=== PATIENT | male | born 1935 | race Caucasian/White ===

== ENCOUNTER → 2016-08-23 | Outpatient (CLI) | payer OTHER, MEDICARE ==
[~2016-08-23] MED LIST: ADVIN25/60 INH; ASPEC81 PO; CLC100 PO; CMD3 PO; CRD4 PO; DILT120T3 PO; ESCI10TA17 PO; FLV1 PO; FURO40TA3 PO; LVQ750 PO; METH2.5T PO; METO25TA56 PO; OMEP40CA41 PO; POTA20TA13 PO; PRED-301 PO; SIMV20TA2 PO
[2016-08-23 13:20] LABS: ALT/SGPT 17 U/L (12-78); AST/SGOT 9 U/L (15-37); BLOOD UREA NITROGEN 17 mg/dl (7-18); BUN/CREATININE RATIO 14.4 (10-20); CALCIUM 8.3 mg/dl (8.5-10.1); CARBON DIOXIDE 24 mmol/L (21-32); CHLORIDE 106 mmol/L (98-107); CHOLESTEROL 150 mg/dl (0-200); GLUCOSE 101 mg/dl (70-99); POTASSIUM 3.9 mmol/L (3.5-5.1); SODIUM 141 mmol/L (136-145)
[2016-08-23 13:31] LABS: ALB/GLOB RATIO 1.3 (0.9-2); ALKALINE PHOSPHATASE 83 U/L (45-117); HDL CHOLESTEROL 74 mg/dl; LDL CHOLESTEROL CALCULATED 63 mg/dl; TRIGLYCERIDES 64 mg/dl (0-150); VERY LOW DENSITY LIPOPROT CALC 13 mg/dl
== END | disposition home or self-care (01) ==
LOC: C.LABPVFM 07:30
PROVIDERS: ATTEND Family Medicine
DX: I10 Essential (primary) hypertension (principal); F32.9 Major depressive disorder, single episode, unspecified; E78.5 Hyperlipidemia, unspecified; J45.909 Unspecified asthma, uncomplicated

== ENCOUNTER → 2017-01-28 | Outpatient (CLI) | payer OTHER, MEDICARE ==
[2017-01-28 12:57] LABS: ALT/SGPT 16 U/L (12-78); AST/SGOT 11 U/L (15-37); BLOOD UREA NITROGEN 14 mg/dl (7-18); BUN/CREATININE RATIO 14.7 (10-20); CALCIUM 8.3 mg/dl (8.5-10.1); CARBON DIOXIDE 28 mmol/L (21-32); CHLORIDE 109 mmol/L (98-107); CREATININE 0.93 mg/dl (0.60-1.40); GLUCOSE 96 mg/dl (70-99); POTASSIUM 4.5 mmol/L (3.5-5.1); SODIUM 141 mmol/L (136-145)
[2017-01-28 12:59] LABS: ALB/GLOB RATIO 1.4 (0.9-2); ALKALINE PHOSPHATASE 82 U/L (45-117); CHOLESTEROL 138 mg/dl (0-200); CHOLESTEROL/HDL RATIO 1.9; HDL CHOLESTEROL 71 mg/dl; LDL CHOLESTEROL CALCULATED 51 mg/dl; TRIGLYCERIDES 79 mg/dl (0-150); VERY LOW DENSITY LIPOPROT CALC 16 mg/dl
[2017-01-28 13:19] LABS: ESTIMATED AVERAGE GLUCOSE 117 mg/dl; HA1C FLAG Normal (Normal)
== END | disposition home or self-care (01) ==
LOC: C.LABPVFM 09:37
PROVIDERS: ATTEND Family Medicine
DX: I10 Essential (primary) hypertension (principal); E78.5 Hyperlipidemia, unspecified; R73.9 Hyperglycemia, unspecified; E55.9 Vitamin D deficiency, unspecified

== ENCOUNTER → 2017-05-06 | Outpatient (CLI) | payer OTHER, MEDICARE ==
[2017-05-06 13:23] LABS: ALT/SGPT 16 U/L (12-78); AST/SGOT 11 U/L (15-37); BLOOD UREA NITROGEN 19 mg/dl (7-18); BUN/CREATININE RATIO 20.1 (10-20); CALCIUM 8.2 mg/dl (8.5-10.1); CARBON DIOXIDE 24 mmol/L (21-32); CHLORIDE 105 mmol/L (98-107); CREATININE 0.97 mg/dl (0.60-1.40); GLUCOSE 95 mg/dl (70-99); POTASSIUM 4.1 mmol/L (3.5-5.1); SODIUM 136 mmol/L (136-145)
[2017-05-06 13:31] LABS: ALB/GLOB RATIO 1.3 (0.9-2); ALKALINE PHOSPHATASE 83 U/L (45-117)
--- NOTE | 2017-05-13 12:08 | CODING QUERY MEDICAL NECESSITY ---
SUPPORTING DIAGNOSIS NEEDED Dr. Leo, A supporting diagnosis is required for the test/procedure performed on this patient in order for us to be reimbursed by the patient's insurance. Please provide a supporting diagnosis for the following test/procedure listed below next to the test name along with your signature. *If there is no additional diagnosis for this patient that would support the following test/procedure please document that below next to the test/procedure. Test(s)/Procedure(s) that require a supporting diagnosis: * ([id number]) VITAMIN D ASSAY DIAGNOSIS: DATE OF SERVICE: 05/06/17 Provider Signature: Date: Thank you Brock Corbett [facility] Information Management Once completed, please kindly fax back to [phone] For questions please call [phone]
== END | disposition home or self-care (01) ==
LOC: C.LABPVFM 09:05
PROVIDERS: ATTEND Family Medicine
DX: R94.6 Abnormal results of thyroid function studies (principal); R73.9 Hyperglycemia, unspecified; E55.9 Vitamin D deficiency, unspecified

== ENCOUNTER 2018-07-17 21:45 | Inpatient (IN) ==
--- NOTE | 2018-07-17 22:02 | Emergency Department Note ---
Entered by Devora Jones acting as a scribe for Chip Carreon DO History of Present Illness General Chief complaint: Weakness Stated complaint: STROKE SX Source: patient and family Mode of arrival: EMS Limitations: no limitations History of Present Illness Provider complaint: weakness Onset (ago): hour(s) 1 Location: head Severity: moderate Pain Consistency: + constant Associated symptoms: + denies other symptoms Treatments prior to arrival: none Patient is an 82 year old male presenting to the ED with weakness beginning about x1 hour ago. Family member shares that patient was sitting in his chair w hen he started screaming for help and complaining of headache. They note patient is complaining of sore throat, but did not notice any slurred speech. Per EMS, patient began to have nausea and dizziness associated with headache. Sx are moderate in severity and constant since onset. EMS reports patient is unsure how he obtained his black eye. Patient has hx of afib and stroke. 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 Daughter shares that patient was recently had medication changes x4 days ago. He is taking Coumadin every other day. HPI limited due to patient's weakness and possible stroke. Home Medications Home Medications Medication Instructions Recorded Confirmed Type triamterene-hydrochlorothiazid 25 mg PO DAILY 06/16/18 07/18/18 History [Maxzide-25mg] albuterol sulfate [ProAir HFA] 1 - 2 puff INHALATION Q4 PRN 07/17/18 07/17/18 History aspirin [Aspir-81] 81 mg PO DAILY 07/17/18 07/17/18 History cyanocobalamin (vitamin B-12) 1,000 mcg PO DAILY 07/17/18 07/17/18 History [Vitamin B-12] docusate sodium [Colace] 100 mg PO BID 07/17/18 07/17/18 History doxazosin 4 mg PO BID 07/17/18 07/17/18 History ergocalciferol (vitamin D2) 50,000 unit PO WK 07/17/18 07/17/18 History [Vitamin D2] escitalopram oxalate 10 mg PO DAILY 07/17/18 07/17/18 History fluticasone-salmeterol [Advair 1 inh INHALATION BID 07/17/18 07/17/18 History Diskus] folic acid 1 mg PO DAILY 07/17/18 07/17/18 History furosemide [Lasix] 40 mg PO DAILY PRN 07/17/18 07/17/18 History methotrexate sodium 10 mg PO WK 07/17/18 07/17/18 History mupirocin 1 applic TOPICAL BID 07/17/18 07/17/18 History omeprazole 40 mg PO DAILY 07/17/18 07/17/18 History potassium chloride 20 meq PO DAILY PRN 07/17/18 07/17/18 History prednisone 5 mg PO DAILY 07/17/18 07/17/18 History simvastatin 20 mg PO PM 07/17/18 07/17/18 History tramadol 50 mg PO HS PRN 07/17/18 07/17/18 History triamcinolone acetonide 1 applic TOPICAL BID PRN 07/17/18 07/17/18 History warfarin 3 mg PO DAILY 07/17/18 07/17/18 History Allergies Allergy/AdvReac Type Severity Reaction Status Date / Time hydrocodone AdvReac Severe EXCESSIVE Verified 07/17/18 22:32 DRY MOUTH AND SHAKING Past Med/Surg History Medical History Family history non-contributory CVA (cerebral vascular accident) (Resolved) Family History Other Family history non-contributory Social History Preferred Language: Monegasque Communication Ability: Effective Flamer Sealer Required: No Beliefs That Will Affect Care: None Current Living Situation: Spouse and Family Feels Safe at Home: Yes Safety Concerns: Feels Safe At This Time Smoking Status: Never smoker Hx Alcohol Use: No Hx Substance Use: No Review of Systems See HPI for pertinent positives & negatives. and A total of 10 systems reviewed and were otherwise negative Physical Exam Vital Signs Vital Signs - 24 hr 07/17/18 22:00 07/17/18 22:50 07/17/18 23:05 Temperature 36.5 C Temperature Source Oral Sepsis Recent Fever Within 48 Hours No Sepsis New/Unexplained Change in Mental Status No Sepsis Action Taken by Nursing No Action Required Pulse Rate 109 H 59 L 62 Pulse Rate [Apical] 58 L Pulse Rhythm [Apical] Pulse Strength [Apical] Respiratory Rate 20 19 29 H Respiratory Effort / Characteristics Non-Labored Spontaneous Respiratory Depth Normal Respiratory Pattern Blood Pressure 197/91 H 152/65 H 141/58 H Blood Pressure [Right Arm] 152/65 H Blood Pressure Mean 126 94 85 Blood Pressure Mean [Right Arm] 94 Blood Pressure Position [Right Arm] Pulse Oximetry 94 92 90 Oxygen Delivery Method Room Air Room Air Room Air Oxygen Flow Rate 07/17/18 23:30 07/18/18 00:24 07/18/18 00:27 Temperature Temperature Source Sepsis Recent Fever Within 48 Hours Sepsis New/Unexplained Change in Mental Status Sepsis Action Taken by Nursing Pulse Rate 58 L Pulse Rate [Apical] 73 Pulse Rhythm [Apical] Pulse Strength [Apical] Respiratory Rate 22 20 Respiratory Effort / Characteristics Respiratory Depth Respiratory Pattern Blood Pressure 158/65 H Blood Pressure [Right Arm] 160/74 H Blood Pressure Mean 96 Blood Pressure Mean [Right Arm] 102 Blood Pressure Position [Right Arm] Pulse Oximetry 89 L 90 Oxygen Delivery Method Nasal Cannula Room Air Nasal Cannula Oxygen Flow Rate 07/18/18 00:30 07/18/18 01:01 07/18/18 01:31 Temperature Temperature Source Sepsis Recent Fever Within 48 Hours Sepsis New/Unexplained Change in Mental Status Sepsis Action Taken by Nursing Pulse Rate 62 70 69 Pulse Rate [Apical] Pulse Rhythm [Apical] Pulse Strength [Apical] Respiratory Rate 20 22 18 Respiratory Effort / Characteristics Respiratory Depth Respiratory Pattern Blood Pressure 180/67 H 163/80 H 152/60 H Blood Pressure [Right Arm] Blood Pressure Mean 104 107 90 Blood Pressure Mean [Right Arm] Blood Pressure Position [Right Arm] Pulse Oximetry 98 97 98 Oxygen Delivery Method Nasal Cannula Nasal Cannula Nasal Cannula Oxygen Flow Rate 3 3 3 07/18/18 01:32 07/18/18 02:26 07/18/18 03:00 Temperature 36.9 C Temperature Source Oral Sepsis Recent Fever Within 48 Hours Sepsis New/Unexplained Change in Mental Status Sepsis Action Taken by Nursing Pulse Rate 69 Pulse Rate [Apical] 81 Pulse Rhythm [Apical] Regular Pulse Strength [Apical] Normal Respiratory Rate 16 Respiratory Effort / Characteristics Non-Labored Spontaneous Non-Labored Spontaneous Respiratory Depth Normal Normal Respiratory Pattern Regular Regular Blood Pressure Blood Pressure [Right Arm] 166/69 H Blood Pressure Mean Blood Pressure Mean [Right Arm] 101 Blood Pressure Position [Right Arm] Lying Pulse Oximetry 96 Oxygen Delivery Method Nasal Cannula Nasal Cannula Oxygen Flow Rate 2 2 07/18/18 07:09 07/18/18 08:00 07/18/18 12:58 Temperature 36.7 C 37.0 C Temperature Source Oral Oral Sepsis Recent Fever Within 48 Hours Sepsis New/Unexplained Change in Mental Status Sepsis Action Taken by Nursing Pulse Rate 62 Pulse Rate [Apical] 753 H 56 L Pulse Rhythm [Apical] Pulse Strength [Apical] Respiratory Rate 18 14 Respiratory Effort / Characteristics Non-Labored Spontaneous SOB on Exertion Respiratory Depth Normal Respiratory Pattern Regular Blood Pressure Blood Pressure [Right Arm] 151/77 H 116/56 L Blood Pressure Mean Blood Pressure Mean [Right Arm] 101 76 Blood Pressure Position [Right Arm] Lying Lying Pulse Oximetry 98 98 Oxygen Delivery Method Nasal Cannula Nasal Cannula Nasal Cannula Oxygen Flow Rate 2.0 2 2.0 07/18/18 15:33 07/18/18 17:42 Temperature 36.9 C Temperature Source Oral Sepsis Recent Fever Within 48 Hours Sepsis New/Unexplained Change in Mental Status Sepsis Action Taken by Nursing Pulse Rate 63 Pulse Rate [Apical] 60 Pulse Rhythm [Apical] Pulse Strength [Apical] Respiratory Rate 16 Respiratory Effort / Characteristics Respiratory Depth Respiratory Pattern Blood Pressure Blood Pressure [Right Arm] 119/67 Blood Pressure Mean Blood Pressure Mean [Right Arm] 84 Blood Pressure Position [Right Arm] Sitting Pulse Oximetry 92 Oxygen Delivery Method Room Air Oxygen Flow Rate GENERAL: Patient is awake and alert. He appears very anxious. EYES: The conjunctivae are clear. The pupils are round and reactive. There is significant periorbital ecchymosis on the left eye. There is also subconjunctival hemorrhage in the left eye. EARS, NOSE, MOUTH AND THROAT: The nose is without any evidence of any deformity. Mucous membranes are moist tongue is midline NECK: The neck is nontender and supple. RESPIRATORY: Shallow respirations were noted. There is diffuse rales noted. CARDIOVASCULAR: Irregular rhythm was noted to auscultation. No definite murmur was appreciated. GASTROINTESTINAL: The abdomen was mildly distended and diffusely tender. No guarding or rigidity was noted. MUSCULOSKELETAL/EXTREMITIES: There is no evidence of gross deformity full range of motion is noted in the hips and shoulders SKIN: There is no obvious evidence of any rash. Pedal edema was noted bilaterally. NEUROLOGIC: Patient is oriented x3. Strength was symmetric but diminished bilaterally. Course 2150: Past medical records reviewed. The patient was evaluated in room C04, and a complete history and physical examination were performed. 2334: Discussed patient case with Dr. Huitron, who accepts patient for admission. Administered Medications Aspirin (Ecotrin Ectab) 81 mg PO QAM [facility] Stop: 08/17/18 11:59 Last Admin: 07/18/18 12:30 Dose: 81 mg Documented by: [id number] Escitalopram Oxalate (Lexapro) 10 mg PO DAILY [facility] Stop: 08/17/18 14:29 Last Admin: 07/18/18 17:10 Dose: 10 mg Documented by: [id number] Promethazine HCl 12.5 mg/ (Sodium Chloride) 50.5 mls @ 202 mls/hr IV Q6H PRN PRN Reason: Nausea And Vomiting Stop: 08/17/18 07:45 Last Infusion: 07/18/18 09:04 Dose: 0 mls/hr Documented by: [id number] Admin: 07/18/18 08:49 Dose: 202 mls/hr Documented by: [id number] Ceftriaxone Sodium 1,000 mg/ (Dextrose) 50 mls @ 100 mls/hr IV Q24H [facility]; Protocol Stop: 07/28/18 08:59 Last Infusion: 07/18/18 11:32 Dose: 0 mls/hr Documented by: [id number] Admin: 07/18/18 11:02 Dose: 100 mls/hr Documented by: [id number] Hydrocortisone Sodium (Succinate 25 mg/ Syringe) 0.5 mls @ 4 mls/min IV Q8H [facility] Stop: 08/17/18 08:59 Last Admin: 07/18/18 17:12 Dose: 4 mls/min Documented by: [id number] Admin: 07/18/18 12:14 Dose: 4 mls/min Documented by: [id number] Heparin Sodium/Dextrose (Heparin Sodium/Dextrose) 25,000 units in 500 mls @ 26 mls/hr IV .[id number] [facility]; Protocol Stop: 08/17/18 08:44 Last Admin: 07/18/18 09:00 Dose: 26 mls/hr Documented by: [id number] Cosigned by: [id number] Sodium Chloride (Nss 1000ml) 1,000 mls @ 125 mls/hr IV .Q8H [facility] Stop: 08/17/18 14:29 Last Admin: 07/18/18 14:57 Dose: 125 mls/hr Documented by: [id number] Prednisone (Prednisone) 5 mg PO DAILY [facility] Stop: 08/17/18 14:29 Last Admin: 07/18/18 17:32 Dose: 5 mg Documented by: [id number] Fluticasone/Salmeterol (Advair Diskus 250/50) 1 puffs INH BID [facility] Stop: 08/17/18 08:59 Last Admin: 07/18/18 12:14 Dose: 1 puffs Documented by: [id number] Warfarin Sodium (Coumadin) 3 mg PO DAILY@1600 [facility] Stop: 08/17/18 15:59 Last Admin: 07/18/18 17:11 Dose: 3 mg Documented by: [id number] Discontinued Medications Aspirin (Aspirin) 324 mg PO NOW STA Stop: 07/17/18 23:35 Last Admin: 07/18/18 01:42 Dose: 324 mg Documented by: [id number] Aspirin (Aspirin) 300 mg [place] DAILY [facility] Stop: 08/17/18 08:59 Last Admin: 07/18/18 12:13 Dose: Not Given Documented by: [id number] Heparin Sodium/Dextrose () 1 ea IV ONE ONE; Protocol Stop: 07/18/18 08:31 Last Admin: 07/18/18 09:43 Dose: Not Given Documented by: [id number] Promethazine HCl 6.25 mg/ (Sodium Chloride) 50.25 mls @ 201 mls/hr IV NOW STA Stop: 07/17/18 23:33 Last Infusion: 07/18/18 00:38 Dose: 0 mls/hr Documented by: [id number] Admin: 07/18/18 00:18 Dose: 201 mls/hr Documented by: [id number] Pantoprazole Sodium 40 mg/ (Dextrose) 100 mls @ 20 mls/hr IV Q5H [facility] Stop: 08/17/18 01:13 Last Infusion: 07/18/18 03:12 Dose: 0 mls/hr Documented by: [id number] Admin: 07/18/18 02:19 Dose: 20 mls/hr Documented by: [id number] Pantoprazole Sodium 80 mg/ (Dextrose) 120 mls @ 400 mls/hr IV NOW ONE Stop: 07/18/18 01:31 Last Infusion: 07/18/18 02:34 Dose: 0 mls/hr Documented by: [id number] Admin: 07/18/18 01:42 Dose: 400 mls/hr Documented by: [id number] Pantoprazole Sodium 40 mg/ (Syringe) 10 mls @ 5 mls/min IV DAILY@1100 [facility] Stop: 08/17/18 10:59 Last Admin: 07/18/18 12:15 Dose: 5 mls/min Documented by: [id number] Acetaminophen (Ofirmev) 1,000 mg in 100 mls @ 400 mls/hr IV Q8H PRN PRN Reason: Pain Stop: 08/17/18 07:47 Last Infusion: 07/18/18 09:04 Dose: 0 mls/hr Documented by: [id number] Admin: 07/18/18 08:49 Dose: 400 mls/hr Documented by: [id number] Ioversol (Optiray 320 125ml) 125 ml IV ONCE PRN PRN Reason: Interaction Checking Stop: 07/22/18 00:19 Last Admin: 07/18/18 00:21 Dose: 119 ml Documented by: [id number] Ondansetron HCl (Zofran) 4 mg IV NOW STA Stop: 07/17/18 21:56 Last Admin: 07/17/18 22:02 Dose: 4 mg Documented by: [id number] Medical Decision Making Differential Diagnosis Differential diagnosis: Etiologies such as metabolic, infection, hypo/hyperglycemia, electrolyte abnormalities, cardiac sources, intracerebral event, toxicologic, neurologic, as well as others were entertained. Medical Records Attestation: I reviewed the patient's medical records. Home Medications Current Medication List: was personally reviewed by me Laboratory Data Attestation: I reviewed the patient's lab results. Result diagrams: 07/18/18 05:25 07/18/18 05:25 Lab Results 07/17/18 07/17/18 07/17/18 Range/Units 21:32 21:32 21:32 WBC 6.93 (4.8-10.8) K/uL RBC 4.13 L (4.7-6.1) M/uL Hgb 12.8 L (14.0-18.0) g/dL Hct 40.3 L (42-52) % MCV 97.6 (80-100) fL MCH 31.0 (25-34) pg MCHC 31.8 L (32-36) g/dL RDW Std Deviation 59.6 H (36.4-46.3) fL RDW Coeff of Magali 16.8 H (11.5-14.5) % Plt Count 122 L (130-400) K/uL MPV 10.7 H (7.4-10.4) fL Immature Gran % (Auto) 2.2 % Neut % (Auto) 79.0 % Lymph % (Auto) 11.7 % [place] % (Auto) 5.1 % Eos % (Auto) 1.7 % Baso % (Auto) 0.3 % Immature Gran # (Auto) 0.15 H (0.00-0.02) K/uL Neut # (Auto) 5.48 (1.4-6.5) K/uL Lymph # (Auto) 0.81 L (1.2-3.4) K/uL [place] # (Auto) 0.35 (0.11-0.59) K/uL Eos # (Auto) 0.12 (0-0.5) K/uL Baso # (Auto) 0.02 (0-0.2) K/uL PT 13.7 H (9.0-12.0) Seconds INR 1.4 H (0.9-1.1) APTT (21.0-31.0) Seconds PTT Ratio Sodium 137 (136-145) mmol/L Potassium 3.8 (3.5-5.1) mmol/L Chloride 101 (98-107) mmol/L Carbon Dioxide 26 (21-32) mmol/L Anion Gap 10.0 (3-11) BUN 18 (7-18) mg/dl Creatinine 1.01 (0.6-1.4) mg/dl Est Cr Clr Drug Dosing 58.4 ml/min Est GFR ( Amer) 80.5 Est GFR (Non-Af Amer) 69.4 BUN/Creatinine Ratio 17.4 (10-20) Glucose 107 H (70-99) mg/dl Estimat Average Glucose mg/dl Hemoglobin A1c (4.5-5.6) % Calcium 8.9 (8.5-10.1) mg/dl Magnesium 2.1 (1.8-2.4) mg/dl Total Bilirubin 1.0 (0.2-1) mg/dl AST 20 (15-37) U/L ALT 19 (12-78) U/L Alkaline Phosphatase 82 (45-117) U/L Troponin I < 0.015 (0-0.045) ng/ml Total Protein 6.7 (6.4-8.2) gm/dl Albumin 4.1 (3.4-5.0) gm/dl Globulin 2.6 (2.5-4.0) gm/dl Albumin/Globulin Ratio 1.6 (0.9-2) Triglycerides (0-150) mg/dl Cholesterol (0-200) mg/dl LDL Cholesterol, Calc mg/dl VLDL Cholesterol, Calc mg/dl HDL Cholesterol mg/dl Cholesterol/HDL Ratio TSH 6.220 H (0.300-4.500) uIu/ml Free T4 0.98 (0.8-1.6) ng/dl Urine Color Urine Appearance (Clear) Urine pH (4.5-7.5) Ur Specific [place] (1.000-1.030) Urine Protein (Negative) Urine Glucose (UA) (Negative) Urine Ketones (Negative) Urine Blood (Negative) Urine Nitrite (Negative) Urine Bilirubin (Negative) Urine Urobilinogen (Negative) Ur Leukocyte Esterase (Negative) Urine WBC (Auto) (0-5) /hpf Urine RBC (Auto) (0-4) /hpf U Hyaline Cast (Auto) (0-5) /lpf U Epithel Cells (Auto) (0-5) /lpf Urine Bacteria (Auto) (Negative) Urine Yeast 07/18/18 07/18/18 07/18/18 Range/Units 03:00 05:25 05:25 WBC 9.49 (4.8-10.8) K/uL RBC 3.68 L (4.7-6.1) M/uL Hgb 11.2 L (14.0-18.0) g/dL Hct 36.0 L (42-52) % MCV 97.8 (80-100) fL MCH 30.4 (25-34) pg MCHC 31.1 L (32-36) g/dL RDW Std Deviation 60.6 H (36.4-46.3) fL RDW Coeff of Magali 17.1 H (11.5-14.5) % Plt Count 114 L (130-400) K/uL MPV 10.5 H (7.4-10.4) fL Immature Gran % (Auto) 0.9 % Neut % (Auto) 87.9 % Lymph % (Auto) 7.4 % Carson % (Auto) 3.2 % Eos % (Auto) 0.5 % Baso % (Auto) 0.1 % Immature Gran # (Auto) 0.09 H (0.00-0.02) K/uL Neut # (Auto) 8.34 H (1.4-6.5) K/uL Lymph # (Auto) 0.70 L (1.2-3.4) K/uL [place] # (Auto) 0.30 (0.11-0.59) K/uL Eos # (Auto) 0.05 (0-0.5) K/uL Baso # (Auto) 0.01 (0-0.2) K/uL PT (9.0-12.0) Seconds INR (0.9-1.1) APTT (21.0-31.0) Seconds PTT Ratio Sodium (136-145) mmol/L Potassium (3.5-5.1) mmol/L Chloride (98-107) mmol/L Carbon Dioxide (21-32) mmol/L Anion Gap (3-11) BUN (7-18) mg/dl Creatinine (0.6-1.4) mg/dl Est Cr Clr Drug Dosing ml/min Est GFR ( Amer) Est GFR (Non-Af Amer) BUN/Creatinine Ratio (10-20) Glucose (70-99) mg/dl Estimat Average Glucose 105 mg/dl Hemoglobin A1c 5.3 (4.5-5.6) % Calcium (8.5-10.1) mg/dl Magnesium (1.8-2.4) mg/dl Total Bilirubin (0.2-1) mg/dl AST (15-37) U/L ALT (12-78) U/L Alkaline Phosphatase (45-117) U/L Troponin I (0-0.045) ng/ml Total Protein (6.4-8.2) gm/dl Albumin (3.4-5.0) gm/dl Globulin (2.5-4.0) gm/dl Albumin/Globulin Ratio (0.9-2) Triglycerides (0-150) mg/dl Cholesterol (0-200) mg/dl LDL Cholesterol, Calc mg/dl VLDL Cholesterol, Calc mg/dl HDL Cholesterol mg/dl Cholesterol/HDL Ratio TSH (0.300-4.500) uIu/ml Free T4 (0.8-1.6) ng/dl Urine Color Yellow Urine Appearance Clear (Clear) Urine pH 5.0 (4.5-7.5) Ur Specific [place] > 1.045 H (1.000-1.030) Urine Protein Negative (Negative) Urine Glucose (UA) Negative (Negative) Urine Ketones Negative (Negative) Urine Blood Trace H (Negative) Urine Nitrite Negative (Negative) Urine Bilirubin Negative (Negative) Urine Urobilinogen Negative (Negative) Ur Leukocyte Esterase Negative (Negative) Urine WBC (Auto) 1-5 (0-5) /hpf Urine RBC (Auto) 0-4 (0-4) /hpf U Hyaline Cast (Auto) 1-5 (0-5) /lpf U Epithel Cells (Auto) 0-5 (0-5) /lpf Urine Bacteria (Auto) Negative (Negative) Urine Yeast Not Reportable 07/18/18 07/18/18 07/18/18 Range/Units 05:25 05:25 14:58 WBC (4.8-10.8) K/uL RBC (4.7-6.1) M/uL Hgb (14.0-18.0) g/dL Hct (42-52) % MCV (80-100) fL MCH (25-34) pg MCHC (32-36) g/dL RDW Std Deviation (36.4-46.3) fL RDW Coeff of Magali (11.5-14.5) % Plt Count (130-400) K/uL MPV (7.4-10.4) fL Immature Gran % (Auto) % Neut % (Auto) % Lymph % (Auto) % [place] % (Auto) % Eos % (Auto) % Baso % (Auto) % Immature Gran # (Auto) (0.00-0.02) K/uL Neut # (Auto) (1.4-6.5) K/uL Lymph # (Auto) (1.2-3.4) K/uL [place] # (Auto) (0.11-0.59) K/uL Eos # (Auto) (0-0.5) K/uL Baso # (Auto) (0-0.2) K/uL PT 14.0 H (9.0-12.0) Seconds INR 1.4 H (0.9-1.1) APTT 27.3 60.4 H* (21.0-31.0) Seconds PTT Ratio 1.0 2.2 Sodium 137 (136-145) mmol/L Potassium 4.0 (3.5-5.1) mmol/L Chloride 102 (98-107) mmol/L Carbon Dioxide 29 (21-32) mmol/L Anion Gap 7.0 (3-11) BUN 19 H (7-18) mg/dl Creatinine 0.98 (0.6-1.4) mg/dl Est Cr Clr Drug Dosing 59.3 ml/min Est GFR ( Amer) 83.5 Est GFR (Non-Af Amer) 72.0 BUN/Creatinine Ratio 18.9 (10-20) Glucose 107 H (70-99) mg/dl Estimat Average Glucose mg/dl Hemoglobin A1c (4.5-5.6) % Calcium 8.0 L (8.5-10.1) mg/dl Magnesium (1.8-2.4) mg/dl Total Bilirubin 1.1 H (0.2-1) mg/dl AST 20 (15-37) U/L ALT 18 (12-78) U/L Alkaline Phosphatase 70 (45-117) U/L Troponin I (0-0.045) ng/ml Total Protein 5.8 L (6.4-8.2) gm/dl Albumin 3.4 (3.4-5.0) gm/dl Globulin 2.4 L (2.5-4.0) gm/dl Albumin/Globulin Ratio 1.4 (0.9-2) Triglycerides 46 (0-150) mg/dl Cholesterol 115 (0-200) mg/dl LDL Cholesterol, Calc 43 mg/dl VLDL Cholesterol, Calc 9 mg/dl HDL Cholesterol 63 mg/dl Cholesterol/HDL Ratio 2 TSH (0.300-4.500) uIu/ml Free T4 (0.8-1.6) ng/dl Urine Color Urine Appearance (Clear) Urine pH (4.5-7.5) Ur Specific [place] (1.000-1.030) Urine Protein (Negative) Urine Glucose (UA) (Negative) Urine Ketones (Negative) Urine Blood (Negative) Urine Nitrite (Negative) Urine Bilirubin (Negative) Urine Urobilinogen (Negative) Ur Leukocyte Esterase (Negative) Urine WBC (Auto) (0-5) /hpf Urine RBC (Auto) (0-4) /hpf U Hyaline Cast (Auto) (0-5) /lpf U Epithel Cells (Auto) (0-5) /lpf Urine Bacteria (Auto) (Negative) Urine Yeast Imaging Data Radiologist's Impression: CT head/brain wo con CLINICAL HISTORY: 82 years-old Male presenting with weakness. TECHNIQUE: Multidetector CT imaging of the head was performed without the use of intravenous contrast. IV contrast: None. One or more dose lowering techniques were used consistent with the principles of ALARA (as low as reasonably achievable), including automatic exposure control, mA or kV adjustment to individual patient size, and/or use of iterative reconstruction. COMPARISON: 08/29/2015. CT DOSE (mGy.cm): The estimated cumulative dose is 1083.19. FINDINGS: Clinical Informatics Educator topogram: Median sternotomy wires and cardiomegaly. Proportional ventricular and sulcal prominence, likely age-related parenchymal volume loss. No hemorrhage. Suggestion of a limited old right cerebellar hemispheric infarct. Old left basal ganglia infarcts as on prior exam. Old lacunar infarct in the right imelda, unchanged. No acute territorial infarct. No mass effect or midline shift. No extra-axial fluid collection. Chronic changes of the opacified right maxillary sinus. Calvarium intact. IMPRESSION: 1. 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 2. Limited old infarct in the right cerebellar hemisphere. 3. No acute intracranial pathology. Electronically signed by: Norman Clayton M.D. 07/17/2018 10:34 PM XR chest 1V portable CLINICAL HISTORY: 82 years-old Male presenting with weakness. TECHNIQUE: Portable upright AP view of the chest was obtained. COMPARISON: 06/16/2018. FINDINGS: Median sternotomy wires and prosthetic aortic valve noted. Atherosclerosis of the aortic arch. Cardiac silhouette moderately enlarged. Pulmonary vascular p rominence and bronchial wall cuffing. Heterogeneity of lung parenchyma with coarsened lung markings. Perihilar and bibasilar added density. No large effusion or pneumothorax. Degenerative changes of the glenohumeral joints with right chronic rotator cuff tear. Osteopenia suspected. IMPRESSION: 1. Cardiomegaly with volume overload/congestive change. Developing pulmonary edema not excluded. 2. Post surgical changes of aortic valve replacement. Electronically signed by: Norman Clayton M.D. 07/17/2018 10:[address] cervical spine wo con CLINICAL HISTORY: 82 years-old Male presenting with ? fall. TECHNIQUE: Multidetector CT of the cervical spine was performed cervical spine IV contrast: None. One or more dose lowering techniques were used consistent with the principles of ALARA (as low as reasonably achievable), including automatic exposure control, mA or kV adjustment to individual patient size, and/or use of iterative reconstruction. COMPARISON: CT neck from 05/28/2011. CT DOSE (mGy.cm): The estimated cumulative dose is 1083.19 mGy.cm. FINDINGS: Clinical Informatics Educator topogram: Median sternotomy wires and cardiomegaly. Exaggerated cervical lordosis likely positional. Vertebral bodies maintain normal height. Slight anterolisthesis of C3 on C4 and C4 on C5. Vertebral body alignment otherwise maintained. Multilevel intervertebral disc height loss most severe at C5-6 and C6-7 there are disc osteophyte complexes noted to varying degrees at every level. Resulting posterior bony spurring greatest at C5-6 and C6-7. Uncovertebral hypertrophy and combination with facet arthropathy results in osseous neural foraminal narrowing most severe in the upper to mid cervical spine. No acute fracture or subluxation. Visualized portion of the skull base intact. Paraspinal musculature normal. Atherosclerosis noted. Lung apices clear. IMPRESSION: 1. No acute osseous injury of the cervical spine. 2. Multilevel degenerative changes. Electronically signed by: Norman Clayton M.D. 07/17/2018 10:[address] abd pelvis wo con CLINICAL HISTORY: 82 years-old Male presenting with distended, possible fall, back pain. TECHNIQUE: Multidetector CT of the abdomen and pelvis was performed without the use of intravenous contrast. IV contrast: None. One or more dose lowering techniques were used consistent with the principles of ALARA (as low as reaso nably achievable), including automatic exposure control, mA or kV adjustment to individual patient size, and/or use of iterative reconstruction. COMPARISON: 06/16/2018. CT DOSE (mGy.cm): The estimated cumulative dose is 895.11 mGy.cm. FINDINGS: Clinical Informatics Educator topogram: Median sternotomy wires. Motion artifact grades evaluation of the abdomen mildly limiting diagnostic sensitivity the exam. Lung bases: Multichamber enlargement of the heart. Coronary artery, aortic valve, and mitral annular calcification. No pericardial or pleural effusion. Bronchovascular bundle thickening with patchy dependent nodular opacities in the left lower lobe as on prior exam. Liver: Normal morphology. Normal density. Biliary: No gross biliary ductal dilatation allowing for noncontrast technique. Normal gallbladder. Pancreas: Moderate parenchymal atrophy. Spleen: Punctate calcifications within the parenchyma suggest a history of granulomatous disease. Adrenal glands: Normal noncontrast appearance. Kidneys and ureters: Normal noncontrast appearance. No nephrolithiasis. No hydronephrosis. Normal ureters. Bladder: Normal noncontrast appearance. Pelvic organs: Normal noncontrast appearance. Bowel: Diverticulosis of the proximal sigmoid and descending colon without wall thickening or pericolonic inflammatory change. No pathologic distention of the large bowel. The appendix is normal. No bowel obstruction. Small to moderate hiatal hernia. Peritoneal cavity: No free fluid or intraperitoneal gas. Lymph nodes: No gross lymphadenopathy allowing for noncontrast technique. Vasculature: Extensive calcified atherosclerotic plaque of the normal caliber abdominal aorta. Tortuosity of the iliac vessels. Abdominal wall: Fat and small bowel containing right inguinal hernia. No bowel obstruction. No fluid in the hernia sac. No infiltration of the small bowel mesentery or omentum. Nonspecific body wall edema. Musculoskeletal: Osteopenia. Degenerative changes of the lumbar spine. Old left rib fractures. No acute osseous injury. IMPRESSION: 1. Allowing for noncontrast technique, no convincing evidence of acute intra- abdominal injury. No acute osseous injury allowing for osteopenia and degenerative change. 2. Chronic findings as above. Electronically signed by: Norman Clayton M.D. 07/17/2018 10:30 PM CTA HEAD: No stenosis/occlusion or aeurysm of the intracranial vessels. Chronic right maxillary sinusitis. Radiologist: Miguelina Reed MD. Study ready at 00:20 and initial results transmitted at 00:52. CTA NECK: Prominent wall thickening is noted at the right carotid bifurication extending into the proximal ICA. There is approximately 25% luminal narrowing and mucosal irregularity involving the proximal right ICA without a dissection flap. Findings could be related to the previous surgery or vasculitis. Mild atherosclerotic plaque at the proximal left ICA. No stenosis/occlusion or dissection. No stenosis/occlusion or dissection of the bilateral vertebral arteries. Radiologist: Miguelina Reed MD Study ready at 00:21 and initial results transmitted at 00:58 ECG Data Attestation: I personally reviewed and interpreted this ECG as follows: Indication: weakness Rate (beats per minute): 83 Rhythm: atrial fibrillation Findings: + PVC and + RBBB Comparison ECG Date: from (06/16/18) Change: no significant change Blood Pressure Blood Pressure Findings: Elevated blood pressure Blood Pressure Disposition: further management by hospitalist MDM Narrative The patient is an 82-year-old male who presented to the emergency department with nausea and vomiting. The patient had the appearance of vertigo with a headache that was diffuse over the top of his head. The patient does take Coumadin but recently his medications have been changed because of an abnormal INR. The patient was treated with medications for vertigo in the emergency department. He had very little improvement in his symptoms. I discussed patient's laboratory and radiographic studies with him and his family members. Because of the degree of symptoms as well as the possibility of cerebellar infarct I discussed his case with the on-call [facility] hospitalist. They have recommended a CT angiography of the head neck. They have agreed to evaluate the patient in the emergency department for further management and disposition. Impression & Plan Vertigo, Cerebellar stroke Discharge Plan Visit Data *Final* Discharge Date/Time: 07/18/18 01:39 Chief Complaint: Weakness Stated Complaint: STROKE SX ED Provider: Chip Carreon Discharge Problem: Vertigo, Cerebellar stroke Patient Disposition: Admitted As Inpatient Discharge Instructions Interventions: ED Discharge Assessment Last Done: 07/18/18 01:39 The scribe's documentation has been prepared under my direction and personally reviewed by me in its entirety. I confirm that the note above accurately reflects all work, treatment, procedures, and medical decision making performed by me.
--- NOTE | 2018-07-17 22:15 | XRay Report ---
XR chest 1V portable CLINICAL HISTORY: 82 years-old Male presenting with weakness. TECHNIQUE: Portable upright AP view of the chest was obtained. COMPARISON: 06/16/2018. FINDINGS: Median sternotomy wires and prosthetic aortic valve noted. Atherosclerosis of the aortic arch. Cardia c silhouette moderately enlarged. Pulmonary vascular prominence and bronchial wall cuffing. Heterogen eity of lung parenchyma with coarsened lung markings. Perihilar and bibasilar added density. No large effusion or pneumothorax. Degenerative changes of the glenohumeral joints with right chronic rotator cuff tear. Osteopenia suspected. IMPRESSION: 1. Cardiomegaly with volume overload/congestive change. Developing pulmonary edema not excluded. 2. Post surgical changes of aortic valve replacement. Electronically signed by: Norman Clayton M.D. 07/17/2018 10:12 PM
--- NOTE | 2018-07-17 22:32 | CT Scan Report ---
CT abd pelvis wo con CLINICAL HISTORY: 82 years-old Male presenting with distended, possible fall, back pain. TECHNIQUE: Multidetector CT of the abdomen and pelvis was performed without the use of intravenous co ntrast. IV contrast: None. One or more dose lowering techniques were used consistent with the princip les of ALA (as low as reasonably achievable), including automatic exposure control, mA or kV adjust ment to individual patient size, and/or use of iterative reconstruction. COMPARISON: 06/16/2018. CT DOSE (mGy.cm): The estimated cumulative dose is 895.11 mGy.cm. FINDINGS: Cad Specialist topogram: Median sternotomy wires. Motion artifact grades evaluation of the abdomen mildly limiting diagnostic sensitivity the exam. Lung bases: Multichamber enlargement of the heart. Coronary artery, aortic valve, and mitral annular calcification. No pericardial or pleural effusion. Bronchovascular bundle thickening with patchy depe ndent nodular opacities in the left lower lobe as on prior exam. Liver: Normal morphology. Normal density. Biliary: No gross biliary ductal dilatation allowing for noncontrast technique. Normal gallbladder. Pancreas: Moderate parenchymal atrophy. Spleen: Punctate calcifications within the parenchyma suggest a history of granulomatous disease. Adrenal glands: Normal noncontrast appearance. Kidneys and ureters: Normal noncontrast appearance. No nephrolithiasis. No hydronephrosis. Normal ure ters. Bladder: Normal noncontrast appearance. Pelvic organs: Normal noncontrast appearance. Bowel: Diverticulosis of the proximal sigmoid and descending colon without wall thickening or pericol onic inflammatory change. No pathologic distention of the large bowel. The appendix is normal. No bow el obstruction. Small to moderate hiatal hernia. Peritoneal cavity: No free fluid or intraperitoneal gas. Lymph nodes: No gross lymphadenopathy allowing for noncontrast technique. Vasculature: Extensive calcified atherosclerotic plaque of the normal caliber abdominal aorta. Tortuo sity of the iliac vessels. Abdominal wall: Fat and small bowel containing right inguinal hernia. No bowel obstruction. No fluid in the hernia sac. No infiltration of the small bowel mesentery or omentum. Nonspecific body wall juan ramon ma. Musculoskeletal: Osteopenia. Degenerative changes of the lumbar spine. Old left rib fractures. No acu te osseous injury. IMPRESSION: 1. Allowing for noncontrast technique, no convincing evidence of acute intra-abdominal injury. No ac kenan osseous injury allowing for osteopenia and degenerative change. 2. Chronic findings as above. Electronically signed by: Norman Clayton M.D. 07/17/2018 10:30 PM
--- NOTE | 2018-07-17 22:36 | CT Scan Report ---
CT head/brain wo con CLINICAL HISTORY: 82 years-old Male presenting with weakness. TECHNIQUE: Multidetector CT imaging of the head was performed without the use of intravenous contrast . IV contrast: None. One or more dose lowering techniques were used consistent with the principles of ALARA (as low as reasonably achievable), including automatic exposure control, mA or kV adjustment t o individual patient size, and/or use of iterative reconstruction. COMPARISON: 08/29/2015. CT DOSE (mGy.cm): The estimated cumulative dose is 1083.19. FINDINGS: Web Editor topogram: Median sternotomy wires and cardiomegaly. Proportional ventricular and sulcal prominence, likely age-related parenchymal volume loss. No hemorr tom. Suggestion of a limited old right cerebellar hemispheric infarct. Old left basal ganglia infarc ts as on prior exam. Old lacunar infarct in the right imelda, unchanged. No acute territorial infarct. No mass effect or midline shift. No extra-axial fluid collection. Chronic changes of the opacified ri ght maxillary sinus. Calvarium intact. IMPRESSION: 1. 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 2. Limited old infarct in the right cerebellar hemisphere. 3. No acute intracranial pathology. Electronically signed by: Norman Clayton M.D. 07/17/2018 10:34 PM
--- NOTE | 2018-07-17 22:41 | CT Scan Report ---
CT cervical spine wo con CLINICAL HISTORY: 82 years-old Male presenting with ? fall. TECHNIQUE: Multidetector CT of the cervical spine was performed cervical spine IV contrast: None. One or more dose lowering techniques were used consistent with the principles of ALARA (as low as reason ably achievable), including automatic exposure control, mA or kV adjustment to individual patient siz e, and/or use of iterative reconstruction. COMPARISON: CT neck from 05/28/2011. CT DOSE (mGy.cm): The estimated cumulative dose is 1083.19 mGy.cm. FINDINGS: Mine Wedge Sawyer topogram: Median sternotomy wires and cardiomegaly. Exaggerated cervical lordosis likely positional. Vertebral bodies maintain normal height. Slight ante rolisthesis of C3 on C4 and C4 on C5. Vertebral body alignment otherwise maintained. Multilevel inter vertebral disc height loss most severe at C5-6 and C6-7 there are disc osteophyte complexes noted to varying degrees at every level. Resulting posterior bony spurring greatest at C5-6 and C6-7. Uncovert ebral hypertrophy and combination with facet arthropathy results in osseous neural foraminal narrowin g most severe in the upper to mid cervical spine. No acute fracture or subluxation. Visualized portio n of the skull base intact. Paraspinal musculature normal. Atherosclerosis noted. Lung apices clear. IMPRESSION: 1. No acute osseous injury of the cervical spine. 2. Multilevel degenerative changes. Electronically signed by: Norman Clayton M.D. 07/17/2018 10:40 PM
--- NOTE | 2018-07-18 01:17 | History & Physical Report ---
Date of Service July 18, 2018 Assessment & Plan (1) Vertigo: Intractable vertigo/ambulatory dysfunction/confusion/CT imaging revealing multiple old infarctions involving left basal ganglia and right imelda/limited old infarct in right cerebellar hemisphere-- Admit to monitored bed. NPO. Order CTA of head and neck for tonight. When patient's symptoms of vertigo, nausea and vomiting are controlled, will attempt MRI of the brain without contrast at that time. Failed dysphagia screen in the ED. Aspiration precautions. Ischemic stroke protocol order set begun. Consult neurology. Present on Admission?: Yes (2) Basal ganglia infarction: As above. Present on Admission?: Yes (3) Cerebrovascular accident of right pontine structure: As above. Present on Admission?: Yes (4) Cerebral infarction involving right cerebellar artery: As above. Present on Admission?: Yes (5) Atrial fibrillation: History of atrial fibrillation, on chronic anticoagulation with warfarin. Warfarin has been held recently due to INR of 4.1, and left eye subconjunctival hemorrhage and periorbital ecchymosis of unknown cause. INR today 1.4. We will hold anticoagulation until MRI performed. Consult cardiology. Patient will likely need a bridge with either IV heparin or Lovenox until warfarin is therapeutic again. 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 Present on Admission?: Yes (6) Chronic anticoagulation: As noted above. Present on Admission?: Yes (7) Hyperlipidemia LDL goal <70: Patient has been on simvastatin 20 mg daily. Check a fasting lipid panel. Should be on high-dose statin. Present on Admission?: Yes (8) Vitamin B12 deficiency: Hold vitamin B12 supplement until taking p.o. Present on Admission?: Yes (9) Asthma: Order duo nebs to have available to use 4 times daily and every 2 hours as needed Present on Admission?: Yes (10) Depression: Resume Lexapro when taking p.o. Present on Admission?: Yes (11) Arthritis: On methotrexate, and folic acid in the outpatient setting. Resume folic acid when taking p.o. If a prolonged interval, can be given IV, as with vitamin B12 above. Present on Admission?: Yes (12) GERD (gastroesophageal reflux disease): Placed on pantoprazole 40 mg IV daily. Present on Admission?: Yes (13) Subconjunctival hemorrhage of left eye: Warfarin has been held due to subconjunctival hemorrhage and periorbital ecchymosis. Will need close monitoring when the anticoagulation resumed. Present on Admission?: Yes History of Present Illness Chief Complaint: The patient developed acute onset of a right frontal headache, sore throat and generalized weakness and confusion about 1 hour prior to arrival. His family member report that patient was sitting in a chair, and then began screaming for help and reported that he had a severe headache, after which he developed severe nausea and dizziness. Primary Care Provider: Angelica Leo MD The patient is an 82-year-old male with a past medical history including previous strokes, who presents to the emergency department with frequent nausea and vomiting, along with right frontal headache and vertigo. He has had vertiginous symptoms in the past related to GI issues, per family, however they feel that these symptoms are different and more concerned regarding the possibility of a stroke. He takes warfarin due to atrial fibrillation. His family reports that his INR was recently 4.1, and he had developed left eye conjunctival hemorrhages and external periorbital ecchymoses, and his warfarin had been held for 3 days. His INR today was found to be 1.4. From history relayed from family, the patient reportedly has had a stroke in the past, with resultant left-sided weakness. The patient himself has confusion, and is not able to contribute significantly to his HPI or review of systems. Allergies Allergy/AdvReac Type Severity Reaction Status Date / Time hydrocodone AdvReac Severe EXCESSIVE Verified 07/17/18 22:32 DRY MOUTH AND SHAKING Home Medications Home Medications Medication Instructions Recorded Confirmed Type triamterene-hydrochlorothiazid 0 mg PO DAILY 06/16/18 07/17/18 History [Maxzide-25mg] albuterol sulfate [ProAir HFA] 1 - 2 puff INHALATION Q4 PRN 07/17/18 07/17/18 History aspirin [Aspir-81] 81 mg PO DAILY 07/17/18 07/17/18 History cyanocobalamin (vitamin B-12) 1,000 mcg PO DAILY 07/17/18 07/17/18 History [Vitamin B-12] docusate sodium [Colace] 100 mg PO BID 07/17/18 07/17/18 History doxazosin 4 mg PO BID 07/17/18 07/17/18 History ergocalciferol (vitamin D2) 50,000 unit PO WK 07/17/18 07/17/18 History [Vitamin D2] escitalopram oxalate 10 mg PO DAILY 07/17/18 07/17/18 History fluticasone-salmeterol [Advair 1 inh INHALATION BID 07/17/18 07/17/18 History Diskus] folic acid 1 mg PO DAILY 07/17/18 07/17/18 History furosemide [Lasix] 40 mg PO DAILY PRN 07/17/18 07/17/18 History methotrexate sodium 10 mg PO WK 07/17/18 07/17/18 History mupirocin 1 applic TOPICAL BID 07/17/18 07/17/18 History omeprazole 40 mg PO DAILY 07/17/18 07/17/18 History potassium chloride 20 meq PO DAILY PRN 07/17/18 07/17/18 History prednisone 5 mg PO DAILY 07/17/18 07/17/18 History simvastatin 20 mg PO PM 07/17/18 07/17/18 History tramadol 50 mg PO HS PRN 07/17/18 07/17/18 History triamcinolone acetonide 1 applic TOPICAL BID PRN 07/17/18 07/17/18 History warfarin 3 mg PO DAILY 07/17/18 07/17/18 History Past Med/Surg History Medical History Family history non-contributory CVA (cerebral vascular accident) (Resolved) Family History Other Family history non-contributory Social History Preferred Language: Citizen Of [place] Communication Ability: Effective Material Expeditor Required: No Beliefs That Will Affect Care: None Current Living Situation: Spouse and Family Feels Safe at Home: Yes Safety Concerns: Feels Safe At This Time Smoking Status: Never smoker Hx Alcohol Use: No Hx Substance Use: No Review of Systems Review of systems is limited as noted above. Physical Exam Vital Signs (Past 24 Hours): Last Vital Signs Temp 36.5 C 07/17/18 22:00 Pulse 73 07/18/18 00:24 Resp 20 07/18/18 00:24 BP 160/74 H 07/18/18 00:24 Pulse Ox 90 07/18/18 00:24 Physical Exam: The patient is awake, somewhat lethargic, ecchymoses around left eye, lying in bed and in no acute distress. HEENT--difficult exam due to swelling and ecchymoses periorbitally left eye. Mucous membranes and oropharynx dry. Neck--supple. No JVD. No bruits. Thyroid normal, trachea midline, no adenopathy. Heart--irregularly irregular. No murmurs, rubs or gallops. Lungs--clear bilaterally, no respiratory distress, no accessory muscle use. Abdomen--normal bowel sounds and soft. Nontender. Nondistended, no hernias or masses, no organomegaly. Extremities--no cyanosis or clubbing. No edema. There are good distal pulses b/l. Dermatologic--as noted above. Neurologic--limited exam Rheumatologic--limited exam Psychiatric--limited exam. Results & Data Laboratory Results Laboratory Results WBC 6.93 K/uL (4.8-10.8) 07/17/18 21: RBC 4.13 M/uL (4.7-6.1) L 07/17/18 21:32 Hgb 12.8 g/dL (14.0-18.0) L 07/17/18 21:32 Hct 40.3 % (42-52) L 07/17/18 21: MCV 97.6 fL (80-100) 07/17/18 21: MCH 31.0 pg (25-34) 07/17/18 21: MCHC 31.8 g/dL (32-36) L 07/17/18 21:32 RDW Std Deviation 59.6 fL (36.4-46.3) H 07/17/18 21:32 RDW Coeff of Magali 16.8 % (11.5-14.5) H 07/17/18:32 Plt Count 122 K/uL (130-400) L 07/17/18: MPV 10.7 fL (7.4-10.4) H 07/17/18 21:32 Immature Gran % (Auto) 2.2 % 07/17/18: Neut % (Auto) 79.0 % 07/17/18: Lymph % (Auto) 11.7 % 03/04/19 21:32 Evans % (Auto) 5.1 % 07/17/18 21:32 Eos % (Auto) 1.7 % 07/17/18 21:32 Baso % (Auto) 0.3 % 07/17/18 21:32 Immature Gran # (Auto) 0.15 K/uL (0.00-0.02) H 07/17/18 21:32 Neut # (Auto) 5.48 K/uL (1.4-6.5) 07/17/18 21:32 Lymph # (Auto) 0.81 K/uL (1.2-3.4) L 07/17/18 21:32 Evans # (Auto) 0.35 K/uL (0.11-0.59) 07/17/18 21:32 Eos # (Auto) 0.12 K/uL (0-0.5) 07/17/18 21:32 Baso # (Auto) 0.02 K/uL (0-0.2) 07/17/18 21:32 PT 13.7 Seconds (9.0-12.0) H 07/17/18 21:32 INR 1.4 (0.9-1.1) H 07/17/18 21:32 Sodium 137 mmol/L (136-145) 07/17/18 21:32 Potassium 3.8 mmol/L (3.5-5.1) 07/17/18 21:32 Chloride 101 mmol/L (98-107) 07/17/18 21:32 Carbon Dioxide 26 mmol/L (21-32) 07/17/18 21:32 Anion Gap 10.0 (3-11) 07/17/18 21:32 BUN 18 mg/dl (7-18) 07/17/18 21:32 Creatinine 1.01 mg/dl (0.6-1.4) 07/17/18 21:32 Est Cr Clr Drug Dosing 58.4 ml/min 07/17/18 21:32 Est GFR ( Amer) 80.5 07/17/18 21:32 Est GFR (Non-Af Amer) 69.4 07/17/18 21:32 BUN/Creatinine Ratio 17.4 (10-20) 07/17/18 21:32 Glucose 107 mg/dl (70-99) H 07/17/18 21:32 Calcium 8.9 mg/dl (8.5-10.1) 07/17/18 21:32 Magnesium 2.1 mg/dl (1.8-2.4) 07/17/18 21:32 Total Bilirubin 1.0 mg/dl (0.2-1) 07/17/18 21:32 AST 20 U/L (15-37) 07/17/18 21:32 ALT 19 U/L (12-78) 07/17/18 21:32 Alkaline Phosphatase 82 U/L (45-117) 07/17/18 21:32 Troponin I < 0.015 ng/ml (0-0.045) 07/17/18 21:32 Total Protein 6.7 gm/dl (6.4-8.2) 07/17/18 21:32 Albumin 4.1 gm/dl (3.4-5.0) 07/17/18 21:32 Globulin 2.6 gm/dl (2.5-4.0) 07/17/18 21:32 Albumin/Globulin Ratio 1.6 (0.9-2) 07/17/18 21:32 TSH 6.220 uIu/ml (0.300-4.500) H 07/17/18 21:32 Free T4 0.98 ng/dl (0.8-1.6) 07/17/18 21:32 Urine Color Yellow 07/18/18 03:00 Urine Appearance Clear (Clear) 07/18/18 03:00 Urine pH 5.0 (4.5-7.5) 07/18/18 03:00 Ur Specific [place] > 1.045 (1.000-1.030) H 07/18/18 03:00 Urine Protein Negative (Negative) 07/18/18 03:00 Urine Glucose (UA) Negative (Negative) 07/18/18 03:00 Urine Ketones Negative (Negative) 07/18/18 03:00 Urine Blood Trace (Negative) H 07/18/18 03:00 Urine Nitrite Negative (Negative) 07/18/18 03:00 Urine Bilirubin Negative (Negative) 07/18/18 03:00 Urine Urobilinogen Negative (Negative) 07/18/18 03:00 Ur Leukocyte Esterase Negative (Negative) 07/18/18 03:00 Urine WBC (Auto) 1-5 /hpf (0-5) 07/18/18 03:00 U Hyaline Cast (Auto) 1-5 /lpf (0-5) 07/18/18 03:00 U Epithel Cells (Auto) 0-5 /lpf (0-5) 07/18/18 03:00 Urine Bacteria (Auto) Negative (Negative) 07/18/18 03:00 Diagnostic Findings [place], [place] [phone] CT Scan Report Patient: REENA BECKFORD EAdmit Date: 07/17/18 MR#: [id number]: [address] [facility] Acct ID:[id number]: Date: 1935[facility] Zip: [place] [address] Age: 82Location: ED Sex: M Room/Bed: Att Phy: Diagnosis: STROKE SX Yanely Phy: Angelica Leo MDService Date: 07/17/18 Fam Phy: Interpreting Phy: Norman Clayton MD Admit Phy: Ordering Phy: Chip Carreon DO cc: ~ CT abd pelvis wo con CLINICAL HISTORY: 82 years-old Male presenting with distended, possible fall, back pain. TECHNIQUE: Multidetector CT of the abdomen and pelvis was performed without the use of intravenous contrast. IV contrast: None. One or more dose lowering techniques were used consistent with the principles of ALARA (as low as reasonably achievable), including automatic exposure control, mA or kV adjustment to individual patient size, and/or use of iterative reconstruction. COMPARISON: 06/16/2018. CT DOSE (mGy.cm): The estimated cumulative dose is 895.11 mGy.cm. FINDINGS: Sweetbread Trimmer topogram: Median sternotomy wires. Motion artifact grades evaluation of the abdomen mildly limiting diagnostic sensitivity the exam. Lung bases: Multichamber enlargement of the heart. Coronary artery, aortic valve, and mitral annular calcification. No pericardial or pleural effusion. Bronchovascular bundle thickening with patchy dependent nodular opacities in the left lower lobe as on prior exam. Liver: Normal morphology. Normal density. Biliary: No gross biliary ductal dilatation allowing for noncontrast technique. Normal gallbladder. Pancreas: Moderate parenchymal atrophy. Spleen: Punctate calcifications within the parenchyma suggest a history of granulomatous disease. Adrenal glands: Normal noncontrast appearance. Kidneys and ureters: Normal noncontrast appearance. No nephrolithiasis. No hydronephrosis. Normal ureters. Bladder: Normal noncontrast appearance. Pelvic organs: Normal noncontrast appearance. Bowel: Diverticulosis of the proximal sigmoid and descending colon without wall thickening or pericolonic inflammatory change. No pathologic distention of the large bowel. The appendix is normal. No bowel obstruction. Small to moderate hiatal hernia. Peritoneal cavity: No free fluid or intraperitoneal gas. Lymph nodes: No gross lymphadenopathy allowing for noncontrast technique. Vasculature: Extensive calcified atherosclerotic plaque of the normal caliber abdominal aorta. Tortuosity of the iliac vessels. Abdominal wall: Fat and small bowel containing right inguinal hernia. No bowel obstruction. No fluid in the hernia sac. No infiltration of the small bowel mesentery or omentum. Nonspecific body wall edema. Musculoskeletal: Osteopenia. Degenerative changes of the lumbar spine. Old left rib fractures. No acute osseous injury. IMPRESSION: 1. Allowing for noncontrast technique, no convincing evidence of acute intra- abdominal injury. No acute osseous injury allowing for osteopenia and degenerative change. 2. Chronic findings as above. Electronically signed by: Norman Clayton M.D. 07/17/2018 10:30 PM Dictated: 07/17/182224 Transcribed: 07/17/182224 [place], [place] [phone] CT Scan Report Patient: REENA BECKFORD EAdmit Date: 07/17/18 MR#: [id number]: [address] [facility] Acct ID:[id number]: Date: 1935[facility] Zip: [place] [address] Age: 82Location: ED Sex: M Room/Bed: Att Phy: Diagnosis: STROKE SX Yanely Phy: Angelica Leo MDService Date: 07/17/18 Fam Phy: Angelica Leo MDInterpreting Phy: Norman Clayton MD Admit Phy: Ordering Phy: Chip Carreon DO cc: ~ CT head/brain wo con CLINICAL HISTORY: 82 years-old Male presenting with weakness. TECHNIQUE: Multidetector CT imaging of the head was performed without the use of intravenous contrast. IV contrast: None. One or more dose lowering techniques were used consistent with the principles of ALARA (as low as reasonably achievable), including automatic exposure control, mA or kV adjustment to individual patient size, and/or use of iterative reconstruction. COMPARISON: 08/29/2015. CT DOSE (mGy.cm): The estimated cumulative dose is 1083.19. FINDINGS: Sweetbread Trimmer topogram: Median sternotomy wires and cardiomegaly. Proportional ventricular and sulcal prominence, likely age-related parenchymal volume loss. No hemorrhage. Suggestion of a limited old right cerebellar hemispheric infarct. Old left basal ganglia infarcts as on prior exam. Old lacunar infarct in the right imelda, unchanged. No acute territorial infarct. No mass effect or midline shift. No extra-axial fluid collection. Chronic changes of the opacified right maxillary sinus. Calvarium intact. IMPRESSION: 1. 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 2. Limited old infarct in the right cerebellar hemisphere. 3. No acute intracranial pathology. Electronically signed by: Norman Clayton M.D. 07/17/2018 10:34 PM [place], [place] [phone] XRay Report Patient: REENA BECKFORD EAdmit Date: 07/17/18 MR#: [id number]: [address] [facility] Acct ID:[id number]: Date: 1935[facility] Zip: [place] [address] Age: 82Location: ED Sex: M Room/Bed: Att Phy: Diagnosis: STROKE SX Yanely Phy: Angelica Leo MDService Date: 07/17/18 Fam Phy: Interpreting Phy: Norman Clayton MD Admit Phy: Ordering Phy: Chip Carreon DO cc: ~ XR chest 1V portable CLINICAL HISTORY: 82 years-old Male presenting with weakness. TECHNIQUE: Portable upright AP view of the chest was obtained. COMPARISON: 06/16/2018. FINDINGS: Median sternotomy wires and prosthetic aortic valve noted. Atherosclerosis of the aortic arch. Cardiac silhouette moderately enlarged. Pulmonary vascular prominence and bronchial wall cuffing. Heterogeneity of lung parenchyma with coarsened lung markings. Perihilar and bibasilar added density. No large effusion or pneumothorax. Degenerative changes of the glenohumeral joints with right chronic rotator cuff tear. Osteopenia suspected. IMPRESSION: 1. Cardiomegaly with volume overload/congestive change. Developing pulmonary edema not excluded. 2. Post surgical changes of aortic valve replacement. Electronically signed by: Norman Clayton M.D. 07/17/2018 10:12 PM Dictated: 07/17/182210 Transcribed: 07/17/182210 [place], [place] [phone] CT Scan Report Patient: REENA BECKFORD EAdmit Date: 07/17/18 MR#: [id number]: [address] [facility] Acct ID:[id number]: Date: 1935[facility] Zip: [place] [address] Age: 82Location: ED Sex: M Room/Bed: Att Phy: Diagnosis: STROKE SX Yanely Phy: Angelica Leo MDService Date: 07/17/18 Fam Phy: Angelica Leo MDInterpreting Phy: Norman Clayton MD Admit Phy: Ordering Phy: Chip Carreon DO cc: ~ CT cervical spine wo con CLINICAL HISTORY: 82 years-old Male presenting with ? fall. TECHNIQUE: Multidetector CT of the cervical spine was performed cervical spine IV contrast: None. One or more dose lowering techniques were used consistent with the principles of ALARA (as low as reasonably achievable), including automatic exposure control, mA or kV adjustment to individual patient size, and/or use of iterative reconstruction. COMPARISON: CT neck from 05/28/2011. CT DOSE (mGy.cm): The estimated cumulative dose is 1083.19 mGy.cm. FINDINGS: Sweetbread Trimmer topogram: Median sternotomy wires and cardiomegaly. Exaggerated cervical lordosis likely positional. Vertebral bodies maintain normal height. Slight anterolisthesis of C3 on C4 and C4 on C5. Vertebral body alignment otherwise maintained. Multilevel intervertebral disc height loss most severe at C5-6 and C6-7 there are disc osteophyte complexes noted to varying degrees at every level. Resulting posterior bony spurring greatest at C5-6 and C6-7. Uncovertebral hypertrophy and combination with facet arthropathy results in osseous neural foraminal narrowing most severe in the upper to mid cervical spine. No acute fracture or subluxation. Visualized portion of the skull base intact. Paraspinal musculature normal. Atherosclerosis noted. Lung apices clear. IMPRESSION: 1. No acute osseous injury of the cervical spine. 2. Multilevel degenerative changes. Electronically signed by: Norman Clayton M.D. 07/17/2018 10:40 PM Dictated: 07/17/182233 Transcribed: 07/17/182233 Medications Administered Home Medications Medication Instructions Recorded Confirmed triamterene-hydrochlorothiazid 0 mg PO DAILY 06/16/18 07/17/18 [Maxzide-25mg] albuterol sulfate [ProAir HFA] 1 - 2 puff INHALATION Q4 PRN 07/17/18 07/17/18 aspirin [Aspir-81] 81 mg PO DAILY 07/17/18 07/17/18 cyanocobalamin (vitamin B-12) 1,000 mcg PO DAILY 07/17/18 07/17/18 [Vitamin B-12] docusate sodium [Colace] 100 mg PO BID 07/17/18 07/17/18 doxazosin 4 mg PO BID 07/17/18 07/17/18 ergocalciferol (vitamin D2) 50,000 unit PO WK 07/17/18 07/17/18 [Vitamin D2] escitalopram oxalate 10 mg PO DAILY 07/17/18 07/17/18 fluticasone-salmeterol [Advair 1 inh INHALATION BID 07/17/18 07/17/18 Diskus] folic acid 1 mg PO DAILY 07/17/18 07/17/18 furosemide [Lasix] 40 mg PO DAILY PRN 07/17/18 07/17/18 methotrexate sodium 10 mg PO WK 07/17/18 07/17/18 mupirocin 1 applic TOPICAL BID 07/17/18 07/17/18 omeprazole 40 mg PO DAILY 07/17/18 07/17/18 potassium chloride 20 meq PO DAILY PRN 07/17/18 07/17/18 prednisone 5 mg PO DAILY 07/17/18 07/17/18 simvastatin 20 mg PO PM 07/17/18 07/17/18 tramadol 50 mg PO HS PRN 07/17/18 07/17/18 triamcinolone acetonide 1 applic TOPICAL BID PRN 07/17/18 07/17/18 warfarin 3 mg PO DAILY 07/17/18 07/17/18 Code Status & VTE Plan Code Status Full code VTE Prophylaxis Plan VTE Prophylaxis will be ordered: Yes
--- NOTE | 2018-07-18 07:10 | CT Scan Report ---
HEAD CTA HISTORY: vertigo TECHNIQUE: Multiaxial CT images of the head were performed both following the intravenous administrat ion of contrast to evaluate the major cerebral vessels. Maximum intensity projection images were also obtained. A dose lowering technique was utilized adhering to the principles of ALARA. COMPARISON: Head CT 07/17/2018. FINDINGS: There is no mass, hematoma, midline shift, or acute infarct. Visualized intracranial recruiting intern al carotid arteries, distal vertebral arteries, and basilar artery are widely patent. There is no sig nificant stenosis, occlusion, or aneurysm seen within the bilateral ACAs, MCAs, or wire loop machine operator. Opacified ri ght maxillary sinus is again noted. Small focus of active sclerotic plaque within the distal right ce rvical internal carotid artery. This does not result significant stenosis. The major dural venous sin uses appear patent. IMPRESSION: No significant stenosis, occlusion, or aneurysm within the [place] of [place]. Electronically signed by: Adrian Espinal M.D. 07/18/2018 7:09 AM
--- NOTE | 2018-07-18 07:17 | CT Scan Report ---
CT angio neck with con CLINICAL HISTORY: 82 years-old Male with vertigo. Acute vertigo COMPARISON STUDY: CTA of the head of same day TECHNIQUE: Following the IV administration of 119 mL of Optiray 320, CT angiogram of the neck was per formed from the aortic arch to the skull base. Images are reviewed in the axial, sagittal, and duvall l planes. 3-D MIPS images are created and assessed. IV contrast was administered without complication . All measurements were calculated based on NASCET criteria. A dose lowering technique was utilized adhering to the principles of ALARA. FINDINGS: The opacified pulmonary arterial tree appears unremarkable. Moderate to severe mixed plaque formation about the thoracic aortic arch. There is patency about the imaged bilateral subclavian arteries. Tor tuosity about the common carotid arteries which are widely patent. Moderate mixed plaque formation ab out the bilateral common carotid arteries with moderate mostly atheromatous plaque about the right ca rotid bulb. This results in less than 50% luminal narrowing. Multifocal luminal irregularity about th e proximal cervical segment right ICA is likely secondary to underlying atheromatous plaque. Addition al atheromatous plaque involves the petrous segment right ICA on image 148 series 5. Moderate calcifi ed plaque about the cavernous, clinoid and supraclinoid right ICA without high-grade stenosis. Severe mixed plaque formation of the left carotid bulb causes less than 50% luminal narrowing. Tortuosity a bout the proximal and mid cervical segment left ICA. Moderate calcified plaque about the cavernous, c linoid and supraclinoid left ICA without high-grade stenosis. Calcified plaque at the origin of the left vertebral artery causes approximately 50% luminal narrowin g. Calcified plaque at the origin of the right vertebral artery is also noted, degree of stenosis dif ficult to quantify secondary to associated motion. Approximately 50% luminal narrowing is suspected. Vertebral arteries are codominant. Calcified plaque about the V4 segment right vertebral artery witho ut high-grade stenosis. Imaged basilar artery is patent. Lung apices appear generally clear. Soft tissues of the neck and upper chest are unremarkable. Prior median sternotomy. There is no adenopathy. Multilevel advanced degenerative changes of the cervical s pine. Periventricular calcifications are seen about the right shoulder. Completely opacified right ma xillary sinus with volume loss. Mild mucosal thickening of the left maxillary sinus. IMPRESSION: 1. No aneurysm, dissection, high-grade stenosis or proximal branch occlusion. 2. Extensive atherosclerotic vascular disease as above resulting in approximately 50% luminal narrowi ng about the origin of the bilateral vertebral arteries. 3. Mixed plaque formation about the bilateral carotid bulbs, left greater than right causes less than 50% luminal narrowing bilaterally. 4. Additional findings as above. The above report was generated using voice recognition software. It may contain grammatical, syntax o r spelling errors. Electronically signed by: Jeronimo Armendariz M.D. 07/18/2018 7:16 AM
--- NOTE | 2018-07-18 09:09 | Neurology Consultation ---
Date of Consultation July 18, 2018 Assessment & Plan (1) Stroke: Suspected acute stroke presenting with signs and symptoms localizing to the posterior circulation. Right cerebellar stroke clinically suspected. 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 Stroke etiology probably cardioembolic in light of patient's history of atrial fibrillation and subtherapeutic pro time upon presentation. Atherosclerotic disease of the carotid and vertebral arteries also noted. Patient will need a brain MRI to confirm the suspected acute stroke. Transthoracic echocardiogram with bubble study. Continue with warfarin, optimize INR. Agree with heparin drip. May continue with aspirin per rectum but would change to 81 mg daily p.o. when patient able to swallow. Should restart simvastatin when patient able to swallow. Continue to monitor blood pressure. Systolic blood pressure goal while in hospital 140-160 mmHg. Consultations with PT/OT/speech therapy. History of Present Illness Reason for Consultation: TIA versus stroke Requesting Physician: Dr. Huitron Attending Physician: Asia Kemp MD History of Present Illness The patient is an 82-year-old male who presents with acute onset slurred speech, nausea, dizziness, and headache that began about 1 hour prior to arrival last night. His symptoms have been persistent. He continues to complain of severe nausea. His daughter is present at bedside reports that he seems to have more difficulty controlling his right arm than usual. 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 Past medical history notable for atrial fibrillation with some recent difficulty keeping his pro time within the therapeutic range. His INR was 1.4 at the time of presentation. A CT of the head revealed several chronic appearing lacunar infarcts, one within the right anterior imelda, another within the left basal ganglia, and a potentially subacute appearing infarct within the inferior right cerebellar hemisphere per my assessment of the images. No evidence of hemorrhage. CT angiography of the neck revealed diffuse atherosclerotic plaque within the anterior and posterior circulation. No hemodynamically significant stenosis appreciated. The basilar artery is patent. CTA of the head unremarkable. Allergies Allergy/AdvReac Type Severity Reaction Status Date / Time hydrocodone AdvReac Severe EXCESSIVE Verified 07/17/18 22:32 DRY MOUTH AND SHAKING Home Medications Home Medications Medication Instructions Recorded Confirmed Type triamterene-hydrochlorothiazid 0 mg PO DAILY 06/16/18 07/17/18 History [Maxzide-25mg] albuterol sulfate [ProAir HFA] 1 - 2 puff INHALATION Q4 PRN 07/17/18 07/17/18 History aspirin [Aspir-81] 81 mg PO DAILY 07/17/18 07/17/18 History cyanocobalamin (vitamin B-12) 1,000 mcg PO DAILY 07/17/18 07/17/18 History [Vitamin B-12] docusate sodium [Colace] 100 mg PO BID 07/17/18 07/17/18 History doxazosin 4 mg PO BID 07/17/18 07/17/18 History ergocalciferol (vitamin D2) 50,000 unit PO WK 07/17/18 07/17/18 History [Vitamin D2] escitalopram oxalate 10 mg PO DAILY 07/17/18 07/17/18 History fluticasone-salmeterol [Advair 1 inh INHALATION BID 07/17/18 07/17/18 History Diskus] folic acid 1 mg PO DAILY 07/17/18 07/17/18 History furosemide [Lasix] 40 mg PO DAILY PRN 07/17/18 07/17/18 History methotrexate sodium 10 mg PO WK 07/17/18 07/17/18 History mupirocin 1 applic TOPICAL BID 07/17/18 07/17/18 History omeprazole 40 mg PO DAILY 07/17/18 07/17/18 History potassium chloride 20 meq PO DAILY PRN 07/17/18 07/17/18 History prednisone 5 mg PO DAILY 07/17/18 07/17/18 History simvastatin 20 mg PO PM 07/17/18 07/17/18 History tramadol 50 mg PO HS PRN 07/17/18 07/17/18 History triamcinolone acetonide 1 applic TOPICAL BID PRN 07/17/18 07/17/18 History warfarin 3 mg PO DAILY 07/17/18 07/17/18 History Patient History Medical History Family history non-contributory CVA (cerebral vascular accident) (Resolved) Family History Other Family history non-contributory Social History Preferred Language: Wallisian Communication Ability: Effective Direct Service Worker Required: No Beliefs That Will Affect Care: None Current Living Situation: Spouse and Family Feels Safe at Home: Yes Safety Concerns: Feels Safe At This Time Smoking Status: Never smoker Hx Alcohol Use: No Hx Substance Use: No Review of Systems Constitutional: + weakness; no fever Eyes: no blind spots and no diplopia Ear, Nose, Mouth, Throat: + dizziness; no ear pain Respiratory: no cough and no dyspnea Cardiovascular: no chest pain Gastrointestinal: + nausea and + vomiting Genitourinary (Male): no dysuria Musculoskeletal: no neck pain and no myalgia Integumentary: no rash and no lesions Neurologic: as per Subjective / HPI Psychiatric: no depression and no anxiety Hematologic / Lymphatic: no easy bleeding Physical Exam Vital Signs (Past 24 Hours): Last Vital Signs Temp 36.7 C 07/18/18 07:09 Pulse 753 H 07/18/18 07:09 Resp 18 07/18/18 07:09 BP 151/77 H 07/18/18 07:09 Pulse Ox 98 07/18/18 07:09 Physical Exam: The patient is a well-developed, well-nourished elderly male. He is alert and oriented to person and place only. Recent and remote memory intact. He is mildly inattentive. Concentration intact. Patient is able to name objects and repeat phrases. Speech is moderately dysarthric. Patient exhibits an age-appropriate fund of knowledge and normal vocabulary. Visual gruber full to confrontation. Visual acuity normal. Pupils equal round react to light and accommodation. Eye movements intact. There is no nystagmus. Facial sensation intact bilaterally. There is weakness of both upper and lower aspects of the left facial musculature. Patient is able to close the left eye. Hearing intact bilaterally. Palate elevates to midline. Shoulder shrug st rength intact. Tongue protrudes to midline. Sensation intact to all modalities in all 4 limbs. There is no crossed hemisensory deficit. Deep tendon reflexes are increased for the left arm and leg normoactive for the right. The left plantar response is upgoing. Right plantar response equivocal. There is dysdiadochokinesia for the right upper limb with notable intention tremor/past- pointing for the right hand with finger to nose. There is dysmetria with heel to smith on the right. Patient is unable to perform these maneuvers with the left arm and leg due to a significant hemiplegia (chronic). Ophthalmoscopic examination reveals normal-appearing optic disks and posterior segments. No papilledema or hemorrhages. Carotid pulses normal bilaterally, no bruits to auscultation. Gait and station cannot be tested. Patient has a significant left hemiplegia affecting the arm and leg, strength 1-2 out of 5 (chronic). Strength for the right arm and leg is normal although movements are dysmetric and ataxic appearing. Muscle tone normal throughout. No atrophy. There is a Charcot deformity of the left foot. There is intention tremor and past pointing with the right upper limb as noted above. No resting tremors or myoclonic jerking or other abnormal movements appreciated.
--- NOTE | 2018-07-18 09:40 | Cardiology Consultation ---
Date of Consultation July 18, 2018 Assessment & Plan (1) Atrial fibrillation: He has permanent atrial fibrillation, often times with bradycardia. He has been followed by Dr. Feng and has been asymptomatic in this regard. Would avoid rate-controlling medications. In regards to anticoagulation for stroke risk reduction, he has elevated chads Vasc score with prior strokes. If safe, without contraindication, would recommend continuation of heparin drip and can initiate Coumadin for goal INR 2.5-3.5. His most recent dosing of Coumadin was 1.5 mg every Tuesday, Tuesday, Tuesday, and Tuesday with 3 mg all other days however he has been only taking this schedule since 07/14/2018 as he had been supratherapeutic since 06/13/2018 on prior schedule. (2) Chronic anticoagulation: Plan as above. Will defer to hospitalist service in regards to timing of Coumadin initiation. (3) History of aortic valve replacement: He has what appears to be mild aortic regurgitation versus perivalvular leak. Otherwise, no significant stenosis of aortic valve replacement. Continue aspirin 81 mg daily. (4) Aortic regurgitation: Non severe. This can be followed as an outpatient over time with Dr. Feng. (5) PFO (patent foramen ovale): Likely PFO with right to left inter atrial shunt. The inter atrial septum was not well visualized and therefore cannot rule out ASD but he has likely had prior transesophageal echoes intraoperatively while undergoing aortic valve replacement. Would recommend continuation of anticoagulation for his other comorbidities as listed above. (6) Hypertension: Blood pressure elevated. Will defer treatment to primary service as there is concern for neurologic event. Avoid rate controlling medications. 7. Headache and nausea: As per primary service. Brain MRI is pending. 8. Disposition: Patient care discussed with Dr. Kemp of the primary hospitalist service. Please call with any other questions or concerns. Cardiology will sign off at this time. Thank you for allowing me to participate in the care of your patient. Please call for any other questions or concerns. Sincerely, José Miguel Zazueta M.D. History of Present Illness Reason for Consultation: Atrial fibrillation with chronic anticoagulation Requesting Physician: Dr. Huitron Attending Physician: Asia Kemp MD History of Present Illness Mr. Weaver is a pleasant 82 year old gentleman with a history significant for bioprosthetic aortic valve replacement, permanent atrial fibrillation on chronic anticoagulation therapy, prior stroke with left hemiparesis, hypertension, and dyslipidemia. His primary underground supervisor is Dr. Feng. On 07/11/2018 he presented to have his INR checked as an outpatient and his INR was 3.8. He was found to have a left eye subconjunctival hemorrhage and therefore warfarin was asked to be held for several days. He was instructed to eat foods high in vitamin K and to monitor his bleeding. On 07/14/2018 his INR was 1.5 and his Coumadin dose was adjusted to 1.5 mg every Tuesday, Tuesday, Tuesday, Tuesday and then 3 mg all other days. He presented acutely to [facility] yesterday. He was shaving and yelled for his son. His son found him slumped in a wheelchair. His speech had worsened. They call 911. He then became more dizzy, nauseated, and complained of a severe right-sided headache. Now he looks to the right, he has worsening dizziness and nausea. It felt as though he was following. His speech has worsened according to his daughter, Jaylyn, was present at the bedside. He has left-sided weakness from his prior stroke and now his daughter believes that his right extremities are weaker than baseline. Majority of the history was obtained by his daughter who was present at the bedside. He himself denies chest pain. He has occasional shortness of breath. He denies syncope, palpitations. He has chronic lower extremity edema, worse in his left leg. There is no reported fever. He continues to have headache on the right side as well as nausea. These are his 2 complaints during our discussion. For his left periorbital ecchymosis and subconjunctival hemorrhage, there was no obvious etiology. He apparently woke 1 morning with these findings when he had supratherapeutic INR. He underwent imagingof his brain and was found to have old infarct. MRI of the brain is pending. Review of systems: As above. Review of systems otherwise negative/unremarkable. Social history: Denies tobacco, alcohol abuse. He lives at home with his and son. He also has a daughter, Jaylyn, who is present at the bedside. Family history: No known premature CAD. Past medical history: 1. Accidental fall (W19.XXXA) 2. Aortic Valve Replacement 3. Arthritis (M19.90) 4. Asthma (J45.909) 5. Cerebral vascular accident (I63.9) 6. Choking episode (R09.89) 7. Chronic constipation (K59.09) 8. Chronic obstructive pulmonary disease (J44.9) 9. Chronic steroid use 10. Cough (R05) 11. Depression (F32.9) 12. Dysphagia (R13.10) 13. Edema (R60.9) 14. Elevated blood sugar level (R73.9) 15. Elevated TSH (R94.6) 16. Headache (R51) 17. Hemiplegia of nondominant side as late effect of cerebrovascular disease (I69.959) 18. Hemiplegia, post-stroke (I69.359) 19. High risk medication use (Z79.899) 20. Hyperlipidemia (E78.5) 21. Hypertension (I10) 22. Influenza vaccine needed (Z23) 23. Insomnia (G47.00) 24. Internal carotid artery stenosis (I65.29) 25. Laryngospasm (J38.5) 26. Left ventricular hypertrophy (I51.7) 27. Need for pneumococcal vaccination (Z23) 28. Neoplasm of skin of forearm (D49.2) 29. Neoplasm of uncertain behavior of skin (D48.5) 30. Non-healing skin lesion (L98.9) 31. 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 Permanent atrial fibrillation (I48.2) 33. Personal history of heart valve replacement (Z95.2) 34. 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 Physical deconditioning (R53.81) 36. Pneumonia (J18.9) 37. Rheumatoid arthritis (M06.9) 38. Rib contusion (S20.219A) 39. 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 Urinary frequency (R35.0) 41. Vitamin D deficiency (E55.9) 42. Vocal cord paralysis (J38.00) 43. Vocal cord weakness (J38.00) Allergies Allergy/AdvReac Type Severity Reaction Status Date / Time hydrocodone AdvReac Severe EXCESSIVE Verified 07/17/18 22:32 DRY MOUTH AND SHAKING Home Medications Home Medications Medication Instructions Recorded Confirmed Type triamterene-hydrochlorothiazid 0 mg PO DAILY 06/16/18 07/17/18 History [Maxzide-25mg] albuterol sulfate [ProAir HFA] 1 - 2 puff INHALATION Q4 PRN 07/17/18 07/17/18 History aspirin [Aspir-81] 81 mg PO DAILY 07/17/18 07/17/18 History cyanocobalamin (vitamin B-12) 1,000 mcg PO DAILY 07/17/18 07/17/18 History [Vitamin B-12] docusate sodium [Colace] 100 mg PO BID 07/17/18 07/17/18 History doxazosin 4 mg PO BID 07/17/18 07/17/18 History ergocalciferol (vitamin D2) 50,000 unit PO WK 07/17/18 07/17/18 History [Vitamin D2] escitalopram oxalate 10 mg PO DAILY 07/17/18 07/17/18 History fluticasone-salmeterol [Advair 1 inh INHALATION BID 07/17/18 07/17/18 History Diskus] folic acid 1 mg PO DAILY 07/17/18 07/17/18 History furosemide [Lasix] 40 mg PO DAILY PRN 07/17/18 07/17/18 History methotrexate sodium 10 mg PO WK 07/17/18 07/17/18 History mupirocin 1 applic TOPICAL BID 07/17/18 07/17/18 History omeprazole 40 mg PO DAILY 07/17/18 07/17/18 History potassium chloride 20 meq PO DAILY PRN 07/17/18 07/17/18 History prednisone 5 mg PO DAILY 07/17/18 07/17/18 History simvastatin 20 mg PO PM 07/17/18 07/17/18 History tramadol 50 mg PO HS PRN 07/17/18 07/17/18 History triamcinolone acetonide 1 applic TOPICAL BID PRN 07/17/18 07/17/18 History warfarin 3 mg PO DAILY 07/17/18 07/17/18 History Patient History Medical History Family history non-contributory CVA (cerebral vascular accident) (Resolved) Family History Other Family history non-contributory Social History Preferred Language: Tanzanian Communication Ability: Effective Keno Writer / Runner Required: No Beliefs That Will Affect Care: None Current Living Situation: Spouse and Family Feels Safe at Home: Yes Safety Concerns: Feels Safe At This Time Smoking Status: Never smoker Hx Alcohol Use: No Hx Substance Use: No Physical Exam Vital Signs (Past 24 Hours): Last Vital Signs Temp 36.7 C 07/18/18 07:09 Pulse 753 H 07/18/18 07:09 Resp 18 07/18/18 07:09 BP 151/77 H 07/18/18 07:09 Pulse Ox 98 07/18/18 07:09 Physical Exam: Gen.: No acute distress. Alert and oriented. HEENT: Anicteric sclera. Right periorbital ecchymosis. Pupils equal and round. Neck: No JVD. No bruits. Normal carotid upstrokes bilaterally. Cardiac: PMI was nondisplaced. No ventricular heave. Irregularly irregular. Normal S1-S2. 1/6 early peaking systolic ejection murmur. 2/6 diastolic murmur. No rubs or gallops. Pulmonary: Clear to auscultation bilaterally without wheezes, rales, or rhonchi. Abdomen: Soft, nontender, nondistended, with normoactive bowel sounds. No bruits noted. Extremities: 2+ radial pulses bilaterally. 2+ posterior tibialis pulses bilaterally. Trace to 1+ right pedal edema. Trace to 1+ left lower extremity edema with erythema. Distal left lower extremity is larger in circumference compared to the right (chronic per daughter). No cyanosis. No splinter hemorrhages, Janeway lesions, or Osler's nodes. Psychiatric: Affect appears appropriate. Results & Data Laboratory Results Laboratory Results - last 24 hr 07/17/18 07/17/18 07/17/18 21:32 21:32 21:32 WBC 6.93 RBC 4.13 L Hgb 12.8 L Hct 40.3 L MCV 97.6 MCH 31.0 MCHC 31.8 L RDW Std Deviation 59.6 H RDW Coeff of Magali 16.8 H Plt Count 122 L MPV 10.7 H Immature Gran % (Auto) 2.2 Neut % (Auto) 79.0 Lymph % (Auto) 11.7 Ellis % (Auto) 5.1 Eos % (Auto) 1.7 Baso % (Auto) 0.3 Immature Gran # (Auto) 0.15 H Neut # (Auto) 5.48 Lymph # (Auto) 0.81 L Ellis # (Auto) 0.35 Eos # (Auto) 0.12 Baso # (Auto) 0.02 PT 13.7 H INR 1.4 H APTT PTT Ratio Sodium 137 Potassium 3.8 Chloride 101 Carbon Dioxide 26 Anion Gap 10.0 BUN 18 Creatinine 1.01 Est Cr Clr Drug Dosing 58.4 Est GFR ( Amer) 80.5 Est GFR (Non-Af Amer) 69.4 BUN/Creatinine Ratio 17.4 Glucose 107 H Estimat Average Glucose Hemoglobin A1c Calcium 8.9 Magnesium 2.1 Total Bilirubin 1.0 AST 20 ALT 19 Alkaline Phosphatase 82 Troponin I < 0.015 Total Protein 6.7 Albumin 4.1 Globulin 2.6 Albumin/Globulin Ratio 1.6 Triglycerides Cholesterol LDL Cholesterol, Calc VLDL Cholesterol, Calc HDL Cholesterol Cholesterol/HDL Ratio TSH 6.220 H Free T4 0.98 Urine Color Urine Appearance Urine pH Ur Specific [place] Urine Protein Urine Glucose (UA) Urine Ketones Urine Blood Urine Nitrite Urine Bilirubin Urine Urobilinogen Ur Leukocyte Esterase Urine WBC (Auto) Urine RBC (Auto) U Hyaline Cast (Auto) U Epithel Cells (Auto) Urine Bacteria (Auto) Urine Yeast 07/18/18 07/18/18 07/18/18 03:00 05:25 05:25 WBC 9.49 RBC 3.68 L Hgb 11.2 L Hct 36.0 L MCV 97.8 MCH 30.4 MCHC 31.1 L RDW Std Deviation 60.6 H RDW Coeff of Magali 17.1 H Plt Count 114 L MPV 10.5 H Immature Gran % (Auto) 0.9 Neut % (Auto) 87.9 Lymph % (Auto) 7.4 Ellis % (Auto) 3.2 Eos % (Auto) 0.5 Baso % (Auto) 0.1 Immature Gran # (Auto) 0.09 H Neut # (Auto) 8.34 H Lymph # (Auto) 0.70 L Ellis # (Auto) 0.30 Eos # (Auto) 0.05 Baso # (Auto) 0.01 PT INR APTT PTT Ratio Sodium Potassium Chloride Carbon Dioxide Anion Gap BUN Creatinine Est Cr Clr Drug Dosing Est GFR ( Amer) Est GFR (Non-Af Amer) BUN/Creatinine Ratio Glucose Estimat Average Glucose 105 Hemoglobin A1c 5.3 Calcium Magnesium Total Bilirubin AST ALT Alkaline Phosphatase Troponin I Total Protein Albumin Globulin Albumin/Globulin Ratio Triglycerides Cholesterol LDL Cholesterol, Calc VLDL Cholesterol, Calc HDL Cholesterol Cholesterol/HDL Ratio TSH Free T4 Urine Color Yellow Urine Appearance Clear Urine pH 5.0 Ur Specific [place] > 1.045 H Urine Protein Negative Urine Glucose (UA) Negative Urine Ketones Negative Urine Blood Trace H Urine Nitrite Negative Urine Bilirubin Negative Urine Urobilinogen Negative Ur Leukocyte Esterase Negative Urine WBC (Auto) 1-5 Urine RBC (Auto) 0-4 U Hyaline Cast (Auto) 1-5 U Epithel Cells (Auto) 0-5 Urine Bacteria (Auto) Negative Urine Yeast Not Reportable 07/18/18 07/18/18 05:25 05:25 WBC RBC Hgb Hct MCV MCH MCHC RDW Std Deviation RDW Coeff of Magali Plt Count MPV Immature Gran % (Auto) Neut % (Auto) Lymph % (Auto) Ellis % (Auto) Eos % (Auto) Baso % (Auto) Immature Gran # (Auto) Neut # (Auto) Lymph # (Auto) Ellis # (Auto) Eos # (Auto) Baso # (Auto) PT 14.0 H INR 1.4 H APTT 27.3 PTT Ratio 1.0 Sodium 137 Potassium 4.0 Chloride 102 Carbon Dioxide 29 Anion Gap 7.0 BUN 19 H Creatinine 0.98 Est Cr Clr Drug Dosing 59.3 Est GFR ( Amer) 83.5 Est GFR (Non-Af Amer) 72.0 BUN/Creatinine Ratio 18.9 Glucose 107 H Estimat Average Glucose Hemoglobin A1c Calcium 8.0 L Magnesium Total Bilirubin 1.1 H AST 20 ALT 18 Alkaline Phosphatase 70 Troponin I Total Protein 5.8 L Albumin 3.4 Globulin 2.4 L Albumin/Globulin Ratio 1.4 Triglycerides 46 Cholesterol 115 LDL Cholesterol, Calc 43 VLDL Cholesterol, Calc 9 HDL Cholesterol 63 Cholesterol/HDL Ratio 2 TSH Free T4 Urine Color Urine Appearance Urine pH Ur Specific [place] Urine Protein Urine Glucose (UA) Urine Ketones Urine Blood Urine Nitrite Urine Bilirubin Urine Urobilinogen Ur Leukocyte Esterase Urine WBC (Auto) Urine RBC (Auto) U Hyaline Cast (Auto) U Epithel Cells (Auto) Urine Bacteria (Auto) Urine Yeast Diagnostic Findings Telemetry personally reviewed: Atrial fibrillation. ECG personally reviewed: ECG 06/16/2018: AFib 83 bpm. PVCs versus aberrant conduction. RBBB. Echo 07/18/2018 personally reviewed: Normal LV size, wall motion, systolic function. EF 65-70%. Moderate LVH. Asymmetric hypertrophy involving the ante roseptal base. Mild RV dilation with mildly reduced RV systolic function. Severe left atrial dilation. Mild right atrial dilation. Right to left inter atrial shunt. Bioprosthetic aortic valve. Mild AI versus transvalvular leak. Mild to moderate MR. Mildly dilated ascending aorta. RVSP 46. Head CT 07/17/2018: Multiple old lacunar infarcts involving left basal ganglia and right imelda, unchanged per Radiology. Limited old infarct in the right cerebellar hemisphere. No acute intracranial pathology. Medications Administered Current Inpatient Medications Albuterol (Ventolin Hfa) 2 puffs INH Q4H PRN PRN Reason: Shortness Of Breath Or Wheezing Stop: 08/17/18 08:12 Aspirin (Aspirin) 300 mg CO DAILY [facility] Stop: 08/17/18 08:59 Pantoprazole Sodium 40 mg/ (Syringe) 10 mls @ 5 mls/min IV DAILY@1100 [facility] Stop: 08/17/18 10:59 Acetaminophen (Ofirmev) 1,000 mg in 100 mls @ 400 mls/hr IV Q8H PRN PRN Reason: Pain Stop: 08/17/18 07:47 Last Admin: 07/18/18 08:49 Dose: 400 mls/hr Documented by: Promethazine HCl 12.5 mg/ (Sodium Chloride) 50.5 mls @ 202 mls/hr IV Q6H PRN PRN Reason: Nausea And Vomiting Stop: 08/17/18 07:45 Last Admin: 07/18/18 08:49 Dose: 202 mls/hr Documented by: Ceftriaxone Sodium 1,000 mg/ (Dextrose) 50 mls @ 100 mls/hr IV Q24H [facility]; Protocol Stop: 07/28/18 08:59 Hydrocortisone Sodium (Succinate 25 mg/ Syringe) 0.5 mls @ 4 mls/min IV Q8H [facility] Stop: 08/17/18 08:59 Heparin Sodium/Dextrose (Heparin Sodium/Dextrose) 25,000 units in 500 mls @ 26 mls/hr IV .[id number] [facility]; Protocol Stop: 08/17/18 08:44 Last Admin: 07/18/18 09:00 Dose: 26 mls/hr Documented by: Miscellaneous Information (Pharmacist Discharge Med Rec Consult) 1 ea N/A UD PRN PRN Reason: Consult Stop: 08/17/18 02:25 Fluticasone/Salmeterol (Advair Diskus 250/50) 1 puffs INH BID [facility] Stop: 08/17/18 08:59
--- NOTE | 2018-07-18 11:05 | Magnetic Resonance Report ---
MR brain wo con HISTORY: Mental status change intractable vertigo, TIA vs. CVA TECHNIQUE: Multiplanar multisequence MRI of the brain was performed without the use of contrast. COMPARISON STUDY: CT 07/17/2018 FINDINGS: Diffusion images demonstrate an infarct of the right central cerebellum. This extends in andino perior fashion to a right subtentorial region. There Is partial extension to the lateral right cerebe llar vermis. Study otherwise indicates moderate chronic small vessel change of periventricular and deep white rachael er regions. Components of age-related atrophy throughout the study are present. Several old periventricular infarct are noted. Pre-existing infarcts of the right imelda are again note d. IMPRESSION: 1. Acute/subacute infarct of the superior aspect of the right central cerebellum. 2. No evidence for mass effect or midline shift. 3. Pre-existing chronic small vessel change, atrophy, as well as small multifocal old infarcts. The above report was generated using voice recognition software. It may contain grammatical, syntax or spelling errors. Electronically signed by: Richard Kunz M.D. 07/18/2018 11:04 AM
--- NOTE | 2018-07-18 18:14 | Hospitalist Progress Note ---
Date of Service July 18, 2018 Assessment & Plan (1) Acute CVA (cerebrovascular accident): Presented with dizziness, nausea/vomiting, headache MRI of the brain with new right cerebellar stroke with extension into the right subtentorial and lateral right cerebellar vermis CTA head neck without significant abnormality Stroke likely secondary to subtherapeutic INR in the setting of persistent atrial fibrillation Dizziness and nausea and headache are all improving this afternoon -Continue telemetry monitoring but has known A. fib -Started heparin drip and will restart Coumadin now that taking p.o. and has passed swallow study, follow INR and PTT -PT/OT/speech therapy is necessary -Continue aspirin 81 mg daily-switch from [place] to p.o. 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 (6) Atrial fibrillation: Persistent atrial fibrillation, on chronic anticoagulation with warfarin. Warfarin has been held recently due to INR of 4.1, and left eye subconjunctival hemorrhage and periorbital ecchymosis of unknown cause. INR on admission and persist today at 1.4. -Heparin drip for bridging and restart Coumadin as above Patient does have a prosthetic valve, and therefore is not a candidate for Xarelto, Eliquis or Pradaxa. (7) Chronic anticoagulation: As noted above. (8) Hyperlipidemia LDL goal <70: Patient has been on simvastatin 20 mg daily. Can increase to 40 mg as above For high intensity (9) Vitamin B12 deficiency: Restart vitamin B12 p.o. (10) Asthma: Order duo nebs to have available to use 4 times daily and every 2 hours as needed (11) Depression: Resume Lexapro now that he is taking p.o. (12) Arthritis: Rheumatoid arthritis On methotrexate, and folic acid in the outpatient setting. Also on prednisone daily Resume folic acid -Resume methotrexate on Wednesdays -Continue stress dose steroids with IV hydrocortisone and wean down but carefully watch blood pressure as has been low, restart home prednisone p.o. (13) GERD (gastroesophageal reflux disease): Convert IV PPI to p.o. (14) Subconjunctival hemorrhage of left eye: Secondary to unknown trauma while sleeping when INR is elevated Supportive care (15) DVT prophylaxis: Heparin drip and Coumadin Disposition-remain on telemetry, will need rehab placement Subjective Feeling better, less dizzy and less nauseated. Denies chest pain or shortness of breath Telemetry with atrial fibrillation with rates in the 50s-60s with a brief dip to the 40s, PVCs He had a bad headache this morning but is now improved to 6 out of 10 on the right side. He reports hearing his heart Rushing/beating in his right ear for the last few weeks but no facial pressure associated with his sinusitis seen on CT scan Review of Systems All systems reviewed & are unremarkable except as noted in HPI & below Physical Exam Vital Signs (Past 24 Hours): Last Vital Signs Temp 36.9 C 07/18/18 15:33 Pulse 63 07/18/18 17:42 Resp 16 07/18/18 15:33 BP 119/67 07/18/18 15:33 Pulse Ox 92 07/18/18 15:33 Constitutional: well developed; no acute distress Eyes: + eyelid abnormality (Left periorbital ecchymosis and edema) and + scleral abnormality (Left subconjunctival hemorrhage) ENMT: external ear and nose normal, oropharynx normal Neck: trachea midline, no thyromegaly Respiratory: normal respiratory effort, lungs clear to auscultation Cardiovascular: Rate/Rhythm: regular rate; + abnormal rhythm (irreg irreg) Heart Sounds: no murmur Extremities: + edema (2+ edema lower extremities with chronic venous stasis changes) Gastrointestinal (Abdomen): normal bowel sounds, soft, nontender, no hepatosplenomegaly Musculoskeletal: Extremities: no cyanosis and no clubbing Skin: + ecchymosis (Legs and left periorbital region); no rashes Neurologic: + focal motor deficit (Left upper extremity and lower extremity with 3 out of 5 strength throughout, contracture of the hand) and awake Psychiatric: A+Ox3, euthymic affect Results & Data Laboratory Results 07/19/18 07/19/18 07/19/18 Range/Units 06:16 06:16 06:16 WBC 7.42 (4.8-10.8) K/uL RBC 3.52 L (4.7-6.1) M/uL Hgb 11.2 L (14.0-18.0) g/dL Hct 34.4 L (42-52) % MCV 97.7 (80-100) fL MCH 31.8 (25-34) pg MCHC 32.6 (32-36) g/dL RDW Std Deviation 60.7 H (36.4-46.3) fL RDW Coeff of Magali 17.0 H (11.5-14.5) % Plt Count 112 L (130-400) K/uL MPV 10.7 H (7.4-10.4) fL Immature Gran % (Auto) 0.7 % Neut % (Auto) 88.9 % Lymph % (Auto) 5.5 % [place] % (Auto) 4.7 % Eos % (Auto) 0.1 % Baso % (Auto) 0.1 % Immature Gran # (Auto) 0.05 H (0.00-0.02) K/uL Neut # (Auto) 6.59 H (1.4-6.5) K/uL Lymph # (Auto) 0.41 L (1.2-3.4) K/uL [place] # (Auto) 0.35 (0.11-0.59) K/uL Eos # (Auto) 0.01 (0-0.5) K/uL Baso # (Auto) 0.01 (0-0.2) K/uL PT Pending INR Pending APTT Pending (21.0-31.0) Seconds PTT Ratio Pending Sodium Pending Potassium Pending Chloride Pending Carbon Dioxide Pending Anion Gap Pending BUN Pending Creatinine Pending Est Cr Clr Drug Dosing Pending Est GFR ( Amer) Pending Est GFR (Non-Af Amer) Pending BUN/Creatinine Ratio Pending Glucose Pending Calcium Pending 07/18/18 Range/Units 14:58 WBC (4.8-10.8) K/uL RBC (4.7-6.1) M/uL Hgb (14.0-18.0) g/dL Hct (42-52) % MCV (80-100) fL MCH (25-34) pg MCHC (32-36) g/dL RDW Std Deviation (36.4-46.3) fL RDW Coeff of Magali (11.5-14.5) % Plt Count (130-400) K/uL MPV (7.4-10.4) fL Immature Gran % (Auto) % Neut % (Auto) % Lymph % (Auto) % [place] % (Auto) % Eos % (Auto) % Baso % (Auto) % Immature Gran # (Auto) (0.00-0.02) K/uL Neut # (Auto) (1.4-6.5) K/uL Lymph # (Auto) (1.2-3.4) K/uL [place] # (Auto) (0.11-0.59) K/uL Eos # (Auto) (0-0.5) K/uL Baso # (Auto) (0-0.2) K/uL PT INR APTT 60.4 H* (21.0-31.0) Seconds PTT Ratio 2.2 Sodium Potassium Chloride Carbon Dioxide Anion Gap BUN Creatinine Est Cr Clr Drug Dosing Est GFR ( Amer) Est GFR (Non-Af Amer) BUN/Creatinine Ratio Glucose Calcium Diagnostic Findings MRI brain: MR brain wo con HISTORY: Mental status change intractable vertigo, TIA vs. CVA TECHNIQUE: Multiplanar multisequence MRI of the brain was performed without the use of contrast. COMPARISON STUDY: CT 07/17/2018 FINDINGS: Diffusion images demonstrate an infarct of the right central cerebellum. This extends in superior fashion to a right subtentorial region. There Is partial extension to the lateral right cerebellar vermis. Study otherwise indicates moderate chronic small vessel change of periventricular and deep white matter regions. Components of age-related atrophy throughout the study are present. Several old periventricular infarct are noted. Pre-existing infarcts of the right imelda are again noted. IMPRESSION: 1. Acute/subacute infarct of the superior aspect of the right central cerebellum. 2. No evidence for mass effect or midline shift. 3. Pre-existing chronic small vessel change, atrophy, as well as small multifocal old infarcts.
--- NOTE | 2018-07-19 09:15 | Neurology Progress Note ---
Date of Service July 19, 2018 Assessment & Plan (1) Cerebellar stroke: Acute right cerebellar hemispheric stroke resulting in a persistent but mildly improved right hemiataxia. Patient speech is also mildly dysarthric. 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 Although he does have a small right to left shunt on transthoracic echocardiogram the significance of this finding in the context of his recent stroke is probably unlikely in light of his history of atrial fibrillation and subtherapeutic pro time at the time of admission. This patient also has diffuse carotid and vertebral atherosclerotic disease which would also be a stroke risk factor. He is clinically stable to improved compared with yesterday. Continue with heparin and warfarin. Optimize pro time. Continue with daily low-dose aspirin. Continue simvastatin. PT/OT/speech therapy. No further immediate recommendations. However, would have a low threshold to repeat a CT of the head of patient complains of recurrence of headache, vertigo, or other worsening neurologic symptoms. Please contact me if I may be of further assistance. Subjective Follow-up for stroke Patient is an 82-year-old male who was admitted to the hospital yesterday with acute nausea, headache, vertigo, dysarthria, and right hemiataxia. He was found to have an acute right cerebellar infarct on MRI. I reviewed the images as well as the radiologist interpretation of this test. He has a chronic left hemiparesis related to an old right pontine infarct as well. Past medical history notable for atrial fibrillation although his pro time was subtherapeutic at the time of admission. CT angiography of the head and neck have revealed diffuse atherosclerotic disease but no hemodynamically significant stenosis. A transthoracic echocardiogram completed yesterday revealed a small right to left shunt. He has a bioprosthetic aortic valve as well. He has been seen by cardiology. This morning, the patient indicates that his headache and vertigo have resolved. He continues to have some difficulty with dysarthria but has been swallowing applesauce and his pills reasonably well. He continues to have some difficulty with right hemiataxia but believes he is mildly improved compared with yesterday. His son was present at bedside at the time of my assessment. Constitutional: no fever Eyes: no blind spots and no diplopia Neurologic: as per Subjective / HPI Physical Exam Vital Signs (Past 24 Hours): Last Vital Signs Temp 36.8 C 07/19/18 04:48 Pulse 62 07/19/18 07:07 Resp 18 07/19/18 07:07 BP 150/64 H 07/19/18 07:07 Pulse Ox 99 07/19/18 07:07 Physical Exam: The patient is alert and fully oriented. Attention and concentration normal. Patient is able to name objects and repeat phrases although he continues to exhibit a moderately dysarthric speech pattern. Age- appropriate fund of knowledge in terms of vocabulary. Visual gruber full to confrontation. Pupils equal round react to light and accommodation. Eye movements intact. No nystagmus. There is a left facial droop. Palate elevates to midline. Tongue protrudes to midline. Patient continues to exhibit ataxia with finger to nose and heel to smith on the right. He has a chronic hemiplegia on the left which is unchanged. Strength for the right arm and leg intact. No tremors or other abnormal movements observed.
--- NOTE | 2018-07-19 18:21 | Hospitalist Progress Note ---
Date of Service July 19, 2018 Assessment & Plan (1) Acute CVA (cerebrovascular accident): Presented with dizziness, nausea/vomiting, headache MRI of the brain with new right cerebellar stroke with extension into the right subtentorial and lateral right cerebellar vermis CTA head neck without significant abnormality/stenosis Stroke likely secondary to subtherapeutic INR in the setting of persistent atrial fibrillation, but could be small vessel disease Dizziness, nausea and headache are all now completely resolved -Continue telemetry monitoring but has known A. 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 (6) Atrial fibrillation: Persistent atrial fibrillation, prior to admission due to INR of 4.1, and left eye subconjunctival hemorrhage and periorbital ecchymosis of unknown cause. INR on admission low at 1.4. INR today at 1.5 after restarting coumadin -continue Heparin drip for bridging -continue coumadin 3mg (most recent home dose was reduced at 3mg 3x/week and 1.5mg other days) Patient does have a prosthetic valve, and therefore is not a candidate for Xarelto, Eliquis or Pradaxa. (7) Chronic anticoagulation: As noted above. (8) Hyperlipidemia LDL goal <70: Patient has been on simvastatin 20 mg daily. increased to 40 mg as above for recurrent CVA (9) Vitamin B12 deficiency: continue vitamin B12 p.o. (10) Asthma: Order duo nebs to have available to use 4 times daily and every 2 hours as needed (11) Depression: continue Lexapro (12) Arthritis: Rheumatoid arthritis On methotrexate, and folic acid in the outpatient setting. Also on prednisone daily -continue folic acid -Resume methotrexate after discharge -wean down stress dose steroids with IV hydrocortisone to 12.5mg IV q8 -continue home prednisone p.o. -continue tramadol prn (13) GERD (gastroesophageal reflux disease): continue PPI (14) Subconjunctival hemorrhage of left eye: Secondary to unknown trauma while sleeping when INR is elevated Supportive care (15) Acute sinusitis: With completely opacified Right maxillary sinus on CT head and with c/o right ear fullness x 3 weeks--> started Rocephin 1 gram daily -day #2 today Symptoms now improving (16) Chronic right-sided congestive heart failure: ECHO here with mild RV dysfunction and normal LV function No volume overload (17) Abnormal TSH: TSH 6 on admission with normal FT4 -follow TFTs in 4 weeks -no treatment needed (18) Constipation: added senna/docusate (19) Thrombocytopenia: plts with slight decrease since admission, down to 112k today No evidence of bleeding, could be from acute illness -follow CBC -ok to continue anticoagulation (20) DVT prophylaxis: Heparin drip and Coumadin Disposition-remain on telemetry, will need rehab placement-referral made to [facility] Subjective Much improved today. No further headache, no dizziness, no nausea or vomiting. Still with some speech issues and difficulty with swallowing which is slightly worse than baseline. Denies chest pain or SOB, no abd pain, no new neuro symptoms. Reports that the sound of his heartbeat "rushing" through his right ear is now completely resolved for the first time in weeks. Discussed case with Neurology Tele with A-fib in the 60s-80s with some PVCs Review of Systems All systems reviewed & are unremarkable except as noted in HPI & below Physical Exam Vital Signs (Past 24 Hours): Last Vital Signs Temp 37.3 C 07/19/18 16:05 Pulse 60 07/19/18 16:05 Resp 20 07/19/18 16:05 BP 126/57 L 07/19/18 16:05 Pulse Ox 96 07/19/18 16:05 Constitutional: well developed; no acute distress Eyes: + eyelid abnormality (Left periorbital ecchymosis and edema) and + scleral abnormality (Left subconjunctival hemorrhage) ENMT: external ear and nose normal, oropharynx normal Neck: trachea midline, no thyromegaly Respiratory: normal respiratory effort, lungs clear to auscultation Cardiovascular: Rate/Rhythm: regular rate; + abnormal rhythm (irreg irreg) Heart Sounds: no murmur Extremities: + edema (2+ edema lower extremities with chronic venous stasis changes) Gastrointestinal (Abdomen): normal bowel sounds, soft, nontender, no hepatosplenomegaly Musculoskeletal: Extremities: no cyanosis and no clubbing Skin: no rashes, warm and dry + ecchymosis (Legs and left periorbital region); no rashes Neurologic: + focal motor deficit (Left upper extremity and lower extremity with 3 out of 5 strength throughout, contracture of the hand) and awake Coordination: + abnormal [id number] test (on the right with ataxia, not performed on left due to baseline weakness) Psychiatric: A+Ox3, euthymic affect Results & Data Laboratory Results 07/19/18 07/19/18 07/19/18 Range/Units 21:33 15:07 06:16 WBC (4.8-10.8) K/uL RBC (4.7-6.1) M/uL Hgb (14.0-18.0) g/dL Hct (42-52) % MCV (80-100) fL MCH (25-34) pg MCHC (32-36) g/dL RDW Std Deviation (36.4-46.3) fL RDW Coeff of Magali (11.5-14.5) % Plt Count (130-400) K/uL MPV (7.4-10.4) fL Immature Gran % (Auto) % Neut % (Auto) % Lymph % (Auto) % [place] % (Auto) % Eos % (Auto) % Baso % (Auto) % Immature Gran # (Auto) (0.00-0.02) K/uL Neut # (Auto) (1.4-6.5) K/uL Lymph # (Auto) (1.2-3.4) K/uL [place] # (Auto) (0.11-0.59) K/uL Eos # (Auto) (0-0.5) K/uL Baso # (Auto) (0-0.2) K/uL PT (9.0-12.0) Seconds INR (0.9-1.1) APTT > 139.0 H* 30.1 (21.0-31.0) Seconds PTT Ratio > 5.1 1.1 Sodium 139 (136-145) mmol/L Potassium 3.9 (3.5-5.1) mmol/L Chloride 107 (98-107) mmol/L Carbon Dioxide 23 (21-32) mmol/L Anion Gap 9.0 (3-11) BUN 16 (7-18) mg/dl Creatinine 0.83 (0.6-1.4) mg/dl Est Cr Clr Drug Dosing 70.1 ml/min Est GFR ( Amer) 95.6 Est GFR (Non-Af Amer) 82.5 BUN/Creatinine Ratio 18.6 (10-20) Glucose 112 H (70-99) mg/dl Calcium 7.6 L (8.5-10.1) mg/dl 07/19/18 07/19/18 Range/Units 06:16 06:16 WBC 7.42 (4.8-10.8) K/uL RBC 3.52 L (4.7-6.1) M/uL Hgb 11.2 L (14.0-18.0) g/dL Hct 34.4 L (42-52) % MCV 97.7 (80-100) fL MCH 31.8 (25-34) pg MCHC 32.6 (32-36) g/dL RDW Std Deviation 60.7 H (36.4-46.3) fL RDW Coeff of Magali 17.0 H (11.5-14.5) % Plt Count 112 L (130-400) K/uL MPV 10.7 H (7.4-10.4) fL Immature Gran % (Auto) 0.7 % Neut % (Auto) 88.9 % Lymph % (Auto) 5.5 % [place] % (Auto) 4.7 % Eos % (Auto) 0.1 % Baso % (Auto) 0.1 % Immature Gran # (Auto) 0.05 H (0.00-0.02) K/uL Neut # (Auto) 6.59 H (1.4-6.5) K/uL Lymph # (Auto) 0.41 L (1.2-3.4) K/uL [place] # (Auto) 0.35 (0.11-0.59) K/uL Eos # (Auto) 0.01 (0-0.5) K/uL Baso # (Auto) 0.01 (0-0.2) K/uL PT 15.2 H (9.0-12.0) Seconds INR 1.5 H (0.9-1.1) APTT 93.1 H* (21.0-31.0) Seconds PTT Ratio 3.4 Sodium (136-145) mmol/L Potassium (3.5-5.1) mmol/L Chloride (98-107) mmol/L Carbon Dioxide (21-32) mmol/L Anion Gap (3-11) BUN (7-18) mg/dl Creatinine (0.6-1.4) mg/dl Est Cr Clr Drug Dosing ml/min Est GFR ( Amer) Est GFR (Non-Af Amer) BUN/Creatinine Ratio (10-20) Glucose (70-99) mg/dl Calcium (8.5-10.1) mg/dl
--- NOTE | 2018-07-20 13:58 | Discharge Summary ---
Date of Service July 20, 2018 Admission HPI Per Admitting Provider The patient is an 82-year-old male with a past medical history including previous strokes, who presents to the emergency department with frequent nausea and vomiting, along with right frontal headache and vertigo. He has had vertiginous symptoms in the past related to GI issues, per family, however they feel that these symptoms are different and more concerned regarding the possibility of a stroke. He takes warfarin due to atrial fibrillation. His family reports that his INR was recently 4.1, and he had developed left eye conjunctival hemorrhages and external periorbital ecchymoses, and his warfarin had been held for 3 days. His INR today was found to be 1.4. From history relayed from family, the patient reportedly has had a stroke in the past, with resultant left-sided weakness. The patient himself has confusion, and is not able to contribute significantly to his HPI or review of systems. Principal Diagnosis Acute ischemic right cerebellar CVA Discharge Exam Constitutional well developed; no acute distress Eyes + eyelid abnormality (Left periorbital ecchymosis and edema) and + scleral abnormality (Left subconjunctival hemorrhage) ENMT external ear and nose normal, oropharynx normal Neck trachea midline, no thyromegaly Respiratory normal respiratory effort, lungs clear to auscultation Cardiovascular Rate/Rhythm: regular rate; + abnormal rhythm (irreg irreg) Heart Sounds: no murmur Extremities: + edema (2+ edema lower extremities with chronic venous stasis changes) Gastrointestinal (Abdomen) normal bowel sounds, soft, nontender, no hepatosplenomegaly Musculoskeletal Extremities: no cyanosis and no clubbing Skin no rashes, warm and dry + ecchymosis (Legs and left periorbital region); no rashes Neurologic + focal motor deficit (Left upper extremity and lower extremity with 3 out of 5 strength throughout, contracture of the hand) and awake Coordination: + abnormal [id number] test (on the right with ataxia, not performed on left due to baseline weakness) Psychiatric A+Ox3, euthymic affect Discharge Data Allergies Allergy/AdvReac Type Severity Reaction Status Date / Time hydrocodone AdvReac Severe EXCESSIVE Verified 07/17/18 22:32 DRY MOUTH AND SHAKING Consultations Cardiology Neurology Procedures Performed ECHO Ordered Studies 07/17/18 21:55 CT abd pelvis wo con Stat CT cervical spine wo con Stat CT head/brain wo con Stat 07/17/18 23:32 CT angio head w con Stat CT angio neck with con Stat 07/18/18 02:26 MR brain wo con Routine CXR Hospital Course (1) Acute CVA (cerebrovascular accident): Presented with dizziness, nausea/vomiting, headache MRI of the brain with new right cerebellar stroke with extension into the right subtentorial and lateral right cerebellar vermis CTA head neck without significant abnormality/stenosis Stroke likely secondary to subtherapeutic INR in the setting of persistent atrial fibrillation, but could be small vessel disease Dizziness, nausea and headache are all now completely resolved, but has persistent right hemiataxia and dysarthria - telemetry monitoring with rate controlled A. fib -received heparin drip bridge and continued Coumadin. Converted to Lovenox 1mg/kg q12h on day of discharge - follow INR in AM of 07/21/18 and dc LOVENOX when INR > 2.0 -PT/OT/speech therapy evaluations completed--> recommending acute rehab -Continue aspirin 81 mg daily -Continue simvastatin and increased to 40 mg for high intensity therapy -Permissive hypertension-his blood pressure was on the lower side initially and now improved into the 140s-150s systolic with IVFs and IV hydrocortisone for stress dosed steroids (which were then weaned off)-continue to hold home Dyazide on discharge -Appreciate neurology consultation-should f/u with Neuro in 1 month -Watch for hemorrhagic conversion-check CT head if has acute changes (2) Vertigo: Secondary to cerebellar stroke as above resolved Needs continued PT/OT (3) 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 (6) Atrial fibrillation: Persistent atrial fibrillation, prior to admission due to INR of 4.1, and left eye subconjunctival hemorrhage and periorbital ecchymosis of unknown cause. INR on admission low at 1.4. 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 -he does not require any AV emma blocking agents for rate control as he is bradycardic at times in the 50s (7) Chronic anticoagulation: As noted above. (8) Hyperlipidemia LDL goal <70: Patient has been on simvastatin 20 mg daily. increased to 40 mg as above for recurrent CVA (9) Vitamin B12 deficiency: continue vitamin B12 p.o. (10) Asthma: Order duo nebs to have available to use 4 times daily and every 2 hours as needed (11) Depression: continue Lexapro (12) Arthritis: Rheumatoid arthritis On methotrexate, and folic acid in the outpatient setting. Also on prednisone daily -continue folic acid -Resume methotrexate after discharge -was given IV hydrocortisone for stress dosed steroids given low BPs on admission -continue home prednisone p.o. -continue tramadol prn (13) GERD (gastroesophageal reflux disease): continue PPI (14) Subconjunctival hemorrhage of left eye: Secondary to unknown trauma while sleeping when INR is elevated Supportive care (15) Acute sinusitis: With completely opacified Right maxillary sinus on CT head and with c/o right ear fullness x 3 weeks--> treated with Rocephin 1 gram daily x 3 days Symptoms now improving -convert to Augmentin 875mg po bid x 5 more days after discharge (16) Chronic right-sided congestive heart failure: ECHO here with mild RV dysfunction and normal LV function No volume overload -hold Dyazide for permissive HTN over the next 1-2 weeks -takes lasix prn (17) Abnormal TSH: TSH 6 on admission with normal FT4 -follow TFTs in 4 weeks -no treatment needed (18) Constipation: added senna/docusate -add Miralax or other bowl regimen as needed (19) Thrombocytopenia: plts with slight decrease since admission,stable to improved on day of discharge at 114 No evidence of bleeding, could be from acute illness -follow CBC -ok to continue anticoagulation (20) Anemia: Hgb with slight drop throughout stay, could be hemodilutional. No evidence of GI bleeding. he has had some minor bleeding from skin tears Hgb 10.7 on day of discharge -recommend following CBC in 1-2 days -Hemoccult stool at rehab (21) DVT prophylaxis: Heparin drip and Coumadin Disposition-stable for dc to [facility] for aggressive rehab today Total Time Total Time Spent Total Time Spent (In Minutes): >30 min Total Time Includes: Examination of the Patient, Discharge Planning and Medication Reconciliation Discharge Plan Discharge Items Patient Disposition: Transfer Inpatient Rehab Fac Reason For Visit: TIA vs. CVA Discharge Diagnosis: Acute CVA Condition: Fair Discharge Goals: Diagnostic testing, Improve disease control and Learn about illness Activity: As commented below Lifting: Gradually increase as tolerated Bathing: No limitations Exercise/Sports: Gradually increase as tolerated Exercise Comment: with PT/OT Non-emergency contact: Primary Care Provider and Neurologist Call non-emergency contact if: you have any medication questions and your symptoms worsen Follow-up/Referrals: Chidi Girard MD [Physician] - (Please follow up with Dr. Girard within 1 month ) Angelica Leo MD [Primary Care Provider] - Diet: Heart Healthy Addtl Provider Instructions: Mr. Weaver was admitted with a headache and dizziness with nausea and vomiting. He was found to have a new right cerebellar stroke. His INR was subtherapeutic on admission and he has persistent atrial fibrillation. He was bridged with a heparin drip which was converted to Lovenox on day of discharge for INR 1.9. He needs to have his INR checked on 07/21 and can discontinue Lovenox once INR is >2.0. He should be watched closely for hemorrhagic conversion of his CVA. He is having persistent dysarthria and ataxia of the right upper extremity. He needs Speech therapy in addition to his PT and OT.He also has a h/o left sided hemiparesis from a previous stroke. He is also being treated for a right maxillary sinusitis with antibiotics. Risk Factors for Stroke: You can reduce your chances of stroke by working with your medical provider to adopt a healthy lifestyle. Some specific ways to lower your chance of stroke are: * If you are a smoker, now is the time to stop smoking cigarettes * If you are diabetic, improve the control of your blood sugars * Avoid excessive amounts of alcohol * Control high blood pressure * Lose weight if you are overweight * Be sure to lead an active lifestyle * Eat a healthy diet low in salt, cholesterol and fat You should know about other risk factors for stroke that you are unable to control. These include: * Age 55 years or older * Male gender * Certain racial groups: , or / * Family History of Stroke, Mini stroke or Heart Attack * Sickle Cell Disease Follow Up: It is important for you to keep your follow up appointments with your medical provider. Who to Call and When: Medical Emergencies: Call 911 immediately if you experience any of the following warning signs and symptoms of Stroke: * Sudden numbness or weakness of the face, arm or leg, especially on one side of the body * Sudden confusion, trouble speaking or understanding * Sudden trouble seeing in one or both eyes * Sudden trouble walking, dizziness, loss of balance or coordination * Sudden severe headache with no cause Do not delay calling 911 if you experience any warning signs or symptoms of a stroke. Delay in seeking medical attention may affect what treatments can be given to you. . Prescriptions: New sennosides-docusate sodium [Senna with Docusate Sodium] 8.6-50 mg Tablet 2 tab PO QAM Qty: 60 RF: 0 simvastatin 40 mg Tablet 40 mg PO PM Qty: 30 RF: 0 warfarin [Coumadin] 2 mg Tablet 2 mg PO DAILY@1600 Qty: 30 RF: 0 Enoxaparin 1 Mg/Kg [Lovenox 1 Mg/Kg Providers Use Dosing Set] 1 mg SQ Q12H Qty: 3 RF: 0 amoxicillin-pot clavulanate [Augmentin] 875-125 mg tablet 1 tab PO BID Qty: 10 RF: 0 Continued furosemide [Lasix] 40 mg Tablet 40 mg PO DAILY PRN (Reason: WT GAIN OR EDEMA) RF: 0 fluticasone-salmeterol [Advair Diskus] 250-50 mcg/dose Blister With Device 1 inh INHALATION BID RF: 0 prednisone 5 mg Tablet 5 mg PO DAILY RF: 0 cyanocobalamin (vitamin B-12) [Vitamin B-12] 1,000 mcg Tablet 1,000 mcg PO DAILY RF: 0 omeprazole 40 mg Capsule,Delayed Release(Dr/Ec) 40 mg PO DAILY RF: 0 aspirin [Aspir-81] 81 mg Tablet,Delayed Release (Dr/Ec) 81 mg PO DAILY RF: 0 tramadol 50 mg Tablet 50 mg PO HS PRN (Reason: Pain) RF: 0 docusate sodium [Colace] 100 mg Capsule 100 mg PO BID RF: 0 doxazosin 4 mg Tablet 4 mg PO BID RF: 0 folic acid 1 mg Tablet 1 mg PO DAILY RF: 0 mupirocin 2 % Ointment 1 applic TOPICAL BID RF: 0 ergocalciferol (vitamin D2) [Vitamin D2] 50,000 unit Capsule 50,000 unit PO WK RF: 0 albuterol sulfate [ProAir HFA] 90 mcg/actuation Hfa Aerosol Inhaler 1 - 2 puff INHALATION Q4 PRN (Reason: Shortness Of Breath Or Wheezing) RF: 0 escitalopram oxalate 10 mg Tablet 10 mg PO DAILY RF: 0 triamcinolone acetonide 0.05 % Ointment 1 applic TOPICAL BID PRN (Reason: Skin Irritation) RF: 0 potassium chloride 20 mEq Tablet Extended Release 20 meq PO DAILY PRN (Reason: WHEN TAKES LASIX) RF: 0 methotrexate sodium 2.5 mg Tablet 10 mg PO WK Qty: 0 RF: 0 Discontinued warfarin 3 mg Tablet 3 mg PO DAILY RF: 0 simvastatin 20 mg Tablet 20 mg PO PM RF: 0 triamterene-hydrochlorothiazid [Maxzide-25mg] 37.5-25 mg Tablet 25 mg PO DAILY RF: 0 Stand-Alone Forms: [facility] Discharge Orders: Discharge Order (Routine); Ordered 07/20/18 Ordered By: Asia Kemp Skilled Items Patient informed of condition?: Yes DNR: No Discharge Level of Care: Acute rehab Communicable Disease: No Discharge Prognosis: Improving Admission Data Admit Date/Time: 07/18/18 01:14 Attending Provider: Asia Kemp Admit Provider: Humberto Huitron Primary Care Provider: Angelica Leo Other Providers: Humberto Huitron ; Delvin Feng ; Chidi Girard Service: Telemetry Other Pending Studies at Discharge: No
== END 2018-07-20 17:18 | DRG 65 ==
LOC: ED 21:45 → 2S 07-18 01:14 → SUATTDRO 07-18 01:14 → 2E 07-18 01:39
DX: R40.2413 Glasgow coma scale score 13-15, at hospital admission; H11.32 Conjunctival hemorrhage, left eye; I50.812 Chronic right heart failure; R27.0 Ataxia, unspecified; D64.9 Anemia, unspecified; Z79.82 Long term (current) use of aspirin; Z79.01 Long term (current) use of anticoagulants; Z95.2 Presence of prosthetic heart valve; R29.707 NIHSS score 7; Z88.5 Allergy status to narcotic agent; Q21.1 Atrial septal defect; D69.6 Thrombocytopenia, unspecified; R13.10 Dysphagia, unspecified; E53.8 Deficiency of other specified B group vitamins; Z79.899 Other long term (current) drug therapy; F32.9 Major depressive disorder, single episode, unspecified; I63.449 Cerebral infarction due to embolism of unspecified cerebellar artery; I69.354 Hemiplegia and hemiparesis following cerebral infarction affecting left non-dominant side; Z79.51 Long term (current) use of inhaled steroids; K21.9 Gastro-esophageal reflux disease without esophagitis; I67.2 Cerebral atherosclerosis; E78.5 Hyperlipidemia, unspecified; I65.29 Occlusion and stenosis of unspecified carotid artery; R79.1 Abnormal coagulation profile; J45.909 Unspecified asthma, uncomplicated; M06.9 Rheumatoid arthritis, unspecified; Z79.52 Long term (current) use of systemic steroids; K59.00 Constipation, unspecified; I48.1 Persistent atrial fibrillation; R94.6 Abnormal results of thyroid function studies; R47.1 Dysarthria and anarthria; J01.00 Acute maxillary sinusitis, unspecified

== ENCOUNTER 2018-10-01 17:40 | Inpatient (IN) ==
[2018-10-01] MEDS ORDERED: ALBUT/IPRATROP 3MG/0.5MG NEB 3 ML VIAL INH STA (18:11)
[2018-10-01 18:59] LABS: Basophils # (auto) 0.02 K/uL (0-0.2); Basophils % (auto) 0.3 %; Eosinophils # (auto) 0.12 K/uL (0-0.5); Eosinophils % (auto) 1.6 %; Hematocrit (blood only) 37.4 % (42-52); Hemoglobin 11.9 g/dL (14.0-18.0); Immature Granulocytes # (auto) 0.06 K/uL (0.00-0.02); Immature Granulocytes % (auto) 0.8 %; Lymphocytes # (auto) 0.67 K/uL (1.2-3.4); Mean Corpuscular Hgb Conc 31.8 g/dL (32-36); Mean Corpuscular Volume 95.7 fL (80-100); Mean Platelet Volume 10.5 fL (7.4-10.4); Monocytes # (auto) 0.47 K/uL (0.11-0.59); Monocytes % (auto) 6.3 %; Neutrophils # (auto) 6.09 K/uL (1.4-6.5); Platelet Count 153 K/uL (130-400); RDW Coefficient of Variation 17.1 % (11.5-14.5); RDW Standard Deviation 59.2 fL (36.4-46.3); Red Blood Count 3.91 M/uL (4.7-6.1); White Blood Count 7.43 K/uL (4.8-10.8)
[2018-10-01 19:15] LABS: Alanine Aminotransferase 17 U/L (12-78); Albumin Level 3.9 gm/dl (3.4-5.0); Aspartate Aminotransferase 23 U/L (15-37); BUN Creatinine Ratio 17.9 (10-20); Blood Urea Nitrogen 19 mg/dl (7-18); Calcium 8.3 mg/dl (8.5-10.1); Carbon Dioxide 27 mmol/L (21-32); Chloride 104 mmol/L (98-107); Creatinine Clr Calc Pharmacy 52.9 ml/min; Est GFR (African American) 74.5; Est GFR (Non-African American) 64.3; Glucose 99 mg/dl (70-99); Magnesium 2.1 mg/dl (1.8-2.4); Sodium 138 mmol/L (136-145)
[2018-10-01 19:19] LABS: Partial Thromboplastin Ratio 1.7; Prothrombin Time 34.1 Seconds (9.0-12.0)
[2018-10-01 19:20] LABS: Albumin Globulin Ratio 1.4 (0.9-2); Alkaline Phosphatase 84 U/L (45-117); Globulin 2.7 gm/dl (2.5-4.0); Total Protein 6.6 gm/dl (6.4-8.2); Troponin I < 0.015 ng/ml (0-0.045)
[2018-10-01 19:31] LABS: INR 3.6 (0.9-1.1)
[2018-10-01 19:32] LABS: Partial Thromboplastin Time 45.2 Seconds (21.0-31.0)
--- NOTE | 2018-10-01 19:36 | XRay Report ---
XR chest 1V portable HISTORY: Dyspnea COMPARISON: Chest 07/17/2018. FINDINGS: The heart remains mildly enlarged. There are poststernotomy changes and a cardiac valve pro sthesis. No pneumothorax. Mild interstitial pulmonary edema and trace bilateral pleural effusions hav e slightly improved. IMPRESSION: Cardiomegaly with slight improvement in the mild pulmonary edema and trace bilateral pleural effusion s. Electronically signed by: Adrian Espinal M.D. 10/01/2018 7:35 PM
[2018-10-01 19:42] LABS: Appearance Urine Clear (Clear); Bacteria Urine Automated Negative (Negative); Bilirubin Urine Negative (Negative); Cast Urine Automated 0 /lpf (0-5); Color Urine Yellow; Epithelial Cell Urine Auto 0-5 /lpf (0-5); Glucose Urine UA Negative (Negative); Ketones Urine Negative (Negative); Leukocyte Esterase Urine Negative (Negative); Nitrite Urine Negative (Negative); Protein Urine Negative (Negative); Specific Gravity Urine 1.015 (1.000-1.030); Urobilinogen Urine Negative (Negative); WBC Urine Automated 0 /hpf (0-5)
[2018-10-01] MEDS ORDERED: ACETAMINOPHEN 1,000 MG/100 ML VIAL IV STA (20:24)
--- NOTE | 2018-10-01 21:30 | CT Scan Report ---
HEAD CT NONCONTRAST CT DOSE: 614.27 mGy.cm HISTORY: headache, elevated INR TECHNIQUE: Multiaxial CT images of the head were performed without the use of intravenous contrast. A utomated exposure control was utilized for this study. A dose lowering technique was utilized adheri ng to the principles of ALARA. Comparison: Brain MRI 07/18/2018. Findings: Opacified right maxillary sinus, unchanged. Mild mucosal thickening within the ethmoid air cells. The mastoid air cells are clear. Old small infarct within the right cerebellar hemisphere. Mil d atrophy and mild microvascular ischemic changes are noted. There is no mass, hematoma, midline shif t, or acute infarct. The calvarium and skull base are intact. The ventricles and sulci are within nor mal limits. There is no mass, hematoma, midline shift, or acute infarct. Impression: No acute intracranial abnormality. Electronically signed by: Adrian Espinal M.D. 10/01/2018 9:29 PM
[2018-10-01] MEDS ORDERED: DOXYCYCLINE HYCLATE 100 MG in DEXTROSE 5% 100 ML IV STA (22:08)
--- NOTE | 2018-10-01 23:34 | History & Physical Report ---
Date of Service October 01, 2018 Assessment & Plan (1) Asthmatic bronchitis with acute exacerbation: Asthmatic bronchitis with acute exacerbation, with hypoxia- Given a DuoNeb and doxycycline IV in the ED. Placed on Pulmicort 0.5 mg inhaled twice daily. Duonebs every 4 hours while awake and every 2 hours when necessary. Ceftriaxone 1 g IV daily. Azithromycin 500 mg IV daily Guaifenesin extended release 600 mg p.o. twice daily. Sputum Gram stain and culture. When patient is discharged to home, he should have a prescription for a home nebulizer unit with duo nebs and Pulmicort Respules. He should also be taking something with guaifenesin and it on a regular basis. Present on Admission?: Yes (2) Hypoxia: See above Present on Admission?: Yes (3) Arthritis: On methotrexate as outpatient. Present on Admission?: Yes (4) Depression: Continue escitalopram 10 mg daily. Present on Admission?: Yes (5) Atrial fibrillation: Atrial fibrillation/status post AVR- Target INR 2.5-3.5, with present INR 3.6. Continue daily warfarin and INR checks. Present on Admission?: Yes (6) History of aortic valve replacement: See above Present on Admission?: Yes (7) Hyperlipidemia LDL goal <70: Continue simvastatin 40 mg every evening Present on Admission?: Yes (8) Vitamin B12 deficiency: Continue supplement 1000 mcg p.o. daily. Present on Admission?: Yes (9) Weakness of muscle of left side of face due to and not concurrent with cerebrovascular accident (CVA): Receiving PT and OT at home. We will consult to continue in hospital Present on Admission?: Yes (10) GERD (gastroesophageal reflux disease): Continue omeprazole or Flonase pantoprazole daily. Present on Admission?: Yes History of Present Illness Chief Complaint: The patient presents to the emergency department with a cough that began 4 days ago, and has worsened over the past 24 hours. He has also had progressively worsening headache, generalized weakness, chest congestion and choking on his saliva. Primary Care Provider: Angelica Leo MD The patient is an 83-year-old male most recently admitted to [facility] from 07/18-07/20/2018, with a past medical history of CVAs, and was found to have a new CVA at that visit, and has had persistent left-sided weakness since that time. 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 He does not have nebulizers or inhalers at home. He had a persistent productive sounding cough is unable to clear secretions. Allergies Allergy/AdvReac Type Severity Reaction Status Date / Time hydrocodone AdvReac Severe EXCESSIVE Verified 10/01/18 18:11 DRY MOUTH AND SHAKING Home Medications Home Medications Medication Instructions Recorded Confirmed Type albuterol sulfate [ProAir HFA] 1 - 2 puff INHALATION Q4 PRN 07/17/18 10/01/18 History aspirin [Aspir-81] 81 mg PO DAILY 07/17/18 10/01/18 History cyanocobalamin (vitamin B-12) 1,000 mcg PO DAILY 07/17/18 10/01/18 History [Vitamin B-12] docusate sodium [Colace] 100 mg PO BID 07/17/18 10/01/18 History doxazosin 4 mg PO BID 07/17/18 10/01/18 History ergocalciferol (vitamin D2) 50,000 unit PO WK 07/17/18 10/01/18 History [Vitamin D2] escitalopram oxalate 10 mg PO DAILY 07/17/18 10/01/18 History fluticasone propion-salmeterol 1 inh INHALATION BID 07/17/18 10/01/18 History [Advair Diskus] folic acid 1 mg PO DAILY 07/17/18 10/01/18 History furosemide [Lasix] 40 mg PO DAILY PRN 07/17/18 10/01/18 History mupirocin 1 applic TOPICAL BID 07/17/18 10/01/18 History omeprazole 40 mg PO DAILY 07/17/18 10/01/18 History potassium chloride 20 meq PO DAILY PRN 07/17/18 10/01/18 History prednisone 5 mg PO DAILY 07/17/18 10/01/18 History tramadol 50 mg PO HS PRN 07/17/18 10/01/18 History triamcinolone acetonide 1 applic TOPICAL BID PRN 07/17/18 10/01/18 History methotrexate sodium 10 mg PO WK #0 tab 07/20/18 10/01/18 Rx sennosides-docusate sodium [Senna 2 tab PO QAM #60 tab 07/20/18 10/01/18 Rx with Docusate Sodium] simvastatin 40 mg PO PM #30 tab 07/20/18 10/01/18 Rx warfarin 1.5 mg PO 2XWK 10/01/18 10/01/18 History warfarin 3 mg PO 5XWK 10/01/18 10/01/18 History Past Med/Surg History Medical History Atrial fibrillation Cerebellar stroke Chronic anticoagulation Chronic right-sided congestive heart failure GERD (gastroesophageal reflux disease) Hypertension PFO (patent foramen ovale) CVA (cerebral vascular accident) (Resolved) Family history non-contributory Surgical History S/P aortic valve replacement Social History Preferred Language: Tamazight Communication Ability: Effective 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 Beliefs That Will Affect Care: None Current Living Situation: Spouse and Family Feels Safe at Home: Yes Safety Concerns: Feels Safe At This Time Smoking Status: Never smoker Hx Alcohol Use: No Hx Substance Use: No Review of Systems Review of Systems: The patient denies chest pain, palpitations, lower extremity swelling, sore throat, fevers, chills, sweats, weight change, nausea, vomiting, diarrhea , constipation, abdominal pain, pelvic pain, blood in urine or stool, dysuria, urinary frequency or urgency, lightheadedness, dizziness, headache, loss of consciousness, rash, abnormal bruising or bleeding, imbalance, generalized arthralgias or myalgias, back or neck pain, or night sweats. The review of systems is otherwise negative other than for that already noted above, and at least 10 systems have been reviewed. Physical Exam Physical Exam: The patient is awake, alert and oriented 3, normocephalic and atraumatic, sitting upright in wheelchair, and in no acute distress. HEENT--PERRL, EOMI, mucous membranes and oropharynx dry. Neck--supple. No JVD. No bruits. Thyroid normal, trachea midline, no adenopathy. Heart--normal S1 and S2. No murmurs, rubs or gallops. Lungs--coarse breath sounds bilaterally, no respiratory distress, no accessory muscle use. Abdomen--normal bowel sounds and soft. Nontender. Nondistended, no hernias or masses, no organomegaly. Extremities--no cyanosis or clubbing. Trace bilateral pretibial pitting edema. Dermatologic--normal skin turgor, normal color, no abnormal lymph nodes, no rash. Neurologic--cranial nerves II through XII grossly intact. Rheumatologic--normal range of motion. Psychiatric--normal affect. Results & Data Vital Signs (Past 12 Hours) Vital Signs Temp Pulse Pulse Resp BP BP Pulse Ox 10/01/18 22:14 89 L 10/01/18 22:01 76 26 H 139/62 90 10/01/18 22:00 78 25 H 90 10/01/18 21:30 87 17 90 10/01/18 21:11 77 28 H 149/56 H 94 10/01/18 21:10 78 29 H 91 10/01/18 20:30 75 31 H 95 10/01/18 20:01 80 26 H 164/71 H 95 10/01/18 20:00 81 24 93 10/01/18 19:37 82 21 175/71 H 96 10/01/18 19:36 95 10/01/18 19:34 92 10/01/18 19:33 91 H 27 H 96 10/01/18 19:27 92 H 25 H 175/71 H 95 10/01/18 18:19 79 24 96 10/01/18 17:49 98.4 F 75 20 165/68 H 96 Laboratory Results Laboratory Results WBC 7.43 K/uL (4.8-10.8) 10/01/18 18:45 RBC 3.91 M/uL (4.7-6.1) L 10/01/18 18:45 Hgb 11.9 g/dL (14.0-18.0) L 10/01/18 18:45 Hct 37.4 % (42-52) L 10/01/18 18:45 MCV 95.7 fL (80-100) 10/01/18 18:45 MCH 30.4 pg (25-34) 10/01/18 18:45 MCHC 31.8 g/dL (32-36) L 10/01/18 18:45 RDW Std Deviation 59.2 fL (36.4-46.3) H 10/01/18 18:45 RDW Coeff of Magali 17.1 % (11.5-14.5) H 10/01/18 18:45 Plt Count 153 K/uL (130-400) 10/01/18 18:45 MPV 10.5 fL (7.4-10.4) H 10/01/18 18:45 Immature Gran % (Auto) 0.8 % 10/01/18 18:45 Neut % (Auto) 82.0 % 10/01/18 18:45 Lymph % (Auto) 9.0 % 10/01/18 18:45 [place] % (Auto) 6.3 % 10/01/18 18:45 Eos % (Auto) 1.6 % 10/01/18 18:45 Baso % (Auto) 0.3 % 10/01/18 18:45 Immature Gran # (Auto) 0.06 K/uL (0.00-0.02) H 10/01/18 18:45 Neut # (Auto) 6.09 K/uL (1.4-6.5) 10/01/18 18:45 Lymph # (Auto) 0.67 K/uL (1.2-3.4) L 10/01/18 18:45 [place] # (Auto) 0.47 K/uL (0.11-0.59) 10/01/18 18:45 Eos # (Auto) 0.12 K/uL (0-0.5) 10/01/18 18:45 Baso # (Auto) 0.02 K/uL (0-0.2) 10/01/18 18:45 PT 34.1 Seconds (9.0-12.0) H 10/01/18 18:45 INR 3.6 (0.9-1.1) H 10/01/18 18:45 APTT 45.2 Seconds (21.0-31.0) H* 10/01/18 18:45 PTT Ratio 1.7 10/01/18 18:45 Sodium 138 mmol/L (136-145) 10/01/18 18:45 Potassium 4.0 mmol/L (3.5-5.1) 10/01/18 18:45 Chloride 104 mmol/L (98-107) 10/01/18 18:45 Carbon Dioxide 27 mmol/L (21-32) 10/01/18 18:45 7.0 (3-11) 10/01/18 18:45 BUN 19 mg/dl (7-18) H 10/01/18 18:45 1.07 mg/dl (0.6-1.4) 10/01/18 18:45 Est Cr Clr Drug Dosing 52.9 ml/min 10/01/18 18:45 Est GFR ( Amer) 74.5 10/01/18 18:45 Est GFR (Non-Af Amer) 64.3 10/01/18 18:45 17.9 (10-20) 10/01/18 18:45 Glucose 99 mg/dl (70-99) 10/01/18 18:45 Calcium 8.3 mg/dl (8.5-10.1) L 10/01/18 18:45 Magnesium 2.1 mg/dl (1.8-2.4) 10/01/18 18:45 1.0 mg/dl (0.2-1) 10/01/18 18:45 AST 23 U/L (15-37) 10/01/18 18:45 ALT 17 U/L (12-78) 10/01/18 18:45 84 U/L (45-117) 10/01/18 18:45 0.020 ng/ml (0-0.045) 10/02/18 00:50 6.6 gm/dl (6.4-8.2) 10/01/18 18:45 3.9 gm/dl (3.4-5.0) 10/01/18 18:45 2.7 gm/dl (2.5-4.0) 10/01/18 18:45 1.4 (0.9-2) 10/01/18 18:45 Yellow 10/01/18 Unknown Clear (Clear) 10/01/18 Unknown 5.0 (4.5-7.5) 10/01/18 Unknown Ur Specific Velma 1.015 (1.000-1.030) 10/01/18 Unknown Negative (Negative) 10/01/18 Unknown Negative (Negative) 10/01/18 Unknown Negative (Negative) 10/01/18 Unknown Trace (Negative) H 10/01/18 Unknown Negative (Negative) 10/01/18 Unknown Negative (Negative) 10/01/18 Unknown Negative (Negative) 10/01/18 Unknown Ur Leukocyte Esterase Negative (Negative) 10/01/18 Unknown 0 /hpf (0-5) 10/01/18 Unknown 0-4 /hpf (0-4) 10/01/18 Unknown U Hyaline Cast (Auto) 0 /lpf (0-5) 10/01/18 Unknown U Epithel Cells (Auto) 0-5 /lpf (0-5) 10/01/18 Unknown Negative (Negative) 10/01/18 Unknown Diagnostic Findings [facility], [place] [phone] XRay Report Patient: REENA BECKFORD EAdmit Date: 10/01/18 MR#: [id number]: [address] [facility] Acct ID:[id number]: Date: 1935[facility] Zip: [place] [address] Age: 83Location: ED Sex: M Room/Bed: Att Phy: Diagnosis: BAD COUGH Yanely Phy: Bondalapati, Navatha MDService Date: 10/01/18 Fam Phy: Interpreting Phy: Adrian Espinal MD Admit Phy: Ordering Phy: Sonido Durant MD cc: ~ XR chest 1V portable HISTORY: Dyspnea COMPARISON: Chest 07/17/2018. FINDINGS: The heart remains mildly enlarged. There are poststernotomy changes and a cardiac valve prosthesis. No pneumothorax. Mild interstitial pulmonary edema and trace bilateral pleural effusions have slightly improved. IMPRESSION: Cardiomegaly with slight improvement in the mild pulmonary edema and trace bilateral pleural effusions. Electronically signed by: Adrian Espinal M.D. 10/01/2018 7:35 PM Dictated: 10/01/181933 Transcribed: 10/01/181933 [facility], [place] [phone] CT Scan Report Patient: REENA BECKFORD EAdmit Date: 10/01/18 MR#: [id number]: [address] [facility] Acct ID:[id number]: Date: 1935[facility] Zip: [place] [address] Age: 83Location: ED Sex: M Room/Bed: Att Phy: Diagnosis: BAD COUGH Yanely Phy: Bondalapati, Navatha MDService Date: 10/01/18 Fam Phy: Interpreting Phy: Adrian Espinal MD Admit Phy: Ordering Phy: Sonido Durant MD cc: ~ HEAD CT NONCONTRAST CT DOSE: 614.27 mGy.cm HISTORY: headache, elevated INR TECHNIQUE: Multiaxial CT images of the head were performed without the use of intravenous contrast. Automated exposure control was utilized for this study. A dose lowering technique was utilized adhering to the principles of ALARA. Comparison: Brain MRI 07/18/2018. Findings: Opacified right maxillary sinus, unchanged. Mild mucosal thickening within the ethmoid air cells. The mastoid air cells are clear. Old small infarct within the right cerebellar hemisphere. Mild atrophy and mild microvascular isch emic changes are noted. There is no mass, hematoma, midline shift, or acute infarct. The calvarium and skull base are intact. The ventricles and sulci are within normal limits. There is no mass, hematoma, midline shift, or acute infarct. Impression: No acute intracranial abnormality. Electronically signed by: Adrian Espinal M.D. 10/01/2018 9:29 PM Dictated: 10/01/182125 Transcribed: 10/01/182125 Code Status & VTE Plan Code Status Full code VTE Prophylaxis Plan VTE Prophylaxis will be ordered: Yes
--- NOTE | 2018-10-02 00:06 | Emergency Department Note ---
Entered by Xiomara Hammonds acting as a scribe for Sonido Durant MD ED Provider Note CHIEF COMPLAINT: Cough HISTORY OF PRESENT ILLNESS: The patient is a 83 year old male who presents to the Emergency Room with complaints of a cough that began 4 days prior to arrival. The patient states that he has a headache, weakness, congestion, and choking on his saliva. The patient denies any nausea, vomiting, diarrhea, bloody stools, or problems with urination. The patient states that his symptoms started out as cold symptoms but states that his cough has gotten progressively worse. The patient denies wearing oxygen at home. The patient denies a history of smoking. The patient states that he goes to outpatient rehab 3x a week. The patient states that he takes Coumadin. The patient states that he has a history of strokes and pneumonia. Pt denies LOC, fevers, chills, diaphoresis, visual changes, neck pain, chest pain, breathing difficulties, nausea, vomiting, abdominal pain, back pain, melena, hematochezia, urinary symptoms, numbness, lymphadenopathy, rash, or other complaints. REVIEW OF SYSTEMS: See HPI for pertinent positives and negatives. A total of ten systems were reviewed and were otherwise negative. PMHx/PSHx: Acute CVA PFO Chronic right-sided congestive heart failure Hypertension GERD Asthma Atrial fibrillation Chronic anticoagulation Cerebellar stroke S/P Aortic valve replacement SOCIAL HISTORY: Patient lives at home. Patient never a smoker. PHYSICAL EXAM: GENERAL: Awake, alert, well-appearing, in no distress HENT: Normocephalic, atraumatic. Oropharynx unremarkable. EYES: PERRL. Normal conjunctiva. Sclera non-icteric. NECK: Inspection normal. Non-tender. Supple. No nuchal rigidity. FROM. No masses. RESPIRATORY: Clear to auscultation. Bilateral wheezes. No rales. Increased respiratory effort. CARDIAC: Normal rate. Normal rhythm. No murmurs. No rubs. Extremities warm and well perfused. Pulses equal. No JVD. GI: Soft, non-distended. No tenderness to palpation. No rebound or guarding. No masses. RECTAL: Deferred. MUSCULOSKELETAL: Atraumatic. Chest examination reveals no tenderness. The back is symmetrical on inspection without obvious abnormality. There is no CVA tenderness to palpation. No joint edema. LOWER EXTREMITIES: Calves are equal size bilaterally and non-tender. No edema. No discoloration. NEURO: Normal sensorium. No sensory or motor deficits noted. SKIN: No rash or jaundice noted. EMERGENCY DEPARTMENT COURSE: 1808: Past medical records reviewed. The patient was evaluated in room C4, and a complete history and physical examination were performed. 1949: I checked on the patient and updated him on his results. 2114: I discussed the patient's case with Dr. Estrella- [facility] Hospitalist who will evaluate the patient for further hospitalization. MEDICAL DECISION MAKING: Prior records/ancillary studies reviewed. Triage Nursing notes reviewed and agree them. Additional history obtained from the family. The patient's history was concerning for shortness of breath. Differential diagnosis: Etiologies such as pneumonia, COPD, reactive airway disease, CHF, cardiac ischemia, pulmonary embolism, pneumothorax, musculoskeletal, infections, gastrointestinal, as well as others were entertained. Physical examination: As above. The patient had significant increased work of breathing. Wheezing. ER treatment provided: DuoNeb x2 Tylenol IV IV doxycycline Monitoring Supplemental oxygen On reassessment the patient felt better. Diagnostic interpretation by me: The electrocardiogram was negative for pathologic change. The labs revealed mild anemia on CBC. No leukocytosis. Chemistry panel unr emarkable. Troponin negative. Imaging studies: Chest x-ray chronic changes noted but no obvious infiltrates. Patient has increased work of breathing. He has a productive cough. He is wheezing. He is requiring supplemental oxygen. Consultation: A consultation was placed with the hospitalist. The case was discussed and diagnostics were reviewed. The patient was evaluated in the ER for further treatment. IMPRESSION: Hypoxia Cough Wheezing PLAN: Admit The scribe's documentation has been prepared under my direction and personally reviewed by me in its entirety. I confirm that the note above accurately reflects all work, treatment, procedures, and medical decision making performed by me. Impression & Plan Hypoxia, Cough, Wheezing Past Med/Surg History Medical History Atrial fibrillation Cerebellar stroke Chronic anticoagulation Chronic right-sided congestive heart failure GERD (gastroesophageal reflux disease) Hypertension PFO (patent foramen ovale) CVA (cerebral vascular accident) (Resolved) Family history non-contributory Surgical History S/P aortic valve replacement Social History Preferred Language: [place] Communication Ability: Effective Beliefs That Will Affect Care: None Current Living Situation: Spouse and Family Feels Safe at Home: Yes Smoking Status: Never smoker Hx Alcohol Use: No Hx Substance Use: No Results & Data Vital Signs Vital Signs - 24 hr 10/01/18 17:49 10/01/18 18:19 10/01/18 19:27 Temperature 36.9 C Temperature Source Oral Sepsis Recent Fever Within 48 Hours No Sepsis Action Taken by Nursing No Action Required Pulse Rate 75 92 H Pulse Rate [Right Finger] 79 Pulse Rate from SpO2 Sensor 94 H Respiratory Rate 20 24 25 H Respiratory Effort / Characteristics Spontaneous Short of Breath Blood Pressure 165/68 H 175/71 H Blood Pressure [Right Arm] Blood Pressure Mean 100 105 Blood Pressure Mean [Right Arm] Blood Pressure Position Sitting Blood Pressure Position [Right Arm] Pulse Oximetry 96 96 95 Oxygen Delivery Method Room Air Room Air Oxygen Flow Rate 10/01/18 19:33 10/01/18 19:34 10/01/18 19:36 Temperature Temperature Source Sepsis Recent Fever Within 48 Hours Sepsis Action Taken by Nursing Pulse Rate 91 H Pulse Rate [Right Finger] Pulse Rate from SpO2 Sensor 92 H Respiratory Rate 27 H Respiratory Effort / Characteristics Blood Pressure Blood Pressure [Right Arm] Blood Pressure Mean Blood Pressure Mean [Right Arm] Blood Pressure Position Blood Pressure Position [Right Arm] Pulse Oximetry 96 92 95 Oxygen Delivery Method Room Air Nasal Cannula Oxygen Flow Rate 2 10/01/18 19:37 10/01/18 20:00 10/01/18 20:01 Temperature Temperature Source Sepsis Recent Fever Within 48 Hours Sepsis Action Taken by Nursing Pulse Rate 81 80 Pulse Rate [Right Finger] 82 Pulse Rate from SpO2 Sensor 79 85 Respiratory Rate 21 24 26 H Respiratory Effort / Characteristics Labored Blood Pressure 164/71 H Blood Pressure [Right Arm] 175/71 H Blood Pressure Mean 102 Blood Pressure Mean [Right Arm] 105 Blood Pressure Position Blood Pressure Position [Right Arm] Sitting Pulse Oximetry 96 93 95 Oxygen Delivery Method Nasal Cannula Oxygen Flow Rate 1 10/01/18 20:30 10/01/18 21:10 10/01/18 21:11 Temperature Temperature Source Sepsis Recent Fever Within 48 Hours Sepsis Action Taken by Nursing Pulse Rate 75 78 77 Pulse Rate [Right Finger] Pulse Rate from SpO2 Sensor 77 82 75 Respiratory Rate 31 H 29 H 28 H Respiratory Effort / Characteristics Blood Pressure 149/56 H Blood Pressure [Right Arm] Blood Pressure Mean 87 Blood Pressure Mean [Right Arm] Blood Pressure Position Blood Pressure Position [Right Arm] Pulse Oximetry 95 91 94 Oxygen Delivery Method Oxygen Flow Rate 10/01/18 21:30 10/01/18 22:00 10/01/18 22:01 Temperature Temperature Source Sepsis Recent Fever Within 48 Hours Sepsis Action Taken by Nursing Pulse Rate 87 78 76 Pulse Rate [Right Finger] Pulse Rate from SpO2 Sensor 81 72 74 Respiratory Rate 17 25 H 26 H Respiratory Effort / Characteristics Blood Pressure 139/62 Blood Pressure [Right Arm] Blood Pressure Mean 87 Blood Pressure Mean [Right Arm] Blood Pressure Position Blood Pressure Position [Right Arm] Pulse Oximetry 90 90 90 Oxygen Delivery Method Oxygen Flow Rate 10/01/18 22:14 Temperature Temperature Source Sepsis Recent Fever Within 48 Hours Sepsis Action Taken by Nursing Pulse Rate Pulse Rate [Right Finger] Pulse Rate from SpO2 Sensor Respiratory Rate Respiratory Effort / Characteristics Blood Pressure Blood Pressure [Right Arm] Blood Pressure Mean Blood Pressure Mean [Right Arm] Blood Pressure Position Blood Pressure Position [Right Arm] Pulse Oximetry 89 L Oxygen Delivery Method Room Air Oxygen Flow Rate 2 Home Medications Current Medication List: was personally reviewed by me Laboratory Data Attestation: I reviewed the patient's lab results. Result diagrams: 10/01/18 18:45 10/01/18 18:45 Lab Results 10/01/18 10/01/18 10/01/18 Range/Units 18:45 18:45 18:45 WBC 7.43 (4.8-10.8) K/uL RBC 3.91 L (4.7-6.1) M/uL Hgb 11.9 L (14.0-18.0) g/dL Hct 37.4 L (42-52) % MCV 95.7 (80-100) fL MCH 30.4 (25-34) pg MCHC 31.8 L (32-36) g/dL RDW Std Deviation 59.2 H (36.4-46.3) fL RDW Coeff of Magali 17.1 H (11.5-14.5) % Plt Count 153 (130-400) K/uL MPV 10.5 H (7.4-10.4) fL Immature Gran % (Auto) 0.8 % Neut % (Auto) 82.0 % Lymph % (Auto) 9.0 % [facility] % (Auto) 6.3 % Eos % (Auto) 1.6 % Baso % (Auto) 0.3 % Immature Gran # (Auto) 0.06 H (0.00-0.02) K/uL Neut # (Auto) 6.09 (1.4-6.5) K/uL Lymph # (Auto) 0.67 L (1.2-3.4) K/uL [facility] # (Auto) 0.47 (0.11-0.59) K/uL Eos # (Auto) 0.12 (0-0.5) K/uL Baso # (Auto) 0.02 (0-0.2) K/uL PT 34.1 H (9.0-12.0) Seconds INR 3.6 H (0.9-1.1) APTT 45.2 H* (21.0-31.0) Seconds PTT Ratio 1.7 Sodium 138 (136-145) mmol/L Potassium 4.0 (3.5-5.1) mmol/L Chloride 104 (98-107) mmol/L Carbon Dioxide 27 (21-32) mmol/L Anion Gap 7.0 (3-11) BUN 19 H (7-18) mg/dl Creatinine 1.07 (0.6-1.4) mg/dl Est Cr Clr Drug Dosing 52.9 ml/min Est GFR ( Amer) 74.5 Est GFR (Non-Af Amer) 64.3 BUN/Creatinine Ratio 17.9 (10-20) Glucose 99 (70-99) mg/dl Calcium 8.3 L (8.5-10.1) mg/dl Magnesium 2.1 (1.8-2.4) mg/dl Total Bilirubin 1.0 (0.2-1) mg/dl AST 23 (15-37) U/L ALT 17 (12-78) U/L Alkaline Phosphatase 84 (45-117) U/L Troponin I < 0.015 (0-0.045) ng/ml Total Protein 6.6 (6.4-8.2) gm/dl Albumin 3.9 (3.4-5.0) gm/dl Globulin 2.7 (2.5-4.0) gm/dl Albumin/Globulin Ratio 1.4 (0.9-2) Urine Color Urine Appearance (Clear) Urine pH (4.5-7.5) Ur Specific [place] (1.000-1.030) Urine Protein (Negative) Urine Glucose (UA) (Negative) Urine Ketones (Negative) Urine Blood (Negative) Urine Nitrite (Negative) Urine Bilirubin (Negative) Urine Urobilinogen (Negative) Ur Leukocyte Esterase (Negative) Urine WBC (Auto) (0-5) /hpf Urine RBC (Auto) (0-4) /hpf U Hyaline Cast (Auto) (0-5) /lpf U Epithel Cells (Auto) (0-5) /lpf Urine Bacteria (Auto) (Negative) 10/01/18 Range/Units Unknown WBC (4.8-10.8) K/uL RBC (4.7-6.1) M/uL Hgb (14.0-18.0) g/dL Hct (42-52) % MCV (80-100) fL MCH (25-34) pg MCHC (32-36) g/dL RDW Std Deviation (36.4-46.3) fL RDW Coeff of Magali (11.5-14.5) % Plt Count (130-400) K/uL MPV (7.4-10.4) fL Immature Gran % (Auto) % Neut % (Auto) % Lymph % (Auto) % [facility] % (Auto) % Eos % (Auto) % Baso % (Auto) % Immature Gran # (Auto) (0.00-0.02) K/uL Neut # (Auto) (1.4-6.5) K/uL Lymph # (Auto) (1.2-3.4) K/uL [facility] # (Auto) (0.11-0.59) K/uL Eos # (Auto) (0-0.5) K/uL Baso # (Auto) (0-0.2) K/uL PT (9.0-12.0) Seconds INR (0.9-1.1) APTT (21.0-31.0) Seconds PTT Ratio Sodium (136-145) mmol/L Potassium (3.5-5.1) mmol/L Chloride (98-107) mmol/L Carbon Dioxide (21-32) mmol/L Anion Gap (3-11) BUN (7-18) mg/dl Creatinine (0.6-1.4) mg/dl Est Cr Clr Drug Dosing ml/min Est GFR ( Amer) Est GFR (Non-Af Amer) BUN/Creatinine Ratio (10-20) Glucose (70-99) mg/dl Calcium (8.5-10.1) mg/dl Magnesium (1.8-2.4) mg/dl Total Bilirubin (0.2-1) mg/dl AST (15-37) U/L ALT (12-78) U/L Alkaline Phosphatase (45-117) U/L Troponin I (0-0.045) ng/ml Total Protein (6.4-8.2) gm/dl Albumin (3.4-5.0) gm/dl Globulin (2.5-4.0) gm/dl Albumin/Globulin Ratio (0.9-2) Urine Color Yellow Urine Appearance Clear (Clear) Urine pH 5.0 (4.5-7.5) Ur Specific [place] 1.015 (1.000-1.030) Urine Protein Negative (Negative) Urine Glucose (UA) Negative (Negative) Urine Ketones Negative (Negative) Urine Blood Trace H (Negative) Urine Nitrite Negative (Negative) Urine Bilirubin Negative (Negative) Urine Urobilinogen Negative (Negative) Ur Leukocyte Esterase Negative (Negative) Urine WBC (Auto) 0 (0-5) /hpf Urine RBC (Auto) 0-4 (0-4) /hpf U Hyaline Cast (Auto) 0 (0-5) /lpf U Epithel Cells (Auto) 0-5 (0-5) /lpf Urine Bacteria (Auto) Negative (Negative) Administered Medications Doxycycline Hyclate 100 mg/ (Dextrose) 110 mls @ 50 mls/hr IV NOW STA Stop: 10/02/18 00:19 Last Admin: 10/01/18 22:21 Dose: 50 mls/hr Documented by: [id number] Discontinued Medications Albuterol (Duoneb) 3 ml INH NOW STA Stop: 10/01/18 18:12 Last Admin: 10/01/18 18:19 Dose: 3 ml Documented by: [id number] Acetaminophen (Ofirmev) 1,000 mg in 100 mls @ 400 mls/hr IV NOW STA Stop: 10/01/18 20:38 Last Infusion: 10/01/18 20:47 Dose: 0 mls/hr Documented by: [id number] Admin: 10/01/18 20:31 Dose: 400 mls/hr Documented by: [id number] Imaging Data Radiologist's Impression: Radiology results as stated below per my review and the radiologist's interpretation: XR chest 1V portable HISTORY: Dyspnea COMPARISON: Chest 07/17/2018. FINDINGS: The heart remains mildly enlarged. There are poststernotomy changes and a cardiac valve prosthesis. No pneumothorax. Mild interstitial pulmonary edema and trace bilateral pleural effusions have slightly improved. IMPRESSION: Cardiomegaly with slight improvement in the mild pulmonary edema and trace bilateral pleural effusions. Electronically signed by: Adrian Espinal M.D. 10/01/2018 7:[address]AST CT DOSE: 614.27 mGy.cm HISTORY: headache, elevated INR TECHNIQUE: Multiaxial CT images of the head were performed without the use of intravenous contrast. Automated exposure control was utilized for this study. A dose lowering technique was utilized adhering to the principles of ALARA. Comparison: Brain MRI 07/18/2018. Findings: Opacified right maxillary sinus, unchanged. Mild mucosal thickening within the ethmoid air cells. The mastoid air cells are clear. Old small infarct within the right cerebellar hemisphere. Mild atrophy and mild microvascular ischemic changes are noted. There is no mass, hematoma, midline shift, or acute infarct. The calvarium and skull base are intact. The ventricles and sulci are within normal limits. There is no mass, hematoma, midline shift, or acute infarct. Impression: No acute intracranial abnormality. Electronically signed by: Adrian Espinal M.D. 10/01/2018 9:29 PM ECG Data Attestation: I personally reviewed and interpreted this ECG as follows: Indication: weakness Rate (beats per minute): 87 Rhythm: atrial fibrillation Findings: + RBBB; no PVC and no ST elevation Blood Pressure Blood Pressure Findings: Elevated blood pressure Blood Pressure Disposition: elevated BP felt to be situational Discharge Plan Visit Data Chief Complaint: Cough Stated Complaint: BAD COUGH ED Provider: Sonido Durant Discharge Problem: Hypoxia, Cough, Wheezing Patient Disposition: Being Evaluated by Hospitalist Forms Stand Alone Forms: My [facility] Prescriptions Prescriptions: No Action furosemide [Lasix] 40 mg Tablet 40 mg PO DAILY PRN (Reason: WT GAIN OR EDEMA) RF: 0 fluticasone propion-salmeterol [Advair Diskus] 250-50 mcg/dose Blister With Device 1 inh INHALATION BID RF: 0 prednisone 5 mg Tablet 5 mg PO DAILY RF: 0 cyanocobalamin (vitamin B-12) [Vitamin B-12] 1,000 mcg Tablet 1,000 mcg PO DAILY RF: 0 omeprazole 40 mg Capsule,Delayed Release(Dr/Ec) 40 mg PO DAILY RF: 0 aspirin [Aspir-81] 81 mg Tablet,Delayed Release (Dr/Ec) 81 mg PO DAILY RF: 0 tramadol 50 mg Tablet 50 mg PO HS PRN (Reason: Pain) RF: 0 docusate sodium [Colace] 100 mg Capsule 100 mg PO BID RF: 0 doxazosin 4 mg Tablet 4 mg PO BID RF: 0 folic acid 1 mg Tablet 1 mg PO DAILY RF: 0 mupirocin 2 % Ointment 1 applic TOPICAL BID RF: 0 ergocalciferol (vitamin D2) [Vitamin D2] 50,000 unit Capsule 50,000 unit PO WK RF: 0 albuterol sulfate [ProAir HFA] 90 mcg/actuation Hfa Aerosol Inhaler 1 - 2 puff INHALATION Q4 PRN (Reason: Shortness Of Breath Or Wheezing) RF: 0 escitalopram oxalate 10 mg Tablet 10 mg PO DAILY RF: 0 triamcinolone acetonide 0.05 % Ointment 1 applic TOPICAL BID PRN (Reason: Skin Irritation) RF: 0 potassium chloride 20 mEq Tablet Extended Release 20 meq PO DAILY PRN (Reason: WHEN TAKES LASIX) RF: 0 sennosides-docusate sodium [Senna with Docusate Sodium] 8.6-50 mg Tablet 2 tab PO QAM Qty: 60 RF: 0 simvastatin 40 mg Tablet 40 mg PO PM Qty: 30 RF: 0 methotrexate sodium 2.5 mg Tablet 10 mg PO WK Qty: 0 RF: 0 warfarin 3 mg Tablet 1.5 mg PO 2XWK RF: 0 warfarin 3 mg Tablet 3 mg PO 5XWK RF: 0 Referrals Referrals: Angelica Leo MD [Primary Care Provider] - The scribe's documentation has been prepared under my direction and personally reviewed by me in its entirety. I confirm that the note above accurately reflects all work, treatment, procedures, and medical decision making performed by me.
[2018-10-02] MEDS ORDERED: ACETAMINOPHEN 325 MG TAB PO PRN (00:31)
[2018-10-02] MEDS ORDERED: cefTRIAXone SODIUM 1,000 MG/50 ML BAG IV STA (00:31)
[2018-10-02] MEDS ORDERED: ONDANSETRON INJ 2 MG/ML 2 ML VIAL IV PRN (00:31)
[2018-10-02] MEDS ORDERED: MAGNESIUM HYDROXIDE SUSP 30 ML UDC PO PRN (00:31)
[2018-10-02] MEDS ORDERED: POLYETHYLENE (MIRALAX) 17 GM PACK PO PRN (00:31)
[2018-10-02] MEDS ORDERED: ALUMINUM/MAGNESIUM SUSP 30 ML UDC PO PRN (00:31)
[2018-10-02] MEDS ORDERED: TRAMADOL HCL 50 MG TABLET PO PRN (00:31)
[2018-10-02] MEDS ORDERED: ACETAMINOPHEN 1000 MG/100 ML IV IV PRN (00:31)
[2018-10-02] MEDS ORDERED: TRIAMCINOLONE ACET 0.1% CR 15 GM TUBE TOP PRN (00:31)
[2018-10-02] MEDS: methylPREDNISolone 40 MG in SYRINGE 0 ML IV SCH ×3 (01:24→17:32)
[2018-10-02] MEDS: cefTRIAXone SODIUM 2,000 MG in DEXTROSE 5% 50 ML IV SCH (01:25)
[2018-10-02] MEDS: AZITHROMYCIN 500 MG in DEXTROSE 5% 250 ML IV SCH (01:25)
[2018-10-02 06:32] LABS: Basophils # (auto) 0.02 K/uL (0-0.2); Basophils % (auto) 0.2 %; Eosinophils # (auto) 0.01 K/uL (0-0.5); Eosinophils % (auto) 0.1 %; Hematocrit (blood only) 38.7 % (42-52); Hemoglobin 12.1 g/dL (14.0-18.0); Immature Granulocytes # (auto) 0.08 K/uL (0.00-0.02); Immature Granulocytes % (auto) 0.9 %; Lymphocytes % (auto) 2.2 %; Mean Corpuscular Hgb Conc 31.3 g/dL (32-36); Mean Platelet Volume 10.7 fL (7.4-10.4); Monocytes # (auto) 0.15 K/uL (0.11-0.59); Monocytes % (auto) 1.6 %; Neutrophils # (auto) 8.74 K/uL (1.4-6.5); Platelet Count 144 K/uL (130-400); RDW Coefficient of Variation 17.3 % (11.5-14.5); RDW Standard Deviation 60.5 fL (36.4-46.3); Red Blood Count 4.03 M/uL (4.7-6.1)
[2018-10-02 06:59] LABS: Prothrombin Time 38.1 Seconds (9.0-12.0)
[2018-10-02 07:00] LABS: Albumin Level 3.8 gm/dl (3.4-5.0); BUN Creatinine Ratio 15.8 (10-20); Calcium 8.7 mg/dl (8.5-10.1); Creatinine Clr Calc Pharmacy 53.4 ml/min; Est GFR (African American) 75.4; Potassium 4.3 mmol/L (3.5-5.1)
[2018-10-02 07:03] LABS: Albumin Globulin Ratio 1.2 (0.9-2); Bilirubin,Total 0.8 mg/dl (0.2-1); Globulin 3.1 gm/dl (2.5-4.0); Total Protein 6.9 gm/dl (6.4-8.2)
[2018-10-02 07:06] LABS: INR 4.1 (0.9-1.1)
[2018-10-02 07:07] LABS: Partial Thromboplastin Time 54.1 Seconds (21.0-31.0)
[2018-10-02] MEDS: BUDESONIDE 0.5 MG/2 ML VIAL (PULMICORT) NEB SCH ×2 (07:07→19:43)
[2018-10-02] MEDS: ALBUT/IPRATROP 3MG/0.5MG NEB 3 ML VIAL NEB SCH ×4 (07:07→19:43)
[2018-10-02] MEDS: MUPIROCIN 2% OINT 22 GM TUBE TOP SCH ×2 (08:54→20:11)
[2018-10-02] MEDS: DOXAZosin MESYLATE 4 MG TAB PO SCH ×2 (08:54→20:12)
[2018-10-02] MEDS: FLUTICASONE/SALMETEROL 250/50 (ADVAIR) 14 PUFF/1 INHALER INH SCH ×2 (08:54→20:10)
[2018-10-02] MEDS: PANTOprazole 40 MG TAB PO SCH (08:55)
[2018-10-02] MEDS: guaiFENesin 600 MG TABCR PO SCH ×2 (08:55→20:11)
[2018-10-02] MEDS: FOLIC ACID 1 MG TAB PO SCH (08:55)
[2018-10-02] MEDS: ESCITALOPRAM OXALATE 10 MG TAB PO SCH (08:55)
[2018-10-02] MEDS: ASPIRIN 81 MG ECTAB PO SCH (08:55)
[2018-10-02] MEDS: DOCUSATE SODIUM/SENNA 50/8.6MG TAB PO SCH (08:55)
[2018-10-02] MEDS: DOCUSATE SODIUM 100 MG CAP PO SCH ×2 (08:55→20:11)
[2018-10-02] MEDS: CYANOCOBALAMIN 500 MCG TABLET (VITAMIN B-12) PO SCH (08:55)
--- NOTE | 2018-10-02 13:07 | Family Medicine Progress Note ---
Date of Service October 02, 2018 Assessment & Plan (1) Asthmatic bronchitis with acute exacerbation: Shawn Weaver is an 83-year-old male with past medical history of hypertension, atrial fibrillation, and asthma who presented with a persistent cough and difficulty clearing secretions. He was admitted for asthmatic bronchitis with acute exacerbation. In the ED he was treated with duo nebs and doxycycline IV x1. He was transferred to the floor for further care. Asthmatic bronchitis, acute exacerbation Pulmicort 0.5 mg inhaled twice daily Ceftriaxone 1 g IV daily, Azithromycin 500 mg IV daily - Gram stain and culture pending. Given that he is clinically improving, had an unremarkable chest x-ray, and has not had a leukocytosis can likely discontinue antibiotics tomorrow versus narrow as appropriate based on sputum sensitivities if positive. Guaifenesin extended release 600 mg twice daily - Duonebs every 4 hours while awake. Q2H PRN - Advair 1 puff twice daily -Discharge with home nebulizer unit plus duo nebs plus Pulmicort Respules Methylprednisolone 40 mg every 8 hours. On [facility] prednisone 5 mg daily Atrial fibrillation w/ Hx CVA -Continue [facility] warfarin with goal INR 2.5-3.5. Increased therapeutic target in the setting of s/p AVR replacement. [facility] warfarin 1.5 mg p.o. twice per week, 3 mg p.o. 5 times per week - In Afib today Warfarin supratherapeutic, held today. INR checks daily. History of recent CVA Global left-sided weakness with trace dysarthria, at baseline and stable since July. CT head shows no acute intracranial abnormality. Continue anticoagulation for A. fib as above. Hypertension Aspirin 81 mg daily [facility] Lasix 40 mg p.o. daily as needed Lasix IV 20 mg x 1 today given mild fluid on CXR Hyperlipidemia Simvastatin 40 mg daily GERD Converted [facility] omeprazole 40 mg to Protonix 40 mg p.o. daily Depression Continue [facility] escitalopram 10 mg daily DVT prophylaxis Warfarin as above (2) Bronchitis with airway obstruction: (3) Hypoxia: (4) Weakness of muscle of left side of face due to and not concurrent with cerebrovascular accident (CVA): Supervising Physician Co-Signing Physician Notes I saw the patient separately from the resident physician and performed a history and exam. I discussed the case with the resident physician and agree with the impression and plan as noted above. Upon examination, the patient is seated in a bedside chair. He states that he generally feels better than admission but not at his baseline. Cardiovascular regular rate and rhythm at the time of my examination, other noted history of paroxysmal atrial fibrillation. Lungs with good air exchange but expiratory wheezing; when comparing this to the notes from yesterday I think this represents an improvement. Asthmatic bronchitis, acute on chronic Continue Rocephin and Zithromax for now Suspect we can transition steroids to p.o. tomorrow. Supratherapeutic INR Hold warfarin today Daily PT/INR with Coumadin adjustment Paroxysmal atrial fibrillation Rate controlled Anticoagulated Anemia, mild, stable Monitor Subjective Shawn reports he feels well today. He denies shortness of breath, feels he is breathing okay. He is eating breakfast at time of visit. He feels his swallowing is okay as long as he is careful to eat slow and he has had no problems with choking on saliva. He endorses a dry cough. He has not seen speech-language pathology yet today. Review of Systems Review of Systems: Constitutional: Denies fever, chills, malaise, weight change Eyes: Denies double vision, vision change, eye pain ENT: Denies ear pain, sore throat, sinus pain Cardiovascular: Denies Chest pain, chest pressure, palpitations. Endorses hand swelling. Respiratory: Denies shortness of breath, sputum production, difficulty breathing. Endorses cough. Gastrointestinal: Denies abdominal pain, nausea, vomiting, diarrhea Genitourinary: Denies pain with urination Musculoskeletal: Denies new/acute weakness, muscle aches/pain, joint aches/pain Integumentary:Denies new rash, lesions, bruising Neurological: Denies headache, numbness, tingling, new focal weakness. Endorses baseline weakness of his L side globally since a stroke two months ago. Physical Exam Physical Exam: General: A&Ox3. NAD. Cooperative. HEENT: Atraumatic, normocephalic. Left facial droop. Pulm: Diffuse inspiratory wheeze appreciated. No rales or crackles appreciated. Symmetrical chest rise. No increase work of breathing. No respiratory distress. Cardiac: iii/vi systolic murmur. Irregular rate. -rg. Radial pulses intact and symmetrical. Extremity: Favors movement of right extremities. Left hand and resting finger flexion, weakness of all left-sided extremity movements especially finger extension. Sensation intact. Hand edema present bilaterally. Trace pedal edema. Results & Data Vital Signs (Past 12 Hours) Vital Signs Temp Pulse Pulse Resp BP Pulse Ox 10/02/18 12:12 36.8 C 72 20 146/55 H 90 10/02/18 11:15 54 L 16 98 10/02/18 09:00 61 10/02/18 07:45 37.1 C 58 L 20 133/62 96 10/02/18 07:09 75 18 95 10/02/18 04:20 37 C 72 18 119/60 97 Resident Activity Tracking Resident Involvement: Resident Care Provided Care Provided: Adult Hospital Medicine
[2018-10-02] MEDS ORDERED: FUROSEMIDE 20 MG in SYRINGE 0 ML IV ONE (14:45)
[2018-10-02] MEDS ORDERED: WARFARIN SOD 3 MG TAB PO SCH (16:00)
[2018-10-02] MEDS: SIMVASTATIN 40 MG TAB PO SCH (20:12)
[2018-10-03] MEDS: methylPREDNISolone 40 MG in SYRINGE 0 ML IV SCH ×3 (00:39→16:52)
[2018-10-03] MEDS: cefTRIAXone SODIUM 2,000 MG in DEXTROSE 5% 50 ML IV SCH (00:39)
[2018-10-03] MEDS: AZITHROMYCIN 500 MG in DEXTROSE 5% 250 ML IV SCH (01:10)
[2018-10-03] MEDS: ALBUT/IPRATROP 3MG/0.5MG NEB 3 ML VIAL NEB SCH ×4 (07:05→19:34)
[2018-10-03] MEDS: BUDESONIDE 0.5 MG/2 ML VIAL (PULMICORT) NEB SCH ×2 (07:06→19:34)
[2018-10-03 07:09] LABS: Hematocrit (blood only) 35.7 % (42-52); Hemoglobin 11.4 g/dL (14.0-18.0); Immature Granulocytes # (auto) 0.04 K/uL (0.00-0.02); Immature Granulocytes % (auto) 0.4 %; Lymphocytes # (auto) 0.23 K/uL (1.2-3.4); Lymphocytes % (auto) 2.1 %; Mean Corpuscular Hgb Conc 31.9 g/dL (32-36); Mean Corpuscular Volume 94.7 fL (80-100); Monocytes # (auto) 0.23 K/uL (0.11-0.59); Monocytes % (auto) 2.1 %; Neutrophils # (auto) 10.29 K/uL (1.4-6.5); Neutrophils % (auto) 95.4 %; Platelet Count 158 K/uL (130-400); RDW Coefficient of Variation 17.4 % (11.5-14.5); RDW Standard Deviation 59.9 fL (36.4-46.3); Red Blood Count 3.77 M/uL (4.7-6.1); White Blood Count 10.79 K/uL (4.8-10.8)
[2018-10-03 07:17] LABS: INR 3.4 (0.9-1.1); Prothrombin Time 31.8 Seconds (9.0-12.0)
[2018-10-03 07:43] LABS: Albumin Level 3.6 gm/dl (3.4-5.0); BUN Creatinine Ratio 21.8 (10-20); Calcium 9.2 mg/dl (8.5-10.1); Creatinine Clr Calc Pharmacy 49.5 ml/min; Est GFR (African American) 71.3; Est GFR (Non-African American) 61.5; Magnesium 2.2 mg/dl (1.8-2.4)
[2018-10-03 07:46] LABS: Albumin Globulin Ratio 1.2 (0.9-2); Bilirubin,Total 0.7 mg/dl (0.2-1); Globulin 2.9 gm/dl (2.5-4.0); Total Protein 6.5 gm/dl (6.4-8.2)
[2018-10-03] MEDS: PANTOprazole 40 MG TAB PO SCH (08:39)
[2018-10-03] MEDS: CYANOCOBALAMIN 500 MCG TABLET (VITAMIN B-12) PO SCH (08:39)
[2018-10-03] MEDS: guaiFENesin 600 MG TABCR PO SCH ×2 (08:39→21:12)
[2018-10-03] MEDS: ESCITALOPRAM OXALATE 10 MG TAB PO SCH (08:39)
[2018-10-03] MEDS: DOCUSATE SODIUM 100 MG CAP PO SCH ×2 (08:40→21:12)
[2018-10-03] MEDS: FOLIC ACID 1 MG TAB PO SCH (08:40)
[2018-10-03] MEDS: DOXAZosin MESYLATE 4 MG TAB PO SCH ×2 (08:40→21:12)
[2018-10-03] MEDS: ASPIRIN 81 MG ECTAB PO SCH (08:40)
[2018-10-03] MEDS: DOCUSATE SODIUM/SENNA 50/8.6MG TAB PO SCH (08:40)
[2018-10-03] MEDS: FLUTICASONE/SALMETEROL 250/50 (ADVAIR) 14 PUFF/1 INHALER INH SCH ×2 (08:41→21:11)
[2018-10-03] MEDS: MUPIROCIN 2% OINT 22 GM TUBE TOP SCH ×2 (08:45→21:11)
--- NOTE | 2018-10-03 14:51 | Family Medicine Progress Note ---
Date of Service October 03, 2018 Assessment & Plan (1) Asthmatic bronchitis with acute exacerbation: Shawn Weaver is an 83-year-old male with past medical history of hypertension, atrial fibrillation, and asthma who presented with a persistent cough and difficulty clearing secretions. He was admitted for asthmatic bronchitis with acute exacerbation. In the ED he was treated with duo nebs and doxycycline IV x1. He was transferred to the floor for further care. Asthmatic bronchitis, acute exacerbation Pulmicort 0.5 mg inhaled twice daily Previouly on Ceftriaxone 1 g IV daily, Azithromycin 500 mg IV daily started 10/02. - Discontinued Ceftriaxone. Converted Azithromycin IV to 250mg PO daily for 3 more days (5 day total course). - Gram stain and culture with ngtd. He is doing clinically well. Guaifenesin extended release 600 mg twice daily - Duonebs every 4 hours while awake. Q2H PRN - Advair 1 puff twice daily -Discharge with home nebulizer unit plus duo nebs plus Pulmicort Respules Methylprednisolone 40 mg every 8 hours. On AUDIO VISUAL MANAGER prednisone 5 mg daily. Will stop methylprednisolone tonight and convert to prednisone 40mg daily for 2-3 days followed by a steroid taper. Atrial fibrillation w/ Hx CVA -Continue AUDIO VISUAL MANAGER warfarin with goal INR 2.5-3.5. Increased therapeutic target in the setting of s/p AVR replacement. AUDIO VISUAL MANAGER warfarin 1.5 mg p.o. twice per week, 3 mg p.o. 5 times per week - In Afib today INR checks daily. 3.4 today, resume warfarin dosing as above History of recent CVA Global left-sided weakness with trace dysarthria, at baseline and stable since July. CT head shows no acute intracranial abnormality. Continue anticoagulation for A. fib as above. Hypertension Aspirin 81 mg daily AUDIO VISUAL MANAGER Lasix 40 mg p.o. daily as needed Hyperlipidemia Simvastatin 40 mg daily GERD Protonix 40 mg p.o. daily Depression Continue AUDIO VISUAL MANAGER escitalopram 10 mg daily Dispo: Likely home w/ home PT. Just converted from IV steroids today. Supervising Physician Co-Signing Physician Notes Co-Signing Physician Notes I saw the patient separately from the resident physician and performed a history and exam. I discussed the case with the resident physician and agree with the impression and plan as noted above. Upon examination, the patient was actually ambulating in the room with nursing. He states that he generally feels better than admission but not at his baseline. He was able to emulate 36 feet, and on room air his pulse oximetry remained at 94% or greater. The patient did seem winded when he returned to his seat. Cardiovascular: Regularly irregular. Lungs: End expiratory wheezing with some coarseness, subtle improvement compared to yesterday. Asthmatic bronchitis, acute on chronic Continue Rocephin and Zithromax for now Transition to prednisone tomorrow. Repeat chest x-ray in morning Supratherapeutic INR Resume warfarin today Daily PT/INR with Coumadin adjustment Paroxysmal atrial fibrillation Rate controlled Anticoagulated Anemia, mild, stable Monitor Subjective Patient is seen at bedside today. He reports he feels "okay ". He reports he continues to have a wet cough which is occasionally productive for clear to light yellow mucus. He denies fever, chills, sweats overnight. He is not short of breath at time of visit. Denies chest pain. He feels his air movement is okay, and is not having difficulty breathing at this time. No questions or concerns at time of visit. Review of Systems Review of Systems: Constitutional: Denies fever, chills, malaise, weight c hange Eyes: Denies double vision, vision change, eye pain ENT: Denies ear pain, sore throat, sinus pain Cardiovascular: Denies Chest pain, chest pressure, palpitations. Endorses hand swelling. Respiratory: Denies shortness of breath, sputum production, difficulty breathing. Endorses cough. Gastrointestinal: Denies abdominal pain, nausea, vomiting, diarrhea Genitourinary: Denies pain with urination Musculoskeletal: Denies new/acute weakness, muscle aches/pain, joint aches/pain Integumentary:Denies new rash, lesions, bruising Neurological: Denies headache, numbness, tingling, new focal weakness. Endorses baseline weakness of his L side globally since a stroke two months ago. Physical Exam Physical Exam: General: A&Ox3. NAD. Cooperative. HEENT: Atraumatic, normocephalic. Left facial droop. Pulm: Diffuse inspiratory wheeze appreciated. No rales or crackles appreciated. Symmetrical chest rise. No increased work of breathing. No respiratory distress. Cardiac: iii/vi systolic murmur at LUSB. Irregular rate. -rg. Radial pulses intact and symmetrical. Extremity: Favors movement of right extremities. Left hand in resting finger flexion, weakness of all left-sided extremity movements especially finger extension. Sensation intact. Hand edema present bilaterally. Trace pedal edema. Results & Data Vital Signs (Past 12 Hours) Vital Signs Temp Pulse Pulse Resp BP Pulse Ox 10/03/18 03:37 36.4 C L 68 16 115/53 L 94 10/03/18 00:00 75 10/02/18 23:23 36.9 C 80 16 116/46 L 95 10/02/18 20:30 36.4 C L 74 20 135/56 L 96 10/02/18 19:45 65 16 94 Resident Activity Tracking Resident Involvement: Resident Care Provided Care Provided: Adult Hospital Medicine
[2018-10-03] MEDS: WARFARIN SOD 0.5 MG TAB PO SCH (15:37)
[2018-10-03] MEDS: SIMVASTATIN 40 MG TAB PO SCH (21:12)
[2018-10-04 05:59] LABS: Basophils # (auto) 0.01 K/uL (0-0.2); Basophils % (auto) 0.1 %; Eosinophils # (auto) 0.01 K/uL (0-0.5); Eosinophils % (auto) 0.1 %; Hematocrit (blood only) 33.2 % (42-52); Hemoglobin 10.5 g/dL (14.0-18.0); Immature Granulocytes # (auto) 0.07 K/uL (0.00-0.02); Immature Granulocytes % (auto) 0.6 %; Lymphocytes # (auto) 0.46 K/uL (1.2-3.4); Lymphocytes % (auto) 3.8 %; Mean Corpuscular Hgb Conc 31.6 g/dL (32-36); Mean Corpuscular Volume 95.1 fL (80-100); Mean Platelet Volume 9.7 fL (7.4-10.4); Monocytes % (auto) 4.1 %; Neutrophils # (auto) 11.09 K/uL (1.4-6.5); Neutrophils % (auto) 91.3 %; Platelet Count 146 K/uL (130-400); RDW Coefficient of Variation 17.5 % (11.5-14.5); RDW Standard Deviation 60.4 fL (36.4-46.3); Red Blood Count 3.49 M/uL (4.7-6.1); White Blood Count 12.14 K/uL (4.8-10.8)
[2018-10-04 06:13] LABS: INR 2.7 (0.9-1.1); Prothrombin Time 26.1 Seconds (9.0-12.0)
[2018-10-04 06:35] LABS: Albumin Level 3.2 gm/dl (3.4-5.0); BUN Creatinine Ratio 29.2 (10-20); Calcium 8.8 mg/dl (8.5-10.1); Est GFR (African American) 88.3; Est GFR (Non-African American) 76.2; Magnesium 2.4 mg/dl (1.8-2.4)
[2018-10-04 06:38] LABS: Albumin Globulin Ratio 1.2 (0.9-2); Bilirubin,Total 0.9 mg/dl (0.2-1); Globulin 2.6 gm/dl (2.5-4.0); Total Protein 5.8 gm/dl (6.4-8.2)
[2018-10-04] MEDS: ALBUT/IPRATROP 3MG/0.5MG NEB 3 ML VIAL NEB SCH ×4 (07:01→19:40)
[2018-10-04] MEDS: BUDESONIDE 0.5 MG/2 ML VIAL (PULMICORT) NEB SCH (07:01)
--- NOTE | 2018-10-04 08:13 | XRay Report ---
XR chest 2V routine HISTORY: 83 years-old Male asthmatic flare acute shortness of breath with asthma COMPARISON: Chest radiograph 10/01/2018 TECHNIQUE: AP and lateral views of the chest FINDINGS: Cardiac silhouette is enlarged. Prior median sternotomy. Cardiac valvular prosthesis. Pulmonary vascu lar congestion without pneumothorax. Trace pleural effusions with bibasilar opacities. Degenerative c hanges of the shoulders and spine. IMPRESSION: 1. Cardiomegaly with pulmonary vascular congestion. 2. Trace pleural effusions with subsegmental bibasilar opacities suggestive of atelectasis. The above report was generated using voice recognition software. It may contain grammatical, syntax o r spelling errors. Electronically signed by: Jeronimo Armendariz M.D. 10/04/2018 8:12 AM
[2018-10-04] MEDS: CYANOCOBALAMIN 500 MCG TABLET (VITAMIN B-12) PO SCH (08:46)
[2018-10-04] MEDS: FOLIC ACID 1 MG TAB PO SCH (08:46)
[2018-10-04] MEDS: FLUTICASONE/SALMETEROL 250/50 (ADVAIR) 14 PUFF/1 INHALER INH SCH ×2 (08:46→20:23)
[2018-10-04] MEDS: DOXAZosin MESYLATE 4 MG TAB PO SCH ×2 (08:46→20:24)
[2018-10-04] MEDS: MUPIROCIN 2% OINT 22 GM TUBE TOP SCH ×2 (08:47→20:23)
[2018-10-04] MEDS: guaiFENesin 600 MG TABCR PO SCH ×2 (08:47→20:24)
[2018-10-04] MEDS: DOCUSATE SODIUM/SENNA 50/8.6MG TAB PO SCH (08:47)
[2018-10-04] MEDS: PANTOprazole 40 MG TAB PO SCH (08:48)
[2018-10-04] MEDS: ASPIRIN 81 MG ECTAB PO SCH (08:48)
[2018-10-04] MEDS: ESCITALOPRAM OXALATE 10 MG TAB PO SCH (08:48)
[2018-10-04] MEDS: DOCUSATE SODIUM 100 MG CAP PO SCH ×2 (08:48→20:25)
[2018-10-04] MEDS ORDERED: AZITHROMYCIN 250 MG TAB PO SCH (09:00)
[2018-10-04] MEDS ORDERED: predniSONE 20 MG TAB PO SCH (09:00)
[2018-10-04] MEDS ORDERED: FUROSEMIDE 40 MG TAB PO ONE (10:58)
[2018-10-04] MEDS: AZITHROMYCIN 250 MG TAB PO SCH (15:05)
--- NOTE | 2018-10-04 16:47 | Family Medicine Progress Note ---
Date of Service October 04, 2018 Assessment & Plan (1) Asthmatic bronchitis with acute exacerbation: Shawn Weaver is an 83-year-old male with past medical history of hypertension, atrial fibrillation, and asthma who presented with a persistent cough and difficulty clearing secretions. He was admitted for asthmatic bronchitis with acute exacerbation. In the ED he was treated with duo nebs and doxycycline IV x1. He was transferred to the floor for further care. Asthmatic bronchitis, acute exacerbation Pulmicort 0.5 mg inhaled twice daily Initial abx Ceftriaxone 1 g IV daily, Azithromycin 500 mg IV daily started 10/02. Ceftriaxone d/leah 10/03. - Azithromycin IV to 250mg PO daily for 5 day total course (until 10/06). - Gram stain and culture with ngtd. He is doing clinically well. Guaifenesin extended release 600 mg twice daily - Duonebs every 4 hours while awake. Q2H PRN - Advair 1 puff twice daily -Discharge with home nebulizer unit plus duo nebs plus Pulmicort Respules - Prednisone 40mg daily. Recommend taper as follows: 10/05-10/06: 40mg, 10/07-10/09 20mg, 10/10-10/12 10mg, 10/13 resume 5mg MEDICAL OR SURGICAL INSTRUMENT MAKER dosing - Increased pulmonary edema noted on CXR today, + lasix 40mg. Repeat CXR in AM. Atrial fibrillation w/ Hx CVA -Continue MEDICAL OR SURGICAL INSTRUMENT MAKER warfarin with goal INR 2.5-3.5. Increased therapeutic target in the setting of s/p AVR replacement. MEDICAL OR SURGICAL INSTRUMENT MAKER warfarin 1.5 mg p.o. twice per week, 3 mg p.o. 5 times per week - In Afib today INR checks daily History of recent CVA Global left-sided weakness with trace dysarthria, at baseline and stable since July. CT head shows no acute intracranial abnormality. Continue anticoagulation for A. fib as above. Hypertension Aspirin 81 mg daily MEDICAL OR SURGICAL INSTRUMENT MAKER Lasix 40 mg p.o. daily as needed. Lasix 40mg given today as above Hyperlipidemia Simvastatin 40 mg daily GERD Protonix 40 mg p.o. daily Depression Continue MEDICAL OR SURGICAL INSTRUMENT MAKER escitalopram 10 mg daily Dispo: Likely home w/ home PT tomorrow. He was seen in the afternoon at bedside with his daughter Jaylyn. She would like to be called tomorrow at [phone] with any changes to his plan. Supervising Physician Co-Signing Physician Notes Co-Signing Physician Notes I saw the patient separately from the resident physician and performed a history and exam. I discussed the case with the resident physician and agree with the impression and plan as noted above. Upon examination, the patient is seated in the chair next to his bed. He has no complaints. He is at 95% on room air. His lung sounds are improved. Good air exchange. No wheezing. The coarseness appreciated yesterday has resolved. The bases are slightly decreased; this may have been present yesterday but auscultation was difficult due to the coarseness. Asthmatic bronchitis, acute on chronic Complete course of Zithromax Prednisone taper to his home dose He looks slightly wet on this morning's x-ray Lasix and recheck in a.m. I suspect he should be ready for discharge in AM PT has evaluated and looks as if he should be fine at home Supratherapeutic INR (resolved) Daily PT/INR with Coumadin adjustment Paroxysmal atrial fibrillation Rate controlled Anticoagulated Anemia, mild, stable Monitor Subjective A most seen at bedside today. He reports he continues to have a cough, but feels well and is not short of breath. He denies fevers, chills, sweats, chest pain, pain. He endorses that he was annoyed by the hiccups for 4 hours last night which disrupts his sleep but is otherwise well and does not have any nausea or vomiting Review of Systems Review of Systems: Constitutional: Denies fever, chills, malaise, weight change Eyes: Denies vision change ENT: Denies ear pain, sore throat Cardiovascular: Denies chest pain, chest pressure, palpitations. Endorses hand swelling. Respiratory: Denies shortness of breath, sputum production, difficulty breathing. Endorses cough. Gastrointestinal: Denies abdominal pain, nausea, vomiting, diarrhea. Endorses hiccups. Genitourinary: Denies pain with urination Musculoskeletal: Denies new/acute weakness, muscle aches/pain, joint aches/pain Integumentary:Denies new rash, lesions, bruising Neurological: Denies headache, numbness, tingling, new focal weakness. Endorses baseline weakness of his L side globally since a stroke two months ago. Physical Exam Physical Exam: General: A&Ox3. NAD. Cooperative. HEENT: Atraumatic, normocephalic. Left facial droop. Pulm: Diffuse inspiratory wheeze appreciated. No rales or crackles appreciated. Symmetrical chest rise. No increased work of breathing. No respiratory distress. Cardiac: iii/vi systolic murmur at LUSB. Irregular rate. -rg. Radial pulses intact and symmetrical. Extremity: Favors movement of right extremities. Left extremity unchanged, left hand in resting finger flexion, weakness of all left-sided extremity movements especially finger extension. Sensation intact. Hand edema present bilaterally, improved today. Trace pedal edema. Results & Data Vital Signs (Past 12 Hours) Vital Signs Temp Pulse Pulse Resp BP BP Pulse Ox 10/04/18 04:23 36.8 C 71 20 136/70 96 10/04/18 00:00 81 10/03/18 23:37 36.9 C 86 22 131/55 L 96 10/03/18 20:05 37.1 C 67 20 137/61 94 10/03/18 19:36 66 18 95 Resident Activity Tracking Resident Involvement: Resident Care Provided Care Provided: Adult Hospital Medicine
[2018-10-04] MEDS: SIMVASTATIN 40 MG TAB PO SCH (20:24)
[2018-10-05 06:09] LABS: Basophils # (auto) 0.01 K/uL (0-0.2); Basophils % (auto) 0.1 %; Eosinophils # (auto) 0.11 K/uL (0-0.5); Eosinophils % (auto) 1.3 %; Hematocrit (blood only) 32.7 % (42-52); Hemoglobin 10.7 g/dL (14.0-18.0); Immature Granulocytes # (auto) 0.09 K/uL (0.00-0.02); Immature Granulocytes % (auto) 1.1 %; Mean Corpuscular Hgb Conc 32.7 g/dL (32-36); Mean Platelet Volume 9.8 fL (7.4-10.4); Monocytes # (auto) 0.44 K/uL (0.11-0.59); Monocytes % (auto) 5.3 %; Neutrophils # (auto) 7.22 K/uL (1.4-6.5); Neutrophils % (auto) 86.2 %; Platelet Count 146 K/uL (130-400); RDW Coefficient of Variation 17.2 % (11.5-14.5); Red Blood Count 3.48 M/uL (4.7-6.1); White Blood Count 8.37 K/uL (4.8-10.8)
[2018-10-05 06:42] LABS: BUN Creatinine Ratio 28.1 (10-20); Calcium 8.3 mg/dl (8.5-10.1); Creatinine Clr Calc Pharmacy 55.5 ml/min; Est GFR (African American) 82.9; Est GFR (Non-African American) 71.5; Magnesium 2.2 mg/dl (1.8-2.4)
[2018-10-05] MEDS: BUDESONIDE 0.5 MG/2 ML VIAL (PULMICORT) NEB SCH (07:00)
[2018-10-05] MEDS: ALBUT/IPRATROP 3MG/0.5MG NEB 3 ML VIAL NEB SCH ×3 (07:00→14:51)
--- NOTE | 2018-10-05 07:22 | XRay Report ---
XR chest 1V portable HISTORY: Shortness of breath. pulmonary edema COMPARISON: Chest 10/04/2018. FINDINGS: Cardiomegaly, mild interstitial pulmonary edema, and trace bilateral pleural effusions pers ist. Left basilar densities are not significantly changed. No pneumothorax. There are poststernotomy changes and a cardiac valve prosthesis. IMPRESSION: No significant change in the mild interstitial pulmonary edema and trace bilateral pleural effusions. Electronically signed by: Adrian Espinal M.D. 10/05/2018 7:20 AM
[2018-10-05 07:52] LABS: INR 2.9 (0.9-1.1); Prothrombin Time 27.2 Seconds (9.0-12.0)
[2018-10-05] MEDS ORDERED: FUROSEMIDE 40 MG TAB PO SCH (09:00)
[2018-10-05] MEDS: CYANOCOBALAMIN 500 MCG TABLET (VITAMIN B-12) PO SCH (09:01)
[2018-10-05] MEDS: DOCUSATE SODIUM 100 MG CAP PO SCH (09:02)
[2018-10-05] MEDS: AZITHROMYCIN 250 MG TAB PO SCH (09:02)
[2018-10-05] MEDS: PANTOprazole 40 MG TAB PO SCH (09:02)
[2018-10-05] MEDS: ESCITALOPRAM OXALATE 10 MG TAB PO SCH (09:02)
[2018-10-05] MEDS: DOCUSATE SODIUM/SENNA 50/8.6MG TAB PO SCH (09:03)
[2018-10-05] MEDS: FOLIC ACID 1 MG TAB PO SCH (09:03)
[2018-10-05] MEDS: ASPIRIN 81 MG ECTAB PO SCH (09:03)
[2018-10-05] MEDS: FLUTICASONE/SALMETEROL 250/50 (ADVAIR) 14 PUFF/1 INHALER INH SCH (09:04)
[2018-10-05] MEDS: DOXAZosin MESYLATE 4 MG TAB PO SCH (09:04)
[2018-10-05] MEDS: guaiFENesin 600 MG TABCR PO SCH (09:05)
[2018-10-05] MEDS: MUPIROCIN 2% OINT 22 GM TUBE TOP SCH (09:05)
--- NOTE | 2018-10-05 15:01 | Discharge Summary ---
Date of Service October 05, 2018 Admission HPI Per Admitting Provider The patient is an 83-year-old male most recently admitted to [facility] from 07/18-07/20/2018, with a past medical history of CVAs, and was found to have a new CVA at that visit, and has had persistent left-sided weakness since that time. He was noted to have dysphagia with aspiration at that time, but he and his elevated guard report that he did not get put on any specific limited diet. He does not have nebulizers or inhalers at home. He had a persistent productive sounding cough is unable to clear secretions. Admission Exam Per Admitting Provider The patient is awake, alert and oriented 3, normocephalic and atraumatic, sitting upright in wheelchair, and in no acute distress. HEENT--PERRL, EOMI, mucous membranes and oropharynx dry. Neck--supple. No JVD. No bruits. Thyroid normal, trachea midline, no adenopathy. Heart--normal S1 and S2. No murmurs, rubs or gallops. Lungs--coarse breath sounds bilaterally, no respiratory distress, no accessory muscle use. Abdomen--normal bowel sounds and soft. Nontender. Nondistended, no hernias or masses, no organomegaly. Extremities--no cyanosis or clubbing. Trace bilateral pretibial pitting edema. Dermatologic--normal skin turgor, normal color, no abnormal lymph nodes, no rash. Neurologic--cranial nerves II through XII grossly intact. Rheumatologic--normal range of motion. Psychiatric--normal affect. Principal Diagnosis Asthmatic bronchitis, acute exacerbation Discharge Exam General: A&Ox3. NAD. Cooperative. HEENT: Atraumatic, normocephalic. Left facial droop. Pulm: Trace bibasilar crackles, no over rales today. Mild inspiratory wheeze in RUL. Symmetrical chest rise. No increased work of breathing. No respiratory distress. Cardiac: iii/vi systolic murmur at LUSB. Irregular rate. -rg. Radial pulses intact and symmetrical. Extremity: Favors movement of right extremities. Left extremity unchanged, left hand in resting finger flexion, weakness of all left-sided extremity movements especially finger extension. Sensation intact. Hand edema present bilaterally, improved today. Trace pedal edema. Discharge Data Allergies Allergy/AdvReac Type Severity Reaction Status Date / Time hydrocodone AdvReac Severe EXCESSIVE Verified 10/01/18 18:11 DRY MOUTH AND SHAKING Consultations 10/01/18 22:08 ED Decision to Admit Stat Ordered Studies 10/01/18 20:27 CT head/brain wo con Stat Hospital Course (1) Asthmatic bronchitis with acute exacerbation: Mr. Weaver is an 83-year-old male with a past medical history of hypertension, atrial fibrillation, and asthma who presents with a persistent cough and difficulty clearing secretions. He was admitted for asthmatic bronchitis with acute exacerbation. Asthmatic bronchitis, acute exacerbation Mr. Weaver presented to the emergency department with 4 days of cough, worsening generalized weakness, congestion, and reports of choking on his saliva. His chest x-ray showed bilateral pulmonary edema and effusion. He was started on em piric Rocephin and azithromycin. On admission he was also started on IV steroids, duo nebs, and budesonide. Blood cultures did not show any growth and he did not show signs of leukocytosis. He was narrowed to azithromycin monotherapy and continued to clinically improve. His IV steroids were converted to prednisone grams orally. He was gradually diuresed with Lasix and clinically improved. On day of discharge he still had some mild pulmonary effusion on x- ray, this was discussed with the patient and his daughter who felt that he was doing clinically well and were comfortable with discharge with close follow-up to his PCP. 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 He was also prescribed a nebulizer set up with duo nebs and budesonide nebulization solution for use with future exacerbations to be further discussed at a follow-up with his PCP. Atrial fibrillation with a history of CVA Mr. Weaver has a history of atrial fibrillation with a CVA resulting in global left-sided weakness and trace dysarthria at baseline. He had been stable since July. CT of the head did not show any acute intracranial abnormalities. He did not experience any new strokelike symptoms during his admission. His anticoagulation with warfarin was held for 1 day due to supratherapeutic INR, but was resumed the next day and he maintain therapeutic levels between 2.5 and 3.5. Hypertension In addition to fluid management as above he was continued on aspirin 81 mg daily with good blood pressure control. His try triamtrene/hydrochlorothiazide was resumed on discharge. Hyperlipidemia Simvastatin 40 mg was continued throughout admission. GERD Protonix 40 mg daily was continued during admission Depression His prior to admission escitalopram 10 mg daily was continued during admission Strength He was evaluated by physical therapy who noted that he was able to ambulate about 48 feet with a wide-based using a quad cane. He was discharged home with the assistance of his and son, and with strength to be increased with a trial of home health physical therapy. Total Time Total Time Spent Total Time Spent (In Minutes): 30 Discharge Plan Discharge Items Patient Disposition: Home - Self-Care Reason For Visit: BRONCHITIS, HYPOXIA Discharge Diagnosis: Acute exacerbation asthmatic bronchitis Discharge Goals: Improve disease control and Therapeutic intervention Activity: Per 'Additional Instructions' section Non-emergency contact: Primary Care Provider Call non-emergency contact if: you have any medication questions, your symptoms worsen, your pain is not controlled, your pain is unusual for you, your pain is concerning for you and you have a fever Follow-up/Referrals: Angelica Leo MD [Primary Care Provider] - Diet: Regular Addtl Provider Instructions: You were seen in the hospital for an acute exacerbation of asthmatic bronchitis. You were treated with antibiotics, steroids, and inhalers while in the hospital. Your lungs sounded clear at time of discharge. You have been prescribed new medications as noted below. You have been prescribed an antibiotic, azithromycin. Please take azithromycin 1 tablet 250 mg once daily for 3 days. This will complete a 5-day course of treatment which was started in the hospital. You have been prescribed an inhaled medication, budesonide (Pulmicort). During an asthma exacerbation you may use this medication through a nebulizer twice daily. Please discuss the use of this medication further with your primary care doctor. You have been prescribed an inhaled medication, ipratropiumalbuterol (DuoNeb). During an asthma exacerbation you may use this medication through nebulizer up to 4 times daily, or as directed by your primary care doctor. This medication can help with the wheezing. You have been prescribed a medication guaifenesin (Mucinex). You may take Mucinex 600 mg twice daily for 5 days to help with chest congestion. You have been prescribed a prednisone taper. Please take prednisone as follows: 10/06: 40mg, 10/07-10/09 20mg, 10/10-10/12 10mg, 10/13 resume 5mg home dosing. A follow-up visit is being scheduled for you with your primary care provider, Dr. Guadalupe. You should hear from their office to confirm the appointment, if you do not receive a call within the next 2 days please call their office [phone]. If you develop any new symptoms, worsening symptoms, or recurrence of the symptoms that brought you to the hospital including shortness of breath, difficulty breathing, chest pain, chest pressure, fever, chills, rash, or feelings of unwellness please call your primary care physician, or return to the emergency department if you are concerned. Prescriptions: New budesonide 0.5 mg/2 mL Suspension For Nebulization 0.5 mg NEB BIDR PRN (Reason: asthma exacerbation) Qty: 10 RF: 0 guaifenesin [Mucinex] 600 mg Tablet Extended Release 12hr 600 mg PO Q12 5 Days Qty: 10 RF: 0 azithromycin [Zithromax] 250 mg Tablet 250 mg PO DAILY 3 Days Qty: 3 RF: 0 ipratropium-albuterol 0.5 mg-3 mg(2.5 mg base)/3 mL solution for nebulization 3 ml INH Q6H PRN (Reason: wheezing) Qty: 180 RF: 0 budesonide 0.5 mg/2 mL suspension for nebulization 0.5 mg INH BID Qty: 60 RF: 0 prednisone 20 mg tablet See Rx Instructions .ROUTE .COMPLEX Qty: 6 RF: 0 Continued furosemide [Lasix] 40 mg Tablet 40 mg PO DAILY PRN (Reason: WT GAIN OR EDEMA) RF: 0 fluticasone propion-salmeterol [Advair Diskus] 250-50 mcg/dose Blister With Device 1 inh INHALATION BID RF: 0 prednisone 5 mg Tablet 5 mg PO DAILY RF: 0 cyanocobalamin (vitamin B-12) [Vitamin B-12] 1,000 mcg Tablet 1,000 mcg PO DAILY RF: 0 omeprazole 40 mg Capsule,Delayed Release(Dr/Ec) 40 mg PO DAILY RF: 0 aspirin [Aspir-81] 81 mg Tablet,Delayed Release (Dr/Ec) 81 mg PO DAILY RF: 0 tramadol 50 mg Tablet 50 mg PO HS PRN (Reason: Pain) RF: 0 docusate sodium [Colace] 100 mg Capsule 100 mg PO BID RF: 0 doxazosin 4 mg Tablet 4 mg PO BID RF: 0 folic acid 1 mg Tablet 1 mg PO DAILY RF: 0 mupirocin 2 % Ointment 1 applic TOPICAL BID RF: 0 ergocalciferol (vitamin D2) [Vitamin D2] 50,000 unit Capsule 50,000 unit PO WK RF: 0 albuterol sulfate [ProAir HFA] 90 mcg/actuation Hfa Aerosol Inhaler 1 - 2 puff INHALATION Q4 PRN (Reason: Shortness Of Breath Or Wheezing) RF: 0 escitalopram oxalate 10 mg Tablet 10 mg PO DAILY RF: 0 triamcinolone acetonide 0.05 % Ointment 1 applic TOPICAL BID PRN (Reason: Skin Irritation) RF: 0 potassium chloride 20 mEq Tablet Extended Release 20 meq PO DAILY PRN (Reason: WHEN TAKES LASIX) RF: 0 sennosides-docusate sodium [Senna with Docusate Sodium] 8.6-50 mg Tablet 2 tab PO QAM Qty: 60 RF: 0 simvastatin 40 mg Tablet 40 mg PO PM Qty: 30 RF: 0 methotrexate sodium 2.5 mg Tablet 10 mg PO WK Qty: 0 RF: 0 warfarin 3 mg Tablet 1.5 mg PO 2XWK RF: 0 warfarin 3 mg Tablet 3 mg PO 5XWK RF: 0 triamterene-hydrochlorothiazid [Maxzide-25mg] 37.5-25 mg Tablet 1 tab PO DAILY RF: 0 Stand-Alone Forms: [facility] Discharge Orders: Discharge Order (Routine); Ordered 10/05/18 Ordered By: Norman Pichardo Admission Data Admit Date/Time: 10/01/18 23:25 Attending Provider: Francesco Bustamante Admit Provider: Humberto Huitron Primary Care Provider: Angelica Leo Other Providers: Humberto Huitron ; Home,Nursing Agency Service: Telemetry Medical Other Interventions: Discharge Summary Assessment (RN) Last Done: 10/05/18 11:19 DC Date/Time DO NOT enter until pt leaves facility: 10/05/18 17:25 Supervising Physician Co-Signing Physician Notes I saw the patient with the resident physician. I discussed the case with the resident physician and agree with the impression and plan as noted above. Upon examination, the patient is seated in the chair next to his bed. He has no complaints. He feels ready for discharge. His lung sounds are improved. Good air exchange. No wheezing. The bases sound improved compared to yesterday. Asthmatic bronchitis, acute on chronic Complete course of Zithromax Prednisone taper to his home dose His chest x-ray looks about the same with no clinically he has no symptoms of heart failure PT has evaluated and looks as if he should be fine at home PCP follow-up in approximately 1 week Supratherapeutic INR (resolved) Daily PT/INR with Coumadin adjustment Paroxysmal atrial fibrillation Rate controlled Anticoagulated Anemia, mild, stable Monitor Resident Activity Tracking Resident Involvement: Resident Care Provided Care Provided: Adult Hospital Medicine
[2018-10-05] MEDS: WARFARIN SOD 0.5 MG TAB PO SCH (15:45)
== END 2018-10-05 17:25 | disposition home health service (06) | DRG 191 ==
LOC: ED 17:40 → 2N 23:25 → SUATTDRO 23:25 → 2N 10-02 00:12
DX: I11.9 Hypertensive heart disease without heart failure; E53.8 Deficiency of other specified B group vitamins; K21.9 Gastro-esophageal reflux disease without esophagitis; Z79.01 Long term (current) use of anticoagulants; I50.810 Right heart failure, unspecified; I69.354 Hemiplegia and hemiparesis following cerebral infarction affecting left non-dominant side; R09.02 Hypoxemia; F32.9 Major depressive disorder, single episode, unspecified; J44.1 Chronic obstructive pulmonary disease with (acute) exacerbation; J45.909 Unspecified asthma, uncomplicated; Z95.2 Presence of prosthetic heart valve; R79.1 Abnormal coagulation profile; I48.0 Paroxysmal atrial fibrillation; Q21.1 Atrial septal defect

== ENCOUNTER 2020-09-13 18:31 | Inpatient (IN) ==
[2020-09-13] MEDS ORDERED: PREGABALIN 25 MG CAP PO STA (19:25)
--- NOTE | 2020-09-13 19:53 | XRay Report ---
XR chest 1V portable CLINICAL HISTORY: Atypical chest pain COMPARISON STUDY: 03/25/2020 FINDINGS: The heart is enlarged. There are postsurgical changes of a midline sternotomy and aortic va lve replacement. There is mild pulmonary vascular congestion. Small pleural effusions are suspected. There is no lobar consolidation[ IMPRESSION: Cardiomegaly and suspected mild pulmonary vascular congestion. No evidence of lobar conso lidation ACT 112: Negative or not required by law. Electronically signed by: Brian Calvin M.D. 09/13/2020 7:51 PM
[2020-09-13 20:30] LABS: INR 2.6 (0.9-1.1); Partial Thromboplastin Ratio 1.4; Partial Thromboplastin Time 36.5 Seconds (21.0-31.0); Prothrombin Time 24.3 Seconds (9.0-12.0)
[2020-09-13 20:36] LABS: BUN Creatinine Ratio 30.6 (10-20); Blood Urea Nitrogen 29 mg/dl (7-18); Calcium 8.8 mg/dl (8.5-10.1); Carbon Dioxide 34 mmol/L (21-32); Chloride 105 mmol/L (98-107); Creatinine Clr Calc Pharmacy 44.7 ml/min; Est GFR (African American) 84.9; Est GFR (Non-African American) 73.2; Glucose 105 mg/dl (70-99); Lipase 71 U/L (73-393); Potassium 3.9 mmol/L (3.5-5.1); Sodium 141 mmol/L (136-145)
[2020-09-13 20:48] LABS: NT Pro B Type Natriuretic Pept 2467 pg/ml (0-1800); Troponin I < 0.015 ng/ml (0-0.045)
[2020-09-13 20:52] LABS: Influenza A virus by PCR Negative (Neg); Influenza B virus by PCR Negative (Neg); RSV by PCR Negative (Neg); SARS CoV2 RNA(COVID-19) InHosp NEGATIVE (Negative)
[2020-09-13 21:51] LABS: Alanine Aminotransferase 31 U/L (12-78); Bilirubin Direct 0.3 mg/dl (0-0.2)
[2020-09-13 21:52] LABS: Albumin Level 3.8 gm/dl (3.4-5.0); Alkaline Phosphatase 79 U/L (45-117); Aspartate Aminotransferase 24 U/L (15-37); Bilirubin,Total 1.1 mg/dl (0.2-1); Total Protein 6.3 gm/dl (6.4-8.2)
[2020-09-13 21:59] LABS: Hematocrit (blood only) 32.5 % (42-52); Mean Corpuscular Hemoglobin 29.1 pg (25-34); Mean Corpuscular Hgb Conc 30.8 g/dL (32-36); Mean Corpuscular Volume 94.5 fL (80-100); Platelet Count 157 K/uL (130-400); Red Blood Count 3.44 M/uL (4.7-6.1); White Blood Count 8.53 K/uL (4.8-10.8)
[2020-09-13] MEDS ORDERED: BUMETANIDE 2 MG in SYRINGE 0 ML IV ONE (22:04)
[2020-09-13 22:21] LABS: Anisocytosis Present; Basophils # (auto) 0.02 K/uL (0-0.2); Basophils % (auto) 0.2 %; Eosinophils # (auto) 0.14 K/uL (0-0.5); Eosinophils % (auto) 1.6 %; Immature Granulocytes # (auto) 0.06 K/uL (0.00-0.02); Immature Granulocytes % (auto) 0.7 %; Lymphocytes # (auto) 0.69 K/uL (1.2-3.4); Lymphocytes % (auto) 8.1 %; Monocytes # (auto) 0.45 K/uL (0.11-0.59); Monocytes % (auto) 5.3 %; Neutrophils # (auto) 7.17 K/uL (1.4-6.5); Neutrophils % (auto) 84.1 %; Schistocytes Occasional
--- NOTE | 2020-09-13 22:52 | History & Physical Report ---
Date of Service September 13, 2020 Assessment & Plan (1) CHF exacerbation: CHF exacerbation/atrial fibrillation/hypertension- The patient will be admitted to telemetry for serial cardiac enzymes, serial EKG's, cardiac rhythm monitoring and a 2-D echocardiogram with Dopplers. Continue aspirin, doxazosin, potassium chloride and warfarin Hold triamterene/HCTZ and oral furosemide Change bumetanide from 1 mg p.o. daily to 2 mg IV twice daily Follow serial BMP and magnesium levels Present on Admission?: Yes (2) Chronic venous stasis dermatitis of both lower extremities: Chronic venous stasis dermatitis/acquired lymphedema/PAD- Address fluid overload state as above. Present on Admission?: Yes (3) Chronic acquired lymphedema: See above Present on Admission?: Yes (4) Peripheral arterial disease: See above Present on Admission?: Yes (5) Immunosuppression due to chronic steroid use: Does not look to be actively infected. Monitor for potential secondary infection Present on Admission?: Yes (6) Permanent atrial fibrillation: See above Present on Admission?: Yes (7) Hemiplegia, post-stroke: Routine care to prevent decubitus ulcers or other skin injury Present on Admission?: Yes (8) Chronic obstructive pulmonary disease: Continue outpatient regimen Present on Admission?: Yes (9) Hypertension: (10) Rheumatoid arthritis: Immunocompromised on methotrexate and prednisone as outpatient Present on Admission?: Yes (11) GERD (gastroesophageal reflux disease): Continue omeprazole 40 mg daily/pantoprazole Present on Admission?: Yes (12) Hyperlipidemia: Continue simvastatin 40 mg daily Present on Admission?: Yes (13) Shingles rash: Continue Valtrex Present on Admission?: Yes History of Present Illness Chief Complaint: The patient is brought to the emergency department due to complaint of shingles pain and swelling all over his body, and daughter's concerns regarding chronic wounds on his lower extremities Primary Care Provider: YANICK Mckeon The patient is an 85-year-old male with a past medical history including shingles, lymphedema, PAD, venous stasis ulcers, cerebellar stroke, prostate cancer, vitamin D deficiency, history of CVA, chronic steroid use, popliteal artery aneurysm, bioprosthetic aortic valve, RA, permanent atrial fibrillation, hyperlipidemia, hemiplegia post stroke, COPD, PFO, GERD, depression, asthma and vitamin B12 deficiency. His history of shingles is unclear, but family reports that the patient has generalized shingles pain, and has been having worsening edema, along with worsening of lower extremity wounds for which he has been following the wound care clinic. Allergies Allergy/AdvReac Type Severity Reaction Status Date / Time hydrocodone AdvReac Severe EXCESSIVE Verified 09/13/20 19:22 DRY MOUTH AND SHAKING Home Medications Medication Instructions Recorded Confirmed Type docusate sodium [Colace] 100 mg PO HS 07/17/18 09/13/20 History folic acid 1 mg PO QAM 07/17/18 09/13/20 History polyethylene glycol 3350 [Miralax] 17 g PO DAILY PRN 04/19/19 09/13/20 History methotrexate sodium 10 mg PO WK 10/01/19 09/13/20 History triamterene-hydrochlorothiazid 1 cap PO QAM 10/01/19 09/13/20 History warfarin 1.5 mg PO ONCE 10/01/19 09/13/20 History omeprazole 40 mg capsule,delayed 40 mg PO QAM #90 cap 11/09/19 09/13/20 Rx release warfarin 3 mg tablet See Rx Instructions .ROUTE 03/14/20 09/13/20 Rx .COMPLEX #90 tablet escitalopram oxalate 10 mg tablet 10 mg PO QAM #90 tab 04/14/20 09/13/20 Rx prednisone 5 mg tablet 7.5 mg PO DAILY tab 04/25/20 09/13/20 History acetylcysteine 100 mg/mL (10 %) 2 ml INHALATION Q8H #90 ml 05/20/20 09/13/20 Rx solution albuterol sulfate 2.5 mg INHALATION QID PRN #90 ml 05/20/20 09/13/20 Rx bumetanide 1 mg tablet 1 mg PO DAILY #90 tab 07/05/20 09/13/20 Rx simvastatin 40 mg tablet 40 mg PO HS #90 tab 07/11/20 09/13/20 Rx doxazosin 4 mg tablet 4 mg PO BID #180 tab 07/19/20 09/13/20 Rx lift chair #1 ea 07/22/20 09/08/20 Rx fluticasone 250 mcg-salmeterol 50 1 inh INHALATION BID #180 ea 07/25/20 09/13/20 Rx mcg/dose blistr powdr for inhalation potassium chloride 20 mEq 20 meq PO DAILY #30 tab 07/28/20 09/13/20 Rx tablet,extended release cyanocobalamin (vitamin B-12) 1,000 mcg PO BID tab 08/14/20 09/13/20 History 1,000 mcg tablet valacyclovir 1 gram tablet 1,000 mg PO TID #21 tab 09/02/20 09/13/20 Rx furosemide 20 mg tablet 20 mg PO .COMPLEX #60 tab 09/11/20 09/13/20 Rx tramadol 50 mg tablet 50 mg PO .COMPLEX PRN #90 tab 09/11/20 09/13/20 Rx aspirin 81 mg PO DAILY 09/13/20 09/13/20 History doxycycline hyclate 100 mg PO BID 09/13/20 09/13/20 History Past Med/Surg History Medical History Acute CVA (cerebrovascular accident) Aneurysm artery, popliteal Arthritis, rheumatoid Asthmatic bronchitis with acute exacerbation Cerebrovascular accident of right pontine structure Chronic anticoagulation Chronic anticoagulation Chronic left hip pain Edema History of CVA (cerebrovascular accident) Immunosuppression due to chronic steroid use Onychomycosis Prostate cancer Skin tear Thrombocytopenia Traumatic open wound of left lower leg with delayed healing Traumatic open wound of right elbow with infection and delayed healing Traumatic wound Venous stasis ulcer limited to breakdown of skin without varicose veins Vertigo Weakness of muscle of left side of face due to and not concurrent with cerebrovascular accident (CVA) Surgical History H/O carpal tunnel repair H/O hernia repair History of knee replacement S/P aortic valve replacement S/P aortic valve replacement with bioprosthetic valve (2009) Status post carotid surgery Thromboendarterectomy Family History Other Breast cancer Family history non-contributory Uterine cancer Denies family history of Ovarian cancer Prostate cancer Myocardial infarction Colorectal cancer Social History Smoking Status: Never smoker Do You Dip or Chew Tobacco: No; Hx Alcohol Use: No Hx Substance Use: No Preferred Language: Algerian Communication Ability: Effective Director Customer Required: No Beliefs That Will Affect Care: None Current Living Situation: Family current occupational status: disabled Other Information That Helps Us Care for You: No Feels Safe at Home: Yes Safety Concerns: Feels Safe At This Time Dental Care, Regularly: No Seatbelt Use: always Assistive Devices: None Review of Systems Review of Systems: Unobtainable due to cognitive status Review of systems is somewhat limited Physical Exam Physical Exam: The patient is awake, able to answer some questions but is confused, lying on his left side, normocephalic and atraumatic, and in no acute distress. HEENT--PERRL, EOMI, mucous membranes and oropharynx dry. Neck--supple. No JVD. No bruits. Thyroid normal, trachea midline, no adenopathy. Heart--normal S1 and S2. No murmurs, rubs or gallops. Lungs--clear bilaterally. Decreased breath sounds throughout no respiratory distress, no accessory muscle use. Abdomen--normal bowel sounds and soft. Nontender. Nondistended, no hernias or masses, no organomegaly. Extremities--no cyanosis or clubbing. 2-3+ bilateral pretibial pitting edema. Dermatologic--normal skin turgor, normal color, no abnormal lymph nodes, no rash. Neurologic--cranial nerves II through XII grossly intact. Rheumatologic--limited exam Psychiatric--confused Results & Data Results & Data ([facility]) Vital Signs (Past 12 Hours) Vital Signs Temp Pulse Pulse Resp BP BP Pulse Ox 09/13/20 19:33 63 18 98 09/13/20 19:11 85 18 145/72 H 100 09/13/20 18:35 97.7 F 73 18 184/74 H 95 Laboratory Results Laboratory Results WBC 8.53 K/uL (4.8-10.8) 09/13/20 19:52 RBC 3.44 M/uL (4.7-6.1) L 09/13/20 19:52 Hgb 10.0 g/dL (14.0-18.0) L 09/13/20 19:52 Hct 32.5 % (42-52) L 09/13/20 19:52 MCV 94.5 fL (80-100) 09/13/20 19:52 MCH 29.1 pg (25-34) 09/13/20 19:52 MCHC 30.8 g/dL (32-36) L 09/13/20 19:52 Plt Count 157 K/uL (130-400) 09/13/20 19:52 Immature Gran % (Auto) 0.7 % 09/13/20 19:52 Neut % (Auto) 84.1 % 09/13/20 19:52 Lymph % (Auto) 8.1 % 09/13/20 19:52 [place] % (Auto) 5.3 % 09/13/20 19:52 Eos % (Auto) 1.6 % 09/13/20 19:52 Baso % (Auto) 0.2 % 09/13/20 19:52 Neut # (Auto) 7.17 K/uL (1.4-6.5) H 09/13/20 19:52 Lymph # (Auto) 0.69 K/uL (1.2-3.4) L 09/13/20 19:52 [place] # (Auto) 0.45 K/uL (0.11-0.59) 09/13/20 19:52 Eos # (Auto) 0.14 K/uL (0-0.5) 09/13/20 19:52 Baso # (Auto) 0.02 K/uL (0-0.2) 09/13/20 19:52 Immature Gran # (Auto) 0.06 K/uL (0.00-0.02) H 09/13/20 19:52 Anisocytosis Present 09/13/20 19:52 Schistocytes Occasional 09/13/20 19:52 PT 24.3 Seconds (9.0-12.0) H 09/13/20 19:52 INR 2.6 (0.9-1.1) H 09/13/20 19:52 APTT 36.5 Seconds (21.0-31.0) H 09/13/20 19:52 PTT Ratio 1.4 09/13/20 19:52 Sodium 141 mmol/L (136-145) 09/13/20 19:52 Potassium 3.9 mmol/L (3.5-5.1) 09/13/20 19:52 Chloride 105 mmol/L (98-107) 09/13/20 19:52 Carbon Dioxide 34 mmol/L (21-32) H 09/13/20 19:52 Anion Gap 2.0 (3-11) L 09/13/20 19:52 BUN 29 mg/dl (7-18) H 09/13/20 19:52 Creatinine 0.95 mg/dl (0.6-1.4) 09/13/20 19:52 Est Cr Clr Drug Dosing 44.7 ml/min 09/13/20 19:52 Est GFR ( Amer) 84.9 09/13/20 19:52 Est GFR (Non-Af Amer) 73.2 09/13/20 19:52 BUN/Creatinine Ratio 30.6 (10-20) H 09/13/20 19:52 Glucose 105 mg/dl (70-99) H 09/13/20 19:52 Calcium 8.8 mg/dl (8.5-10.1) 09/13/20 19:52 Total Bilirubin 1.1 mg/dl (0.2-1) H 09/13/20 19:52 Direct Bilirubin 0.3 mg/dl (0-0.2) H 09/13/20 19:52 AST 24 U/L (15-37) 09/13/20 19:52 ALT 31 U/L (12-78) 09/13/20 19:52 Alkaline Phosphatase 79 U/L (45-117) 09/13/20 19:52 Troponin I < 0.015 ng/ml (0-0.045) 09/13/20 19:52 NT-Pro-B Natriuret Pep 2467 pg/ml (0-1800) H 09/13/20 19:52 Total Protein 6.3 gm/dl (6.4-8.2) L 09/13/20 19:52 Albumin 3.8 gm/dl (3.4-5.0) 09/13/20 19:52 Lipase 71 U/L (73-393) L 09/13/20 19:52 COVID-19 Eval Order CovFluRsv at [facility] 09/13/20 19:39 SARS-CoV-2 (PCR) NEGATIVE (Negative) 09/13/20 19:39 Influenza Type A (PCR) Negative (Neg) 09/13/20 19:39 Influenza Type B (PCR) Negative (Neg) 09/13/20 19:39 RSV (RT-PCR) Negative (Neg) 09/13/20 19:39 Impressions Chest X-Ray 09/13/20 19:14 XR chest 1V portable CLINICAL HISTORY: Atypical chest pain COMPARISON STUDY: 03/25/2020 FINDINGS: The heart is enlarged. There are postsurgical changes of a midline sternotomy and aortic valve replacement. There is mild pulmonary vascular congestion. Small pleural effusions are suspected. There is no lobar consolidation[ IMPRESSION: Cardiomegaly and suspected mild pulmonary vascular congestion. No evidence of lobar consolidation ACT 112: Negative or not required by law. Electronically signed by: Brian Calvin M.D. 09/13/2020 7:51 PM Code Status & VTE Plan Code Status Full code VTE Prophylaxis Plan VTE Prophylaxis will be ordered: Yes PG Care Time/CCT Total # of Minutes Spent Total Time Spent with Patient: Total time spent is greater than 50% in coordination of care (as documented) at patient's floor/unit and/or counseling patient: Coding Level of Care Code 32850 Initial Inpt Care Lvl 3 Diagnoses CHF exacerbation I50.9 Chronic venous stasis dermatitis of both lower extremities I87.2 Chronic acquired lymphedema I89.0 Peripheral arterial disease I73.9 Immunosuppression due to chronic steroid use Z79.52 Permanent atrial fibrillation I48.2 Hemiplegia, post-stroke I69.359 Chronic obstructive pulmonary disease J44.9 Hypertension I10 Rheumatoid arthritis M06.9 GERD (gastroesophageal reflux disease) K21.9 Hyperlipidemia E78.5 Shingles rash B02.9
--- NOTE | 2020-09-14 00:02 | Emergency Department Note ---
History of Present Illness General Chief complaint: Pain (Generalized) Stated complaint: HAS [id number] ALL OVER BODY Time Seen by Provider: 09/13/20 19:09 Source: family (Daughter at bedside) History of Present Illness Provider complaint: Fluid overloaded shingles pain Onset (ago): day(s) 4 Location: upper extremity and lower extremity Maximum Pain Intensity: 4 Associated symptoms: + rash and + weakness 85-year-old female presents emergency department for fluid overload. Patient daughter is also reporting the patient is having pain from his shingles. She is also concerned about the patient's chronic wounds on his lower extremities. Daughter reports no falls or head trauma. Home Medications Medication Instructions Recorded Confirmed Type docusate sodium [Colace] 100 mg PO HS 07/17/18 09/13/20 History folic acid 1 mg PO QAM 07/17/18 09/13/20 History polyethylene glycol 3350 [Miralax] 17 g PO DAILY PRN 04/19/19 09/13/20 History methotrexate sodium 10 mg PO WK 10/01/19 09/13/20 History triamterene-hydrochlorothiazid 1 cap PO QAM 10/01/19 09/13/20 History warfarin 1.5 mg PO ONCE 10/01/19 09/13/20 History omeprazole 40 mg capsule,delayed 40 mg PO QAM #90 cap 11/09/19 09/13/20 Rx release warfarin 3 mg tablet See Rx Instructions .ROUTE 03/14/20 09/13/20 Rx .COMPLEX #90 tablet escitalopram oxalate 10 mg tablet 10 mg PO QAM #90 tab 04/14/20 09/13/20 Rx prednisone 5 mg tablet 7.5 mg PO DAILY tab 04/25/20 09/13/20 History acetylcysteine 100 mg/mL (10 %) 2 ml INHALATION Q8H #90 ml 05/20/20 09/13/20 Rx solution albuterol sulfate 2.5 mg INHALATION QID PRN #90 ml 05/20/20 09/13/20 Rx bumetanide 1 mg tablet 1 mg PO DAILY #90 tab 07/05/20 09/13/20 Rx simvastatin 40 mg tablet 40 mg PO HS #90 tab 07/11/20 09/13/20 Rx doxazosin 4 mg tablet 4 mg PO BID #180 tab 07/19/20 09/13/20 Rx lift chair #1 ea 07/22/20 09/08/20 Rx fluticasone 250 mcg-salmeterol 50 1 inh INHALATION BID #180 ea 07/25/20 09/13/20 Rx mcg/dose blistr powdr for inhalation potassium chloride 20 mEq 20 meq PO DAILY #30 tab 07/28/20 09/13/20 Rx tablet,extended release cyanocobalamin (vitamin B-12) 1,000 mcg PO BID tab 08/14/20 09/13/20 History 1,000 mcg tablet valacyclovir 1 gram tablet 1,000 mg PO TID #21 tab 09/02/20 09/13/20 Rx furosemide 20 mg tablet 20 mg PO .COMPLEX #60 tab 09/11/20 09/13/20 Rx tramadol 50 mg tablet 50 mg PO .COMPLEX PRN #90 tab 09/11/20 09/13/20 Rx aspirin 81 mg PO DAILY 09/13/20 09/13/20 History doxycycline hyclate 100 mg PO BID 09/13/20 09/13/20 History Allergies Allergy/AdvReac Type Severity Reaction Status Date / Time hydrocodone AdvReac Severe EXCESSIVE Verified 09/13/20 19:22 DRY MOUTH AND SHAKING Past Med/Surg History Medical History Acute CVA (cerebrovascular accident) Aneurysm artery, popliteal Arthritis, rheumatoid Asthmatic bronchitis with acute exacerbation Cerebrovascular accident of right pontine structure Chronic anticoagulation Chronic anticoagulation Chronic left hip pain Edema History of CVA (cerebrovascular accident) Immunosuppression due to chronic steroid use Onychomycosis Prostate cancer Skin tear Thrombocytopenia Traumatic open wound of left lower leg with delayed healing Traumatic open wound of right elbow with infection and delayed healing Traumatic wound Venous stasis ulcer limited to breakdown of skin without varicose veins Vertigo Weakness of muscle of left side of face due to and not concurrent with cerebrovascular accident (CVA) Surgical History H/O carpal tunnel repair H/O hernia repair History of knee replacement S/P aortic valve replacement S/P aortic valve replacement with bioprosthetic valve (2009) Status post carotid surgery Thromboendarterectomy Family History Other Breast cancer Family history non-contributory Uterine cancer Denies family history of Ovarian cancer Prostate cancer Myocardial infarction Colorectal cancer Social History Smoking Status: Never smoker Hx Alcohol Use: No Hx Substance Use: No Preferred Language: Greenlandic Communication Ability: Effective Baffle Installer Required: No Beliefs That Will Affect Care: None Current Living Situation: Spouse and Family current occupational status: disabled Feels Safe at Home: Yes Dental Care, Regularly: No Seatbelt Use: always Assistive Devices: Cane, Glasses and Wheelchair Review of Systems A total of 10 systems reviewed and were otherwise negative Physical Exam Vital Signs Vital Signs - 24 hr 09/13/20 18:35 09/13/20 19:11 09/13/20 19:33 Temperature 36.5 C Temperature Source Temporal Artery Scan Pulse Rate 73 63 Pulse Rate [Bilateral Radial] 85 Pulse Rhythm Regular Irregular Pulse Rhythm [Bilateral Radial] Regular Pulse Strength Normal Pulse Strength [Bilateral Radial] Normal Respiratory Rate 18 18 18 Respiratory Effort / Characteristics Non-Labored Spontaneous Non-Labored Respiratory Depth Normal Normal Respiratory Pattern Regular Regular Blood Pressure 184/74 H Blood Pressure [Right Arm] 145/72 H Blood Pressure Mean 110 Blood Pressure Mean [Right Arm] 96 Blood Pressure Position Sitting Blood Pressure Position [Right Arm] Lying Pulse Oximetry 95 100 98 Oxygen Delivery Method Room Air Room Air Room Air Sepsis Recent Fever Within 48 Hours No Sepsis New/Unexplained Change in Mental Status N/A Sepsis Action Taken by Nursing No Action Required 09/13/20 23:00 Temperature Temperature Source Pulse Rate Pulse Rate [Bilateral Radial] 67 Pulse Rhythm Pulse Rhythm [Bilateral Radial] Regular Pulse Strength Pulse Strength [Bilateral Radial] Normal Respiratory Rate 16 Respiratory Effort / Characteristics Non-Labored Respiratory Depth Normal Respiratory Pattern Regular Blood Pressure Blood Pressure [Right Arm] 166/78 H Blood Pressure Mean Blood Pressure Mean [Right Arm] 107 Blood Pressure Position Blood Pressure Position [Right Arm] Lying Pulse Oximetry 98 Oxygen Delivery Method Room Air Sepsis Recent Fever Within 48 Hours Sepsis New/Unexplained Change in Mental Status Sepsis Action Taken by Nursing Physical Exam GENERAL: Patient appears to be in poor chronic health. HENT: Exam performed. - Head: Normocephalic and atraumatic. - Right Ear: External ear normal. No mastoid tenderness. - Left Ear: External ear normal. No mastoid tenderness. - Mouth/Throat: The oropharynx is clear and moist. No trismus in the jaw. No dental abscesses or uvula swelling. No oropharyngeal exudate or tonsillar abscesses. EYES: Conjunctivae and EOM are normal. Pupils are equal, round, and reactive to light. Right eye exhibits no discharge. Left eye exhibits no discharge. No scleral icterus. NECK: Normal range of motion. Neck supple. No JVD present. No spinous process tenderness present. No carotid bruit present. No rigidity. No tracheal deviation and normal range of motion present. No Brudzinski's sign and no Kernig's sign noted. CV: Normal rate, irregular rhythm, normal heart sounds and intact distal pulses. Palpable radial pulses bue. PULM/CHEST: Effort normal and breath sounds normal. No respiratory distress. No stridor. He has no wheezes. He has no rales. - Chest Wall: He exhibits no tenderness. ABD: The abdomen is soft. Bowel sounds are normal. He has no distension. No mass is present. There is no tenderness. There is no rebound, no guarding, no Ramirez's sign and no tenderness at McBurney's point. Rovsig negative. MUSC/SKEL: Normal range of motion. There is no peripheral edema, tenderness or deformity. LYMPH: No cervical adenopathy. NEURO: Left-sided weakness that is baseline from patient's previous stroke. SKIN: Vesicular rash at different stages consistent with the appearance of shingles over the patient's right shoulder area. Right lower extremity has chronic wounds that have foul-smelling purulent discharge coming from them. Course Course 190: The patient was evaluated in room C2. A complete history and physical exam was performed Cardiac monitoring: An order was placed for continuous cardiac monitoring. The monitor shows a rate of 60 with atrial fibrilation rhythm EMR reviewed. Patient was seen by their PCP on September 11, 2020 2 days ago. Patient was prescribed tramadol for the shingles pain. Patient was taken off of gabapentin because they thought the gabapentin was making the patient's CHF and fluid overload worse. Patient was told to stop his Bumex and switch to Lasix 20 mg twice daily for the next 3 to 4 days. 2129: Vital signs stable. Labs show a therapeutic INR of 2.6. proBNP is elevated 2467 this is up from 1976 from September 12, 2020, yesterday. Chest x-ray does show fluid overload. I discussed with the patient's daughter at bedside and we both feel would be best for the patient to be admitted to the hospital to help diurese the patient. Nursing notes state that the patient hit his head but the daughter is adamant that the patient did not hit his head. No signs of head trauma. Patient will be admitted to the [facility] hospitalist team Dr. Flowers. Bumex ordered for the patient. Administered Medications Discontinued Medications Bumetanide 2 mg/ Syringe 8 mls @ 4 mls/min IV ONE ONE Stop: 09/13/20 22:05 Last Admin: 09/14/20 00:09 Dose: 4 mls/min Documented by: Pregabalin (Pregabalin 25 Mg Cap) 25 mg PO NOW STA Stop: 09/13/20 19:26 Last Admin: 09/13/20 21:01 Dose: 25 mg Documented by: [id number] Medical Decision Making Laboratory Data Result diagrams: 09/13/20 19:52 09/13/20 19:52 Lab Results 09/13/20 09/13/20 09/13/20 Range/Units 19:39 19:39 19:52 WBC 8.53 (4.8-10.8) K/uL RBC 3.44 L (4.7-6.1) M/uL Hgb 10.0 L (14.0-18.0) g/dL Hct 32.5 L (42-52) % MCV 94.5 (80-100) fL MCH 29.1 (25-34) pg MCHC 30.8 L (32-36) g/dL Plt Count 157 (130-400) K/uL Immature Gran % (Auto) 0.7 % Neut % (Auto) 84.1 % Lymph % (Auto) 8.1 % [place] % (Auto) 5.3 % Eos % (Auto) 1.6 % Baso % (Auto) 0.2 % Neut # (Auto) 7.17 H (1.4-6.5) K/uL Lymph # (Auto) 0.69 L (1.2-3.4) K/uL [place] # (Auto) 0.45 (0.11-0.59) K/uL Eos # (Auto) 0.14 (0-0.5) K/uL Baso # (Auto) 0.02 (0-0.2) K/uL Immature Gran # (Auto) 0.06 H (0.00-0.02) K/uL Anisocytosis Present Schistocytes Occasional PT (9.0-12.0) Seconds INR (0.9-1.1) APTT (21.0-31.0) Seconds PTT Ratio Sodium (136-145) mmol/L Potassium (3.5-5.1) mmol/L Chloride (98-107) mmol/L Carbon Dioxide (21-32) mmol/L Anion Gap (3-11) BUN (7-18) mg/dl Creatinine (0.6-1.4) mg/dl Est Cr Clr Drug Dosing ml/min Est GFR ( Amer) Est GFR (Non-Af Amer) BUN/Creatinine Ratio (10-20) Glucose (70-99) mg/dl Calcium (8.5-10.1) mg/dl Total Bilirubin (0.2-1) mg/dl Direct Bilirubin (0-0.2) mg/dl AST (15-37) U/L ALT (12-78) U/L Alkaline Phosphatase (45-117) U/L Troponin I (0-0.045) ng/ml NT-Pro-B Natriuret Pep (0-1800) pg/ml Total Protein (6.4-8.2) gm/dl Albumin (3.4-5.0) gm/dl Lipase (73-393) U/L COVID-19 Eval Order CovFluRsv at [facility] SARS-CoV-2 (PCR) NEGATIVE (Negative) Influenza Type A (PCR) Negative (Neg) Influenza Type B (PCR) Negative (Neg) RSV (RT-PCR) Negative (Neg) 09/13/20 09/13/20 Range/Units 19:52 19:52 WBC (4.8-10.8) K/uL RBC (4.7-6.1) M/uL Hgb (14.0-18.0) g/dL Hct (42-52) % MCV (80-100) fL MCH (25-34) pg MCHC (32-36) g/dL Plt Count (130-400) K/uL Immature Gran % (Auto) % Neut % (Auto) % Lymph % (Auto) % [place] % (Auto) % Eos % (Auto) % Baso % (Auto) % Neut # (Auto) (1.4-6.5) K/uL Lymph # (Auto) (1.2-3.4) K/uL [place] # (Auto) (0.11-0.59) K/uL Eos # (Auto) (0-0.5) K/uL Baso # (Auto) (0-0.2) K/uL Immature Gran # (Auto) (0.00-0.02) K/uL Anisocytosis Schistocytes PT 24.3 H (9.0-12.0) Seconds INR 2.6 H (0.9-1.1) APTT 36.5 H (21.0-31.0) Seconds PTT Ratio 1.4 Sodium 141 (136-145) mmol/L Potassium 3.9 (3.5-5.1) mmol/L Chloride 105 (98-107) mmol/L Carbon Dioxide 34 H (21-32) mmol/L Anion Gap 2.0 L (3-11) BUN 29 H (7-18) mg/dl Creatinine 0.95 (0.6-1.4) mg/dl Est Cr Clr Drug Dosing 44.7 ml/min Est GFR ( Amer) 84.9 Est GFR (Non-Af Amer) 73.2 BUN/Creatinine Ratio 30.6 H (10-20) Glucose 105 H (70-99) mg/dl Calcium 8.8 (8.5-10.1) mg/dl Total Bilirubin 1.1 H (0.2-1) mg/dl Direct Bilirubin 0.3 H (0-0.2) mg/dl AST 24 (15-37) U/L ALT 31 (12-78) U/L Alkaline Phosphatase 79 (45-117) U/L Troponin I < 0.015 (0-0.045) ng/ml NT-Pro-B Natriuret Pep 2467 H (0-1800) pg/ml Total Protein 6.3 L (6.4-8.2) gm/dl Albumin 3.8 (3.4-5.0) gm/dl Lipase 71 L (73-393) U/L COVID-19 Eval Order SARS-CoV-2 (PCR) (Negative) Influenza Type A (PCR) (Neg) Influenza Type B (PCR) (Neg) RSV (RT-PCR) (Neg) Imaging Data Radiologist's Impression: Chest X-Ray 09/13/20 19:14 XR chest 1V portable CLINICAL HISTORY: Atypical chest pain COMPARISON STUDY: 03/25/2020 FINDINGS: The heart is enlarged. There are postsurgical changes of a midline sternotomy and aortic valve replacement. There is mild pulmonary vascular congestion. Small pleural effusions are suspected. There is no lobar consolidation[ IMPRESSION: Cardiomegaly and suspected mild pulmonary vascular congestion. No evidence of lobar consolidation ACT 112: Negative or not required by law. Electronically signed by: Brian Calvin M.D. 09/13/2020 7:51 PM ECG Data Indication: + weakness Rate (beats per minute): 63 Rhythm: + atrial fibrillation ECG Intervals/blocks: + Right Bundle branch block and + Prolonged QT ECG ST segments: + Normal ST segments MDM Narrative 1909: The patient was evaluated in room C2. A complete history and physical exam was performed Cardiac monitoring: An order was placed for continuous cardiac monitoring. The monitor shows a rate of 60 with atrial fibrilation rhythm EMR reviewed. Patient was seen by their PCP on September 11, 2020 2 days ago. Patient was prescribed tramadol for the shingles pain. Patient was taken off of gabapentin because they thought the gabapentin was making the patient's CHF and fluid overload worse. Patient was told to stop his Bumex and switch to Lasix 20 mg twice daily for the next 3 to 4 days. 2129: Vital signs stable. Labs show a therapeutic INR of 2.6. proBNP is elevated 2467 this is up from 1977 from September 12, 2020, yesterday. Chest x-ray does show fluid overload. I discussed with the patient's daughter at bedside and we both feel would be best for the patient to be admitted to the hospital to help diurese the patient. Nursing notes state that the patient hit his head but the daughter is adamant that the patient did not hit his head. No signs of head trauma. Patient will be admitted to the [facility] hospitalist team Dr. Flowers. Bumex ordered for the patient. Impression & Plan Venous stasis ulcer, CHF exacerbation, Shingles rash, Chronic acquired lymphedema Discharge Plan Visit Data Chief Complaint: Pain (Generalized) Stated Complaint: HAS [id number] ALL OVER BODY ED Provider: Keyur Sandy Discharge Problem: Venous stasis ulcer, CHF exacerbation, Shingles rash, Chronic acquired lymphedema Patient Disposition: Admitted As Inpatient Forms Stand Alone Forms: My [facility] Prescriptions Prescriptions: No Action omeprazole 40 mg capsule,delayed release(DR/EC) 40 mg PO QAM Qty: 90 RF: 3 warfarin 3 mg tablet See Rx Instructions mg .ROUTE .COMPLEX Qty: 90 RF: 3 escitalopram oxalate 10 mg tablet 10 mg PO QAM Qty: 90 RF: 3 bumetanide 1 mg tablet 1 mg PO DAILY Qty: 90 RF: 2 Hold Instructions: temp simvastatin 40 mg tablet 40 mg PO HS Qty: 90 RF: 3 doxazosin 4 mg tablet 4 mg PO BID Qty: 180 RF: 3 (DME) lift chair See Rx Instructions .Route .MEDSUPPLY Qty: 1 RF: 0 fluticasone propion-salmeterol [Advair Diskus] 250-50 mcg/dose blister with device 1 inh INHALATION BID Qty: 180 RF: 3 potassium chloride 20 mEq tablet extended release 20 meq PO DAILY Qty: 30 RF: 11 albuterol sulfate 2.5 mg /3 mL (0.083 %) solution for nebulization 2.5 mg inhalation QID PRN (Reason: shortness of breath or wheezing) Qty: 90 RF: 3 acetylcysteine 100 mg/mL (10 %) solution 2 ml inhalation Q8H Qty: 90 RF: 4 tramadol 50 mg tablet 50 mg PO .COMPLEX PRN (Reason: pain, severe) Qty: 90 RF: 1 furosemide 20 mg tablet 20 mg PO .COMPLEX Qty: 60 RF: 3 valacyclovir [Valtrex] 1 gram tablet 1,000 mg PO TID Qty: 21 RF: 2 docusate sodium [Colace] 100 mg Capsule 100 mg PO HS RF: 0 folic acid 1 mg Tablet 1 mg PO QAM RF: 0 prednisone 5 mg tablet 7.5 mg PO DAILY RF: 0 cyanocobalamin (vitamin B-12) [Vitamin B-12] 1,000 mcg tablet 1,000 mcg PO BID RF: 0 polyethylene glycol 3350 [Miralax] 17 gram Powder In Packet 17 g PO DAILY PRN (Reason: Constipation) RF: 0 warfarin 3 mg tablet 1.5 mg PO ONCE RF: 0 triamterene-hydrochlorothiazid 37.5-25 mg capsule 1 cap PO QAM RF: 0 methotrexate sodium 2.5 mg tablet 10 mg PO WK RF: 0 aspirin 81 mg Tablet,Delayed Release (Dr/Ec) 81 mg PO DAILY RF: 0 doxycycline hyclate 100 mg tablet 100 mg PO BID RF: 0 Referrals Referrals: Allyssa Martinez CRNP [Primary Care Provider] -
[2020-09-14] MEDS ORDERED: ONDANSETRON INJ 2 MG/ML 2 ML VIAL IV PRN (00:14)
[2020-09-14] MEDS ORDERED: WARFARIN SOD 0.5 MG TAB PO ONE (00:14)
[2020-09-14] MEDS ORDERED: ACETAMINOPHEN 325 MG TAB PO PRN (00:14)
[2020-09-14] MEDS ORDERED: POLYETHYLENE (MIRALAX) 17 GM PACK PO PRN (00:14)
[2020-09-14] MEDS: ALBUTEROL 0.5% NEB SOLN 2.5 MG/0.5 ML VIAL NEB PRN ×4 (01:06→22:19)
[2020-09-14] MEDS: ACETYLCYSTEINE 10% INHAL SOLN 4 ML **DISPENSED BY RESP. INH SCH ×4 (01:06→22:19)
[2020-09-14] MEDS: traMADol HCL 50 MG TABLET PO PRN ×3 (01:47→19:31)
[2020-09-14] MEDS ORDERED: MoRPHine SULFATE 2 MG/ML CARP IV STA (03:05)
[2020-09-14] MEDS: predniSONE 2.5 MG TAB PO SCH (08:15)
[2020-09-14] MEDS: BUMETANIDE 2 MG in SYRINGE 0 ML IV SCH ×2 (08:15→16:43)
[2020-09-14] MEDS: DOXAZosin MESYLATE 4 MG TAB PO SCH ×2 (08:15→21:29)
[2020-09-14] MEDS: ASPIRIN 81 MG ECTAB PO SCH (08:15)
[2020-09-14] MEDS: ESCITALOPRAM OXALATE 10 MG TAB PO SCH (08:16)
[2020-09-14] MEDS: FOLIC ACID 1 MG TAB PO SCH (08:16)
[2020-09-14] MEDS: PANTOprazole 40 MG TAB PO SCH (08:16)
[2020-09-14] MEDS: POTASSIUM CHLORIDE CRTAB 20 MEQ TABCR PO SCH (08:16)
[2020-09-14] MEDS: CYANOCOBALAMIN 500 MCG TABLET (VITAMIN B-12) PO SCH ×2 (08:17→21:29)
[2020-09-14] MEDS: FLUTICASONE/VILANTEROL 100/25MCG 14 PUFFS/INHALER INH SCH (08:18)
[2020-09-14] MEDS: valACYclovir HCL 500 MG TABLET PO SCH ×2 (08:18→21:30)
--- NOTE | 2020-09-14 15:02 | Hospitalist Progress Note ---
Date of Service September 14, 2020 Assessment & Plan (1) CHF exacerbation: Acute diastolic CHF exacerbation. EF was 55 - 60% in 07/2020. Baseline weight seems to be ~85 kg early this month. On admission, he was ~92 kg. - Continue Bumex 2 mg IV BID - Monitor I&Os, daily weights - Hold triamterene/HCTZ and oral furosemide - Follow serial BMP and magnesium levels (2) Shingles rash: Began around August 30, 2020. He has scabbed blisters on his face/neck. Tri ed gabapentin, but this apparently made him puffy. - Continue Valtrex - Continue tramadol PRN (3) Chronic venous stasis dermatitis of both lower extremities: Chronic venous stasis dermatitis appears fairly stable. - Wound care consulted for ulcers on right leg. (4) Chronic acquired lymphedema: See above (5) Permanent atrial fibrillation: EKG on admission showed afib with acceptable ventricular rate. - Continue warfarin 3 mg PO daily -> INR is 2.6 - Uzra-xlnl-aodvnnrpy off any AV blockade -> Monitor (6) Peripheral arterial disease: Follows with Dr. Wiggins. Prior vascular surgery note indicates bilateral popliteal artery aneurysms. - Will get ultrasounds of both legs. - Continue ASA (7) Rheumatoid arthritis: Immunocompromised on methotrexate and prednisone as outpatient. - Continue home prednisone 7.5 mg PO daily - Take methotrexate 10 mg PO on Wednesdays (8) Hemiplegia, post-stroke: Routine care to prevent decubitus ulcers or other skin injury. (9) Chronic obstructive pulmonary disease: No acute exacerbation. - Continue outpatient regimen (10) Hypertension: BP today is 130/60. - Continue home cardiac meds as above (11) GERD (gastroesophageal reflux disease): - Continue PPI daily (12) Hyperlipidemia: - Continue simvastatin 40 mg daily (13) DVT prophylaxis: On warfarin for afib. INR presently therapeutic. Admission and Anticipated Discharge Date Admission Date: September 13, 2020 Subjective Feels his legs are weak. No real shortness of breath. Reports no fevers/chills, chest pain, shortness of breath, abdominal pain, nausea, or vomiting. Physical Exam Constitutional: WD/WN, vitals as above Eyes: EOM intact bilaterally; no conjunctival abnormality ENMT: external ear and nose normal, oropharynx normal Neck: trachea midline, no thyromegaly normal visual inspection Respiratory: normal respiratory effort, lungs clear to auscultation no respiratory distress Cardiovascular: RRR, no murmur, no edema Gastrointestinal (Abdomen): Inspection/Auscultation: abdomen normal to inspection; abdomen not distended Musculoskeletal: no cyanosis or clubbing, extremities motor strength 5/5 Skin: no rashes, warm and dry Neurologic: moves all extremities and awake Psychiatric: Orientation: alert, oriented to person and cooperative Results & Data Results & Data ([facility]) Vital Signs (Past 12 Hours) Vital Signs Temp Pulse Pulse Pulse Resp BP Pulse Ox 09/14/20 11:33 37.0 C 64 22 129/62 91 09/14/20 10:50 66 09/14/20 07:20 36.6 C 73 19 123/46 L 92 09/14/20 07:01 71 20 94 09/14/20 03:40 37.0 C 72 20 123/51 L 99 PG Care Time/CCT Total # of Minutes Spent Total Time Spent with Patient: Total time spent is greater than 50% in coordination of care (as documented) at patient's floor/unit and/or counseling patient: Coding Level of Care Code 51241 Subseq Hosp Care Lvl 3 Diagnoses CHF exacerbation I50.9 Shingles rash B02.9 Chronic venous stasis dermatitis of both lower extremities I87.2 Chronic acquired lymphedema I89.0 Permanent atrial fibrillation I48.2 Peripheral arterial disease I73.9 Rheumatoid arthritis M06.9 Hemiplegia, post-stroke I69.359 Chronic obstructive pulmonary disease J44.9 Hypertension I10 GERD (gastroesophageal reflux disease) K21.9 Hyperlipidemia E78.5 DVT prophylaxis Z29.9
[2020-09-14] MEDS: WARFARIN SOD 3 MG TAB PO SCH (16:43)
[2020-09-14] MEDS ORDERED: MELATONIN 3 MG TAB PO PRN (20:40)
[2020-09-14] MEDS: DOCUSATE SODIUM 100 MG CAP PO SCH (21:29)
[2020-09-14] MEDS: SIMVASTATIN 40 MG TAB PO SCH (21:29)
--- NOTE | 2020-09-14 21:59 | Electrocardiogram Report ---
Test Reason : Blood Pressure : / mmHG Vent. Rate : 063 BPM Atrial Rate : 064 BPM P-R Int : 000 ms QRS Dur : 150 ms QT Int : 502 ms P-R-T Axes : 000 015 -05 degrees QTc Int : 513 ms Poor data quality, interpretation may be adversely affected Atrial fibrillation Right bundle branch block Abnormal ECG When compared with ECG of 01-OCT-2019 14:40, Premature ventricular complexes are no longer Present Confirmed by Jake Steen ([id number]) on 09/14/2020 9:59:28 PM Referred By: REFERRED SELF Confirmed By:Jake Steen
[2020-09-15] MEDS: traMADol HCL 50 MG TABLET PO PRN ×2 (01:42→19:30)
[2020-09-15] MEDS: ALBUTEROL 0.5% NEB SOLN 2.5 MG/0.5 ML VIAL NEB PRN ×3 (07:07→22:43)
[2020-09-15] MEDS: ACETYLCYSTEINE 10% INHAL SOLN 4 ML **DISPENSED BY RESP. INH SCH ×3 (07:07→22:43)
--- NOTE | 2020-09-15 07:41 | Ultrasound Report ---
BILATERAL LOWER EXTREMITY VENOUS DOPPLER CLINICAL HISTORY: Popliteal aneurysms COMPARISON STUDY: Left lower extremity venous Doppler ultrasound September 26, 2019. TECHNIQUE: Sonography of the deep venous system of the bilateral lower extremities was performed. Co mpression and augmentation were evaluated. Please note that the arterial ultrasound will be reported separately FINDINGS: The bilateral common femoral veins are patent. The bilateral distal superficial femoral vei ns and the calf vessels are suboptimally visualized due to lower extremity edema. IMPRESSION: Technically compromised exam, as described above. However, no deep venous thrombus identi fied within the bilateral lower extremities. ACT 112: Negative or not required by law. Electronically signed by: Curtis Diaz M.D. 09/15/2020 7:39 AM
[2020-09-15 08:49] LABS: Mean Corpuscular Hemoglobin 29.7 pg (25-34); Mean Corpuscular Hgb Conc 31.3 g/dL (32-36); Mean Platelet Volume 10.8 fL (7.4-10.4); Platelet Count 198 K/uL (130-400); RDW Coefficient of Variation 18.3 % (11.5-14.5); RDW Standard Deviation 62.1 fL (36.4-46.3); Red Blood Count 3.37 M/uL (4.7-6.1); White Blood Count 6.69 K/uL (4.8-10.8)
[2020-09-15] MEDS: valACYclovir HCL 500 MG TABLET PO SCH ×2 (08:57→20:01)
[2020-09-15] MEDS: BUMETANIDE 2 MG in SYRINGE 0 ML IV SCH ×2 (08:57→16:30)
[2020-09-15] MEDS: FOLIC ACID 1 MG TAB PO SCH (08:58)
[2020-09-15] MEDS: CYANOCOBALAMIN 500 MCG TABLET (VITAMIN B-12) PO SCH ×2 (08:58→20:02)
[2020-09-15] MEDS: ESCITALOPRAM OXALATE 10 MG TAB PO SCH (08:58)
[2020-09-15] MEDS: DOXAZosin MESYLATE 4 MG TAB PO SCH ×2 (08:58→20:02)
[2020-09-15] MEDS: POTASSIUM CHLORIDE CRTAB 20 MEQ TABCR PO SCH (08:59)
[2020-09-15] MEDS: ASPIRIN 81 MG ECTAB PO SCH (08:59)
[2020-09-15] MEDS: predniSONE 2.5 MG TAB PO SCH (08:59)
[2020-09-15] MEDS: PANTOprazole 40 MG TAB PO SCH (09:00)
[2020-09-15] MEDS: FLUTICASONE/VILANTEROL 100/25MCG 14 PUFFS/INHALER INH SCH (09:00)
[2020-09-15 09:02] LABS: INR 2.4 (0.9-1.1); Prothrombin Time 22.6 Seconds (9.0-12.0)
[2020-09-15 09:18] LABS: BUN Creatinine Ratio 27.7 (10-20); Calcium 9.1 mg/dl (8.5-10.1); Creatinine Clr Calc Pharmacy 51.3 ml/min; Est GFR (Non-African American) 66.4; Magnesium 2.4 mg/dl (1.8-2.4); Potassium 3.4 mmol/L (3.5-5.1)
--- NOTE | 2020-09-15 09:22 | Ultrasound Report ---
US arterial duplex LE LT HISTORY: 85 years-old Male Popliteal aneursym popliteal artery aneurysm COMPARISON: None TECHNIQUE: Multiple real-time sonographic images of the lower extremity arterial structures were obta ined assessing grayscale appearance, color and spectral flow FINDINGS: Right upper artery aneurysm measures up to 3.2 x 3.1 cm with prominent associated mural thrombus/athe romatous plaque. Triphasic waveforms in the right upper artery are noted with peak systolic velocitie s measuring up to 60 cm/s. Diffuse atherosclerotic plaque limits the study. Triphasic waveforms are noted within the left common femoral, profunda femoris and superficial femoral arteries. Left upper artery aneurysm measures up t o 2.9 x 3.0 cm. Turbulent flow with biphasic and triphasic waveforms within the left popliteal artery , peak systolic velocities measuring up to 60 cm/s. Diffuse subcutaneous edema. Biphasic waveforms wi thin the posterior tibial and anterior tibial arteries with monophasic waveforms within the peroneal and dorsalis pedis artery. No arterial occlusion. IMPRESSION: 1. Bilateral popliteal artery aneurysms measuring up to 3.2 cm on the right and 3.0 cm on the left. 2. Diffuse atherosclerotic vascular disease with monophasic and biphasic waveforms of the left lower leg. 3. No arterial occlusion or elevated peak systolic velocities to suggest high-grade stenosis. ACT 112: Negative or not required by law. The above report was generated using voice recognition software. It may contain grammatical, syntax o r spelling errors. Electronically signed by: Jeronimo Armendariz M.D. 09/15/2020 9:20 AM
--- NOTE | 2020-09-15 12:15 | Hospitalist Progress Note ---
Date of Service September 15, 2020 Assessment & Plan (1) CHF exacerbation: Acute diastolic CHF exacerbation. EF was 55 - 60% in 07/2020. Baseline weight seems to be ~85 kg early this month. On admission, he was ~92 kg. - Continue Bumex 2 mg IV BID - Monitor I&Os, daily weights - Hold triamterene/HCTZ and oral furosemide - Follow serial BMP and magnesium levels -> Stable Cr today. (2) Shingles rash: Began around August 30, 2020. He has scabbed blisters on his face/neck. Tried gabapentin, but this apparently made him puffy. - Continue Valtrex - Continue tramadol PRN (3) Chronic venous stasis dermatitis of both lower extremities: Chronic venous stasis dermatitis appears fairly stable. - Wound care consulted for ulcers on right leg. (4) Chronic acquired lymphedema: See above (5) Permanent atrial fibrillation: EKG on admission showed afib with acceptable ventricular rate. - Continue warfarin 3 mg PO daily -> INR is 2.4 - Firo-eirm-qmuonmldly off any AV blockade -> Monitor (6) Peripheral arterial disease: Follows with Dr. Wiggins. Prior vascular surgery note indicates bilateral popliteal artery aneurysms. - U/s of both legs indicates the left popliteal artery aneurysm is now 3.2 cm. - Continue ASA (7) Rheumatoid arthritis: Immunocompromised on methotrexate and prednisone as outpatient. - Continue home prednisone 7.5 mg PO daily - Takes methotrexate 10 mg PO on Wednesdays; will likely give as we don't see sign of infection today. (8) Hemiplegia, post-stroke: Routine care to prevent decubitus ulcers or other skin injury. (9) Chronic obstructive pulmonary disease: No acute exacerbation. - Continue outpatient regimen (10) Hypertension: BP today is 145/60. - Continue home cardiac meds as above (11) GERD (gastroesophageal reflux disease): - Continue PPI daily (12) Hyperlipidemia: - Continue simvastatin 40 mg daily (13) DVT prophylaxis: On warfarin for afib. INR presently therapeutic. Admission and Anticipated Discharge Date Admission Date: September 13, 2020 Subjective No issues today. Feels less shortness of breath. Feels legs are less swollen, though the left is chronically bigger. Reports no fevers/chills, chest pain, abdominal pain, nausea, or vomiting. Physical Exam Constitutional: WD/WN, vitals as above Eyes: EOM intact bilaterally; no conjunctival abnormality ENMT: external ear and nose normal, oropharynx normal Neck: trachea midline, no thyromegaly normal visual inspection Respiratory: normal respiratory effort, lungs clear to auscultation no respiratory distress Cardiovascular: Rate/Rhythm: regular rate and + irregularly irregular Heart Sounds: normal S1 and normal S2 Extremities: + edema (Left > right) Gastrointestinal (Abdomen): Inspection/Auscultation: abdomen normal to inspection; abdomen not distended Musculoskeletal: no cyanosis or clubbing, extremities motor strength 5/5 Skin: no rashes, warm and dry Neurologic: moves all extremities and awake Psychiatric: Orientation: alert, oriented to person and cooperative Results & Data Results & Data ([facility]) Vital Signs (Past 12 Hours) Vital Signs Temp Pulse Resp BP Pulse Ox 09/15/20 11:08 36.8 C 68 19 146/60 H 91 09/15/20 07:21 36.5 C 73 20 123/64 92 09/15/20 07:10 76 20 96 09/15/20 03:10 36.7 C 62 17 137/66 93 PG Care Time/CCT Total # of Minutes Spent Total Time Spent with Patient: Total time spent is greater than 50% in coordination of care (as documented) at patient's floor/unit and/or counseling patient: Coding Level of Care Code 40926 Subseq Hosp Care Lvl 2 Diagnoses CHF exacerbation I50.9 Shingles rash B02.9 Chronic venous stasis dermatitis of both lower extremities I87.2 Chronic acquired lymphedema I89.0 Permanent atrial fibrillation I48.2 Peripheral arterial disease I73.9 Rheumatoid arthritis M06.9 Hemiplegia, post-stroke I69.359 Chronic obstructive pulmonary disease J44.9 Hypertension I10 GERD (gastroesophageal reflux disease) K21.9 Hyperlipidemia E78.5 DVT prophylaxis Z29.9
[2020-09-15] MEDS: WARFARIN SOD 3 MG TAB PO SCH (16:29)
[2020-09-15] MEDS ORDERED: LORazepam 0.5 MG TAB PO STA (18:30)
[2020-09-15] MEDS: SIMVASTATIN 40 MG TAB PO SCH (20:01)
[2020-09-15] MEDS: DOCUSATE SODIUM 100 MG CAP PO SCH (20:02)
[2020-09-16] MEDS: traMADol HCL 50 MG TABLET PO PRN ×2 (05:47→12:52)
[2020-09-16] MEDS: ACETYLCYSTEINE 10% INHAL SOLN 4 ML **DISPENSED BY RESP. INH SCH ×2 (07:10→15:02)
[2020-09-16] MEDS: ALBUTEROL 0.5% NEB SOLN 2.5 MG/0.5 ML VIAL NEB PRN ×2 (07:10→15:02)
[2020-09-16 07:52] LABS: Hematocrit (blood only) 33.5 % (42-52); Hemoglobin 10.5 g/dL (14.0-18.0); Mean Corpuscular Hemoglobin 29.7 pg (25-34); Mean Corpuscular Hgb Conc 31.3 g/dL (32-36); Mean Corpuscular Volume 94.6 fL (80-100); Mean Platelet Volume 10.2 fL (7.4-10.4); Platelet Count 186 K/uL (130-400); RDW Coefficient of Variation 18.6 % (11.5-14.5); RDW Standard Deviation 63.2 fL (36.4-46.3); Red Blood Count 3.54 M/uL (4.7-6.1); White Blood Count 6.67 K/uL (4.8-10.8)
[2020-09-16] MEDS: CYANOCOBALAMIN 500 MCG TABLET (VITAMIN B-12) PO SCH (08:18)
[2020-09-16] MEDS: BUMETANIDE 2 MG in SYRINGE 0 ML IV SCH (08:18)
[2020-09-16] MEDS: PANTOprazole 40 MG TAB PO SCH (08:18)
[2020-09-16] MEDS: DOXAZosin MESYLATE 4 MG TAB PO SCH (08:18)
[2020-09-16] MEDS: FOLIC ACID 1 MG TAB PO SCH (08:20)
[2020-09-16] MEDS: ASPIRIN 81 MG ECTAB PO SCH (08:20)
[2020-09-16] MEDS: POTASSIUM CHLORIDE CRTAB 20 MEQ TABCR PO SCH (08:20)
[2020-09-16] MEDS: ESCITALOPRAM OXALATE 10 MG TAB PO SCH (08:20)
[2020-09-16] MEDS: FLUTICASONE/VILANTEROL 100/25MCG 14 PUFFS/INHALER INH SCH (08:20)
[2020-09-16] MEDS: predniSONE 2.5 MG TAB PO SCH (08:20)
[2020-09-16 08:25] LABS: BUN Creatinine Ratio 28.3 (10-20); Calcium 9.5 mg/dl (8.5-10.1); Est GFR (African American) 72.7; Est GFR (Non-African American) 62.7; Magnesium 2.6 mg/dl (1.8-2.4); Potassium 3.6 mmol/L (3.5-5.1)
[2020-09-16] MEDS: valACYclovir HCL 500 MG TABLET PO SCH (08:27)
[2020-09-16 08:46] LABS: INR 2.6 (0.9-1.1); Prothrombin Time 24.8 Seconds (9.0-12.0)
--- NOTE | 2020-09-16 14:39 | Discharge Summary ---
Date of Service September 16, 2020 Admission HPI Per Admitting Provider The patient is an 85-year-old male with a past medical history including shingles, lymphedema, PAD, venous stasis ulcers, cerebellar stroke, prostate cancer, vitamin D deficiency, history of CVA, chronic steroid use, popliteal artery aneurysm, bioprosthetic aortic valve, RA, permanent atrial fibrillation, hyperlipidemia, hemiplegia post stroke, COPD, PFO, GERD, depression, asthma and vitamin B12 deficiency. His history of shingles is unclear, but family reports that the patient has generalized shingles pain, and has been having worsening edema, along with worsening of lower extremity wounds for which he has been following the wound care clinic. Principal Diagnosis Edema -> Possibly CHF vs. gabapentin reaction Discharge Exam Constitutional WD/WN, vitals as above Eyes EOM intact bilaterally; no conjunctival abnormality ENMT external ear and nose normal, oropharynx normal Neck trachea midline, no thyromegaly normal visual inspection Respiratory normal respiratory effort, lungs clear to auscultation no respiratory distress Cardiovascular Rate/Rhythm: regular rate Heart Sounds: normal S1 and normal S2 Extremities: + edema (L > R) Gastrointestinal (Abdomen) Inspection/Auscultation: abdomen normal to inspection; abdomen not distended Musculoskeletal no cyanosis or clubbing, extremities motor strength 5/5 Skin no rashes, warm and dry Neurologic moves all extremities and awake Psychiatric Orientation: alert, oriented to person and cooperative Discharge Data Allergies Allergy/AdvReac Type Severity Reaction Status Date / Time hydrocodone AdvReac Severe EXCESSIVE Verified 09/13/20 19:22 DRY MOUTH AND SHAKING Consultations 09/13/20 21:25 ED Decision to Admit Stat Ordered Studies 09/14/20 15:12 US venous doppler LE BI Routine 09/14/20 15:20 US arterial duplex LE LT Routine Hospital Course (1) CHF exacerbation: Acute diastolic CHF exacerbation. EF was 55 - 60% in 07/2020. Baseline weight seems to be ~85 kg early this month. On admission, he was ~92 kg. - Continued Bumex 2 mg IV BID while inpatient. - Held triamterene/HCTZ and oral furosemide - Follow serial BMP and magnesium levels -> Stable Cr on discharge. - Back to baseline weight by discharge. Possibly due to gabapentin reaction? Unclear. Daughter will return to home Bumex 1 mg PO daily and monitor weights and swelling. (2) Shingles rash: Began around August 30, 2020. He has scabbed blisters on his face/neck. Tried gabapentin, but this apparently made him puffy. - Continue tramadol PRN - Given his immunocompromised state, I recommended going for another week (total of 14 day course) which is inline with UpToDate recommendations on duration of treatment. Vesicles had all scabbed over and mostly healed by discharge. 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 - Wound care consulted for ulcers on right leg. No indication of acute infection. (4) Chronic acquired lymphedema: See above (5) Permanent atrial fibrillation: EKG on admission showed afib with acceptable ventricular rate. - Continue warfarin 3 mg PO daily -> INR is 2.6 on discharge. - Dhup-vfth-umqtzugclf off any AV blockade -> Monitor (6) Peripheral arterial disease: Follows with Dr. Wiggins. Prior vascular surgery note indicates bilateral popliteal artery aneurysms. - U/s of both legs indicates the left popliteal artery aneurysm is now 3.2 cm. This is slightly bigger than last summer when he saw Dr. Wiggins. - Continue ASA - Consider vascular follow-up. (7) Rheumatoid arthritis: Immunocompromised on methotrexate and prednisone as outpatient. - Continue home prednisone 7.5 mg PO daily - Takes methotrexate 10 mg PO on Wednesdays; can likely give as we don't see sign of infection today. (8) Hemiplegia, post-stroke: Routine care to prevent decubitus ulcers or other skin injury. (9) Chronic obstructive pulmonary disease: No acute exacerbation. - Continue outpatient regimen (10) Hypertension: BP today is 145/60. - Continue home cardiac meds as above (11) GERD (gastroesophageal reflux disease): - Continue PPI daily (12) Hyperlipidemia: - Continue simvastatin 40 mg daily (13) DVT prophylaxis: On warfarin for afib. INR presently therapeutic. I certify that this patient is under my care and that I, or a physicians cancer genetics assistant working with me, had a face to-face encounter that meets the home health [id number] encounter requirements with this patient. The encounter with the patient was in whole, or in part, for the following medical condition, which is the primary reason for home health care (list medical condition): I certify that, based on my findings, the following services are medically necessary home health services: My clinical findings support the need for the above services because: Daily Weights Home Safety Assessment OT Assess ADL Status and Restore Function w ADLs PT Eval for Safety and Mobility PT Eval for Safety, Gait Training, Assistive Devices Skilled Nsg Assessment Vital Signs Further, I certify that my clinical findings support that this patient is homebound (i.e. absences from home require considerable and taxing effort and are for medical reasons or synagogue services or infrequently or of short duration when for other reasons) because: Maximum Assistance with Ambulation Certification for Home Health Services: Based on the above findings, I certify that this patient is confined to the home and needs intermittent custodial care, physical therapy and/or speech therapy or continues to need occupational therapy. The patient is under my care, and I have initiated the establishment of the plan of care. This patient will be followed by a physician who will periodically review the plan of care. Total Time Total Time Spent Total Time Spent (In Minutes): 35 Discharge Plan Discharge Items Patient Disposition: Home - Home Health Services Reason For Visit: CHF EXACERBATION Discharge Diagnosis: Swelling - Possibly from gabapentin Activity: Resume your previous activity Non-emergency contact: Primary Care Provider Call non-emergency contact if: your symptoms worsen Follow-up/Referrals: Allyssa Martinez CRNP [Primary Care Provider] - Diet: Heart Healthy and Low Sodium (2gm) Addtl Attending Provider Instructions: Mr. Weaver, You were admitted for swelling likely from the gabapentin. We spent a few days getting the fluid off, and now you seem to be back to your normal state of health. Please avoid gabapentin and Lyrica because they both can cause swelling. Please continue your tramadol to help with pain. We are sending a bit more Valtrex for you home to be sure you fully get rid of the shingles. Pending Studies at Discharge: No Stand-Alone Forms: My [facility] [employer], Smoking Cessation Medications and DC Order Prescriptions: Continued omeprazole 40 mg capsule,delayed release(DR/EC) 40 mg PO QAM Qty: 90 RF: 3 warfarin 3 mg tablet See Rx Instructions mg .ROUTE .COMPLEX Qty: 90 RF: 3 escitalopram oxalate 10 mg tablet 10 mg PO QAM Qty: 90 RF: 3 bumetanide 1 mg tablet 1 mg PO DAILY Qty: 90 RF: 2 Hold Instructions: temp simvastatin 40 mg tablet 40 mg PO HS Qty: 90 RF: 3 doxazosin 4 mg tablet 4 mg PO BID Qty: 180 RF: 3 (DME) lift chair See Rx Instructions .Route .MEDSUPPLY Qty: 1 RF: 0 fluticasone propion-salmeterol [Advair Diskus] 250-50 mcg/dose blister with d evice 1 inh INHALATION BID Qty: 180 RF: 3 potassium chloride 20 mEq tablet extended release 20 meq PO DAILY Qty: 30 RF: 11 albuterol sulfate 2.5 mg /3 mL (0.083 %) solution for nebulization 2.5 mg inhalation QID PRN (Reason: shortness of breath or wheezing) Qty: 90 RF: 3 acetylcysteine 100 mg/mL (10 %) solution 2 ml inhalation Q8H Qty: 90 RF: 4 tramadol 50 mg tablet 50 mg PO .COMPLEX PRN (Reason: pain, severe) Qty: 90 RF: 1 docusate sodium [Colace] 100 mg Capsule 100 mg PO HS RF: 0 folic acid 1 mg Tablet 1 mg PO QAM RF: 0 prednisone 5 mg tablet 7.5 mg PO DAILY RF: 0 cyanocobalamin (vitamin B-12) [Vitamin B-12] 1,000 mcg tablet 1,000 mcg PO BID RF: 0 polyethylene glycol 3350 [Miralax] 17 gram Powder In Packet 17 g PO DAILY PRN (Reason: Constipation) RF: 0 warfarin 3 mg tablet 1.5 mg PO ONCE RF: 0 triamterene-hydrochlorothiazid 37.5-25 mg capsule 1 cap PO QAM RF: 0 methotrexate sodium 2.5 mg tablet 10 mg PO WK RF: 0 aspirin 81 mg Tablet,Delayed Release (Dr/Ec) 81 mg PO DAILY RF: 0 valacyclovir [Valtrex] 1 gram tablet 1,000 mg PO TID Qty: 15 RF: 0 Discontinued furosemide 20 mg tablet 20 mg PO .COMPLEX Qty: 60 RF: 3 doxycycline hyclate 100 mg tablet 100 mg PO BID RF: 0 Discharge Orders: Discharge Order (Routine); Ordered 09/16/20 Ordered By: Preston Mathur Admission Data Admit Date/Time: 09/13/20 22:51 Attending Provider: Preston Mathur Admit Provider: Pasquariello,Humberto D Primary Care Provider: Allyssa Martinez Other Providers: Preston Mathur ; [facility] Other Interventions: Discharge Summary Assessment (RN) Last Done: 09/16/20 13:53 Coding Level of Care Code D/C Day Management >30 mins Diagnoses CHF exacerbation I50.9 Shingles rash B02.9 Chronic venous stasis dermatitis of both lower extremities I87.2 Chronic acquired lymphedema I89.0 Permanent atrial fibrillation I48.2 Peripheral arterial disease I73.9 Rheumatoid arthritis M06.9 Hemiplegia, post-stroke I69.359 Chronic obstructive pulmonary disease J44.9 Hypertension I10 GERD (gastroesophageal reflux disease) K21.9 Hyperlipidemia E78.5 DVT prophylaxis Z29.9
--- NOTE | 2020-09-26 10:33 | Coding Query ---
CODING QUERY To promote full compliance with coding requirements relating to patient care, provider participation is requested in all cases of hide curer uncertainty. Please assist us with the question(s) below: Coding Question(s): Per Discharge Summary, "Possibly CHF vs. Gabapentin Reaction." Discharge Diagnosis states "swelling-possibly from Gabapentin." Please clarify below: ( ) Patient with CHF (x ) CHF Ruled Out ( ) Other Please Explain: Thank you Brock Corbett Principal Diagnosis: "that condition established after study, to be chiefly responsible for occasioning the admission of the patient to the hospital for care." Co-Existing Principal Diagnosis: "when two or more diagnoses equally meet the criteria for principal diagnosis as determined by the circumstances of admission, diagnostic work up, and/or therapy provided, and the Alphabetic Index, Tabular List, or another coding guideline does not provide sequencing direction, any one of the diagnoses may be sequenced first." "When the physician has documented what appears to be a current diagnosis in the body of the record, but has not included the diagnosis in the final diagnostic statement, the physician should be asked whether the diagnosis should be added." (Source Coding [facility] 2 QTR90. p3-4) MARIAN
== END 2020-09-16 15:30 | disposition home health service (06) | DRG 556 ==
LOC: ED 18:31 → SUATTDRO 22:51 → 2S 22:51

== ENCOUNTER 2020-11-07 10:29 | Inpatient (IN) ==
[2020-11-07] MEDS ORDERED: PIPERACILLIN/TAZOBACTAM 4.5 GM/120 ML BAG IV ONE (12:07)
[2020-11-07] MEDS ORDERED: PIPERACILL/TAZOBAC CONSULT ACTIVE PRN ×2 (12:07→20:34)
[2020-11-07] MEDS ORDERED: GENTAMICIN SULFATE 0.1% CR 15 GM TUBE EXT STA (12:09)
[2020-11-07 12:38] LABS: Basophils # (auto) 0.01 K/uL (0-0.2); Basophils % (auto) 0.2 %; Eosinophils # (auto) 0.02 K/uL (0-0.5); Eosinophils % (auto) 0.3 %; Hematocrit (blood only) 30.9 % (42-52); Hemoglobin 9.4 g/dL (14.0-18.0); Immature Granulocytes # (auto) 0.05 K/uL (0.00-0.02); Immature Granulocytes % (auto) 0.8 %; Lymphocytes # (auto) 0.29 K/uL (1.2-3.4); Lymphocytes % (auto) 4.4 %; Mean Corpuscular Hemoglobin 29.7 pg (25-34); Mean Corpuscular Hgb Conc 30.4 g/dL (32-36); Mean Corpuscular Volume 97.5 fL (80-100); Mean Platelet Volume 10.9 fL (7.4-10.4); Monocytes # (auto) 0.26 K/uL (0.11-0.59); Monocytes % (auto) 3.9 %; Neutrophils # (auto) 5.97 K/uL (1.4-6.5); Neutrophils % (auto) 90.4 %; Platelet Count 160 K/uL (130-400); RDW Coefficient of Variation 19.4 % (11.5-14.5); RDW Standard Deviation 69.1 fL (36.4-46.3); Red Blood Count 3.17 M/uL (4.7-6.1)
[2020-11-07 12:49] LABS: INR 2.9 (0.9-1.1); Partial Thromboplastin Ratio 1.6; Partial Thromboplastin Time 42.2 Seconds (21.0-31.0); Prothrombin Time 26.8 Seconds (9.0-12.0)
[2020-11-07 12:57] LABS: Albumin Level 3.7 gm/dl (3.4-5.0); Calcium 8.5 mg/dl (8.5-10.1); Creatinine Clr Calc Pharmacy 61.1 ml/min; Est GFR (African American) 87.1 ml/min; Est GFR (Non-African American) 75.1 ml/min; Magnesium 2.4 mg/dl (1.8-2.4); Potassium 4.2 mmol/L (3.5-5.1)
[2020-11-07 13:00] LABS: Albumin Globulin Ratio 1.5 (0.9-2); Bilirubin,Total 1.2 mg/dl (0.2-1); Globulin 2.5 gm/dl (2.5-4.0); Total Protein 6.2 gm/dl (6.4-8.2)
--- NOTE | 2020-11-07 13:05 | XRay Report ---
XR chest 1V portable CLINICAL HISTORY: SEPSIS COMPARISON STUDY: 09/13/2020 FINDINGS: The heart is enlarged. There are postsurgical changes of a midline sternotomy and aortic va lve replacement.. There is diffuse elevation of interstitium likely secondary to mild pulmonary vascu lar congestion. An interstitial infectious/inflammatory processes could of course appear similar.[ IMPRESSION: 1. Cardiomegaly and radiographic evidence of mild pulmonary vascular congestion/fluid overload. ACT 112: Negative or not required by law. Electronically signed by: Brian Calvin M.D. 11/07/2020 1:04 PM
[2020-11-07] MEDS ORDERED: BUMETANIDE 1 MG in SYRINGE 0 ML IV ONE (13:23)
--- NOTE | 2020-11-07 14:16 | Ultrasound Report ---
US venous doppler LE LT CLINICAL HISTORY: Left lower extremity swelling COMPARISON STUDY: 10/02/2020 FINDINGS: Real-time and color flow Doppler imaging were performed. Flow was seen within the femoral, popliteal and calf veins with no intraluminal thrombus demonstrated. The saphenous vein is patent. Th ere is left lower extremity edema. IMPRESSION: 1. No evidence of left lower extremity DVT. ACT 112: Negative or not required by law. Electronically signed by: Brian Calvin M.D. 11/07/2020 2:14 PM
[2020-11-07 14:46] LABS: Appearance Urine Clear (Clear); Bilirubin Urine Negative (Negative); Blood Urine Negative (Negative); Color Urine Dark Yellow; Glucose Urine UA Negative (Negative); Ketones Urine Negative (Negative); Leukocyte Esterase Urine Negative (Negative); Nitrite Urine Negative (Negative); Protein Urine Negative (Negative); Specific Gravity Urine 1.019 (1.000-1.030); Urobilinogen Urine Negative (Negative); pH Urine 7.5 (4.5-7.5)
--- NOTE | 2020-11-07 14:49 | Electrocardiogram Report ---
Test Reason : Blood Pressure : / mmHG Vent. Rate : 064 BPM Atrial Rate : 098 BPM P-R Int : 000 ms QRS Dur : 142 ms QT Int : 464 ms P-R-T Axes : 000 035 041 degrees QTc Int : 478 ms Poor data quality, interpretation may be adversely affected Atrial fibrillation with premature ventricular or aberrantly conducted complexes Right bundle branch block Abnormal ECG When compared with ECG of 13-SEP-2020 19:33, No significant change Confirmed by Chip Farfan ([id number]) on 11/07/2020 2:48:55 PM Referred By: REFERRED SELF Confirmed By:Chip Farfan
[2020-11-07] MEDS ORDERED: HYDROmorphone INJ 0.5 MG/0.5 ML SYR IV PRN (15:44)
[2020-11-07] MEDS ORDERED: ACETAMINOPHEN 1,000 MG/100 ML VIAL IV STA (15:44)
[2020-11-07] MEDS ORDERED: ONDANSETRON INJ 2 MG/ML 2 ML VIAL IV STA (15:44)
[2020-11-07] MEDS ORDERED: WARFARIN SOD 3 MG TAB PO ONE (15:47)
[2020-11-07] MEDS ORDERED: WARFARIN SOD 0.5 MG TAB PO ONE (16:00)
--- NOTE | 2020-11-07 16:10 | History & Physical Report ---
Date of Service November 07, 2020 Assessment & Plan (1) Cellulitis of left leg: * Patient will be admitted to a monitored bed * Given his underlying comorbidities including immunosuppressive state due to the methotrexate and chronic steroid use, will continue Zosyn for not only gram-positive coverage but also antipseudomonal coverage. In addition will initiate vancomycin for adequate coverage for MRSA. Patient has no known history of MRSA; however, he is immunocompromised and at risk. We will obtain an MRSA screen to help guide treatment plan. We will plan to de-escalate coverage within 48 hours pending clinical response. * Will provide topical Silvadene which should help alleviate discomfort * IV Dilaudid for now for pain * I am concerned that he may have potentially hematoma. Will obtain a CT scan to rule out hematoma that may require evacuation. Patient is on Coumadin and is at risk. * We will continue to monitor labs including his CBC. * Blood cultures missing from ED. Will obtain blood cultures X to 20 minutes apart * No obvious wound for culture analysis. * Tylenol will be provided as needed for fever. Total bilirubin mildly elevated. If continues to up trend, will discontinue Tylenol * Patient does not have any clinical evidence to suggest sepsis at this time. He is at risk given his chronic steroid use, age, and comorbidities. Will provide a steroid challenge with IV Solu-Cortef (200 mg over the next 24 hours) with plan to convert to oral prednisone taper. (2) CHF exacerbation: * This appears to be more right-sided in nature. Patient does have an underlying history of COPD in addition to substantial valvular disease. * Will provide IV diuresis with Bumex 2 mg IV every 12 hours. In addition, will add Aldactone for added right-sided diuresis. We will continue to monitor and if needed, will provide a single dose of Zaroxolyn. Renal function stable with a creatinine clearance of 81 * BNP missing. Will obtain; however, not uncommon to be normal and right sided CHF * Patient will not be put on topical nitro given his aortic valve disease. Will avoid preload reduction * Patient would benefit from afterload reduction. He is not on a beta-thiago which is unusual given his underlying history of atrial fibrillation. This may be given his heart rate which is currently 65. With review of old records, heart rate averages 50s to 60s. I suspect this is the reason why he is not on BB * Will monitor bicarb closely. Currently 35. If continues to uptrend, as it may with continued diuresis, may need to consider transition to Diamox. Continue diuresis may induce a metabolic alkalosis * An echocardiogram is up-to-date and was reviewed. See results as outlined above. (3) Hyperbilirubinemia: * Very mild and not acute with review of old records. May be secondary to right-sided CHF and portal vascular congestion. In addition, patient does take chronic statin therapy. We will hold this. May benefit from a drug holiday. (4) Chronic anticoagulation: * Currently therapeutic. Patient takes 1.5 mg on Tuesdays and Fridays. 3 mg rest of days. We will continue that regimen for now with trending PT/INR. Further dose adjustment as needed (5) Immunosuppression due to chronic steroid use: * See above (6) History of CVA (cerebrovascular accident): * Currently, continue aspirin; however, if CT does show evidence of a hematomathis will need to be held. * Patient is at baseline (7) Chronic obstructive pulmonary disease: * Continue Advair with as needed albuterol/ipratropium as needed via nebulizer (8) Permanent atrial fibrillation: In atrial fibrillation, rates controlled as above Continue Coumadin Monitor on telemetry (9) Rheumatoid arthritis: Hold methotrexate for acute infection Stress dose steroids as above but normally is on prednisone 7.5 mg once daily (10) S/P aortic valve replacement with bioprosthetic valve: Noted (11) Anemia: Hemoglobin 9.4 here, has slowly trended downward over the previous 2 years from 13.5. Is normocytic to borderline macrocytic Check iron studies, B12, folate in the morning (12) DVT prophylaxis: Coumadin Disposition-admit to medical floor with telemetry, full code History of Present Illness Chief Complaint: Redness of left leg X 2 to 3 days Primary Care Provider: YANICK Mckeon Mr. 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 He presented to the ED with his daughter for progressive erythema/edema of the left leg. Patient is a vague historian and a lot of his history is obtained from the daughter who is his primary flight communications officer. Patient hospitalized 09/2020 with a CHF exacerbation. At that time, his routine Lasix was transitioned to Bumex. He was discharged home after 3-day stay, to take Bumex 1 mg daily. He had been doing well up until approximately 3 weeks ago. He follows cardiology (Dr. Feng) who allows daughter to give an additional Bumex in the evening at her [place]. She has been doing this over the past 2 weeks without improvement. Despite this, he has had increasing edema of the bilateral extremities (left much greater than right). Patient does have left- sided hemiplegia and tends to lay on the left side. He is mostly bedbound. He now has swelling in the left leg and up into the scrotal region and his abdomen. He denies any respiratory symptoms including cough, chest pain, shortness of breath, orthopnea, or PND. He has not had any fevers or chills. Approximately 3 days ago, his daughter noticed a mild skin tear in the left leg. Within 24 hours, it became increasingly edematous, erythematous, and painful. Again no fevers or chills. It was the progression in the erythema and edema that prompted his evaluation into the ED. When seen in the ED, patient noted to be hemodynamically stable. He was afebrile without tachycardia or hypotension. He did not have a leukocytosis but did have a mild left shift of 91%. No bandemia. Lactic acid 1.7. Total bilirubin slightly elevated at 1.2 with a normal AST/ALT. The rest of his metabolic panel was essentially within normal limits. His INR was therapeutic at 2.9. BNP not obtained. CXR did show some mild pulmonary vascular congestion; however, not significantly changed from his previous x-ray. Patient was given Zosyn, IV Bumex, and Ofirmev of while in the ED. He was subsequently hospitalized for further evaluation and care. Allergies Allergy/AdvReac Type Severity Reaction Status Date / Time gabapentin AdvReac Severe Swelling Unverified 11/07/20 14:22 hydrocodone AdvReac Severe EXCESSIVE Verified 11/07/20 14:08 DRY MOUTH AND SHAKING Home Medications Medication Instructions Recorded Confirmed Type docusate sodium [Colace] 100 mg PO HS 07/17/18 11/07/20 History folic acid 1 mg PO QAM 07/17/18 11/07/20 History polyethylene glycol 3350 [Miralax] 17 g PO QAM 04/19/19 11/07/20 History methotrexate sodium 10 mg PO WK 10/01/19 11/07/20 History warfarin 1.5 mg PO ONCE 10/01/19 11/07/20 History omeprazole 40 mg capsule,delayed 40 mg PO QAM #90 cap 11/09/19 11/07/20 Rx release warfarin 3 mg tablet See Rx Instructions .ROUTE 03/14/20 11/07/20 Rx .COMPLEX #90 tablet escitalopram oxalate 10 mg tablet 10 mg PO QAM #90 tab 04/14/20 11/07/20 Rx prednisone 5 mg tablet 7.5 mg PO QAM tab 04/25/20 11/07/20 History simvastatin 40 mg tablet 40 mg PO HS #90 tab 07/11/20 11/07/20 Rx doxazosin 4 mg tablet 4 mg PO BID #180 tab 07/19/20 11/07/20 Rx lift chair #1 ea 07/22/20 11/03/20 Rx fluticasone 250 mcg-salmeterol 50 1 inh INHALATION BID #180 ea 07/25/20 11/07/20 Rx mcg/dose blistr powdr for inhalation cyanocobalamin (vitamin B-12) 1,000 mcg PO QAM tab 08/14/20 11/07/20 History 1,000 mcg tablet aspirin 81 mg PO QAM 09/13/20 11/07/20 History tramadol 50 mg tablet 100 mg PO .COMPLEX PRN #180 tab 10/16/20 11/07/20 Rx bumetanide 1 mg tablet 1 mg PO .COMPLEX #90 tab 10/24/20 11/07/20 Rx acetylcysteine 2 ml INHALATION BID 11/07/20 11/07/20 History albuterol sulfate 2.5 mg INHALATION BID 11/07/20 11/07/20 History cholecalciferol (vitamin D3) 0 mcg PO QAM 11/07/20 11/07/20 History [Vitamin D3] potassium chloride 20 meq PO QAM 11/07/20 11/07/20 History Past Med/Surg History Medical History (Updated 11/07/20 @ 20:55 by Asia Kemp MD) Acute CVA (cerebrovascular accident) Anemia Aneurysm artery, popliteal Arthritis, rheumatoid Asthmatic bronchitis with acute exacerbation Cerebrovascular accident of right pontine structure Chronic anticoagulation Chronic anticoagulation Chronic left hip pain Edema History of CVA (cerebrovascular accident) Immunosuppression due to chronic steroid use Onychomycosis Open wound of right elbow Prostate cancer Skin tear Thrombocytopenia Traumatic open wound of left lower leg with delayed healing Traumatic open wound of right elbow with infection and delayed healing Traumatic wound Venous stasis ulcer limited to breakdown of skin without varicose veins Vertigo Weakness of muscle of left side of face due to and not concurrent with cerebrovascular accident (CVA) Surgical History (Updated 11/07/20 @ 16:23 by Annika Solano PA-C) H/O carpal tunnel repair H/O hernia repair History of aortic valve replacement with bioprosthetic valve History of knee replacement S/P aortic valve replacement S/P aortic valve replacement with bioprosthetic valve (2009) Status post carotid surgery Thromboendarterectomy Family History Other Breast cancer Family history non-contributory Uterine cancer Denies family history of Ovarian cancer Prostate cancer Myocardial infarction Colorectal cancer Social History Smoking Status: Never smoker Hx Alcohol Use: No Hx Substance Use: No Preferred Language: [place] Communication Ability: Effective Diversional Therapist'S Assistant Required: No Beliefs That Will Affect Care: None Current Living Situation: Family current occupational status: disabled Other Information That Helps Us Care for You: No Feels Safe at Home: Yes Dental Care, Regularly: No Seatbelt Use: always Assistive Devices: Glasses and Wheelchair Review of Systems Constitutional: no fever, no chills, no fatigue and no malaise Unsure about weight gain is unable to weigh himself Ear, Nose, Mouth, Throat: Denies nasal congestion, sore throat, cough Respiratory: Denies shortness of breath, hemoptysis, orthopnea, PND, pleurisy Cardiovascular: Additional Comments: + Edema as described above . denies chest pain, palpitations, syncope/near syncope, Gastrointestinal: Patient does have chronic constipation. Last BM this AM. Denies nausea, vomiting, abdominal pain, diarrhea. Genitourinary: no dysuria and no nocturia Musculoskeletal: + Pain and erythema of the left lower extremity with drainage. + Hemiplegia of the left upper and lower extremity (left leg greater than left arm)not outside of baseline. Integumentary: + rash, + lesions and + erythema Psychiatric: [facility] Physical Exam Constitutional: Resting comfortably in his hospital bed. Favoring his left side. Hard of hearing. No acute distress. ENMT: Head is atraumatic, normocephalic. Buccal mucosa is moist. Poor dentition Neck: Mild JVD. + Hepatojugular reflex noted. Respiratory: Breathing comfortably on ambient air. No accessory muscle use. Breath sounds are diminished throughout without wheezes, rales or rhonchi Cardiovascular: Irregularly irregular with controlled ventricular rate. Gastrointestinal (Abdomen): Normal active X4. Soft. Nontender. Musculoskeletal: Significant edema of the left lower extremity (>3+). Starts at the base of the toes and moves proximally into the thigh/groin. No sacral edema appreciated. Left lower extremity with large ecchymotic area on the lateral surface of the left leg involving the entire tibial surface. Is firm.? Hematoma. There is superimposed erythema involving the entire circumference of the lower leg sparing the knee and the ankle. The erythema does track proximally with lymphangitic streaking into the left groin/thigh. Is warm and tender to touch. Skin: See above Neurologic: Hard of hearing but awake and alert. Oriented to person, place, time and situation Results & Data Results & Data ([facility]) Vital Signs (Past 12 Hours) Vital Signs Temp Pulse Resp BP Pulse Ox 11/07/20 14:30 67 16 135/61 11/07/20 14:00 61 18 161/62 H 95 11/07/20 13:58 62 16 97 11/07/20 13:00 65 18 141/56 H 11/07/20 12:33 98 11/07/20 12:32 98 11/07/20 12:30 63 19 144/73 H 97 11/07/20 12:01 64 20 156/73 H 95 11/07/20 12:00 60 18 92 11/07/20 11:39 60 19 95 11/07/20 11:38 67 19 138/65 94 11/07/20 10:51 36.8 C 61 20 134/59 L 98 Laboratory Results Laboratory Results - last 24 hr 0611/07/20 11/07/20 12:20 12:20 12:20 WBC 6.60 RBC 3.17 L Hgb 9.4 L Hct 30.9 L MCV 97.5 MCH 29.7 MCHC 30.4 L RDW Std Deviation 69.1 H RDW Coeff of Magali 19.4 H Plt Count 160 MPV 10.9 H Immature Gran % (Auto) 0.8 Neut % (Auto) 90.4 Lymph % (Auto) 4.4 [place] % (Auto) 3.9 Eos % (Auto) 0.3 Baso % (Auto) 0.2 Neut # (Auto) 5.97 Lymph # (Auto) 0.29 L [place] # (Auto) 0.26 Eos # (Auto) 0.02 Baso # (Auto) 0.01 Immature Gran # (Auto) 0.05 H PT 26.8 H INR 2.9 H APTT 42.2 H PTT Ratio 1.6 Sodium 138 Potassium 4.2 Chloride 102 Carbon Dioxide 35 H Anion Gap 1.0 L BUN 24 H Creatinine 0.93 Est Cr Clr Drug Dosing 61.1 Est GFR ( Amer) 87.1 Est GFR (Non-Af Amer) 75.1 BUN/Creatinine Ratio 26.0 H Glucose 121 H Lactate Calcium 8.5 Magnesium 2.4 Total Bilirubin 1.2 H AST 17 ALT 22 Alkaline Phosphatase 73 Total Protein 6.2 L Albumin 3.7 Globulin 2.5 Albumin/Globulin Ratio 1.5 Urine Color Urine Appearance Urine pH Ur Specific Hitchcock Urine Protein Urine Glucose (UA) Urine Ketones Urine Blood Urine Nitrite Urine Bilirubin Urine Urobilinogen Ur Leukocyte Esterase COVID-19 Eval Order SARS-CoV-2 (PCR) 11/07/20 11/07/20 11/07/20 12:20 14:25 15:56 WBC RBC Hgb Hct MCV MCH MCHC RDW Std Deviation RDW Coeff of Magali Plt Count MPV Immature Gran % (Auto) Neut % (Auto) Lymph % (Auto) [place] % (Auto) Eos % (Auto) Baso % (Auto) Neut # (Auto) Lymph # (Auto) [place] # (Auto) Eos # (Auto) Baso # (Auto) Immature Gran # (Auto) PT INR APTT PTT Ratio Sodium Potassium Chloride Carbon Dioxide Anion Gap BUN Creatinine Est Cr Clr Drug Dosing Est GFR ( Amer) Est GFR (Non-Af Amer) BUN/Creatinine Ratio Glucose Lactate 1.7 Calcium Magnesium Total Bilirubin AST ALT Alkaline Phosphatase Total Protein Albumin Globulin Albumin/Globulin Ratio Urine Color Dark Yellow Urine Appearance Clear Urine pH 7.5 Ur Specific Hitchcock 1.019 Urine Protein Negative Urine Glucose (UA) Negative Urine Ketones Negative Urine Blood Negative Urine Nitrite Negative Urine Bilirubin Negative Urine Urobilinogen Negative Ur Leukocyte Esterase Negative COVID-19 Eval Order Covid19 at [facility] SARS-CoV-2 (PCR) 11/07/20 15:56 WBC RBC Hgb Hct MCV MCH MCHC RDW Std Deviation RDW Coeff of Magali Plt Count MPV Immature Gran % (Auto) Neut % (Auto) Lymph % (Auto) [place] % (Auto) Eos % (Auto) Baso % (Auto) Neut # (Auto) Lymph # (Auto) [place] # (Auto) Eos # (Auto) Baso # (Auto) Immature Gran # (Auto) PT INR APTT PTT Ratio Sodium Potassium Chloride Carbon Dioxide Anion Gap BUN Creatinine Est Cr Clr Drug Dosing Est GFR ( Amer) Est GFR (Non-Af Amer) BUN/Creatinine Ratio Glucose Lactate Calcium Magnesium Total Bilirubin AST ALT Alkaline Phosphatase Total Protein Albumin Globulin Albumin/Globulin Ratio Urine Color Urine Appearance Urine pH Ur Specific [place]cock Urine Protein Urine Glucose (UA) Urine Ketones Urine Blood Urine Nitrite Urine Bilirubin Urine Urobilinogen Ur Leukocyte Esterase COVID-19 Eval Order SARS-CoV-2 (PCR) Pending Echocardiogram from outpatient reviewed. Done 08/12/2020 Left ventricular size/wall motion and systolic function are normal. EF is 55 to 60%. There is moderate concentric left ventricular hypertrophy. Moderately increased bioprosthetic aortic valve velocities consistent with moderate valvular stenosis. Mild AR. Moderate MR. Left antrum is severely dilated. Mild TR. Right ventricle systolic pressure is elevated by 50 to 60 mmHg CXR: Read is pulmonary vascular congestion. When compared to previous x-ray, no significant change. EKG: Atrial fibrillation. RBBB. Rate controlled. No acute ST/T wave changes. Stable from previous Venous Doppler of the left lower extremity: No evidence of DVT Code Status & VTE Plan VTE Prophylaxis Plan VTE Prophylaxis will be ordered: Yes Supervising Physician Co-Signing Physician Notes PA Supervision Note: I personally saw and examined the patient. I verified all mariee points and agree with RADHA Solano with the following exceptions and/or additions: Patient is an 85-year-old male with history noted as above, here with significantly worsening swelling, erythema and open wound of the left lower extremity in the setting of chronic lymphedema. Patient failed increased oral diuretics at home and then the daughter noticed the erythema and warmth worsening in the last 24 hours. The patient complains of pain in left lower extremity. He has been afebrile. History and ROS reviewed as above Vitals reviewed Gen: AAOx3, NAD, obese HEENT: Anicteric sclerae, EOMI CV: Irregularly irregular, normal rate, nl S1S2 Pulm: CTAB no wcr Abd: +BS soft NT ND, obese Ext: 3+ woody edema of the entire left lower extremity, 1+ pitting edema the right lower extremity Skin: Significant erythema of the entire left lower extremity with streaking up the left inner thigh with 10 x 7 cm oval hematoma anterior left leg; right anterior leg with small open wound with Aquacel Ag in place, right great toe with toenail removed with dressing in place Neuro: No strength in left upper and left lower extremities Labs and radiology studies reviewed ECG reviewed with atrial fibrillation, RBBB 85-year-old male with history as above, here with left lower extremity cellulitis and hematoma in the setting of chronic lymphedema, also with acute on chronic right-sided diastolic CHF. Diuresis with IV Bumex Continue antibiotics for cellulitis as above -Add on orthopedics consult in case of need for evacuation of hematoma of left leg -Okay to continue Coumadin for now -Added on studies for anemia -Continue wound care -Follow-up results of CT leg when available PG Care Time/CCT Total # of Minutes Spent Total Time Spent with Patient: Total time spent is greater than 50% in coordination of care (as documented) at patient's floor/unit and/or counseling patient:60 [place] [address] Initial Inpt Care Lvl 3 Patient Type Established Medical Decision Making High Complexity Diagnoses Cellulitis of left leg L03.116 CHF exacerbation I50.9 Hyperbilirubinemia E80.6 Chronic anticoagulation Z79.01 Immunosuppression due to chronic steroid use Z79.52 History of CVA (cerebrovascular accident) Z86.73 Chronic obstructive pulmonary disease J44.9 Permanent atrial fibrillation I48.2 Rheumatoid arthritis M06.9 S/P aortic valve replacement with bioprosthetic valve Z95.3 Anemia D64.9 DVT prophylaxis Z29.9
--- NOTE | 2020-11-07 17:38 | Emergency Department Note ---
Impression & Plan Cellulitis of left leg, Hematoma of left lower leg, CHF exacerbation ED Provider Note NAME: REENA BECKFORD AGE: 85 SEX: M : 1935 ARRIVES VIA: Walk-In INFORMANT: Patient, ED PROVIDER(S): Nick Ritter MD CHIEF COMPLAINT: Left leg swelling HPI: This is an 85-year-old male brought in by family over concerns of the patient has had a large amount of fluid draining from his left leg. Patient was sent in by wound care today. In addition the patient also has a large hematoma to the left anterior smith which is what wound care is concerned about. The patient is on Coumadin for atrial fibrillation. The patient himself has no complaints. ROS: See above HPI for pertinent positives & negatives. A total of 10 systems reviewed and were otherwise negative. PAST MEDICAL HISTORY: See Below PAST SURGICAL HISTORY: See Below FAMILY HISTORY: See Below SOCIAL HISTORY: See Below HOME MEDICATIONS: See Below ALLERGIES: See Below VITALS: See Below PHYSICAL EXAMINATION: VITAL SIGNS - Vital signs and nursing notes were reviewed. GENERAL - 85-year-old appearing stated age who is in no acute distress. Patient residual deficits to the left side of his body. SKIN - weeping wound present left leg HEAD - NC/AT. EYES - PERRL with EOMI bilaterally. Sclera anicteric. Palpebral conjunctiva pink and moist with no injection noted. EARS - No deformities of external structures noted on gross examination bilaterally. NOSE - Midline and without cyanosis. No epistaxis or purulent drainage noted. Septum midline without deviation or septal hematoma noted. MOUTH/OROPHARYNX - Without perioral cyanosis. Buccal mucosa pink and moist and without leukoplakia. Tongue midline with equal elevation of palate bilaterally. No tonsillar hypertrophy, erythema, or exudates noted. NECK - Neck with FROM. Supple to palpation. No nuchal rigidity. LUNGS - Chest wall symmetric without accessory muscle use, intercostals retractions, or central cyanosis. Normal vesicular breath sounds CTA B/L. No wheezes, rales, or rhonchi appreciated. CARDIAC - RRR with S1/S2. No murmur, rubs, or gallops appreciated. ABDOMEN - Abdominal contour without pulsations or visible masses. BS normoactive all four quadrants. No tenderness, palpable masses, hepatosplenomegaly, or ascites noted. EXTREMITIES - No clubbing or peripheral cyanosis. No pretibial edema present. +3/5 radial, posterior tibial, and dorsalis pedis pulses palpated throughout. +5/5 strength noted in UE/LE bilaterally. NEUROLOGIC - Cranial nerves II through XII grossly intact. Sensory intact to light touch throughout. Patellar reflexes +2/4. PSYCH - A&Ox3 and cooperates fully with examiner. Pt is very pleasant and interacts well with examiner. MEDICAL DECISION MAKING: Patient was seen and evaluated as above in room C6. Review was performed of nursing notes and vital signs. I did review pertinent previous visits and patie nt history. After obtaining a thorough history and physical examination the above work up was performed. This is an 85-year-old male who presents emergency department complaining of weeping wound to the left lower extremity. Patient was started on Zosyn for cellulitis and in addition given 1 mg of Bumex for congestive heart failure on his chest x-ray. Due to the complex nature of the patient's multiple comorbidities I did discuss the case with the hospitalist service who did agree to meet the patient. Patient is in agreement with the treatment plan. An order was placed for continuous cardiac monitoring. The monitor shows a rate of 64 with Afib rhythm. The patient was evaluated during a period of high volume and high acuity during the global COVID-19 pandemic, and that diagnosis was suspected/considered upon their initial presentation. Their evaluation, treatment and testing was consistent with current guidelines for patients who present with complaints or symptoms that may be related to COVID-19. Patient was seen while provider was wearing PPE. Triage Nursing notes reviewed. Prior medical records reviewed Vital Signs: reviewed and remarkable for no significant abnormalities Differential diagnosis: Reactive airway disease, pneumonia, pneumothorax, COPD, CHF, infections, cardiac ischemia, pulmonary embolism, musculoskeletal, gastrointestinal, as well as other pathologies. ER treatment provided: See below Diagnostics interpreted by me: ECG: EKG shows atrial fibrillation with PVC right bundle branch block septal infarct QTC is 478 ventricular rate of 64; EKG is compared to 09/13/2020 no significant changes found. Laboratory studies: As stated above and show below. Imaging studies: See below Consultation(s): Internal Medicine Past Med/Surg History Medical History Acute CVA (cerebrovascular accident) Anemia Aneurysm artery, popliteal Arthritis, rheumatoid Asthmatic bronchitis with acute exacerbation Cerebrovascular accident of right pontine structure Chronic anticoagulation Chronic anticoagulation Chronic left hip pain Edema History of CVA (cerebrovascular accident) Immunosuppression due to chronic steroid use Onychomycosis Open wound of right elbow Prostate cancer Skin tear Thrombocytopenia Traumatic open wound of left lower leg with delayed healing Traumatic open wound of right elbow with infection and delayed healing Traumatic wound Venous stasis ulcer limited to breakdown of skin without varicose veins Vertigo Weakness of muscle of left side of face due to and not concurrent with cerebrovascular accident (CVA) Surgical History H/O carpal tunnel repair H/O hernia repair History of aortic valve replacement with bioprosthetic valve History of knee replacement S/P aortic valve replacement S/P aortic valve replacement with bioprosthetic valve (2009) Status post carotid surgery Thromboendarterectomy Family History Other Breast cancer Family history non-contributory Uterine cancer Denies family history of Ovarian cancer Prostate cancer Myocardial infarction Colorectal cancer Social History Smoking Status: Never smoker Hx Alcohol Use: No Hx Substance Use: No Preferred Language: [place] Communication Ability: Effective Recovery Collector Required: No Beliefs That Will Affect Care: None Current Living Situation: Family current occupational status: disabled Other Information That Helps Us Care for You: No Feels Safe at Home: Yes Dental Care, Regularly: No Seatbelt Use: always Assistive Devices: None Allergies Allergies Allergy/AdvReac Type Severity Reaction Status Date / Time gabapentin AdvReac Severe Swelling Unverified 11/07/20 14:22 hydrocodone AdvReac Severe EXCESSIVE Verified 11/07/20 14:08 DRY MOUTH AND SHAKING Home Meds Home Medications Medication Instructions Recorded Confirmed docusate sodium [Colace] 100 mg PO HS 07/17/18 11/07/20 folic acid 1 mg PO QAM 07/17/18 11/07/20 polyethylene glycol 3350 [Miralax] 17 g PO QAM 04/19/19 11/07/20 methotrexate sodium 10 mg PO WK 10/01/19 11/07/20 warfarin 1.5 mg PO ONCE 10/01/19 11/07/20 prednisone 5 mg tablet 7.5 mg PO QAM tab 04/25/20 11/07/20 cyanocobalamin (vitamin B-12) 1,000 mcg PO QAM tab 08/14/20 11/07/20 1,000 mcg tablet aspirin 81 mg PO QAM 09/13/20 11/07/20 acetylcysteine 2 ml INHALATION BID 11/07/20 11/07/20 albuterol sulfate 2.5 mg INHALATION BID 11/07/20 11/07/20 cholecalciferol (vitamin D3) 0 mcg PO QAM 11/07/20 11/07/20 [Vitamin D3] potassium chloride 20 meq PO QAM 11/07/20 11/07/20 Previous Rx's Medication Instructions Recorded omeprazole 40 mg capsule,delayed 40 mg PO QAM #90 cap 11/09/19 release warfarin 3 mg tablet See Rx Instructions .ROUTE 03/14/20 .COMPLEX #90 tablet escitalopram oxalate 10 mg tablet 10 mg PO QAM #90 tab 04/14/20 simvastatin 40 mg tablet 40 mg PO HS #90 tab 07/11/20 doxazosin 4 mg tablet 4 mg PO BID #180 tab 07/19/20 lift chair #1 ea 07/22/20 fluticasone 250 mcg-salmeterol 50 1 inh INHALATION BID #180 ea 07/25/20 mcg/dose blistr powdr for inhalation tramadol 50 mg tablet 100 mg PO .COMPLEX PRN #180 tab 10/16/20 bumetanide 1 mg tablet 1 mg PO .COMPLEX #90 tab 10/24/20 Results & Data (ED) Vital Signs Vital Signs - 24 hr 11/07/20 10:51 11/07/20 11:38 11/07/20 11:39 Temperature 36.8 C Temperature Source Temporal Artery Scan Pulse Rate 61 67 60 Pulse Rate from SpO2 Sensor 75 63 Pulse Strength Normal Respiratory Rate 20 19 19 Respiratory Effort / Characteristics Non-Labored Spontaneous Respiratory Depth Normal Respiratory Pattern Regular Blood Pressure 134/59 L 138/65 Blood Pressure Mean 84 89 Pulse Oximetry 98 94 95 Oxygen Delivery Method Room Air Sepsis Recent Fever Within 48 Hours No Sepsis New/Unexplained Change in Mental Status No Sepsis Action Taken by Nursing No Action Required 11/07/20 12:00 11/07/20 12:01 11/07/20 12:30 Temperature Temperature Source Pulse Rate 60 64 63 Pulse Rate from SpO2 Sensor 69 65 59 L Pulse Strength Respiratory Rate 18 20 19 Respiratory Effort / Characteristics Respiratory Depth Respiratory Pattern Blood Pressure 156/73 H 144/73 H Blood Pressure Mean 100 96 Pulse Oximetry 92 95 97 Oxygen Delivery Method Sepsis Recent Fever Within 48 Hours Sepsis New/Unexplained Change in Mental Status Sepsis Action Taken by Nursing 11/07/20 12:32 11/07/20 12:33 11/07/20 13:00 Temperature Temperature Source Pulse Rate 65 Pulse Rate from SpO2 Sensor Pulse Strength Respiratory Rate 18 Respiratory Effort / Characteristics Spontaneous Respiratory Depth Respiratory Pattern Blood Pressure 141/56 H Blood Pressure Mean 84 Pulse Oximetry 98 98 Oxygen Delivery Method Room Air Room Air Sepsis Recent Fever Within 48 Hours Sepsis New/Unexplained Change in Mental Status Sepsis Action Taken by Nursing 11/07/20 13:58 11/07/20 14:00 11/07/20 14:30 Temperature Temperature Source Pulse Rate 62 61 67 Pulse Rate from SpO2 Sensor 64 63 Pulse Strength Respiratory Rate 16 18 16 Respiratory Effort / Characteristics Respiratory Depth Respiratory Pattern Blood Pressure 161/62 H 135/61 Blood Pressure Mean 95 85 Pulse Oximetry 97 95 Oxygen Delivery Method Sepsis Recent Fever Within 48 Hours Sepsis New/Unexplained Change in Mental Status Sepsis Action Taken by Nursing 11/07/20 15:00 11/07/20 15:30 11/07/20 15:31 Temperature Temperature Source Pulse Rate 71 58 L 67 Pulse Rate from SpO2 Sensor 62 72 Pulse Strength Respiratory Rate 19 18 17 Respiratory Effort / Characteristics Respiratory Depth Respiratory Pattern Blood Pressure 141/65 H 119/55 L Blood Pressure Mean 90 76 Pulse Oximetry 96 95 Oxygen Delivery Method Sepsis Recent Fever Within 48 Hours Sepsis New/Unexplained Change in Mental Status Sepsis Action Taken by Nursing 11/07/20 16:00 Temperature Temperature Source Pulse Rate 64 Pulse Rate from SpO2 Sensor Pulse Strength Respiratory Rate 19 Respiratory Effort / Characteristics Respiratory Depth Respiratory Pattern Blood Pressure 111/48 L Blood Pressure Mean 69 Pulse Oximetry Oxygen Delivery Method Sepsis Recent Fever Within 48 Hours Sepsis New/Unexplained Change in Mental Status Sepsis Action Taken by Nursing Laboratory Data Result diagrams: 11/08/20 05:52 11/08/20 05:52 Lab Results 11/07/20 11/07/20 11/07/20 Range/Units 12:20 12:20 12:20 WBC 6.60 (4.8-10.8) K/uL RBC 3.17 L (4.7-6.1) M/uL Hgb 9.4 L (14.0-18.0) g/dL Hct 30.9 L (42-52) % MCV 97.5 (80-100) fL MCH 29.7 (25-34) pg MCHC 30.4 L (32-36) g/dL RDW Std Deviation 69.1 H (36.4-46.3) fL RDW Coeff of Magali 19.4 H (11.5-14.5) % Plt Count 160 (130-400) K/uL MPV 10.9 H (7.4-10.4) fL Immature Gran % (Auto) 0.8 % Neut % (Auto) 90.4 % Lymph % (Auto) 4.4 % [place] % (Auto) 3.9 % Eos % (Auto) 0.3 % Baso % (Auto) 0.2 % Neut # (Auto) 5.97 (1.4-6.5) K/uL Lymph # (Auto) 0.29 L (1.2-3.4) K/uL [place] # (Auto) 0.26 (0.11-0.59) K/uL Eos # (Auto) 0.02 (0-0.5) K/uL Baso # (Auto) 0.01 (0-0.2) K/uL Immature Gran # (Auto) 0.05 H (0.00-0.02) K/uL PT 26.8 H (9.0-12.0) Seconds INR 2.9 H (0.9-1.1) APTT 42.2 H (21.0-31.0) Seconds PTT Ratio 1.6 Sodium 138 (136-145) mmol/L Potassium 4.2 (3.5-5.1) mmol/L Chloride 102 (98-107) mmol/L Carbon Dioxide 35 H (21-32) mmol/L Anion Gap 1.0 L (3-11) BUN 24 H (7-18) mg/dl Creatinine 0.93 (0.6-1.4) mg/dl Est Cr Clr Drug Dosing 61.1 ml/min Est GFR ( Amer) 87.1 ml/min Est GFR (Non-Af Amer) 75.1 ml/min BUN/Creatinine Ratio 26.0 H (10-20) Glucose 121 H (70-99) mg/dl Lactate (0.4-2.0) mmol/L Calcium 8.5 (8.5-10.1) mg/dl Magnesium 2.4 (1.8-2.4) mg/dl Total Bilirubin 1.2 H (0.2-1) mg/dl AST 17 (15-37) U/L ALT 22 (12-78) U/L Alkaline Phosphatase 73 (45-117) U/L Total Protein 6.2 L (6.4-8.2) gm/dl Albumin 3.7 (3.4-5.0) gm/dl Globulin 2.5 (2.5-4.0) gm/dl Albumin/Globulin Ratio 1.5 (0.9-2) Urine Color Urine Appearance (Clear) Urine pH (4.5-7.5) Ur Specific [place] (1.000-1.030) Urine Protein (Negative) Urine Glucose (UA) (Negative) Urine Ketones (Negative) Urine Blood (Negative) Urine Nitrite (Negative) Urine Bilirubin (Negative) Urine Urobilinogen (Negative) Ur Leukocyte Esterase (Negative) 11/07/20 11/07/20 Range/Units 12:20 14:25 WBC (4.8-10.8) K/uL RBC (4.7-6.1) M/uL Hgb (14.0-18.0) g/dL Hct (42-52) % MCV (80-100) fL MCH (25-34) pg MCHC (32-36) g/dL RDW Std Deviation (36.4-46.3) fL RDW Coeff of Magali (11.5-14.5) % Plt Count (130-400) K/uL MPV (7.4-10.4) fL Immature Gran % (Auto) % Neut % (Auto) % Lymph % (Auto) % [place] % (Auto) % Eos % (Auto) % Baso % (Auto) % Neut # (Auto) (1.4-6.5) K/uL Lymph # (Auto) (1.2-3.4) K/uL [place] # (Auto) (0.11-0.59) K/uL Eos # (Auto) (0-0.5) K/uL Baso # (Auto) (0-0.2) K/uL Immature Gran # (Auto) (0.00-0.02) K/uL PT (9.0-12.0) Seconds INR (0.9-1.1) APTT (21.0-31.0) Seconds PTT Ratio Sodium (136-145) mmol/L Potassium (3.5-5.1) mmol/L Chloride (98-107) mmol/L Carbon Dioxide (21-32) mmol/L Anion Gap (3-11) BUN (7-18) mg/dl Creatinine (0.6-1.4) mg/dl Est Cr Clr Drug Dosing ml/min Est GFR ( Amer) ml/min Est GFR (Non-Af Amer) ml/min BUN/Creatinine Ratio (10-20) Glucose (70-99) mg/dl Lactate 1.7 (0.4-2.0) mmol/L Calcium (8.5-10.1) mg/dl Magnesium (1.8-2.4) mg/dl Total Bilirubin (0.2-1) mg/dl AST (15-37) U/L ALT (12-78) U/L Alkaline Phosphatase (45-117) U/L Total Protein (6.4-8.2) gm/dl Albumin (3.4-5.0) gm/dl Globulin (2.5-4.0) gm/dl Albumin/Globulin Ratio (0.9-2) Urine Color Dark Yellow Urine Appearance Clear (Clear) Urine pH 7.5 (4.5-7.5) Ur Specific [place] 1.019 (1.000-1.030) Urine Protein Negative (Negative) Urine Glucose (UA) Negative (Negative) Urine Ketones Negative (Negative) Urine Blood Negative (Negative) Urine Nitrite Negative (Negative) Urine Bilirubin Negative (Negative) Urine Urobilinogen Negative (Negative) Ur Leukocyte Esterase Negative (Negative) Administered Medications Acetaminophen (Acetaminophen 325 Mg Tab) 650 mg PO Q4H PRN PRN Reason: Pain or Fever Stop: 12/07/20 20:33 Last Admin: 11/07/20 21:39 Dose: 650 mg Documented by: [id number] Docusate Sodium (Docusate Sodium 100 Mg Cap) 100 mg PO HS LA[facility]ISHA Stop: 12/07/20 20:59 Last Admin: 11/07/20 21:35 Dose: 100 mg Documented by: [id number] Doxazosin Mesylate (Doxazosin Mesylate 4 Mg Tab) 4 mg PO BID [facility]ISHA Stop: 12/07/20 20:59 Last Admin: 11/08/20 07:46 Dose: 4 mg Documented by: [id number] Admin: 11/07/20 21:35 Dose: 4 mg Documented by: [id number] Escitalopram Oxalate (Escitalopram Oxalate 10 Mg Tab) 10 mg PO QAM [place]ISHA Stop: 12/08/20 08:59 Last Admin: 11/08/20 07:48 Dose: 10 mg Documented by: [id number] Fluticasone/Vilanterol (Fluticasone/Vilanterol 100/25mcg 14 Puffs/Inhaler) 1 puffs INH DAILY [place]ISHA Stop: 12/08/20 08:59 Last Admin: 11/08/20 07:45 Dose: 1 puffs Documented by: [id number] Hydromorphone HCl (Hydromorphone Inj 0.5 Mg/0.5 Ml Syr) 0.5 mg IV Q3H PRN PRN Reason: Pain Stop: 11/21/20 20:33 Last Admin: 11/08/20 14:53 Dose: 0.5 mg Documented by: [id number] Admin: 11/08/20 08:05 Dose: 0.5 mg Documented by: [id number] Bumetanide 2 mg/ Syringe 8 mls @ 4 mls/min IV BID@0900,1700 [facility] Stop: 12/07/20 20:59 Last Admin: 11/08/20 16:36 Dose: 4 mls/min Documented by: [id number] Admin: 11/08/20 07:45 Dose: 4 mls/min Documented by: [id number] Admin: 11/07/20 21:34 Dose: 4 mls/min Documented by: [id number] Vancomycin HCl 1,250 mg/ (Sodium Chloride) 275 mls @ 200 mls/hr IV Q12H [facility] Stop: 11/15/20 21:14 Last Infusion: 11/08/20 11:23 Dose: 0 mls/hr Documented by: [id number] Admin: 11/08/20 10:00 Dose: 200 mls/hr Documented by: [id number] Pantoprazole Sodium (Pantoprazole 40 Mg Tab) 40 mg PO QAM [place] Stop: 12/08/20 08:59 Last Admin: 11/08/20 07:47 Dose: 40 mg Documented by: [id number] Polyethylene Glycol (Polyethylene (Miralax) 17 Gm Pack) 17 gm PO QAM [place] Stop: 12/08/20 08:59 Last Admin: 11/08/20 07:47 Dose: 17 gm Documented by: [id number] Silver Sulfadiazine (Silver Sulfadiazine 1% Cr 400 Gm Jar) 1 appln EXT Q12H [facility] Stop: 12/07/20 20:59 Last Admin: 11/08/20 07:48 Dose: 1 appln Documented by: [id number] Admin: 11/07/20 21:36 Dose: 1 appln Documented by: [id number] Spironolactone (Spironolactone 25 Mg Tab) 25 mg PO QAM [facility] Stop: 12/08/20 08:59 Last Admin: 11/08/20 07:46 Dose: 25 mg Documented by: [id number] Discontinued Medications Gentamicin Sulfate (Gentamicin Sulfate 0.1% Cr 15 Gm Tube) 1 appln EXT NOW STA Stop: 11/07/20 12:10 Last Admin: 11/07/20 13:18 Dose: 1 appln Documented by: [id number] Piperacillin Sod/Tazobactam Sod (Zosyn) 4.5 gm in 120 mls @ 240 mls/hr IV NOW ONE Stop: 11/07/20 12:36 Last Infusion: 11/07/20 14:02 Dose: 0 mls/hr Documented by: [id number] Admin: 11/07/20 13:18 Dose: 240 mls/hr Documented by: [id number] Bumetanide 1 mg/ Syringe 4 mls @ 4 mls/min IV ONE ONE Stop: 11/07/20 13:24 Last Admin: 11/07/20 14:06 Dose: 4 mls/min Documented by: [id number] Acetaminophen (Ofirmev) 1,000 mg in 100 mls @ 400 mls/hr IV NOW STA Stop: 11/07/20 15:58 Last Infusion: 11/07/20 16:49 Dose: 0 mls/hr Documented by: [id number] Admin: 11/07/20 15:50 Dose: 400 mls/hr Documented by: [id number] Hydrocortisone Sodium (Succinate 100 mg/ Syringe) 2 mls @ 4 mls/min IV NOW ONE Stop: 11/07/20 21:16 Last Admin: 11/07/20 21:35 Dose: 4 mls/min Documented by: [id number] Hydrocortisone Sodium (Succinate 50 mg/ Syringe) 1 mls @ 4 mls/min IV Q6H [place] Stop: 11/08/20 13:01 Last Admin: 11/08/20 13:43 Dose: 4 mls/min Documented by: [id number] Admin: 11/08/20 07:44 Dose: 4 mls/min Documented by: [id number] Piperacillin Sod/Tazobactam (Sod 3.375 gm/ Dextrose) 115 mls @ 230 mls/hr IV NOW ONE; Protocol Stop: 11/07/20 22:29 Last Infusion: 11/07/20 22:07 Dose: 0 mls/hr Documented by: [id number] Admin: 11/07/20 21:36 Dose: 230 mls/hr Documented by: [id number] Piperacillin Sod/Tazobactam (Sod 3.375 gm/ Dextrose) 115 mls @ 28.75 mls/hr IV Q8H LA[place]ISHA; Protocol Stop: 11/15/20 01:59 Last Infusion: 11/08/20 15:19 Dose: 0 mls/hr Documented by: [id number] Admin: 11/08/20 11:13 Dose: 28.8 mls/hr Documented by: [id number] Infusion: 11/08/20 05:42 Dose: 0 mls/hr Documented by: [id number] Admin: 11/08/20 01:00 Dose: 28.8 mls/hr Documented by: [id number] Vancomycin HCl 2,250 mg/ (Sodium Chloride) 545 mls @ 200 mls/hr IV NOW ONE Stop: 11/08/20 00:43 Last Infusion: 11/08/20 00:32 Dose: 0 mls/hr Documented by: [id number] Admin: 11/07/20 21:36 Dose: 200 mls/hr Documented by: [id number] Ioversol (Optiray 320 100ml) 93 ml IV ONCE ONE Stop: 11/07/20 22:25 Last Admin: 11/07/20 22:25 Dose: 93 ml Documented by: [id number] Ondansetron HCl (Ondansetron Inj 2 Mg/Ml 2 Ml Vial) 4 mg IV NOW STA Stop: 11/07/20 15:45 Last Admin: 11/07/20 15:49 Dose: 4 mg Documented by: [id number] Warfarin Sodium (Warfarin Sod 0.5 Mg Tab) 1.5 mg PO ONCE ONE Stop: 11/07/20 16:01 Last Admin: 11/07/20 16:55 Dose: 1.5 mg Documented by: [id number] Imaging Data Radiologist's Impression: Chest X-Ray 11/07/20 12:05 XR chest 1V portable CLINICAL HISTORY: SEPSIS COMPARISON STUDY: 09/13/2020 FINDINGS: The heart is enlarged. There are postsurgical changes of a midline sternotomy and aortic valve replacement.. There is diffuse elevation of interstitium likely secondary to mild pulmonary vascular congestion. An interstitial infectious/inflammatory processes could of course appear similar.[ IMPRESSION: 1. Cardiomegaly and radiographic evidence of mild pulmonary vascular congestion/fluid overload. ACT 112: Negative or not required by law. Electronically signed by: Brian Calvin M.D. 11/07/2020 1:04 PM Venous Doppler Study 11/07/20 12:05 US venous doppler LE CLINICAL HISTORY: Left lower extremity swelling COMPARISON STUDY: 10/02/2020 FINDINGS: Real-time and color flow Doppler imaging were performed. Flow was seen within the femoral, popliteal and calf veins with no intraluminal thrombus demonstrated. The saphenous vein is patent. There is left lower extremity edema. IMPRESSION: 1. No evidence of left lower extremity DVT. ACT 112: Negative or not required by law. Electronically signed by: Brian Calvin M.D. 11/07/2020 2:14 PM Discharge Plan Visit Data Chief Complaint: Swelling/Edema to Extremity Stated Complaint: LEFT LEG SWELLING W/BLACK&BLUE,INCREASING UPWARDS ED Provider: Nick Ritter Discharge Problem: Cellulitis of left leg, Hematoma of left lower leg, CHF exacerbation Patient Disposition: Admitted As Inpatient Discharge Instructions Interventions: ED Discharge Assessment Last Done: 11/07/20 19:43 Discharge Problem: CHF exacerbation Qualifiers: Heart failure type: unspecified Qualified Code(s): I50.9 - Heart failure, unspecified
[2020-11-07] MEDS ORDERED: ALBUT/IPRATROP 3MG/0.5MG NEB 3 ML VIAL NEB PRN (20:34)
[2020-11-07] MEDS ORDERED: VANCOMYCIN CONSULT ACTIVE PRN (20:34)
[2020-11-07] MEDS ORDERED: PIPERACILLIN/TAZOBACTAM 3.375 GM in DEXTROSE 5% 100 ML IV SCH (20:34)
[2020-11-07] MEDS ORDERED: ALUMINUM/MAGNESIUM SUSP 30 ML UDC PO PRN (20:34)
[2020-11-07] MEDS ORDERED: MAGNESIUM HYDROXIDE SUSP 30 ML UDC PO PRN (20:34)
[2020-11-07] MEDS ORDERED: HYDROCORTISONE SOD SUCCINATE 100 MG/2 ML VIAL IV STA (20:34)
[2020-11-07] MEDS ORDERED: VANCOMYCIN HCL 2,250 MG in SODIUM CHLORIDE 0.9% 500 ML IV ONE ×2 (20:34→22:00)
[2020-11-07] MEDS ORDERED: HYDROCORTISONE SOD 100 MG in SYRINGE 0 ML IV ONE (21:15)
[2020-11-07 21:29] LABS: NT Pro B Type Natriuretic Pept 2342 pg/ml (0-1800); Troponin I < 0.015 ng/ml (0-0.045)
[2020-11-07] MEDS: BUMETANIDE 2 MG in SYRINGE 0 ML IV SCH (21:34)
[2020-11-07] MEDS: DOCUSATE SODIUM 100 MG CAP PO SCH (21:35)
[2020-11-07] MEDS: DOXAZosin MESYLATE 4 MG TAB PO SCH (21:35)
[2020-11-07] MEDS: SILVER SULFADIAZINE 1% CR 400 GM JAR EXT SCH (21:36)
[2020-11-07] MEDS: ACETAMINOPHEN 325 MG TAB PO PRN (21:39)
--- NOTE | 2020-11-07 21:59 | Pharmacy Report ---
Pharmacy Abx Dose Short Note - Date of Service November 07, 2020 - Assessment & Plan Assessment 85 year old M receiving vancomycin/Zosyn for treatment of cellulitis Day # 1 of antimicrobial therapy. Plan Vancomycin * Patient meets criteria for vancomycin AUC dosing nomogram * AUC/LORRIE is the preferred PK/PD target for vancomycin * Target AUC/LORRIE = 400-600 * AUC guided dosing is effective and associated with decreased risk of nephrotoxicity Zosyn * Zosyn 3.375 gm IV x 1 followed by Zosyn 3.375 gm IV q8 hours extended interval Pharmacy will continue to follow and will adjust dose/frequency as necessary. Thank you.
[2020-11-07] MEDS ORDERED: PIPERACILLIN/TAZOBACTAM 3.375 GM in DEXTROSE 5% 100 ML IV ONE (22:00)
[2020-11-07] MEDS ORDERED: OPTIRAY 320 100ml IV ONE (22:24)
--- NOTE | 2020-11-07 23:09 | CT Scan Report ---
CT SCAN OF THE LEFT TIBIA AND FIBULA WITH IV CONTRAST CLINICAL HISTORY: Left lower extremity edema. Clinical concern for hematoma or abscess. COMPARISON STUDY: CT runoff dated 10/19/2019. TECHNIQUE: CT scan of the left tibia and fibula is performed from the knee joint to the ankle followi ng the IV administration of 93 cc of Optiray 320. Images are reviewed in the axial, sagittal, and cor onal planes. IV contrast was administered without complication. A dose lowering technique was utilize d adhering to the principles of ALARA. Note that interpretation is significantly suboptimal without p janeen film correlate. There is streak artifact from a left knee arthroplasty. CT DOSE: 785.60 mGy.cm FINDINGS: The skeletal structures are heterogeneously osteopenic. A left knee arthroplasty is in plac e. There is no evidence of tibial or fibular fracture. No bony erosion or periostitis is identified. The ankle joint appears maintained. The ankle mortise is intact. There is diffuse subcutaneous and de ep soft tissue edema with subcutaneous fluid seen throughout the imaged left lower extremity. There i s a hyperdense fluid collection identified within the lateral soft tissues in the proximal to mid ricardo f, best seen on axial image #248. This measures 7.5 x 4.5 x 3.1 cm and is consistent with a small hem atoma. There is no evidence of active extravasation at the time of examination. No additional organiz ed fluid collection is identified. No soft tissue gas is seen. There is generalized atrophy of the re gional musculature. Advanced atherosclerotic calcification is noted in the regional arteries. A parti ally thrombosed popliteal artery aneurysm measures up to 3 cm. The calf arteries are diminutive but a ppear patent as imaged. IMPRESSION: 1. No acute osseous abnormality is seen involving the left tibia or fibula. 2. There is a 7.5 cm hematoma identified within the lateral subcutaneous soft tissues in the proximal to mid calf as above. 3. Diffuse superficial and deep soft tissue edema is present throughout the left lower extremity. 4. 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 5. Additional findings as above. ACT 112: Negative or not required by law. Electronically signed by: Aaron Mac M.D. 11/07/2020 11:07 PM
--- NOTE | 2020-11-08 00:53 | Communication Note ---
Date of Service: November 08, 2020 Notified by nursing of patient's CT results. Notable for 7.5cm hematoma within the lateral subcutaneous soft tissues in the proximal to mid calf in addition to a partially thrombosed 3cm popliteal artery aneurysm. No evidence of active extravasation noted at time of CT scan. Per nursing pulses currently weak, but present. -Will hold patient's AM aspirin and Coumadin. -General surgery consult placed. -Will not reverse anticoagulation at this time until seen by general surgery. -Will order for q6h checks with doppler for pulses. Resident Activity Tracking Resident Involvement: Resident Care Provided and Direct Support Worker Coverage Note Care Provided: Adult [facility]
[2020-11-08] MEDS: PIPERACILLIN/TAZOBACTAM 3.375 GM in DEXTROSE 5% 100 ML IV SCH ×2 (01:00→11:13)
[2020-11-08 06:18] LABS: INR 2.6 (0.9-1.1); Prothrombin Time 24.5 Seconds (9.0-12.0)
[2020-11-08 06:19] LABS: Basophils # (auto) 0.01 K/uL (0-0.2); Basophils % (auto) 0.1 %; Hematocrit (blood only) 29.2 % (42-52); Immature Granulocytes # (auto) 0.03 K/uL (0.00-0.02); Immature Granulocytes % (auto) 0.4 %; Lymphocytes # (auto) 0.32 K/uL (1.2-3.4); Lymphocytes % (auto) 4.6 %; Mean Corpuscular Hgb Conc 30.8 g/dL (32-36); Mean Corpuscular Volume 97.3 fL (80-100); Mean Platelet Volume 11.4 fL (7.4-10.4); Monocytes # (auto) 0.19 K/uL (0.11-0.59); Monocytes % (auto) 2.7 %; Neutrophils # (auto) 6.39 K/uL (1.4-6.5); Neutrophils % (auto) 92.2 %; Platelet Count 157 K/uL (130-400); RDW Standard Deviation 67.9 fL (36.4-46.3); White Blood Count 6.94 K/uL (4.8-10.8)
[2020-11-08 06:41] LABS: Albumin Level 3.1 gm/dl (3.4-5.0); Calcium 8.4 mg/dl (8.5-10.1); Creatinine Clr Calc Pharmacy 54.1 ml/min; Est GFR (African American) 75.2 ml/min; Est GFR (Non-African American) 64.9 ml/min; Magnesium 2.2 mg/dl (1.8-2.4); Potassium 3.6 mmol/L (3.5-5.1)
[2020-11-08 06:45] LABS: Albumin Globulin Ratio 1.2 (0.9-2); Bilirubin,Total 1.6 mg/dl (0.2-1); Ferritin 87.4 ng/ml (8-388); Globulin 2.6 gm/dl (2.5-4.0); Total Protein 5.7 gm/dl (6.4-8.2)
[2020-11-08] MEDS ORDERED: HYDROCORTISONE SOD SUCCINATE 100 MG/2 ML VIAL IV SCH (07:00)
--- NOTE | 2020-11-08 07:03 | XRay Report ---
XR chest 1V portable CLINICAL HISTORY: Congestive failure status post diuresis COMPARISON STUDY: 11/07/2020 FINDINGS: There are postsurgical changes of a midline sternotomy. The heart remains enlarged. There i s persistent elevation of interstitium consistent with congestive failure/fluid overload. As was prev iously stated, an interstitial infectious/inflammatory process There is been no significant change wh en compared the prior study.[ IMPRESSION: 1. No significant change from the prior study. Persistent cardiomegaly and radiographic evidence of c ongestive failure/fluid overload. ACT 112: Negative or not required by law. Electronically signed by: Brian Calvin M.D. 11/08/2020 7:02 AM
[2020-11-08 07:04] LABS: Folate (Folic Acid) > 20.00 ng/ml (>5.38); Vitamin B12 1566 pg/ml (193-986)
[2020-11-08] MEDS: HYDROCORTISONE SOD 50 MG in SYRINGE 0 ML IV SCH ×2 (07:44→13:43)
[2020-11-08] MEDS: FLUTICASONE/VILANTEROL 100/25MCG 14 PUFFS/INHALER INH SCH (07:45)
[2020-11-08] MEDS: BUMETANIDE 2 MG in SYRINGE 0 ML IV SCH ×2 (07:45→16:36)
[2020-11-08] MEDS: SPIRONOLACTONE 25 MG TAB PO SCH (07:46)
[2020-11-08] MEDS: DOXAZosin MESYLATE 4 MG TAB PO SCH ×2 (07:46→20:08)
[2020-11-08] MEDS: PANTOprazole 40 MG TAB PO SCH (07:47)
[2020-11-08] MEDS: POLYETHYLENE (MIRALAX) 17 GM PACK PO SCH (07:47)
[2020-11-08] MEDS: ESCITALOPRAM OXALATE 10 MG TAB PO SCH (07:48)
[2020-11-08] MEDS: SILVER SULFADIAZINE 1% CR 400 GM JAR EXT SCH ×2 (07:48→20:08)
[2020-11-08] MEDS: HYDROmorphone INJ 0.5 MG/0.5 ML SYR IV PRN ×2 (08:05→14:53)
--- NOTE | 2020-11-08 08:42 | Surgery Consultation ---
Date of Consultation November 08, 2020 Assessment & Plan (1) Cellulitis of left leg: (2) Hematoma of left lower leg: pt is a 85 year-old male who was admitted to hospital for left lower leg hematoma and cellulitis, IMP: left lower leg hematoma and cellulitis, Plan, no surgery indication now, I agree with conservative treatment now, IV antibiotic, wound care nurse consult, may hold warfarin for 2-3 days, may start low dose lovenox, will F/U, Thanks, Present on Admission?: Yes Supervising Physician Co-Signing Physician Notes RADHA Supervision Note: I personally saw and examined the patient. I verified all mariee points and agree with RADHA Solano with the following exceptions and/or additions: Patient is an 85-year-old male with history noted as above, here with significantly worsening swelling, erythema and open wound of the left lower extremity in the setting of chronic lymphedema. Patient failed increased oral diuretics at home and then the daughter noticed the erythema and warmth worsening in the last 24 hours. The patient complains of pain in left lower extremity. He has been afebrile. History and ROS reviewed as above Vitals reviewed Gen: AAOx3, NAD, obese HEENT: Anicteric sclerae, EOMI CV: Irregularly irregular, normal rate, nl S1S2 Pulm: CTAB no wcr Abd: +BS soft NT ND, obese Ext: 3+ woody edema of the entire left lower extremity, 1+ pitting edema the right lower extremity Skin: Significant erythema of the entire left lower extremity with streaking up the left inner thigh with 10 x 7 cm oval hematoma anterior left leg; right anterior leg with small open wound with Aquacel Ag in place, right great toe with toenail removed with dressing in place Neuro: No strength in left upper and left lower extremities Labs and radiology studies reviewed ECG reviewed with atrial fibrillation, RBBB 85-year-old male with history as above, here with left lower extremity cellulitis and hematoma in the setting of chronic lymphedema, also with acute on chronic right-sided diastolic CHF. Diuresis with IV Bumex Continue antibiotics for cellulitis as above -Add on orthopedics consult in case of need for evacuation of hematoma of left leg -Okay to continue Coumadin for now -Added on studies for anemia -Continue wound care -Follow-up results of CT leg when available History of Present Illness Attending Physician: Asia Kemp MD History of Present Illness Chief Complaint: Redness of left leg X 2 to 3 days Primary Care Provider: YANICK Mckeon Mr. 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 He presented to the ED with his daughter for progressive erythema/edema of the left leg. Patient is a vague historian and a lot of his history is obtained from the daughter who is his primary environmental monitoring specialist. Patient hospitalized 09/2020 with a CHF exacerbation. At that time, his routine Lasix was transitioned to Bumex. He was discharged home after 3-day stay, to take Bumex 1 mg daily. He had been doing well up until approximately 3 weeks ago. He follows cardiology (Dr. Feng) who allows daughter to give an additional Bumex in the evening at her [place]. She has been doing this over the past 2 weeks without improvement. Despite this, he has had increasing edema of the b ilateral extremities (left much greater than right). Patient does have left- sided hemiplegia and tends to lay on the left side. He is mostly bedbound. He now has swelling in the left leg and up into the scrotal region and his abdomen. He denies any respiratory symptoms including cough, chest pain, shortness of breath, orthopnea, or PND. He has not had any fevers or chills. Approximately 3 days ago, his daughter noticed a mild skin tear in the left leg. Within 24 hours, it became increasingly edematous, erythematous, and painful. Again no fevers or chills. It was the progression in the erythema and edema that prompted his evaluation into the ED. When seen in the ED, patient noted to be hemodynamically stable. He was afebrile without tachycardia or hypotension. He did not have a leukocytosis but did have a mild left shift of 91%. No bandemia. Lactic acid 1.7. Total bilirubin slightly elevated at 1.2 with a normal AST/ALT. The rest of his metabolic panel was essentially within normal limits. His INR was therapeutic at 2.9. BNP not obtained. CXR did show some mild pulmonary vascular congestion; however, not significantly changed from his previous x-ray. Patient was given Zosyn, IV Bumex, and Ofirmev of while in the ED. He was subsequently hospitalized for further evaluation and care. I ( Suleiman Duke MD ) got a call for consult LLE hematoma, I reviewed pt's H/P, labs, Ct scan with pt, Allergies Allergy/AdvReac Type Severity Reaction Status Date / Time gabapentin AdvReac Severe Swelling Unverified 11/07/20 14:22 hydrocodone AdvReac Severe EXCESSIVE Verified 11/07/20 14:08 DRY MOUTH AND SHAKING Home Medications Medication Instructions Recorded Confirmed Type docusate sodium [Colace] 100 mg PO HS 07/17/18 11/07/20 History folic acid 1 mg PO QAM 07/17/18 11/07/20 History polyethylene glycol 3350 [Miralax] 17 g PO QAM 04/19/19 11/07/20 History methotrexate sodium 10 mg PO WK 10/01/19 11/07/20 History warfarin 1.5 mg PO ONCE 10/01/19 11/07/20 History omeprazole 40 mg capsule,delayed 40 mg PO QAM #90 cap 11/09/19 11/07/20 Rx release warfarin 3 mg tablet See Rx Instructions .ROUTE 03/14/20 11/07/20 Rx .COMPLEX #90 tablet escitalopram oxalate 10 mg tablet 10 mg PO QAM #90 tab 04/14/20 11/07/20 Rx prednisone 5 mg tablet 7.5 mg PO QAM tab 04/25/20 11/07/20 History simvastatin 40 mg tablet 40 mg PO HS #90 tab 07/11/20 11/07/20 Rx doxazosin 4 mg tablet 4 mg PO BID #180 tab 07/19/20 11/07/20 Rx lift chair #1 ea 07/22/20 11/03/20 Rx fluticasone 250 mcg-salmeterol 50 1 inh INHALATION BID #180 ea 07/25/20 11/07/20 Rx mcg/dose blistr powdr for inhalation cyanocobalamin (vitamin B-12) 1,000 mcg PO QAM tab 08/14/20 11/07/20 History 1,000 mcg tablet aspirin 81 mg PO QAM 09/13/20 11/07/20 History tramadol 50 mg tablet 100 mg PO .COMPLEX PRN #180 tab 10/16/20 11/07/20 Rx bumetanide 1 mg tablet 1 mg PO .COMPLEX #90 tab 10/24/20 11/07/20 Rx acetylcysteine 2 ml INHALATION BID 11/07/20 11/07/20 History albuterol sulfate 2.5 mg INHALATION BID 11/07/20 11/07/20 History cholecalciferol (vitamin D3) 0 mcg PO QAM 11/07/20 11/07/20 History [Vitamin D3] potassium chloride 20 meq PO QAM 11/07/20 11/07/20 History Past Med/Surg History Medical History (Updated 11/07/20 @ 20:55 by Asia Kemp MD) Acute CVA (cerebrovascular accident) Anemia Aneurysm artery, popliteal Arthritis, rheumatoid Asthmatic bronchitis with acute exacerbation Cerebrovascular accident of right pontine structure Chronic anticoagulation Chronic anticoagulation Chronic left hip pain Edema History of CVA (cerebrovascular accident) Immunosuppression due to chronic steroid use Onychomycosis Open wound of right elbow Prostate cancer Skin tear Thrombocytopenia Traumatic open wound of left lower leg with delayed healing Traumatic open wound of right elbow with infection and delayed healing Traumatic wound Venous stasis ulcer limited to breakdown of skin without varicose veins Vertigo Weakness of muscle of left side of face due to and not concurrent with cerebrovascular accident (CVA) Surgical History (Updated 11/07/20 @ 16:23 by Annika Solano PA-C) H/O carpal tunnel repair H/O hernia repair History of aortic valve replacement with bioprosthetic valve History of knee replacement S/P aortic valve replacement S/P aortic valve replacement with bioprosthetic valve (2009) Status post carotid surgery Thromboendarterectomy Family History Other Breast cancer Family history non-contributory Uterine cancer Denies family history of Ovarian cancer Prostate cancer Myocardial infarction Colorectal cancer Social History Smoking Status: Never smoker Hx Alcohol Use: No Hx Substance Use: No Preferred Language: Bhutanese Communication Ability: Effective Fur Dry Cleaner Required: No Beliefs That Will Affect Care: None Current Living Situation: Family current occupational status: disabled Other Information That Helps Us Care for You: No Feels Safe at Home: Yes Dental Care, Regularly: No Seatbelt Use: always Assistive Devices: Glasses and Wheelchair Review of Systems Constitutional: no fever, no chills, no fatigue and no malaise Unsure about weight gain is unable to weigh himself Ear, Nose, Mouth, Throat: Denies nasal congestion, sore throat, cough Respiratory: Denies shortness of breath, hemoptysis, orthopnea, PND, pleurisy Cardiovascular: Additional Comments: + Edema as described above . denies chest pain, palpitations, syncope/near syncope, Gastrointestinal: Patient does have chronic constipation. Last BM this AM. Denies nausea, vomiting, abdominal pain, diarrhea. Genitourinary: no dysuria and no nocturia Musculoskeletal: + Pain and erythema of the left lower extremity with drainage. + Hemiplegia of the left upper and lower extremity (left leg greater than left arm)not outside of baseline. Integumentary: + rash, + lesions and + erythema Psychiatric: TOHONO O'ODHAM Allergies Allergy/AdvReac Type Severity Reaction Status Date / Time gabapentin AdvReac Severe Swelling Unverified 11/07/20 14:22 hydrocodone AdvReac Severe EXCESSIVE Verified 11/07/20 14:08 DRY MOUTH AND SHAKING Home Medications Medication Instructions Recorded Confirmed Type docusate sodium [Colace] 100 mg PO HS 07/17/18 11/07/20 History folic acid 1 mg PO QAM 07/17/18 11/07/20 History polyethylene glycol 3350 [Miralax] 17 g PO QAM 04/19/19 11/07/20 History methotrexate sodium 10 mg PO WK 10/01/19 11/07/20 History warfarin 1.5 mg PO ONCE 10/01/19 11/07/20 History omeprazole 40 mg capsule,delayed 40 mg PO QAM #90 cap 11/09/19 11/07/20 Rx release warfarin 3 mg tablet See Rx Instructions .ROUTE 03/14/20 11/07/20 Rx .COMPLEX #90 tablet escitalopram oxalate 10 mg tablet 10 mg PO QAM #90 tab 04/14/20 11/07/20 Rx prednisone 5 mg tablet 7.5 mg PO QAM tab 04/25/20 11/07/20 History simvastatin 40 mg tablet 40 mg PO HS #90 tab 07/11/20 11/07/20 Rx doxazosin 4 mg tablet 4 mg PO BID #180 tab 07/19/20 11/07/20 Rx lift chair #1 ea 07/22/20 11/03/20 Rx fluticasone 250 mcg-salmeterol 50 1 inh INHALATION BID #180 ea 07/25/20 11/07/20 Rx mcg/dose blistr powdr for inhalation cyanocobalamin (vitamin B-12) 1,000 mcg PO QAM tab 08/14/20 11/07/20 History 1,000 mcg tablet aspirin 81 mg PO QAM 09/13/20 11/07/20 History tramadol 50 mg tablet 100 mg PO .COMPLEX PRN #180 tab 10/16/20 11/07/20 Rx bumetanide 1 mg tablet 1 mg PO .COMPLEX #90 tab 10/24/20 11/07/20 Rx acetylcysteine 2 ml INHALATION BID 11/07/20 11/07/20 History albuterol sulfate 2.5 mg INHALATION BID 11/07/20 11/07/20 History cholecalciferol (vitamin D3) 0 mcg PO QAM 11/07/20 11/07/20 History [Vitamin D3] potassium chloride 20 meq PO QAM 11/07/20 11/07/20 History Patient History Medical History (Updated 11/08/20 @ 08:44 by Suleiman Duke MD) Acute CVA (cerebrovascular accident) Anemia Aneurysm artery, popliteal Arthritis, rheumatoid Asthmatic bronchitis with acute exacerbation Cerebrovascular accident of right pontine structure Chronic anticoagulation Chronic anticoagulation Chronic left hip pain Edema History of CVA (cerebrovascular accident) Immunosuppression due to chronic steroid use Onychomycosis Open wound of right elbow Prostate cancer Skin tear Thrombocytopenia Traumatic open wound of left lower leg with delayed healing Traumatic open wound of right elbow with infection and delayed healing Traumatic wound Venous stasis ulcer limited to breakdown of skin without varicose veins Vertigo Weakness of muscle of left side of face due to and not concurrent with cerebrovascular accident (CVA) Surgical History (Updated 11/07/20 @ 16:23 by Annika Solano PA-C) H/O carpal tunnel repair H/O hernia repair History of aortic valve replacement with bioprosthetic valve History of knee replacement S/P aortic valve replacement S/P aortic valve replacement with bioprosthetic valve (2009) Status post carotid surgery Thromboendarterectomy Family History Other Breast cancer Family history non-contributory Uterine cancer Denies family history of Ovarian cancer Prostate cancer Myocardial infarction Colorectal cancer Social History Smoking Status: Never smoker Hx Alcohol Use: No Hx Substance Use: No Preferred Language: Bhutanese Communication Ability: Effective Fur Dry Cleaner Required: No Beliefs That Will Affect Care: None Current Living Situation: Family current occupational status: disabled Other Information That Helps Us Care for You: No Feels Safe at Home: Yes Dental Care, Regularly: No Seatbelt Use: always Assistive Devices: Glasses and Wheelchair Physical Exam Constitutional: WD/WN, vitals as above well developed and well nourished Eyes: PERRL, conjunctivae normal, anicteric sclerae ENMT: external ear and nose normal, oropharynx normal Neck: trachea midline, no thyromegaly Respiratory: normal respiratory effort, lungs clear to auscultation normal respiratory effort Gastrointestinal (Abdomen): normal bowel sounds, soft, nontender, no hepatosplenomegaly Percussion/Palpation: abdomen soft Musculoskeletal: some edema and swelling on left lower leg with some redness, hematoma on left lower leg, laterally, distal pulse +, Neurologic: awake Psychiatric: Orientation: alert and oriented x 3 Results & Data ([facility]) Vital Signs (Past 12 Hours) Vital Signs Temp Pulse Resp BP Pulse Ox 11/08/20 07:58 37.3 C 67 18 137/66 94 11/08/20 03:38 36.6 C 67 16 138/63 93 11/07/20 23:48 36.7 C 81 20 159/81 H 96 Laboratory Results Abnormal lab results 11/07/20 11/07/20 11/07/20 Range/Units 12:20 12:20 12:20 RBC 3.17 L (4.7-6.1) M/uL Hgb 9.4 L (14.0-18.0) g/dL Hct 30.9 L (42-52) % MCHC 30.4 L (32-36) g/dL RDW Std Deviation 69.1 H (36.4-46.3) fL RDW Coeff of Magali 19.4 H (11.5-14.5) % MPV 10.9 H (7.4-10.4) fL Lymph # (Auto) 0.29 L (1.2-3.4) K/uL Immature Gran # (Auto) 0.05 H (0.00-0.02) K/uL PT 26.8 H (9.0-12.0) Seconds INR 2.9 H (0.9-1.1) APTT 42.2 H (21.0-31.0) Seconds Carbon Dioxide 35 H (21-32) mmol/L Anion Gap 1.0 L (3-11) BUN 24 H (7-18) mg/dl BUN/Creatinine Ratio 26.0 H (10-20) Glucose 121 H (70-99) mg/dl Fasting Glucose (70-99) mg/dl Calcium (8.5-10.1) mg/dl Iron (35-175) mcg/dl Transferrin % Sat (20-50) % Total Bilirubin 1.2 H (0.2-1) mg/dl NT-Pro-B Natriuret Pep (0-1800) pg/ml Total Protein 6.2 L (6.4-8.2) gm/dl Albumin (3.4-5.0) gm/dl Vitamin B12 (193-986) pg/ml 11/07/20 11/08/20 11/08/20 Range/Units 20:58 05:52 05:52 RBC 3.00 L (4.7-6.1) M/uL Hgb 9.0 L (14.0-18.0) g/dL Hct 29.2 L (42-52) % MCHC 30.8 L (32-36) g/dL RDW Std Deviation 67.9 H (36.4-46.3) fL RDW Coeff of Magali 19.0 H (11.5-14.5) % MPV 11.4 H (7.4-10.4) fL Lymph # (Auto) 0.32 L (1.2-3.4) K/uL Immature Gran # (Auto) 0.03 H (0.00-0.02) K/uL PT 24.5 H (9.0-12.0) Seconds INR 2.6 H (0.9-1.1) APTT (21.0-31.0) Seconds Carbon Dioxide (21-32) mmol/L Anion Gap (3-11) BUN (7-18) mg/dl BUN/Creatinine Ratio (10-20) Glucose (70-99) mg/dl Fasting Glucose (70-99) mg/dl Calcium (8.5-10.1) mg/dl Iron (35-175) mcg/dl Transferrin % Sat (20-50) % Total Bilirubin (0.2-1) mg/dl NT-Pro-B Natriuret Pep 2342 H (0-1800) pg/ml Total Protein (6.4-8.2) gm/dl Albumin (3.4-5.0) gm/dl Vitamin B12 (193-986) pg/ml 11/08/20 11/08/20 Range/Units 05:52 05:52 RBC (4.7-6.1) M/uL Hgb (14.0-18.0) g/dL Hct (42-52) % MCHC (32-36) g/dL RDW Std Deviation (36.4-46.3) fL RDW Coeff of Magali (11.5-14.5) % MPV (7.4-10.4) fL Lymph # (Auto) (1.2-3.4) K/uL Immature Gran # (Auto) (0.00-0.02) K/uL PT (9.0-12.0) Seconds INR (0.9-1.1) APTT (21.0-31.0) Seconds Carbon Dioxide (21-32) mmol/L Anion Gap (3-11) BUN 20 H (7-18) mg/dl BUN/Creatinine Ratio (10-20) Glucose (70-99) mg/dl Fasting Glucose 133 H (70-99) mg/dl Calcium 8.4 L (8.5-10.1) mg/dl Iron 34 L (35-175) mcg/dl Transferrin % Sat 11 L (20-50) % Total Bilirubin 1.6 H (0.2-1) mg/dl NT-Pro-B Natriuret Pep (0-1800) pg/ml Total Protein 5.7 L (6.4-8.2) gm/dl Albumin 3.1 L (3.4-5.0) gm/dl Vitamin B12 1566 H (193-986) pg/ml Diagnostic Findings CT SCAN OF THE LEFT TIBIA AND FIBULA WITH IV CONTRAST CLINICAL HISTORY: Left lower extremity edema. Clinical concern for hematoma or abscess. COMPARISON STUDY: CT runoff dated 10/19/2019. TECHNIQUE: CT scan of the left tibia and fibula is performed from the knee joint to the ankle following the IV administration of 93 cc of Optiray 320. Images are reviewed in the axial, sagittal, and coronal planes. IV contrast was administered without complication. A dose lowering technique was utilized adhering to the principles of ALARA. Note that interpretation is significantly suboptimal without plain film correlate. There is streak artifact from a left knee arthroplasty. CT DOSE: 785.60 mGy.cm FINDINGS: The skeletal structures are heterogeneously osteopenic. A left knee arthroplasty is in place. There is no evidence of tibial or fibular fracture. No bony erosion or periostitis is identified. The ankle joint appears maintained. The ankle mortise is intact. There is diffuse subcutaneous and deep soft tissue edema with subcutaneous fluid seen throughout the imaged left lower extremity. There is a hyperdense fluid collection identified within the lateral soft tissues in the proximal to mid calf, best seen on axial image #248. This measures 7.5 x 4.5 x 3.1 cm and is consistent with a small hematoma. There is no evidence of active extravasation at the time of examination. No additional organized fluid collection is identified. No soft tissue gas is seen. There is generalized atrophy of the regional musculature. Advanced atherosclerotic calcification is noted in the regional arteries. 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 The calf arteries are diminutive but appear patent as imaged. IMPRESSION: 1. No acute osseous abnormality is seen involving the left tibia or fibula. 2. There is a 7.5 cm hematoma identified within the lateral subcutaneous soft tissues in the proximal to mid calf as above. 3. Diffuse superficial and deep soft tissue edema is present throughout the left lower extremity. 4. 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 5. Additional findings as above. US venous doppler LE LT CLINICAL HISTORY: Left lower extremity swelling COMPARISON STUDY: 10/02/2020 FINDINGS: Real-time and color flow Doppler imaging were performed. Flow was seen within the femoral, popliteal and calf veins with no intraluminal thrombus demonstrated. The saphenous vein is patent. There is left lower extremity edema. IMPRESSION: 1. No evidence of left lower extremity DVT.
[2020-11-08] MEDS ORDERED: ASPIRIN 81 MG ECTAB PO SCH (09:00)
[2020-11-08] MEDS: VANCOMYCIN HCL 1,250 MG in SODIUM CHLORIDE 0.9% 250 ML IV SCH ×2 (10:00→23:45)
--- NOTE | 2020-11-08 11:01 | Orthopedic Consultation ---
Date of Consultation November 08, 2020 Assessment & Plan (1) Hematoma of left lower leg: Dr Zamorano saw patient with myself. He discussed with patient the option of aspirating the hematoma vs observing. Reviewed procedure, risks, and outcomes. Patient would like to leave alone and observe. Aware it will take time for hematoma to improve. No surgery is recommended. Follow-up with Orthopedics as needed. Present on Admission?: Yes (2) Cellulitis of left leg: Appears to be improving. Patient currently afebrile. On IV antibiotics and diuretics. Continue current treatment plan. Follow-up with orthopedics as needed. Present on Admission?: Yes (3) Open wound of leg: Bilateral open wounds to right anterior smith and left posterior calf. Continue with wound care. Follow-up with orthopedics as needed. 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 Patient has been being followed by wound care for open wound on right smith and right great toe. He failed increased oral diuretics at home and then the daughter noticed the erythema and warmth. He was brought to the ED. He is on IV antibiotics and diuretics. He says the pain in his left leg has improved some since admitted. He says the redness has also improved. He has a history of a left TKR in the past and has no complaints regarding his knee. He says he hasnt walked in over 6mths. He requires assist to transfer. He is currently afebrile. Allergies Allergy/AdvReac Type Severity Reaction Status Date / Time gabapentin AdvReac Severe Swelling Unverified 11/07/20 14:22 hydrocodone AdvReac Severe EXCESSIVE Verified 11/07/20 14:08 DRY MOUTH AND SHAKING Home Medications Medication Instructions Recorded Confirmed Type docusate sodium [Colace] 100 mg PO HS 07/17/18 11/07/20 History folic acid 1 mg PO QAM 07/17/18 11/07/20 History polyethylene glycol 3350 [Miralax] 17 g PO QAM 04/19/19 11/07/20 History methotrexate sodium 10 mg PO WK 10/01/19 11/07/20 History warfarin 1.5 mg PO ONCE 10/01/19 11/07/20 History omeprazole 40 mg capsule,delayed 40 mg PO QAM #90 cap 11/09/19 11/07/20 Rx release warfarin 3 mg tablet See Rx Instructions .ROUTE 03/14/20 11/07/20 Rx .COMPLEX #90 tablet escitalopram oxalate 10 mg tablet 10 mg PO QAM #90 tab 04/14/20 11/07/20 Rx prednisone 5 mg tablet 7.5 mg PO QAM tab 04/25/20 11/07/20 History simvastatin 40 mg tablet 40 mg PO HS #90 tab 07/11/20 11/07/20 Rx doxazosin 4 mg tablet 4 mg PO BID #180 tab 07/19/20 11/07/20 Rx lift chair #1 ea 07/22/20 11/03/20 Rx fluticasone 250 mcg-salmeterol 50 1 inh INHALATION BID #180 ea 07/25/20 11/07/20 Rx mcg/dose blistr powdr for inhalation cyanocobalamin (vitamin B-12) 1,000 mcg PO QAM tab 08/14/20 11/07/20 History 1,000 mcg tablet aspirin 81 mg PO QAM 09/13/20 11/07/20 History tramadol 50 mg tablet 100 mg PO .COMPLEX PRN #180 tab 10/16/20 11/07/20 Rx bumetanide 1 mg tablet 1 mg PO .COMPLEX #90 tab 10/24/20 11/07/20 Rx acetylcysteine 2 ml INHALATION BID 11/07/20 11/07/20 History albuterol sulfate 2.5 mg INHALATION BID 11/07/20 11/07/20 History cholecalciferol (vitamin D3) 0 mcg PO QAM 11/07/20 11/07/20 History [Vitamin D3] potassium chloride 20 meq PO QAM 11/07/20 11/07/20 History Patient History Medical History Acute CVA (cerebrovascular accident) Anemia Aneurysm artery, popliteal Arthritis, rheumatoid Asthmatic bronchitis with acute exacerbation Cerebrovascular accident of right pontine structure Chronic anticoagulation Chronic anticoagulation Chronic left hip pain Edema History of CVA (cerebrovascular accident) Immunosuppression due to chronic steroid use Onychomycosis Open wound of right elbow Prostate cancer Skin tear Thrombocytopenia Traumatic open wound of left lower leg with delayed healing Traumatic open wound of right elbow with infection and delayed healing Traumatic wound Venous stasis ulcer limited to breakdown of skin without varicose veins Vertigo Weakness of muscle of left side of face due to and not concurrent with cerebrovascular accident (CVA) Surgical History H/O carpal tunnel repair H/O hernia repair History of aortic valve replacement with bioprosthetic valve History of knee replacement S/P aortic valve replacement S/P aortic valve replacement with bioprosthetic valve (2009) Status post carotid surgery Thromboendarterectomy Family History Other Breast cancer Family history non-contributory Uterine cancer Denies family history of Ovarian cancer Prostate cancer Myocardial infarction Colorectal cancer Social History Smoking Status: Never smoker Hx Alcohol Use: No Hx Substance Use: No Preferred Language: Mauritian Communication Ability: Effective Cash Applications Clerk Required: No Beliefs That Will Affect Care: None Current Living Situation: Family current occupational status: disabled Other Information That Helps Us Care for You: No Feels Safe at Home: Yes Dental Care, Regularly: No Seatbelt Use: always Assistive Devices: None Review of Systems Review of Systems: Patient denies fever, chills, sweats, SOB at rest, or chest pain. He denies nausea and vomiting. He admits to left LE pain that is improving some. Physical Exam Physical Exam: Gen: Alert and Oriented to place Ext: 3+ edema to LLE, 1+ R LE Skin: Erythema of the entire left lower extremity, however per patient improved. Outline with marker of inner thigh shows no further streaking beyond the edges, with improvement noted. 10 x 7 cm oval hematoma anterior left leg; Superficial open wound to left calf. Right anterior leg with small open ulcer type wound with dressing in place, right great toe with toenail removed open to air. NV: Sensation intact to B LE; Pulses are diminished to B PT and DP. Limited motion of left ankle. PROM of left ankle without pain. Left knee AAROM -30 to 90 degrees without pain. No effusion or redness. Painless log rolling of left hip. Diffuse weakness to left leg. Results & Data ([facility]) Vital Signs (Past 12 Hours) Vital Signs Temp Pulse Resp BP Pulse Ox Pulse Ox 11/08/20 09:29 94 11/08/20 07:58 37.3 C 67 18 137/66 94 11/08/20 03:38 36.6 C 67 16 138/63 93 11/07/20 23:48 36.7 C 81 20 159/81 H 96 Laboratory Results 11/08/20 11/08/20 11/08/20 Range/Units 05:52 05:52 05:52 WBC (4.8-10.8) K/uL RBC (4.7-6.1) M/uL Hgb (14.0-18.0) g/dL Hct (42-52) % MCV (80-100) fL MCH (25-34) pg MCHC (32-36) g/dL RDW Std Deviation (36.4-46.3) fL RDW Coeff of Magali (11.5-14.5) % Plt Count (130-400) K/uL MPV (7.4-10.4) fL Immature Gran % (Auto) % Neut % (Auto) % Lymph % (Auto) % Dixie % (Auto) % Eos % (Auto) % Baso % (Auto) % Neut # (Auto) (1.4-6.5) K/uL Lymph # (Auto) (1.2-3.4) K/uL Dix[place] # (Auto) (0.11-0.59) K/uL Eos # (Auto) (0-0.5) K/uL Baso # (Auto) (0-0.2) K/uL Immature Gran # (Auto) (0.00-0.02) K/uL PT 24.5 H (9.0-12.0) Seconds INR 2.6 H (0.9-1.1) APTT (21.0-31.0) Seconds PTT Ratio Sodium 139 (136-145) mmol/L Potassium 3.6 (3.5-5.1) mmol/L Chloride 101 (98-107) mmol/L Carbon Dioxide 31 (21-32) mmol/L Anion Gap 6.0 (3-11) BUN 20 H (7-18) mg/dl Creatinine 1.05 (0.6-1.4) mg/dl Est Cr Clr Drug Dosing 54.1 ml/min Est GFR ( Amer) 75.2 ml/min Est GFR (Non-Af Amer) 64.9 ml/min BUN/Creatinine Ratio (10-20) Glucose (70-99) mg/dl Fasting Glucose 133 H (70-99) mg/dl Lactate (0.4-2.0) mmol/L Calcium 8.4 L (8.5-10.1) mg/dl Magnesium 2.2 (1.8-2.4) mg/dl Iron 34 L (35-175) mcg/dl TIBC 260 (250-450) mcg/dl Transferrin 209 (200-360) mg/dl Transferrin % Sat 11 L (20-50) % Ferritin 87.4 (8-388) ng/ml Total Bilirubin 1.6 H (0.2-1) mg/dl AST 17 (15-37) U/L ALT 19 (12-78) U/L Alkaline Phosphatase 63 (45-117) U/L Troponin I (0-0.045) ng/ml NT-Pro-B Natriuret Pep (0-1800) pg/ml Total Protein 5.7 L (6.4-8.2) gm/dl Albumin 3.1 L (3.4-5.0) gm/dl Globulin 2.6 (2.5-4.0) gm/dl Albumin/Globulin Ratio 1.2 (0.9-2) Vitamin B12 1566 H (193-986) pg/ml Folate > 20.00 (>5.38) ng/ml Urine Color Urine Appearance (Clear) Urine pH (4.5-7.5) Ur Specific [place] (1.000-1.030) Urine Protein (Negative) Urine Glucose (UA) (Negative) Urine Ketones (Negative) Urine Blood (Negative) Urine Nitrite (Negative) Urine Bilirubin (Negative) Urine Urobilinogen (Negative) Ur Leukocyte Esterase (Negative) Nasal Screen MRSA (PCR) (Negative) COVID-19 Eval Order SARS-CoV-2 (PCR) (Negative) 11/08/20 11/07/20 11/07/20 Range/Units 05:52 20:58 18:00 WBC 6.94 (4.8-10.8) K/uL RBC 3.00 L (4.7-6.1) M/uL Hgb 9.0 L (14.0-18.0) g/dL Hct 29.2 L (42-52) % MCV 97.3 (80-100) fL MCH 30.0 (25-34) pg MCHC 30.8 L (32-36) g/dL RDW Std Deviation 67.9 H (36.4-46.3) fL RDW Coeff of Magali 19.0 H (11.5-14.5) % Plt Count 157 (130-400) K/uL MPV 11.4 H (7.4-10.4) fL Immature Gran % (Auto) 0.4 % Neut % (Auto) 92.2 % Lymph % (Auto) 4.6 % Dixie % (Auto) 2.7 % Eos % (Auto) 0.0 % Baso % (Auto) 0.1 % Neut # (Auto) 6.39 (1.4-6.5) K/uL Lymph # (Auto) 0.32 L (1.2-3.4) K/uL Dixie # (Auto) 0.19 (0.11-0.59) K/uL Eos # (Auto) 0.00 (0-0.5) K/uL Baso # (Auto) 0.01 (0-0.2) K/uL Immature Gran # (Auto) 0.03 H (0.00-0.02) K/uL PT (9.0-12.0) Seconds INR (0.9-1.1) APTT (21.0-31.0) Seconds PTT Ratio Sodium (136-145) mmol/L Potassium (3.5-5.1) mmol/L Chloride (98-107) mmol/L Carbon Dioxide (21-32) mmol/L Anion Gap (3-11) BUN (7-18) mg/dl Creatinine (0.6-1.4) mg/dl Est Cr Clr Drug Dosing ml/min Est GFR ( Amer) ml/min Est GFR (Non-Af Amer) ml/min BUN/Creatinine Ratio (10-20) Glucose (70-99) mg/dl Fasting Glucose (70-99) mg/dl Lactate (0.4-2.0) mmol/L Calcium (8.5-10.1) mg/dl Magnesium (1.8-2.4) mg/dl Iron (35-175) mcg/dl TIBC (250-450) mcg/dl Transferrin (200-360) mg/dl Transferrin % Sat (20-50) % Ferritin (8-388) ng/ml Total Bilirubin (0.2-1) mg/dl AST (15-37) U/L ALT (12-78) U/L Alkaline Phosphatase (45-117) U/L Troponin I < 0.015 (0-0.045) ng/ml NT-Pro-B Natriuret Pep 2342 H (0-1800) pg/ml Total Protein (6.4-8.2) gm/dl Albumin (3.4-5.0) gm/dl Globulin (2.5-4.0) gm/dl Albumin/Globulin Ratio (0.9-2) Vitamin B12 (193-986) pg/ml Folate (>5.38) ng/ml Urine Color Urine Appearance (Clear) Urine pH (4.5-7.5) Ur Specific [place] (1.000-1.030) Urine Protein (Negative) Urine Glucose (UA) (Negative) Urine Ketones (Negative) Urine Blood (Negative) Urine Nitrite (Negative) Urine Bilirubin (Negative) Urine Urobilinogen (Negative) Ur Leukocyte Esterase (Negative) Nasal Screen MRSA (PCR) Negative (Negative) COVID-19 Eval Order SARS-CoV-2 (PCR) (Negative) 11/07/20 11/07/20 11/07/20 Range/Units 15:56 15:56 14:25 WBC (4.8-10.8) K/uL RBC (4.7-6.1) M/uL Hgb (14.0-18.0) g/dL Hct (42-52) % MCV (80-100) fL MCH (25-34) pg MCHC (32-36) g/dL RDW Std Deviation (36.4-46.3) fL RDW Coeff of Magali (11.5-14.5) % Plt Count (130-400) K/uL MPV (7.4-10.4) fL Immature Gran % (Auto) % Neut % (Auto) % Lymph % (Auto) % [place] % (Auto) % Eos % (Auto) % Baso % (Auto) % Neut # (Auto) (1.4-6.5) K/uL Lymph # (Auto) (1.2-3.4) K/uL [place] # (Auto) (0.11-0.59) K/uL Eos # (Auto) (0-0.5) K/uL Baso # (Auto) (0-0.2) K/uL Immature Gran # (Auto) (0.00-0.02) K/uL PT (9.0-12.0) Seconds INR (0.9-1.1) APTT (21.0-31.0) Seconds PTT Ratio Sodium (136-145) mmol/L Potassium (3.5-5.1) mmol/L Chloride (98-107) mmol/L Carbon Dioxide (21-32) mmol/L Anion Gap (3-11) BUN (7-18) mg/dl Creatinine (0.6-1.4) mg/dl Est Cr Clr Drug Dosing ml/min Est GFR ( Amer) ml/min Est GFR (Non-Af Amer) ml/min BUN/Creatinine Ratio (10-20) Glucose (70-99) mg/dl Fasting Glucose (70-99) mg/dl Lactate (0.4-2.0) mmol/L Calcium (8.5-10.1) mg/dl Magnesium (1.8-2.4) mg/dl Iron (35-175) mcg/dl TIBC (250-450) mcg/dl Transferrin (200-360) mg/dl Transferrin % Sat (20-50) % Ferritin (8-388) ng/ml Total Bilirubin (0.2-1) mg/dl AST (15-37) U/L ALT (12-78) U/L Alkaline Phosphatase (45-117) U/L Troponin I (0-0.045) ng/ml NT-Pro-B Natriuret Pep (0-1800) pg/ml Total Protein (6.4-8.2) gm/dl Albumin (3.4-5.0) gm/dl Globulin (2.5-4.0) gm/dl Albumin/Globulin Ratio (0.9-2) Vitamin B12 (193-986) pg/ml Folate (>5.38) ng/ml Urine Color Dark Yellow Urine Appearance Clear (Clear) Urine pH 7.5 (4.5-7.5) Ur Specific [place] 1.019 (1.000-1.030) Urine Protein Negative (Negative) Urine Glucose (UA) Negative (Negative) Urine Ketones Negative (Negative) Urine Blood Negative (Negative) Urine Nitrite Negative (Negative) Urine Bilirubin Negative (Negative) Urine Urobilinogen Negative (Negative) Ur Leukocyte Esterase Negative (Negative) Nasal Screen MRSA (PCR) (Negative) COVID-19 Eval Order Covid19 at [facility] SARS-CoV-2 (PCR) NEGATIVE (Negative) 11/07/20 11/07/20 11/07/20 Range/Units 12:20 12:20 12:20 WBC (4.8-10.8) K/uL RBC (4.7-6.1) M/uL Hgb (14.0-18.0) g/dL Hct (42-52) % MCV (80-100) fL MCH (25-34) pg MCHC (32-36) g/dL RDW Std Deviation (36.4-46.3) fL RDW Coeff of Magali (11.5-14.5) % Plt Count (130-400) K/uL MPV (7.4-10.4) fL Immature Gran % (Auto) % Neut % (Auto) % Lymph % (Auto) % [place] % (Auto) % Eos % (Auto) % Baso % (Auto) % Neut # (Auto) (1.4-6.5) K/uL Lymph # (Auto) (1.2-3.4) K/uL [place] # (Auto) (0.11-0.59) K/uL Eos # (Auto) (0-0.5) K/uL Baso # (Auto) (0-0.2) K/uL Immature Gran # (Auto) (0.00-0.02) K/uL PT 26.8 H (9.0-12.0) Seconds INR 2.9 H (0.9-1.1) APTT 42.2 H (21.0-31.0) Seconds PTT Ratio 1.6 Sodium 138 (136-145) mmol/L Potassium 4.2 (3.5-5.1) mmol/L Chloride 102 (98-107) mmol/L Carbon Dioxide 35 H (21-32) mmol/L Anion Gap 1.0 L (3-11) BUN 24 H (7-18) mg/dl Creatinine 0.93 (0.6-1.4) mg/dl Est Cr Clr Drug Dosing 61.1 ml/min Est GFR ( Amer) 87.1 ml/min Est GFR (Non-Af Amer) 75.1 ml/min BUN/Creatinine Ratio 26.0 H (10-20) Glucose 121 H (70-99) mg/dl Fasting Glucose (70-99) mg/dl Lactate 1.7 (0.4-2.0) mmol/L Calcium 8.5 (8.5-10.1) mg/dl Magnesium 2.4 (1.8-2.4) mg/dl Iron (35-175) mcg/dl TIBC (250-450) mcg/dl Transferrin (200-360) mg/dl Transferrin % Sat (20-50) % Ferritin (8-388) ng/ml Total Bilirubin 1.2 H (0.2-1) mg/dl AST 17 (15-37) U/L ALT 22 (12-78) U/L Alkaline Phosphatase 73 (45-117) U/L Troponin I (0-0.045) ng/ml NT-Pro-B Natriuret Pep (0-1800) pg/ml Total Protein 6.2 L (6.4-8.2) gm/dl Albumin 3.7 (3.4-5.0) gm/dl Globulin 2.5 (2.5-4.0) gm/dl Albumin/Globulin Ratio 1.5 (0.9-2) Vitamin B12 (193-986) pg/ml Folate (>5.38) ng/ml Urine Color Urine Appearance (Clear) Urine pH (4.5-7.5) Ur Specific [place] (1.000-1.030) Urine Protein (Negative) Urine Glucose (UA) (Negative) Urine Ketones (Negative) Urine Blood (Negative) Urine Nitrite (Negative) Urine Bilirubin (Negative) Urine Urobilinogen (Negative) Ur Leukocyte Esterase (Negative) Nasal Screen MRSA (PCR) (Negative) COVID-19 Eval Order SARS-CoV-2 (PCR) (Negative) 11/07/20 Range/Units 12:20 WBC 6.60 (4.8-10.8) K/uL RBC 3.17 L (4.7-6.1) M/uL Hgb 9.4 L (14.0-18.0) g/dL Hct 30.9 L (42-52) % MCV 97.5 (80-100) fL MCH 29.7 (25-34) pg MCHC 30.4 L (32-36) g/dL RDW Std Deviation 69.1 H (36.4-46.3) fL RDW Coeff of Magali 19.4 H (11.5-14.5) % Plt Count 160 (130-400) K/uL MPV 10.9 H (7.4-10.4) fL Immature Gran % (Auto) 0.8 % Neut % (Auto) 90.4 % Lymph % (Auto) 4.4 % [place] % (Auto) 3.9 % Eos % (Auto) 0.3 % Baso % (Auto) 0.2 % Neut # (Auto) 5.97 (1.4-6.5) K/uL Lymph # (Auto) 0.29 L (1.2-3.4) K/uL [place] # (Auto) 0.26 (0.11-0.59) K/uL Eos # (Auto) 0.02 (0-0.5) K/uL Baso # (Auto) 0.01 (0-0.2) K/uL Immature Gran # (Auto) 0.05 H (0.00-0.02) K/uL PT (9.0-12.0) Seconds INR (0.9-1.1) APTT (21.0-31.0) Seconds PTT Ratio Sodium (136-145) mmol/L Potassium (3.5-5.1) mmol/L Chloride (98-107) mmol/L Carbon Dioxide (21-32) mmol/L Anion Gap (3-11) BUN (7-18) mg/dl Creatinine (0.6-1.4) mg/dl Est Cr Clr Drug Dosing ml/min Est GFR ( Amer) ml/min Est GFR (Non-Af Amer) ml/min BUN/Creatinine Ratio (10-20) Glucose (70-99) mg/dl Fasting Glucose (70-99) mg/dl Lactate (0.4-2.0) mmol/L Calcium (8.5-10.1) mg/dl Magnesium (1.8-2.4) mg/dl Iron (35-175) mcg/dl TIBC (250-450) mcg/dl Transferrin (200-360) mg/dl Transferrin % Sat (20-50) % Ferritin (8-388) ng/ml Total Bilirubin (0.2-1) mg/dl AST (15-37) U/L ALT (12-78) U/L Alkaline Phosphatase (45-117) U/L Troponin I (0-0.045) ng/ml NT-Pro-B Natriuret Pep (0-1800) pg/ml Total Protein (6.4-8.2) gm/dl Albumin (3.4-5.0) gm/dl Globulin (2.5-4.0) gm/dl Albumin/Globulin Ratio (0.9-2) Vitamin B12 (193-986) pg/ml Folate (>5.38) ng/ml Urine Color Urine Appearance (Clear) Urine pH (4.5-7.5) Ur Specific [place] (1.000-1.030) Urine Protein (Negative) Urine Glucose (UA) (Negative) Urine Ketones (Negative) Urine Blood (Negative) Urine Nitrite (Negative) Urine Bilirubin (Negative) Urine Urobilinogen (Negative) Ur Leukocyte Esterase (Negative) Nasal Screen MRSA (PCR) (Negative) COVID-19 Eval Order SARS-CoV-2 (PCR) (Negative) Diagnostic Findings [facility], [phone] CT Scan Report Patient: REENA BECKFORD EAdmit Date: 11/07/20MR#: [id number]: [facility] RDAcct ID:[id number]: Date: 1935[facility] Zip: [place], [place] [address]Mtt: 84Location: 2SSex: MRoom/Bed: [id number] Phy: Asia Kemp, VAMSIiagnosis: ANASARCA, CELLULITISPri Phy: Allyssa Martinez, CRNPService Date: 11/07/20Fa Phy:Interpreting Phy: Aaron Mac MDAdmit Phy: Asia Kemp MD Ordering Phy: Annika Solano PA-C cc: ~ CT SCAN OF THE LEFT TIBIA AND FIBULA WITH IV CONTRAST CLINICAL HISTORY: Left lower extremity edema. Clinical concern for hematoma or abscess. COMPARISON STUDY: CT runoff dated 10/19/2019. TECHNIQUE: CT scan of the left tibia and fibula is performed from the knee joint to the ankle following the IV administration of 93 cc of Optiray 320. Images are reviewed in the axial, sagittal, and coronal planes. IV contrast was administered without complication. A dose lowering technique was utilized adhering to the principles of ALARA. Note that interpretation is significantly suboptimal without plain film correlate. There is streak artifact from a left knee arthroplasty. CT DOSE: 785.60 mGy.cm FINDINGS: The skeletal structures are heterogeneously osteopenic. A left knee arthroplasty is in place. There is no evidence of tibial or fibular fracture. No bony erosion or periostitis is identified. The ankle joint appears maintained. The ankle mortise is intact. There is diffuse subcutaneous and deep soft tissue edema with subcutaneous fluid seen throughout the imaged left lower extremity. There is a hyperdense fluid collection identified within the lateral soft tissues in the proximal to mid calf, best seen on axial image #248. This measures 7.5 x 4.5 x 3.1 cm and is consistent with a small hematoma. There is no evidence of active extravasation at the time of examination. No additional organized fluid collection is identified. No soft tissue gas is seen. There is generalized atrophy of the regional musculature. Advanced atherosclerotic calcification is noted in the regional arteries. 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 The calf arteries are diminutive but appear patent as imaged. IMPRESSION: 1. No acute osseous abnormality is seen involving the left tibia or fibula. 2. There is a 7.5 cm hematoma identified within the lateral subcutaneous soft tissues in the proximal to mid calf as above. 3. Diffuse superficial and deep soft tissue edema is present throughout the left lower extremity. 4. 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 5. Additional findings as above. ACT 112: Negative or not required by law. [facility], [phone] Ultrasound Report Patient: REENA BECKFORD EAdmit Date: 11/07/20#: [id number]: [facility] Russell Campust ID:[id number]: Date: 1935[facility] Zip: [place], [place] [address]Fot: 84Location: EDSex: MRoom/Bed:Att Phy:Diagnosis: LEFT LEG SWELLING W/BLACK&BLUE,INCREASING UPWARDSPri Phy: Allyssa Martinez CRNPServjeni Date: 11/07/20Fa Phy:Interpreting Phy: Brian Calvin MDAdmit Phy: Ordering Phy: Nick Ritter MD cc: ~ US venous doppler [facility] CLINICAL HISTORY: Left lower extremity swelling COMPARISON STUDY: 10/02/2020 FINDINGS: Real-time and color flow Doppler imaging were performed. Flow was seen within the femoral, popliteal and calf veins with no intraluminal thrombus demonstrated. The saphenous vein is patent. There is left lower extremity edema. IMPRESSION: 1. No evidence of left lower extremity DVT. (1) Open wound of leg Laterality: bilateral
--- NOTE | 2020-11-08 12:29 | Progress Notes ---
The patient was seen in conjunction with Raisa Verma. For further details, refer to her dictation. She and I saw and evaluated together and I am in agreement with plan. The patient has a chronic wound on his right lower leg, which is inflamed, but otherwise benign in ap pearance and should benefit from further wound care. He has a wound on the back of his left leg, whi ch may be more of a skin tear. Recommend wound management for that as well. He has a left total kne e in place, which is benign. He has a flexion contracture, but good range of motion. No erythema, p ain or swelling. He does have a hematoma on the anterolateral thigh, which by CT scan is 7 cm in size. He is not havi ng any pain at rest. It is tender to touch. Pedal pulses are not palpable, but he has good capillar y refill. Ankle movement is limited, but moving the toes and ankle does not elicit any pain and he d oes not have any evidence of compartment syndrome. I offered to aspirate the hematoma, but he chose to let things be for now. I would treat symptomatic ally with elevation, heat or ice. We will continue to monitor him. He has a normal white count. He is afebrile and his vital signs are stable. His lower extremity CT scan is reviewed and noted. Job ID: [id number]
[2020-11-08] MEDS ORDERED: WARFARIN SOD 3 MG TAB PO SCH (16:00)
--- NOTE | 2020-11-08 19:54 | Hospitalist Progress Note ---
Date of Service November 08, 2020 Assessment & Plan (1) Cellulitis of left leg: IMPROVED. Remains on zosyn & vanco. Left thigh lymphangitic spread is resolved. Left smith erythema improved. Blood cx's thus far negative. MRSA WHARF HELPER swab was negative. Can likely narrow the abx tomorrow. Continue stress-dose steroids but start weaning today. (2) Hematoma of left lower leg: He has thin skin at baseline from chronic prednisone use, is on warfarin, and has chronic edema - all risk factors for hematoma formation. Only mild H/H drop from this hematoma. Holding warfarin for now. Gen surg and ortho both saw patient - surgical I/D deferred for now. Start heat packs to hasten resolution. Elevation if he can tolerate such. Repeat H/H in am. (3) Acute blood loss anemia: Mild, 1 to 2 gm drop from baseline. H/H in am. (4) Acute on chronic diastolic (congestive) heart failure: Last echo 07/2020 with preserved EF of 55-60%. Intact RV function as well. Continue diuresis - tolerating such with stable BUN & Cr. re-eval for ongoing IV diuresis tomorrow. (5) Chronic anticoagulation: Chronic coumadin usage - 1.5 mg on Tuesdays and Fridays; 3 mg all other days. Holding coumadin due to LLE hematoma. INR daily. (6) Permanent atrial fibrillation: Rates controlled without AV emma agents. Coumadin on hold as above. Cont telemetry. (7) Hyperbilirubinemia: 2nd to passive hepatic congestion in setting of acute/chronic diastolic CHF? 2nd to passive congestion in setting of severe pulmonary HTN? either way trend for now. (8) Immunosuppression due to chronic steroid use: Chronic steroids - prednisone 7.5mg daily - for RA. Received stress dose steroids due to LLE cellulitis. Wean hydrocortisone today to 25mg BID (from 50mg). Then back to PO prednisone on Tuesday. (9) History of CVA (cerebrovascular accident): Noted. Typically on coumadin and aspirin for secondary stroke prevention. Both on hold due to LLE hematoma. If H/H stable and if hematoma is stable on exam -- can at least resume asa next 1-2 days. (10) Chronic obstructive pulmonary disease: Cont home med regimen. No acute exacerbation. (11) Rheumatoid arthritis: Holding methotrexate due to active cellulitis. Steroid dependent - 7.5 mg once daily at baseline. NO RA flare at this time. (12) S/P aortic valve replacement with bioprosthetic valve: Noted moderate noted on 07/2020 echo (13) Anemia: Transferrin sat 11% ferritin <100 b12/folate wnl consider Fe supplementation (14) Popliteal aneurysm: noted on CT of leg nothing to do at this time (15) Pulmonary hypertension: severe on prior echo 07/2020 (16) DVT prophylaxis: coumadin on hold, but INR still >2 needs PT, OT evals Admission and Anticipated Discharge Date Admission Date: November 07, 2020 Subjective patient sitting in chair watching TV asks when he can go home mild left leg pain only denies any cp or dyspnea has not been up OOB to see if he has CARPIO eating well tele overnight stable with good rate control he can't recall if he bumped his left leg on anything leading to the hematoma Review of Systems Constitutional: no fever, no chills, no fatigue and no anorexia Respiratory: no cough Cardiovascular: no chest pain Gastrointestinal: no abdominal pain Physical Exam Constitutional: + obese; no acute distress and no altered mental status speech mildly dysarthric ENMT: external ear and nose normal, oropharynx normal Respiratory: no respiratory distress Auscultation: + crackles (bases) and + wheezes (b/l) Cardiovascular: Rate/Rhythm: regular rate and + irregularly irregular Heart Sounds: normal S1, normal S2 and + murmur (2/6 systolic RUSB and LSB ) Vessels: + JVD (mild-moderate ), posterior tibial pulses present and dorsalis pedis pulses present Extremities: + edema (2+ b/l feet/ankles and to the calf regions b/l ) Gastrointestinal (Abdomen): normal bowel sounds, soft, nontender, no hepatosplenomegaly Musculoskeletal: large left mid-smith hematoma on lateral aspect; tense, no drainage, mild warmth. Mild overlying cellulitis. Skin: left thigh - previous lymphangitic spread of erythema resolved. left smith cellulitis improved from previous exams as documented by prior provider. hematoma, left lateral smith, as noted above. Neurologic: Speech / Cognition: + abnormal speech (mild dysarthria ) Psychiatric: Orientation: alert and oriented x 3 Results & Data Results & Data ([place]) Vital Signs (Past 12 Hours) Vital Signs Temp Pulse Resp BP Pulse Ox Pulse Ox 11/08/20 19:28 36.7 C 62 19 139/63 95 11/08/20 15:33 36.9 C 63 18 140/60 96 11/08/20 11:59 36.9 C 79 19 134/68 96 11/08/20 09:29 94 11/08/20 07:58 37.3 C 67 18 137/66 94 Laboratory Results Laboratory Results - last 24 hr 11/07/20 11/07/20 11/08/20 18:00 20:58 05:52 WBC 6.94 RBC 3.00 L Hgb 9.0 L Hct 29.2 L MCV 97.3 MCH 30.0 MCHC 30.8 L RDW Std Deviation 67.9 H RDW Coeff of Magali 19.0 H Plt Count 157 MPV 11.4 H Immature Gran % (Auto) 0.4 Neut % (Auto) 92.2 Lymph % (Auto) 4.6 Edgar % (Auto) 2.7 Eos % (Auto) 0.0 Baso % (Auto) 0.1 Neut # (Auto) 6.39 Lymph # (Auto) 0.32 L Edgar # (Auto) 0.19 Eos # (Auto) 0.00 Baso # (Auto) 0.01 Immature Gran # (Auto) 0.03 H PT INR Sodium Potassium Chloride Carbon Dioxide Anion Gap BUN Creatinine Est Cr Clr Drug Dosing Est GFR ( Amer) Est GFR (Non-Af Amer) Fasting Glucose Calcium Magnesium Iron TIBC Transferrin Transferrin % Sat Ferritin Total Bilirubin AST ALT Alkaline Phosphatase Troponin I < 0.015 NT-Pro-B Natriuret Pep 2342 H Total Protein Albumin Globulin Albumin/Globulin Ratio Vitamin B12 Folate Nasal Screen MRSA (PCR) Negative 11/08/20 11/08/20 11/08/20 05:52 05:52 05:52 WBC RBC Hgb Hct MCV MCH MCHC RDW Std Deviation RDW Coeff of Magali Plt Count MPV Immature Gran % (Auto) Neut % (Auto) Lymph % (Auto) Edgar % (Auto) Eos % (Auto) Baso % (Auto) Neut # (Auto) Lymph # (Auto) Edgar # (Auto) Eos # (Auto) Baso # (Auto) Immature Gran # (Auto) PT 24.5 H INR 2.6 H Sodium 139 Potassium 3.6 Chloride 101 Carbon Dioxide 31 Anion Gap 6.0 BUN 20 H Creatinine 1.05 Est Cr Clr Drug Dosing 54.1 Est GFR ( Amer) 75.2 Est GFR (Non-Af Amer) 64.9 Fasting Glucose 133 H Calcium 8.4 L Magnesium 2.2 Iron 34 L TIBC 260 Transferrin 209 Transferrin % Sat 11 L Ferritin 87.4 Total Bilirubin 1.6 H AST 17 ALT 19 Alkaline Phosphatase 63 Troponin I NT-Pro-B Natriuret Pep Total Protein 5.7 L Albumin 3.1 L Globulin 2.6 Albumin/Globulin Ratio 1.2 Vitamin B12 1566 H Folate > 20.00 Nasal Screen MRSA (PCR) PG Care Time/CCT Total # of Minutes Spent Total Time Spent with Patient: Total time spent is greater than 50% in coordination of care (as documented) at patient's floor/unit and/or counseling patient: Coding Level of Care Code 22020 Subseq Hosp Care Lvl 3 Diagnoses Cellulitis of left leg L03.116 Hematoma of left lower leg S80.12XA Acute blood loss anemia D62 Acute on chronic diastolic (congestive) heart failure I50.33 Chronic anticoagulation Z79.01 Permanent atrial fibrillation I48.2 Hyperbilirubinemia E80.6 Immunosuppression due to chronic steroid use Z79.52 History of CVA (cerebrovascular accident) Z86.73 Chronic obstructive pulmonary disease J44.9 Rheumatoid arthritis M06.9 S/P aortic valve replacement with bioprosthetic valve Z95.3 Anemia D64.9 Popliteal aneurysm I72.4 Pulmonary hypertension I27.20 DVT prophylaxis Z29.9
[2020-11-08] MEDS: PIPERACILLIN/TAZOBACTAM 4.5 GM in DEXTROSE 5% 100 ML IV SCH (20:07)
[2020-11-08] MEDS: ACETAMINOPHEN 325 MG TAB PO PRN (20:07)
[2020-11-08] MEDS: DOCUSATE SODIUM 100 MG CAP PO SCH (20:08)
[2020-11-09] MEDS: PIPERACILLIN/TAZOBACTAM 4.5 GM in DEXTROSE 5% 100 ML IV SCH ×3 (02:25→19:12)
[2020-11-09 06:02] LABS: Hematocrit (blood only) 29.8 % (42-52); Hemoglobin 9.2 g/dL (14.0-18.0)
[2020-11-09 06:08] LABS: INR 2.3 (0.9-1.1); Prothrombin Time 21.6 Seconds (9.0-12.0)
[2020-11-09 06:32] LABS: BUN Creatinine Ratio 23.6 (10-20); Calcium 8.4 mg/dl (8.5-10.1); Creatinine Clr Calc Pharmacy 53.7 ml/min; Est GFR (African American) 74.3 ml/min; Est GFR (Non-African American) 64.1 ml/min
[2020-11-09] MEDS ORDERED: POTASSIUM CHLORIDE CRTAB 20 MEQ TABCR PO STA (06:37)
[2020-11-09] MEDS: HYDROCORTISONE SOD 25 MG in SYRINGE 0 ML IV SCH ×2 (07:27→20:11)
[2020-11-09] MEDS: BUMETANIDE 2 MG in SYRINGE 0 ML IV SCH ×2 (07:27→16:37)
[2020-11-09] MEDS: ESCITALOPRAM OXALATE 10 MG TAB PO SCH (07:28)
[2020-11-09] MEDS: DOXAZosin MESYLATE 4 MG TAB PO SCH ×2 (07:28→20:10)
[2020-11-09] MEDS: PANTOprazole 40 MG TAB PO SCH (07:28)
[2020-11-09] MEDS: SILVER SULFADIAZINE 1% CR 400 GM JAR EXT SCH ×2 (07:29→20:11)
[2020-11-09] MEDS: SPIRONOLACTONE 25 MG TAB PO SCH (07:29)
[2020-11-09] MEDS: POLYETHYLENE (MIRALAX) 17 GM PACK PO SCH (07:30)
[2020-11-09] MEDS: FLUTICASONE/VILANTEROL 100/25MCG 14 PUFFS/INHALER INH SCH (07:30)
[2020-11-09] MEDS: HYDROmorphone INJ 0.5 MG/0.5 ML SYR IV PRN ×3 (08:52→17:53)
[2020-11-09] MEDS ORDERED: VANCOMYCIN TROUGH ONE (09:30)
[2020-11-09] MEDS: VANCOMYCIN HCL 1,250 MG in SODIUM CHLORIDE 0.9% 250 ML IV SCH (10:39)
--- NOTE | 2020-11-09 10:55 | Pharmacy Report ---
Pharmacy Abx Dose Short Note - Date of Service November 09, 2020 - Assessment & Plan Assessment 85 year old M receiving vancomycin/Zosyn for treatment of cellulitis Day # 3 of antimicrobial therapy. Renal function stable. Blood cultures negative to date. Vancomycin trough level drawn this AM was ~ a 10hr level. Plan Vancomycin * Patient meets criteria for vancomycin AUC dosing nomogram * AUC/LORRIE is the preferred PK/PD target for vancomycin * Target AUC/LORRIE = 400-600 * Trough level of 13.7 mcg/mL is predicted to achieve target AUC/LORRIE. Trough level of 22.1 is supratherapeutic. * Change to 1250 mg IV every 24 hours * Will obtain a trough level around steady state of modified regimen. Pharmacy will continue to follow and will adjust dose/frequency as necessary. Thank you.
--- NOTE | 2020-11-09 12:16 | Surgery Progress Note ---
Date of Service pt feels better, less LLE pain, less redness, no fever, November 09, 2020 Assessment & Plan (1) Cellulitis of left leg: (2) Hematoma of left lower leg: pt is a 85 year-old male who was admitted to hospital for left lower leg hematoma and cellulitis, IMP: left lower leg hematoma and cellulitis, Plan, no surgery indication now, I agree with conservative treatment now, IV antibiotic, wound care nurse consult, may hold warfarin for 2-3 days, may start low dose lovenox, will F/U, Thanks, 11/09/2020 12:15Pm F/U LLE hematoma, stable, better, less redness, continue treatment, will F/U, Thanks, Admission and Anticipated Discharge Date Admission Date: November 07, 2020 Supervising Physician Co-Signing Physician Notes RADHA Supervision Note: I personally saw and examined the patient. I verified all mariee points and agree with RADHA Solano with the following exceptions and/or additions: Patient is an 85-year-old male with history noted as above, here with significantly worsening swelling, erythema and open wound of the left lower extremity in the setting of chronic lymphedema. Patient failed increased oral diuretics at home and then the daughter noticed the erythema and warmth worsening in the last 24 hours. The patient complains of pain in left lower extremity. He has been afebrile. History and ROS reviewed as above Vitals reviewed Gen: AAOx3, NAD, obese HEENT: Anicteric sclerae, EOMI CV: Irregularly irregular, normal rate, nl S1S2 Pulm: CTAB no wcr Abd: +BS soft NT ND, obese Ext: 3+ woody edema of the entire left lower extremity, 1+ pitting edema the right lower extremity Skin: Significant erythema of the entire left lower extremity with streaking up the left inner thigh with 10 x 7 cm oval hematoma anterior left leg; right anterior leg with small open wound with Aquacel Ag in place, right great toe with toenail removed with dressing in place Neuro: No strength in left upper and left lower extremities Labs and radiology studies reviewed ECG reviewed with atrial fibrillation, RBBB 85-year-old male with history as above, here with left lower extremity cellulitis and hematoma in the setting of chronic lymphedema, also with acute on chronic right-sided diastolic CHF. Diuresis with IV Bumex Continue antibiotics for cellulitis as above -Add on orthopedics consult in case of need for evacuation of hematoma of left leg -Okay to continue Coumadin for now -Added on studies for anemia -Continue wound care -Follow-up results of CT leg when available Subjective patient sitting in chair watching TV asks when he can go home mild left leg pain only denies any cp or dyspnea has not been up OOB to see if he has CARPIO eating well tele overnight stable with good rate control he can't recall if he bumped his left leg on anything leading to the hematoma Physical Exam Constitutional: WD/WN, vitals as above well developed and well nourished Eyes: PERRL, conjunctivae normal, anicteric sclerae ENMT: external ear and nose normal, oropharynx normal Neck: trachea midline, no thyromegaly Respiratory: normal respiratory effort, lungs clear to auscultation normal respiratory effort Gastrointestinal (Abdomen): normal bowel sounds, soft, nontender, no hepatosplenomegaly Percussion/Palpation: abdomen soft Musculoskeletal: hematoma on LLE, less redness, no infection sign, Neurologic: awake Psychiatric: Orientation: alert and oriented x 3 Results & Data ([facility]) Vital Signs (Past 12 Hours) Vital Signs Temp Pulse Pulse Resp BP Pulse Ox Pulse Ox 11/09/20 11:43 36.7 C 65 17 138/62 95 11/09/20 09:00 96 11/09/20 08:09 61 21 159/66 H 95 11/09/20 03:24 36.5 C 58 L 18 144/67 H 94 Laboratory Results Abnormal lab results 11/09/20 11/09/20 11/09/20 Range/Units 05:32 05:32 05:32 Hgb 9.2 L (14.0-18.0) g/dL Hct 29.8 L (42-52) % PT 21.6 H (9.0-12.0) Seconds INR 2.3 H (0.9-1.1) Potassium 3.0 L D (3.5-5.1) mmol/L Carbon Dioxide 33 H (21-32) mmol/L BUN 25 H (7-18) mg/dl BUN/Creatinine Ratio 23.6 H (10-20) POC Glucose (70-99) mg/dl Calcium 8.4 L (8.5-10.1) mg/dl 11/09/20 Range/Units 11:08 Hgb (14.0-18.0) g/dL Hct (42-52) % PT (9.0-12.0) Seconds INR (0.9-1.1) Potassium (3.5-5.1) mmol/L Carbon Dioxide (21-32) mmol/L BUN (7-18) mg/dl BUN/Creatinine Ratio (10-20) POC Glucose 126 H (70-99) mg/dl Calcium (8.5-10.1) mg/dl
--- NOTE | 2020-11-09 12:23 | Hospitalist Progress Note ---
Date of Service November 09, 2020 Assessment & Plan (1) Cellulitis of left leg: MARKED IMPROVEMENT. Remains on zosyn & vanco. Will downgrade zosyn to rocephin. Cont vanco. Can likely transition to PO abx next 1-2 days. Left thigh lymphangitic spread is resolved. Blood cx's thus far negative. MRSA BUILD AND RELEASE MANAGER swab was negative. (2) Hematoma of left lower leg: He has thin skin at baseline from chronic prednisone use, is on warfarin, and has chronic edema - all risk factors for hematoma formation. Only mild H/H drop from this hematoma and H/h stable overnight. Holding warfarin for now but likely can resume tomorrow. Resume aspirin today. Gen surg and ortho both saw patient - surgical I/D deferred for now. Heat packs to hasten resolution. Elevation if he can tolerate such. (3) Acute blood loss anemia: Mild, 1 to 2 gm drop from baseline. H/H stable. Acute blood loss from hematoma. (4) Acute on chronic diastolic (congestive) heart failure: Last echo 07/2020 with preserved EF of 55-60%. Intact RV function as well. Continue diuresis - tolerating such with stable BUN & Cr. Baseline dry weight? (5) Chronic anticoagulation: Chronic coumadin usage - 1.5 mg on Tuesdays and Fridays; 3 mg all other days. Holding coumadin due to LLE hematoma. INR daily. Can likely resume coumadin tomorrow on Tuesday. (6) Permanent atrial fibrillation: Rates controlled without AV emma agents. Coumadin on hold as above. Cont telemetry. (7) Hyperbilirubinemia: 2nd to passive hepatic congestion in setting of acute/chronic diastolic CHF? 2nd to passive congestion in setting of severe pulmonary HTN? either way trend for now. (8) Immunosuppression due to chronic steroid use: Chronic steroids - prednisone 7.5mg daily - for RA. Received stress dose steroids due to LLE cellulitis. Weaning hydrocortisone. Then back to PO prednisone on Tuesday. (9) History of CVA (cerebrovascular accident): Noted. Typically on coumadin and aspirin for secondary stroke prevention. Both on hold due to LLE hematoma. But will resume aspirin today, then coumadin on Tuesday. (10) Chronic obstructive pulmonary disease: Cont home med regimen. No acute exacerbation. Add back his albuterol and mucomyst nebs. (11) Rheumatoid arthritis: Holding methotrexate due to active cellulitis. Steroid dependent - 7.5 mg once daily at baseline. NO RA flare at this time. (12) S/P aortic valve replacement with bioprosthetic valve: Noted moderate noted on 07/2020 echo (13) Anemia: Transferrin sat 11% ferritin <100 b12/folate wnl consider Fe supplementation (14) Popliteal aneurysm: noted on CT of leg nothing to do at this time (15) Pulmonary hypertension: severe on prior echo 07/2020 (16) Hypokalemia: replace repeat BMP am (17) DVT prophylaxis: coumadin on hold, but INR still >2 INR in am needs PT, OT evals but regardless of those evals pt's daughter doesn't want him placed at SNF or rehab daughter extensively updated at bedside I asked the community development planner to remove the pt's spouse as the primary supervisor contact lens Admission and Anticipated Discharge Date Admission Date: November 07, 2020 Subjective patient sitting in chair during visit offered no complaints watching TV eating well no dyspnea minimal left leg discomfort had 2nd bedside visit in the afternoon daughter at bedside daughter reports that Mrs Weaver about 3 weeks ago -- 2nd pancreatic cancer during the 2nd visit myself and the daughter transferred Mr Weaver from chair to the standing scale he was a 2+ max assist to do such daughter states that this is near his baseline? daughter confirms that Mr Weaver lives with her brother and he has 24/7 care at home rehab not desired Review of Systems Constitutional: no fatigue and no anorexia Respiratory: + dyspnea on exertion and + wheezing; no cough Cardiovascular: + edema; no dyspnea at rest Gastrointestinal: no abdominal pain, no nausea and no vomiting Physical Exam Constitutional: + obese; no acute distress and no altered mental status ENMT: external ear and nose normal, oropharynx normal Respiratory: Auscultation: + crackles (bases) and + wheezes (b/l) Cardiovascular: Rate/Rhythm: regular rate and + irregularly irregular Heart Sounds: normal S1, normal S2 and + murmur (2/6 systolic RUSB and LSB ) Vessels: + JVD (mild), posterior tibial pulses present and dorsalis pedis pulses present Extremities: + edema (2-3+ LLE; 1-2+ RLE; severe left foot edema ) Gastrointestinal (Abdomen): normal bowel sounds, soft, nontender, no hepatosplenomegaly Skin: hematoma left lateral leg unchanged; cellulitis LLE much improved; lymphangitic spread left medial thigh resolved; macerated skin posterior left calf with serous drainage Neurologic: Speech / Cognition: + abnormal speech (mild dysarthria ) Psychiatric: Orientation: alert and oriented x 3 Results & Data Results & Data ([facility]) Vital Signs (Past 12 Hours) Vital Signs Temp Pulse Pulse Resp BP Pulse Ox Pulse Ox 11/09/20 11:43 36.7 C 65 17 138/62 95 11/09/20 09:00 96 11/09/20 08:09 61 21 159/66 H 95 11/09/20 03:24 36.5 C 58 L 18 144/67 H 94 Laboratory Results BMP wnl blood cx's negative PG Care Time/CCT Total # of Minutes Spent Total Time Spent with Patient: Total time spent is greater than 50% in coordination of care (as documented) at patient's floor/unit and/or counseling patient: Coding Level of Care Code 42832 Subseq Hosp Care Lvl 3 Diagnoses Cellulitis of left leg L03.116 Hematoma of left lower leg S80.12XA Acute blood loss anemia D62 Acute on chronic diastolic (congestive) heart failure I50.33 Chronic anticoagulation Z79.01 Permanent atrial fibrillation I48.2 Hyperbilirubinemia E80.6 Immunosuppression due to chronic steroid use Z79.52 History of CVA (cerebrovascular accident) Z86.73 Chronic obstructive pulmonary disease J44.9 Rheumatoid arthritis M06.9 S/P aortic valve replacement with bioprosthetic valve Z95.3 Anemia D64.9 Popliteal aneurysm I72.4 Pulmonary hypertension I27.20 Hypokalemia E87.6 DVT prophylaxis Z29.9
[2020-11-09] MEDS: cefTRIAXone SODIUM 2,000 MG in DEXTROSE 5% 50 ML IV SCH (12:48)
[2020-11-09] MEDS: POTASSIUM CHLORIDE CRTAB 20 MEQ TABCR PO SCH ×2 (13:12→20:10)
[2020-11-09] MEDS ORDERED: ASPIRIN 81 MG ECTAB PO ONE (14:00)
[2020-11-09] MEDS ORDERED: VANCOMYCIN HCL 1,250 MG in SODIUM CHLORIDE 0.9% 250 ML IV SCH (18:00)
[2020-11-09] MEDS ORDERED: ACETYLCYSTEINE 20% INHAL SOLN 30ML INH SCH (19:00)
[2020-11-09] MEDS: DOCUSATE SODIUM 100 MG CAP PO SCH (19:15)
[2020-11-09] MEDS: ALBUTEROL 0.083% NEBU SOLN 3 ML VIAL NEB SCH (19:40)
[2020-11-10] MEDS: HYDROmorphone INJ 0.5 MG/0.5 ML SYR IV PRN ×2 (03:30→14:07)
[2020-11-10 06:33] LABS: INR 1.6 (0.9-1.1); Prothrombin Time 16.1 Seconds (9.0-12.0)
[2020-11-10 06:39] LABS: BUN Creatinine Ratio 25.6 (10-20); Calcium 8.5 mg/dl (8.5-10.1); Est GFR (African American) 85.9 ml/min; Est GFR (Non-African American) 74.2 ml/min; Potassium 3.1 mmol/L (3.5-5.1)
[2020-11-10] MEDS: ACETYLCYSTEINE 20% INHAL SOLN 4ML ***DISPENSED BY RESP. INH SCH ×2 (07:00→19:38)
[2020-11-10] MEDS: ALBUTEROL 0.083% NEBU SOLN 3 ML VIAL NEB SCH ×3 (07:01→19:39)
[2020-11-10] MEDS ORDERED: predniSONE 20 MG TAB PO STA (07:28)
--- NOTE | 2020-11-10 08:48 | Orthopedic Progress Note ---
Date of Service November 10, 2020 Assessment & Plan (1) Hematoma of left lower leg: Discussed treatment options with patient - aspiration vs surgical intervention vs letting it be He would like to let the hematoma be. Not painful if not moving Would recommend continued use of ice left leg, compression if tolerated Wound care to wounds as instructed. Ice and elevation of left leg for swelling and pain. He may weight bear as tolerated Will discuss findings with Dr. Zamorano and will follow up as needed for hematoma as an outpatient Okay from ortho standpoint for discharge when medically stable. (2) Open wound of leg: Admission and Anticipated Discharge Date Admission Date: November 07, 2020 Subjective Patient sitting in bed, states that he would like to go home. He thinks that he will do better there and is tearful this morning. States that "he doesn't want to here". Denies pain in his left leg. Physical Exam Physical Exam: Exam of left leg; Left leg edematous, hematoma tender to the touch. Mild warmth. Ecchymosis. Flexion contracture of left knee. No knee effusion. Edema into left foot. Sensation normal of left foot today. He does have some pain with movement of his left leg as he asked me to move it to a different position on the bed. Dressings intact over wound left lower leg. Dressings not removed today. Results & Data ([facility]) Vital Signs (Past 12 Hours) Vital Signs Temp Pulse Resp BP Pulse Ox 11/10/20 07:40 37.0 C 71 17 141/59 H 92 11/10/20 07:02 71 18 91 11/10/20 03:04 36.8 C 79 20 156/63 H 94 11/09/20 23:16 36.6 C 71 19 145/59 H 95 (1) Open wound of leg Laterality: bilateral
[2020-11-10] MEDS: BUMETANIDE 2 MG in SYRINGE 0 ML IV SCH ×2 (08:56→17:45)
[2020-11-10] MEDS: PANTOprazole 40 MG TAB PO SCH (08:56)
[2020-11-10] MEDS: FLUTICASONE/VILANTEROL 100/25MCG 14 PUFFS/INHALER INH SCH (08:56)
[2020-11-10] MEDS: DOXAZosin MESYLATE 4 MG TAB PO SCH ×2 (08:56→20:30)
[2020-11-10] MEDS: POLYETHYLENE (MIRALAX) 17 GM PACK PO SCH (08:57)
[2020-11-10] MEDS: POTASSIUM CHLORIDE CRTAB 20 MEQ TABCR PO SCH ×3 (08:57→20:29)
[2020-11-10] MEDS: SPIRONOLACTONE 25 MG TAB PO SCH (08:58)
[2020-11-10] MEDS: ESCITALOPRAM OXALATE 10 MG TAB PO SCH (09:00)
[2020-11-10] MEDS: ACETAMINOPHEN 325 MG TAB PO PRN (09:09)
[2020-11-10] MEDS: ASPIRIN 81 MG ECTAB PO SCH (10:30)
--- NOTE | 2020-11-10 10:30 | Surgery Progress Note ---
Date of Service F/U LLE hematoma, stable, no fever, no redness on hematoma area, November 10, 2020 Assessment & Plan (1) Cellulitis of left leg: (2) Hematoma of left lower leg: pt is a 85 year-old male who was admitted to hospital for left lower leg hematoma and cellulitis, IMP: left lower leg hematoma and cellulitis, Plan, no surgery indication now, I agree with conservative treatment now, IV antibiotic, wound care nurse consult, may hold warfarin for 2-3 days, may start low dose lovenox, will F/U, Thanks, 11/09/2020 12:15Pm F/U LLE hematoma, stable, better, less redness, continue treatment, will F/U, Thanks, 11/10/2020 10:29AM F/U LLE hematoma, no surgery indication now, stable, better, no redness, continue treatment, sign off today, please call with questions, , Thanks, Admission and Anticipated Discharge Date Admission Date: November 07, 2020 Supervising Physician Co-Signing Physician Notes RADHA Supervision Note: I personally saw and examined the patient. I verified all mariee points and agree with RADHA Solano with the following exceptions and/or additions: Patient is an 85-year-old male with history noted as above, here with significantly worsening swelling, erythema and open wound of the left lower extremity in the setting of chronic lymphedema. Patient failed increased oral diuretics at home and then the daughter noticed the erythema and warmth worsening in the last 24 hours. The patient complains of pain in left lower extremity. He has been afebrile. History and ROS reviewed as above Vitals reviewed Gen: AAOx3, NAD, obese HEENT: Anicteric sclerae, EOMI CV: Irregularly irregular, normal rate, nl S1S2 Pulm: CTAB no wcr Abd: +BS soft NT ND, obese Ext: 3+ woody edema of the entire left lower extremity, 1+ pitting edema the right lower extremity Skin: Significant erythema of the entire left lower extremity with streaking up the left inner thigh with 10 x 7 cm oval hematoma anterior left leg; right anterior leg with small open wound with Aquacel Ag in place, right great toe with toenail removed with dressing in place Neuro: No strength in left upper and left lower extremities Labs and radiology studies reviewed ECG reviewed with atrial fibrillation, RBBB 85-year-old male with history as above, here with left lower extremity cellulitis and hematoma in the setting of chronic lymphedema, also with acute on chronic right-sided diastolic CHF. Diuresis with IV Bumex Continue antibiotics for cellulitis as above -Add on orthopedics consult in case of need for evacuation of hematoma of left leg -Okay to continue Coumadin for now -Added on studies for anemia -Continue wound care -Follow-up results of CT leg when available Subjective Patient sitting in bed, states that he would like to go home. He thinks that he will do better there and is tearful this morning. States that "he doesn't want to here". Denies pain in his left leg. Physical Exam Constitutional: WD/WN, vitals as above well developed and well nourished Eyes: PERRL, conjunctivae normal, anicteric sclerae ENMT: external ear and nose normal, oropharynx normal Neck: trachea midline, no thyromegaly Respiratory: normal respiratory effort, lungs clear to auscultation normal respiratory effort Gastrointestinal (Abdomen): normal bowel sounds, soft, nontender, no hepatosplenomegaly Percussion/Palpation: abdomen soft Musculoskeletal: hematoma on LLE, no redness, no infected signs, Neurologic: awake Psychiatric: Orientation: alert and oriented x 3 Results & Data ([facility]) Vital Signs (Past 12 Hours) Vital Signs Temp Pulse Resp BP Pulse Ox 11/10/20 07:40 37.0 C 71 17 141/59 H 92 11/10/20 07:02 71 18 91 11/10/20 03:04 36.8 C 79 20 156/63 H 94 11/09/20 23:16 36.6 C 71 19 145/59 H 95 Laboratory Results Abnormal lab results 11/09/20 11/09/20 11/10/20 Range/Units 11:08 16:07 06:00 PT 16.1 H (9.0-12.0) Seconds INR 1.6 H (0.9-1.1) Potassium (3.5-5.1) mmol/L Carbon Dioxide (21-32) mmol/L BUN (7-18) mg/dl BUN/Creatinine Ratio (10-20) Glucose (70-99) mg/dl POC Glucose 126 H 129 H (70-99) mg/dl 06/28/21 Range/Units 06:00 PT (9.0-12.0) Seconds INR (0.9-1.1) Potassium 3.1 L (3.5-5.1) mmol/L Carbon Dioxide 33 H (21-32) mmol/L BUN 24 H (7-18) mg/dl BUN/Creatinine Ratio 25.6 H (10-20) Glucose 102 H (70-99) mg/dl POC Glucose (70-99) mg/dl
[2020-11-10] MEDS: SILVER SULFADIAZINE 1% CR 400 GM JAR EXT SCH ×2 (11:52→20:30)
--- NOTE | 2020-11-10 13:31 | Electrocardiogram Report ---
Test Reason : Blood Pressure : / mmHG Vent. Rate : 066 BPM Atrial Rate : 214 BPM P-R Int : 000 ms QRS Dur : 152 ms QT Int : 474 ms P-R-T Axes : 000 047 017 degrees QTc Int : 496 ms Atrial fibrillation with premature ventricular or aberrantly conducted complexes Right bundle branch block Abnormal ECG When compared with ECG of 07-NOV-2020 12:24, Criteria for Septal infarct are no longer Present Confirmed by Jake Steen ([id number]) on 11/10/2020 1:31:18 PM Referred By: REFERRED SELF Confirmed By:Jake Steen
[2020-11-10] MEDS: cefTRIAXone SODIUM 2,000 MG in DEXTROSE 5% 50 ML IV SCH (14:07)
--- NOTE | 2020-11-10 16:23 | Electrocardiogram Report ---
Test Reason : Blood Pressure : / mmHG Vent. Rate : 068 BPM Atrial Rate : 182 BPM P-R Int : 000 ms QRS Dur : 150 ms QT Int : 524 ms P-R-T Axes : 000 007 -19 degrees QTc Int : 557 ms Regular Wide QRS rhythm , likely accelerated junctional with underlying atrial fibrillation Right bundle branch block Septal infarct , age undetermined Abnormal ECG When compared with ECG of 08-NOV-2020 06:37, (unconfirmed) Wide QRS rhythm has replaced Atrial fibrillation Confirmed by Jake Steen ([id number]) on 11/10/2020 4:22:58 PM Referred By: REFERRED SELF Confirmed By:Jake Steen
--- NOTE | 2020-11-10 16:49 | Hospitalist Progress Note ---
Date of Service November 10, 2020 Assessment & Plan (1) Cellulitis of left leg: ONGOING IMPROVEMENT. Remains on rocephin & vanco. Can likely transition to PO abx tomorrow. Left thigh lymphangitic spread is resolved. Blood cx's remain negative. MRSA VICE PRESIDENT OF COMPLIANCE swab was negative. (2) Hematoma of left lower leg: He has thin skin at baseline from chronic prednisone use, is on warfarin, and has chronic edema - all risk factors for hematoma formation. Hematoma unchanged in size overnight. Warfarin had been held out of abundance of caution and concern for worsening bleeding (and potential for needing surgical intervention). Gen surg and ortho both saw patient - surgical I/D deferred for now. Cont conservative care. In light of above - can resume coumadin. CHADsVASc is very high and he has had prior CVA - reasonable to bridge w/ heparin while here. PTT, INR am. Heat packs to hasten resolution. Elevation if he can tolerate such. (3) Acute blood loss anemia: Mild, 1 to 2 gm drop from baseline. H/H stable. Acute blood loss from hematoma. Repeat CBC am. (4) Acute on chronic diastolic (congestive) heart failure: Last echo 07/2020 with preserved EF of 55-60%. Intact RV function as well. Continue diuresis - tolerating such with stable BUN & Cr. Baseline dry weight uncertain - looking at weights over last year in computer he is likely 87-88kg at baseline. Repeat BMP am. Cont IV bumex. Daily weights. He is not on betablockers at baseline. (5) Chronic anticoagulation: Chronic coumadin usage - 1.5 mg on Tuesdays and Fridays; 3 mg all other days. Had held coumadin due to LLE hematoma. Ok to resume today - will give 3mg today. INR am. Reasonable to bridge w/ IV heparin as he has had significant CVA in past and CHADS is high. (6) Permanent atrial fibrillation: Rates controlled without AV emma agents. Coumadin - resume today. (7) Hyperbilirubinemia: likely 2nd to passive hepatic congestion in setting of acute/chronic diastolic CHF and pulmonary HTN. recheck before d/c. (8) Immunosuppression due to chronic steroid use: Chronic steroids - prednisone 7.5mg daily - for RA. Received stress dose steroids due to LLE cellulitis. Weaned hydrocortisone; back to PO prednisone today. Plan - prednisone 20mg x 1 today, then 10mg tomorrow, then resume normal dose 7.5mg daily starting Tuesday. (9) History of CVA (cerebrovascular accident): Noted. Typically on coumadin and aspirin for secondary stroke prevention. Aspirin resumed yesterday. Coumadin - resume today. (10) Chronic obstructive pulmonary disease: Cont home med regimen. No acute exacerbation. Mild wheezes on exam - could be his COPD or pulm edema induced. (11) Rheumatoid arthritis: Holding methotrexate due to active cellulitis. Steroid dependent - 7.5 mg once daily at baseline. NO RA flare at this time. (12) S/P aortic valve replacement with bioprosthetic valve: Noted moderate noted on 07/2020 echo (13) Anemia: Transferrin sat 11% ferritin <100 b12/folate wnl consider Fe supplementation repeat CBC am (14) Popliteal aneurysm: noted on CT of leg nothing to do at this time (15) Pulmonary hypertension: severe on prior echo 07/2020 (16) Hypokalemia: again replace repeat BMP am (17) Depression: remains on lexapro 10mg daily having increasing anxiety and crying spells since 's in late September will ask psychiatry to see (18) DVT prophylaxis: resume coumadin heparin bridge PT, OT evals completed; but regardless of those evals pt's daughter doesn't want him placed at SNF or rehab daughter extensively updated at bedside once again today Dr Feng, his music video producer, to see patient tomorrow Admission and Anticipated Discharge Date Admission Date: November 07, 2020 Subjective daughter at bedside during the visit tele overnight w/ a.fib had several runs of NSVT this afternoon - no symptoms patient sitting in chair during visit c/o not being able to sleep well in the bed; requests sleeping in chair tonight daughter asks if lexapro can be increased he has been tearful since and has had increasing anxiety per daughter when patient was asked about his spirits he says "he's been ok" daughter concerned that pt's INR is 1.6 today; explained to her that coumadin had been held because of the left LLE hematoma discharge was discussed - hopefully next 48 hours also told them Dr Feng would stop in tomorrow Review of Systems Constitutional: no anorexia Respiratory: no cough Cardiovascular: + dyspnea on exertion and + edema; no chest pain and no dyspnea at rest Gastrointestinal: no abdominal pain, no nausea and no vomiting Physical Exam Constitutional: + obese; no acute distress and no altered mental status ENMT: external ear and nose normal, oropharynx normal Respiratory: no respiratory distress Auscultation: + crackles (bases) and + wheezes (b/l) Cardiovascular: Rate/Rhythm: regular rate and + irregularly irregular Heart Sounds: normal S1, normal S2 and + murmur (2/6 systolic RUSB and LSB ) Vessels: posterior tibial pulses present and dorsalis pedis pulses present; no JVD Extremities: + edema (2-3+ LLE; 1-2+ RLE; modestly better today) Gastrointestinal (Abdomen): normal bowel sounds, soft, nontender, no hepatosplenomegaly Skin: left leg - hematoma left lateral smiht with NO change in size; warmth and ecchymoses present - no change. cellulitis of LLE continues to improved; optifoam dressing intact posterior calf; macerated skin there continues to leak serous fluid Neurologic: Speech / Cognition: + abnormal speech (mild dysarthria ) Psychiatric: Orientation: alert and oriented x 3 Results & Data Results & Data ([facility]) Vital Signs (Past 12 Hours) Vital Signs Temp Pulse Pulse Resp BP Pulse Ox 11/10/20 15:45 36.8 C 71 18 148/55 H 94 11/10/20 13:35 72 18 96 11/10/20 11:52 37.0 C 80 18 149/58 H 92 11/10/20 08:00 81 11/10/20 07:40 37.0 C 71 17 141/59 H 92 11/10/20 07:02 71 18 91 Laboratory Results Laboratory Results - last 24 hr 11/10/20 11/10/20 11/10/20 06:00 06:00 17:51 PT 16.1 H INR 1.6 H APTT PTT Ratio Sodium 142 Potassium 3.1 L Chloride 104 Carbon Dioxide 33 H Anion Gap 5.0 BUN 24 H Creatinine 0.94 Est Cr Clr Drug Dosing 59.0 Est GFR ( Amer) 85.9 Est GFR (Non-Af Amer) 74.2 BUN/Creatinine Ratio 25.6 H Glucose 102 H Calcium 8.5 Random Vancomycin 15.1 11/10/20 11/11/20 17:51 01:58 PT INR APTT 32.5 H 78.6 H* PTT Ratio 1.2 3.0 Sodium Potassium Chloride Carbon Dioxide Anion Gap BUN Creatinine Est Cr Clr Drug Dosing Est GFR ( Amer) Est GFR (Non-Af Amer) BUN/Creatinine Ratio Glucose Calcium Random Vancomycin PG Care Time/CCT Total # of Minutes Spent Total Time Spent with Patient: Total time spent is greater than 50% in coordination of care (as documented) at patient's floor/unit and/or counseling patient: Coding Level of Care Code 08164 Subseq Hosp Care Lvl 3 Diagnoses Cellulitis of left leg L03.116 Hematoma of left lower leg S80.12XA Acute blood loss anemia D62 Acute on chronic diastolic (congestive) heart failure I50.33 Chronic anticoagulation Z79.01 Permanent atrial fibrillation I48.2 Hyperbilirubinemia E80.6 Immunosuppression due to chronic steroid use Z79.52 History of CVA (cerebrovascular accident) Z86.73 Chronic obstructive pulmonary disease J44.9 Rheumatoid arthritis M06.9 S/P aortic valve replacement with bioprosthetic valve Z95.3 Anemia D64.9 Popliteal aneurysm I72.4 Pulmonary hypertension I27.20 Hypokalemia E87.6 Depression F32.9 DVT prophylaxis Z29.9
[2020-11-10] MEDS ORDERED: Heparin IV Adult Wt-Based Standard *NO* Bolus Protocol IV SCH (17:00)
[2020-11-10] MEDS: WARFARIN SOD 3 MG TAB PO SCH (18:28)
[2020-11-10 18:39] LABS: Partial Thromboplastin Ratio 1.2; Partial Thromboplastin Time 32.5 Seconds (21.0-31.0)
[2020-11-10] MEDS: HEPARIN SODIUM/DEXTROSE 25,000 UNITS/500 ML BAG IV SCH (19:30)
[2020-11-10] MEDS: DOCUSATE SODIUM 100 MG CAP PO SCH (20:29)
[2020-11-10] MEDS ORDERED: VANCOMYCIN HCL 1,250 MG in SODIUM CHLORIDE 0.9% 250 ML IV SCH (21:00)
[2020-11-11 03:02] LABS: Partial Thromboplastin Time 78.6 Seconds (21.0-31.0)
[2020-11-11 06:43] LABS: Basophils # (auto) 0.01 K/uL (0-0.2); Basophils % (auto) 0.1 %; Eosinophils # (auto) 0.19 K/uL (0-0.5); Eosinophils % (auto) 2.6 %; Hematocrit (blood only) 29.6 % (42-52); Hemoglobin 8.7 g/dL (14.0-18.0); Immature Granulocytes # (auto) 0.06 K/uL (0.00-0.02); Immature Granulocytes % (auto) 0.8 %; Lymphocytes # (auto) 0.45 K/uL (1.2-3.4); Lymphocytes % (auto) 6.2 %; Mean Corpuscular Hemoglobin 29.5 pg (25-34); Mean Corpuscular Hgb Conc 29.4 g/dL (32-36); Mean Corpuscular Volume 100.3 fL (80-100); Mean Platelet Volume 10.5 fL (7.4-10.4); Monocytes % (auto) 5.5 %; Neutrophils % (auto) 84.8 %; Platelet Count 159 K/uL (130-400); RDW Coefficient of Variation 19.5 % (11.5-14.5); RDW Standard Deviation 71.7 fL (36.4-46.3); Red Blood Count 2.95 M/uL (4.7-6.1); White Blood Count 7.21 K/uL (4.8-10.8)
[2020-11-11] MEDS: ACETYLCYSTEINE 20% INHAL SOLN 4ML ***DISPENSED BY RESP. INH SCH ×2 (06:50→19:03)
[2020-11-11] MEDS: ALBUTEROL 0.083% NEBU SOLN 3 ML VIAL NEB SCH ×3 (06:50→19:03)
[2020-11-11 07:28] LABS: BUN Creatinine Ratio 24.8 (10-20); Calcium 8.7 mg/dl (8.5-10.1); Est GFR (African American) 91.4 ml/min; Est GFR (Non-African American) 78.9 ml/min; Potassium 3.6 mmol/L (3.5-5.1)
[2020-11-11] MEDS: HYDROmorphone INJ 0.5 MG/0.5 ML SYR IV PRN ×5 (07:31→23:02)
[2020-11-11] MEDS: POLYETHYLENE (MIRALAX) 17 GM PACK PO SCH (07:41)
[2020-11-11] MEDS: FLUTICASONE/VILANTEROL 100/25MCG 14 PUFFS/INHALER INH SCH (08:20)
[2020-11-11] MEDS: BUMETANIDE 2 MG in SYRINGE 0 ML IV SCH ×2 (08:21→16:40)
[2020-11-11] MEDS: DOXAZosin MESYLATE 4 MG TAB PO SCH ×2 (08:21→21:40)
[2020-11-11] MEDS: ASPIRIN 81 MG ECTAB PO SCH (08:21)
[2020-11-11] MEDS: POTASSIUM CHLORIDE CRTAB 20 MEQ TABCR PO SCH ×3 (08:21→21:40)
[2020-11-11] MEDS: SPIRONOLACTONE 25 MG TAB PO SCH (08:21)
[2020-11-11] MEDS: ESCITALOPRAM OXALATE 10 MG TAB PO SCH (08:21)
[2020-11-11] MEDS: PANTOprazole 40 MG TAB PO SCH (08:21)
[2020-11-11] MEDS: SILVER SULFADIAZINE 1% CR 400 GM JAR EXT SCH ×2 (08:22→21:41)
[2020-11-11] MEDS ORDERED: predniSONE 10 MG TABLET PO ONE (09:00)
[2020-11-11 09:54] LABS: Partial Thromboplastin Ratio 3.4
[2020-11-11 09:58] LABS: Partial Thromboplastin Time 88.3 Seconds (21.0-31.0)
[2020-11-11] MEDS ORDERED: Nursing to Pharmacy Communication SCH (10:30)
[2020-11-11 10:54] LABS: INR 1.5 (0.9-1.1); Prothrombin Time 14.6 Seconds (9.0-12.0)
--- NOTE | 2020-11-11 11:26 | Hospitalist Progress Note ---
Date of Service November 11, 2020 Assessment & Plan (1) Cellulitis of left leg: ONGOING IMPROVEMENT. Remains on rocephin & vanco. d/c IV abx - change to omnicef with doxy. Complete 7-10 days of oral abx. Left thigh lymphangitic spread is resolved. Blood cx's remain negative. MRSA BACK HOE OPERATOR swab was negative. (2) Hematoma of left lower leg: Hematoma unchanged in size overnight; it actually may even be a bit smaller today. Warfarin had been held out of abundance of caution and concern for worsening bleeding (and potential for needing surgical intervention). Gen surg and ortho both saw patient - surgical I/D still deferred. Cont conservative care. Heat packs to hasten resolution. Elevation if he can tolerate such. asa resumed. coumadin with heparin drip continue. (3) Acute blood loss anemia: Mild, 1 to 2 gm drop from baseline. H/H stable. Acute blood loss from hematoma. Hb 8.7 today. Needs Fe supplementation. (4) Acute on chronic diastolic (congestive) heart failure: Last echo 07/2020 with preserved EF of 55-60%. Intact RV function as well. Continue diuresis - tolerating such with stable BUN & Cr. Baseline dry weight uncertain but suspect we are approaching euvolemia. d/c IV bumex after tonight's dose, then resume PO bumex in am. Repeat BMP am. Daily weights. He is not on betablockers at baseline. (5) Chronic anticoagulation: Chronic coumadin usage - 1.5 mg on Tuesdays and Fridays; 3 mg all other days. Had held coumadin due to LLE hematoma. 3mg coumadin given on 11/10. will give 4.5mg coumadin today. then 3mg tomorrow. INR am. Reasonable to bridge w/ IV heparin as he has had significant CVA in past and CHADS is high. (6) Permanent atrial fibrillation: Rates controlled without AV emma agents. Coumadin - resume today. (7) Hyperbilirubinemia: likely 2nd to passive hepatic congestion in setting of acute/chronic diastolic CHF and pulmonary HTN. (8) Immunosuppression due to chronic steroid use: Chronic steroids - prednisone 7.5mg daily - for RA. Received stress dose steroids due to LLE cellulitis. prednisone 10mg x 1 today, then resume normal dose 7.5mg daily starting tomorrow. (9) History of CVA (cerebrovascular accident): Noted. Typically on coumadin and aspirin for secondary stroke prevention. Aspirin and coumadin both resumed. see above. (10) Chronic obstructive pulmonary disease: Cont home med regimen. No acute exacerbation. Mild wheezes on exam - could be his COPD or pulm edema induced. (11) Rheumatoid arthritis: Holding methotrexate due to active cellulitis. Steroid dependent - 7.5 mg once daily at baseline. NO RA flare at this time. (12) S/P aortic valve replacement with bioprosthetic valve: Noted moderate noted on 07/2020 echo (13) Anemia: Transferrin sat 11% ferritin <100 b12/folate wnl needs Fe supplementation (14) Popliteal aneurysm: noted on CT of leg nothing to do at this time (15) Pulmonary hypertension: severe on prior echo 07/2020 (16) Hypokalemia: resolved cont supplementation due to IV diuresis can likely cut back the K supplement dose tomorrow (17) Depression: remains on lexapro 10mg daily having increasing anxiety and crying spells since 's in late September psychiatry saw in consult - lexapro increased to 20mg/day I prayed with patient today; gave support recommend outpatient counseling or pastoral support (18) DVT prophylaxis: coumadin + heparin IV PT, OT evals completed; but regardless of those evals pt's daughter doesn't want him placed at SNF or rehab daughter extensively updated at bedside yesterday; left phone message for her this evening Dr Feng, his hospitalist program director, saw patient as well today d/c home tomorrow?? Tuesday? Admission and Anticipated Discharge Date Admission Date: November 07, 2020 Subjective patient sitting in chair as usual he slept in the recliner last night denies any complaints very emotional - nearly tearful - wants to go home, misses his family mild LLE pain only no dyspnea no cough no abd pain eating fair tele - a.fib, rates controlled Review of Systems Respiratory: no cough, no dyspnea, no hemoptysis and no wheezing Cardiovascular: + edema; no chest pain and no orthopnea Gastrointestinal: no abdominal pain, no nausea and no vomiting Physical Exam Constitutional: + obese; no acute distress and no altered mental status ENMT: external ear and nose normal, oropharynx normal Respiratory: no respiratory distress Auscultation: + crackles (bases - minimal today -- much improved); no wheezes Cardiovascular: Rate/Rhythm: regular rate and + irregularly irregular Heart Sounds: normal S1, normal S2 and + murmur (2/6 systolic RUSB and LSB ) Vessels: posterior tibial pulses present and dorsalis pedis pulses present; no JVD Extremities: + edema (2+ LLE; 1+ RLE; modestly better again today) Gastrointestinal (Abdomen): normal bowel sounds, soft, nontender, no hepatosplenomegaly Skin: ulceration, venous, anterior right smith - with yellow exudate; left leg lateral hematoma unchanged or slightly better; cellulitis - much improved, mainly surrounding the hematoma Neurologic: Speech / Cognition: + abnormal speech (mild dysarthria ) Psychiatric: Orientation: alert and oriented x 3 Results & Data Results & Data ([facility]) Vital Signs (Past 12 Hours) Vital Signs Temp Pulse Pulse Resp BP Pulse Ox 11/11/20 09:47 72 11/11/20 07:47 36.7 C 75 20 158/70 H 94 11/11/20 06:51 70 19 96 11/11/20 03:00 36.6 C 80 20 177/70 H 95 11/11/20 01:17 67 Laboratory Results Laboratory Results - last 24 hr 11/10/20 11/10/20 11/11/20 17:51 17:51 01:58 WBC RBC Hgb Hct MCV MCH MCHC RDW Std Deviation RDW Coeff of Magali Plt Count MPV Immature Gran % (Auto) Neut % (Auto) Lymph % (Auto) Gosper % (Auto) Eos % (Auto) Baso % (Auto) Neut # (Auto) Lymph # (Auto) Gosper # (Auto) Eos # (Auto) Baso # (Auto) Immature Gran # (Auto) PT INR APTT 32.5 H 78.6 H* PTT Ratio 1.2 3.0 Sodium Potassium Chloride Carbon Dioxide Anion Gap BUN Creatinine Est Cr Clr Drug Dosing Est GFR ( Amer) Est GFR (Non-Af Amer) BUN/Creatinine Ratio Glucose Calcium Random Vancomycin 15.1 11/11/20 11/11/20 11/11/20 06:03 06:03 09:10 WBC 7.21 RBC 2.95 L Hgb 8.7 L Hct 29.6 L MCV 100.3 H MCH 29.5 MCHC 29.4 L RDW Std Deviation 71.7 H RDW Coeff of Magali 19.5 H Plt Count 159 MPV 10.5 H Immature Gran % (Auto) 0.8 Neut % (Auto) 84.8 Lymph % (Auto) 6.2 Gosper % (Auto) 5.5 Eos % (Auto) 2.6 Baso % (Auto) 0.1 Neut # (Auto) 6.10 Lymph # (Auto) 0.45 L Gosper # (Auto) 0.40 Eos # (Auto) 0.19 Baso # (Auto) 0.01 Immature Gran # (Auto) 0.06 H PT INR APTT 88.3 H* PTT Ratio 3.4 Sodium 143 Potassium 3.6 D Chloride 107 Carbon Dioxide 32 Anion Gap 4.0 BUN 22 H Creatinine 0.88 Est Cr Clr Drug Dosing 63.0 Est GFR ( Amer) 91.4 Est GFR (Non-Af Amer) 78.9 BUN/Creatinine Ratio 24.8 H Glucose 102 H Calcium 8.7 Random Vancomycin 11/11/20 09:10 WBC RBC Hgb Hct MCV MCH MCHC RDW Std Deviation RDW Coeff of Magali Plt Count MPV Immature Gran % (Auto) Neut % (Auto) Lymph % (Auto) Gosper % (Auto) Eos % (Auto) Baso % (Auto) Neut # (Auto) Lymph # (Auto) Gosper # (Auto) Eos # (Auto) Baso # (Auto) Immature Gran # (Auto) PT 14.6 H INR 1.5 H APTT PTT Ratio Sodium Potassium Chloride Carbon Dioxide Anion Gap BUN Creatinine Est Cr Clr Drug Dosing Est GFR ( Amer) Est GFR (Non-Af Amer) BUN/Creatinine Ratio Glucose Calcium Random Vancomycin PG Care Time/CCT Total # of Minutes Spent Total Time Spent with Patient: Total time spent is greater than 50% in coordination of care (as documented) at patient's floor/unit and/or counseling patient: Coding Level of Care Code 34913 Subseq Hosp Care Lvl 3 Diagnoses Cellulitis of left leg L03.116 Hematoma of left lower leg S80.12XA Acute blood loss anemia D62 Acute on chronic diastolic (congestive) heart failure I50.33 Chronic anticoagulation Z79.01 Permanent atrial fibrillation I48.2 Hyperbilirubinemia E80.6 Immunosuppression due to chronic steroid use Z79.52 History of CVA (cerebrovascular accident) Z86.73 Chronic obstructive pulmonary disease J44.9 Rheumatoid arthritis M06.9 S/P aortic valve replacement with bioprosthetic valve Z95.3 Anemia D64.9 Popliteal aneurysm I72.4 Pulmonary hypertension I27.20 Hypokalemia E87.6 Depression F32.9 DVT prophylaxis Z29.9
[2020-11-11] MEDS: traMADol HCL 50 MG TABLET PO PRN ×2 (11:58→21:46)
--- NOTE | 2020-11-11 12:19 | Orthopedic Progress Note ---
Date of Service November 11, 2020 Assessment & Plan (1) Hematoma of left lower leg: Discussed treatment options with patient - aspiration vs surgical intervention vs letting it be We did discuss attempt at aspirating the hematoma today to possibly help with pain control. Due to the heparin drip he is on we elected not to do the aspiration as it could not be beneficial and also could make things worse or the hematoma could come back. He understands and agrees with not aspirating today. Would recommend continued ice, heat, and compression with tubi-implementation director. Also elevation. This should resolve on it's own, but may take awhile. Does appear to be less tense and more skin wrinkles present today indicating that it's headed in the right direction. Wound care to wounds as instructed. Ice and elevation of left leg for swelling and pain. He may weight bear as tolerated Okay from ortho standpoint for discharge when medically stable. Dr. Zamorano present for today's visit. (2) Open wound of leg: Bilateral open wounds to right anterior smith and left posterior calf. Continue with wound care. Follow-up with orthopedics as needed. Admission and Anticipated Discharge Date Admission Date: November 07, 2020 Subjective Patient's nurse and wound care nurse present in room at time of visit. Dr. Zamorano present for today's visit. Patient and nursing states that his left leg is more painful today. He is taking IV dilaudid to control the pain. This is discussion of him being discharge possibly tomorrow. Patient and nursing suggested possible attempt to aspirate the hematoma for comfort. Physical Exam Physical Exam: Left leg hematoma is soft, with positive skin wrinkles, improved. Tender to palpation of hematoma left leg. Positive left leg edema. No calf tenderness, calf is supple. Foot edematous. Able to left left leg. No active bleeding or drainage. No blistering of skin. + ecchymosis. Results & Data ([facility]) Vital Signs (Past 12 Hours) Vital Signs Temp Pulse Pulse Resp BP Pulse Ox 11/11/20 12:06 37.2 C 73 17 136/57 L 97 11/11/20 09:47 72 11/11/20 07:47 36.7 C 75 20 158/70 H 94 11/11/20 06:51 70 19 96 11/11/20 03:00 36.6 C 80 20 177/70 H 95 11/11/20 01:17 67 (1) Open wound of leg Laterality: bilateral
[2020-11-11] MEDS: cefTRIAXone SODIUM 2,000 MG in DEXTROSE 5% 50 ML IV SCH (13:30)
--- NOTE | 2020-11-11 15:15 | Psychiatric Consultation ---
Date of Consultation November 11, 2020 Impression / Recommendations Impression 85-year-old male presenting with symptoms of depression likely due to extended hospital stay and multiple medical issues. Patient will benefit from uptitration of his SSRI medication in order to target low mood. Patient was explained the risk and benefits of the medication is in agreement with the plan. He can follow-up with his outpatient primary care doctor. Recommendations: Increase Lexapro to 20 mg p.o. every morning Inventory Assets Strengths: Supportive family, insight Needs: Medical stability Risk Factors Assessment Male: Yes Health Problems: Yes Substance Use Disorders: No Previous Attempt: No Hopelessness: No Protective Factors Assessment Stable Relationships: Yes Supportive Family: Yes Good Rapport with Provider: Yes Psych History Identifying Data 85-year-old male with extended hospital stay due to multiple medical issues including stroke. Psychiatry was consulted for concern for depression. Chief Complaint "I am doing okay thanks for coming to see me". History of Present Illness As per psychiatric liaison "Rounded on patient to complete initial assessment per consult. Pt. consulted for depression, anxiety and grief. Pt. pleasant and cooperative, with affect appropriate to situation. He denies any history of mental health issues, and denies feeling depressed, or anxious at home. He states "I just don't like being in here away from my family." He reports that he lives with his son on the [employer] [place], and his daughter stops in at least twice a day to help with his meals and to visit. He did mention his had recently passed from cancer. They had been 51 years. He expressed that he enjoys his time at home, reading the paper, and spending time with his family. He reports looking forward to his daughters [place] this [place]. He denies any helplessness or hopelessness, SI, or anxiety. He states "I just can't sleep comfortable here, and it's lonely." He denies any difficulty with sleep or appetite. He was encouraged to reach out to our service if he would like to talk, or had any questions/concerns. He was offered word search/crossword or a newspaper for distraction. He declined at this time. He was appreciative of the visit. " Upon evaluation today, patient Dorst above information is accurate. Denied any acute suicidal or homicidal ideation manic symptoms or psychotic symptoms. Stated that he does take the medication with hopes of lifting his mood but feels that it has not been as effective as it could be. He was explained that he is only on a half dose of Lexapro and may benefit from a full dose to which he expressed understanding and agreement. Patient's daughter was also at bedside and she also agreed that her father would benefit from improving his mood given his severe medical problems as of recently. She is agreeable with the plan and plans to follow-up with his primary care doctor this week. Allergies Allergy/AdvReac Type Severity Reaction Status Date / Time gabapentin AdvReac Severe Swelling Unverified 11/07/20 14:22 hydrocodone AdvReac Severe EXCESSIVE Verified 11/07/20 14:08 DRY MOUTH AND SHAKING Home Medications Medication Instructions Recorded Confirmed Type docusate sodium [Colace] 100 mg PO HS 07/17/18 11/07/20 History folic acid 1 mg PO QAM 07/17/18 11/07/20 History polyethylene glycol 3350 [Miralax] 17 g PO QAM 04/19/19 11/07/20 History methotrexate sodium 10 mg PO WK 10/01/19 11/07/20 History warfarin 1.5 mg PO ONCE 10/01/19 11/07/20 History omeprazole 40 mg capsule,delayed 40 mg PO QAM #90 cap 11/09/19 11/07/20 Rx release warfarin 3 mg tablet See Rx Instructions .ROUTE 03/14/20 11/07/20 Rx .COMPLEX #90 tablet escitalopram oxalate 10 mg tablet 10 mg PO QAM #90 tab 04/14/20 11/07/20 Rx prednisone 5 mg tablet 7.5 mg PO QAM tab 04/25/20 11/07/20 History simvastatin 40 mg tablet 40 mg PO HS #90 tab 07/11/20 11/07/20 Rx doxazosin 4 mg tablet 4 mg PO BID #180 tab 07/19/20 11/07/20 Rx lift chair #1 ea 07/22/20 11/03/20 Rx fluticasone 250 mcg-salmeterol 50 1 inh INHALATION BID #180 ea 07/25/20 11/07/20 Rx mcg/dose blistr powdr for inhalation cyanocobalamin (vitamin B-12) 1,000 mcg PO QAM tab 08/14/20 11/07/20 History 1,000 mcg tablet aspirin 81 mg PO QAM 09/13/20 11/07/20 History tramadol 50 mg tablet 100 mg PO .COMPLEX PRN #180 tab 10/16/20 11/07/20 Rx bumetanide 1 mg tablet 1 mg PO .COMPLEX #90 tab 10/24/20 11/07/20 Rx acetylcysteine 2 ml INHALATION BID 11/07/20 11/07/20 History albuterol sulfate 2.5 mg INHALATION BID 11/07/20 11/07/20 History cholecalciferol (vitamin D3) 0 mcg PO QAM 11/07/20 11/07/20 History [Vitamin D3] potassium chloride 20 meq PO QAM 11/07/20 11/07/20 History Personal History Beliefs That Will Affect Care: None Patient History Medical History Acute CVA (cerebrovascular accident) Anemia Aneurysm artery, popliteal Arthritis, rheumatoid Asthmatic bronchitis with acute exacerbation Cerebrovascular accident of right pontine structure Chronic anticoagulation Chronic anticoagulation Chronic left hip pain Edema History of CVA (cerebrovascular accident) Immunosuppression due to chronic steroid use Onychomycosis Open wound of right elbow Prostate cancer Skin tear Thrombocytopenia Traumatic open wound of left lower leg with delayed healing Traumatic open wound of right elbow with infection and delayed healing Traumatic wound Venous stasis ulcer limited to breakdown of skin without varicose veins Vertigo Weakness of muscle of left side of face due to and not concurrent with cerebrovascular accident (CVA) Surgical History H/O carpal tunnel repair H/O hernia repair History of aortic valve replacement with bioprosthetic valve History of knee replacement S/P aortic valve replacement S/P aortic valve replacement with bioprosthetic valve (2009) Status post carotid surgery Thromboendarterectomy Family History Other Breast cancer Family history non-contributory Uterine cancer Denies family history of Ovarian cancer Prostate cancer Myocardial infarction Colorectal cancer Social History Smoking Status: Never smoker Hx Alcohol Use: No Hx Substance Use: No Preferred Language: Montenegrin Communication Ability: Effective Hospice Music Therapy Required: No Beliefs That Will Affect Care: None Current Living Situation: Family current occupational status: disabled Other Information That Helps Us Care for You: No Feels Safe at Home: Yes Dental Care, Regularly: No Seatbelt Use: always Assistive Devices: None Physical Exam Psychiatric: Orientation: alert and oriented x 3 Apperance: appropriately groomed Eye Contact: + fair eye contact Motor Behavior: no abnormal motor movements Speech: normal rate/rhythm/volume of speech Affect: + constricted affect Mood: + depressed mood Thought Process: linear/logical thought process Thought Content: reality based without delusions Suicidal Thoughts: denies suicidal thoughts Homicidal Thoughts: denies homicidal thoughts Hallucinations: no auditory hallucinations Cognition: remote memory grossly intact Estimated Intelligence: consistent with education level Insight: good insight Judgement: good judgement Vital Signs (Past 24 Hours): Last Vital Signs Temp 37.2 C 11/11/20 12:06 Pulse 70 11/11/20 13:12 Resp 18 11/11/20 13:12 BP 136/57 L 11/11/20 12:06 Pulse Ox 92 11/11/20 13:12 Review of Systems All systems reviewed & are unremarkable except as noted in HPI & below Results & Data (PSY) Medications Administered Acetaminophen (Acetaminophen 325 Mg Tab) 650 mg PO Q4H PRN PRN Reason: Pain or Fever Stop: 12/07/20 20:33 Last Admin: 11/10/20 09:09 Dose: 650 mg Documented by: [id number] Admin: 11/08/20 20:07 Dose: 650 mg Documented by: [id number] Admin: 11/07/20 21:39 Dose: 650 mg Documented by: [id number] Acetylcysteine (Acetylcysteine 20% Inhal Soln 4ml Dispensed By Resp.) 2 ml INH BIDR [facility] Stop: 12/10/20 18:59 Last Admin: 11/11/20 06:50 Dose: 2 ml Documented by: [id number] Admin: 11/10/20 19:38 Dose: 2 ml Documented by: [id number] Admin: 11/10/20 07:00 Dose: 2 ml Documented by: [id number] Albuterol (Albuterol 0.083% Nebu Soln 3 Ml Vial) 2.5 mg NEB TIDR [facility] Stop: 12/09/20 18:59 Last Admin: 11/11/20 13:12 Dose: 2.5 mg Documented by: [id number] Admin: 11/11/20 06:50 Dose: 2.5 mg Documented by: [id number] Admin: 11/10/20 19:39 Dose: 2.5 mg Documented by: [id number] Admin: 11/10/20 13:34 Dose: 2.5 mg Documented by: [id number] Admin: 11/10/20 07:01 Dose: 2.5 mg Documented by: [id number] Admin: 11/09/20 19:40 Dose: 2.5 mg Documented by: [id number] Aspirin (Aspirin 81 Mg Ectab) 81 mg PO QAM [facility] Stop: 12/10/20 08:59 Last Admin: 11/11/20 08:21 Dose: 81 mg Documented by: [id number] Admin: 11/10/20 10:30 Dose: 81 mg Documented by: [id number] Docusate Sodium (Docusate Sodium 100 Mg Cap) 100 mg PO HS [facility] Stop: 12/07/20 20:59 Last Admin: 11/10/20 20:29 Dose: 100 mg Documented by: [id number] Admin: 11/09/20 19:15 Dose: Not Given Documented by: [id number] Admin: 11/08/20 20:08 Dose: 100 mg Documented by: [id number] Admin: 11/07/20 21:35 Dose: 100 mg Documented by: [id number] Doxazosin Mesylate (Doxazosin Mesylate 4 Mg Tab) 4 mg PO BID [facility] Stop: 12/07/20 20:59 Last Admin: 11/11/20 08:21 Dose: 4 mg Documented by: [id number] Admin: 11/10/20 20:30 Dose: 4 mg Documented by: [id number] Admin: 11/10/20 08:56 Dose: 4 mg Documented by: [id number] Admin: 11/09/20 20:10 Dose: 4 mg Documented by: [id number] Admin: 11/09/20 07:28 Dose: 4 mg Documented by: [id number] Admin: 11/08/20 20:08 Dose: 4 mg Documented by: [id number] Admin: 11/08/20 07:46 Dose: 4 mg Documented by: [id number] Admin: 11/07/20 21:35 Dose: 4 mg Documented by: [id number] Fluticasone/Vilanterol (Fluticasone/Vilanterol 100/25mcg 14 Puffs/Inhaler) 1 puffs INH DAILY [facility] Stop: 12/08/20 08:59 Last Admin: 11/11/20 08:20 Dose: 1 puffs Documented by: [id number] Admin: 11/10/20 08:56 Dose: 1 puffs Documented by: [id number] Admin: 11/09/20 07:30 Dose: 1 puffs Documented by: [id number] Admin: 11/08/20 07:45 Dose: 1 puffs Documented by: [id number] Hydromorphone HCl (Hydromorphone Inj 0.5 Mg/0.5 Ml Syr) 0.5 mg IV Q3H PRN PRN Reason: Pain Stop: 11/21/20 20:33 Last Admin: 11/11/20 11:27 Dose: 0.5 mg Documented by: [id number] Admin: 11/11/20 07:31 Dose: 0.5 mg Documented by: [id number] Admin: 11/10/20 14:07 Dose: 0.5 mg Documented by: [id number] Admin: 11/10/20 03:30 Dose: 0.5 mg Documented by: [id number] Admin: 11/09/20 17:53 Dose: 0.5 mg Documented by: [id number] Admin: 11/09/20 13:45 Dose: 0.5 mg Documented by: [id number] Admin: 11/09/20 08:52 Dose: 0.5 mg Documented by: [id number] Admin: 11/08/20 14:53 Dose: 0.5 mg Documented by: [id number] Admin: 11/08/20 08:05 Dose: 0.5 mg Documented by: [id number] Bumetanide 2 mg/ Syringe 8 mls @ 4 mls/min IV BID@0900,1700 [facility] Stop: 12/07/20 20:59 Last Admin: 11/11/20 08:21 Dose: 4 mls/min Documented by: [id number] Admin: 11/10/20 17:45 Dose: 4 mls/min Documented by: [id number] Admin: 11/10/20 08:56 Dose: 4 mls/min Documented by: [id number] Admin: 11/09/20 16:37 Dose: 4 mls/min Documented by: [id number] Admin: 11/09/20 07:27 Dose: 4 mls/min Documented by: [id number] Admin: 11/08/20 16:36 Dose: 4 mls/min Documented by: [id number] Admin: 11/08/20 07:45 Dose: 4 mls/min Documented by: [id number] Admin: 11/07/20 21:34 Dose: 4 mls/min Documented by: [id number] Heparin Sodium/Dextrose (Heparin Sodium/Dextrose) 25,000 units in 500 mls @ 22 mls/hr IV .[id number] [facility]; Protocol Stop: 12/10/20 17:01 Last Titration: 11/11/20 11:06 Dose: 1,100 units/hr, 22 mls/hr Documented by: [id number] Cosigned by: [id number] Titration: 11/11/20 10:00 Dose: 0 units/hr, 0 mls/hr Documented by: [id number] Cosigned by: [id number] Titration: 11/11/20 07:02 Dose: 1,250 units/hr, 25 mls/hr Documented by: [id number] Cosigned by: [id number] Titration: 11/11/20 03:02 Dose: 1,250 units/hr, 25 mls/hr Documented by: [id number] Cosigned by: [id number] Admin: 11/10/20 19:30 Dose: 1,300 units/hr, 26 mls/hr Documented by: [id number] Cosigned by: [id number] Pantoprazole Sodium (Pantoprazole 40 Mg Tab) [facility] [place]: 12/08/20 08:59 Last Admin: 11/11/20 08:21 Dose: 40 mg Documented by: [id number] Admin: 11/10/20 08:56 Dose: 40 mg Documented by: [id number] Admin: 11/09/20 07:28 Dose: 40 mg Documented by: [id number] Admin: 11/08/20 07:47 Dose: 40 mg Documented by: [id number] Polyethylene Glycol (Polyethylene (Miralax) 17 Gm Pack) 17 gm PO [facility] Stop: 12/08/20 08:59 Last Admin: 11/11/20 07:41 Dose: Not Given Documented by: [id number] Admin: 11/10/20 08:57 Dose: Not Given Documented by: [id number] Admin: 11/09/20 07:30 Dose: 17 gm Documented by: [id number] Admin: 11/08/20 07:47 Dose: 17 gm Documented by: [id number] Potassium Chloride (Potassium Chloride Crtab 20 Meq Tabcr) 40 meq PO TID [facility] Stop: 12/10/20 08:59 Last Admin: 11/11/20 13:29 Dose: 40 meq Documented by: [id number] Admin: 11/11/20 08:21 Dose: 40 meq Documented by: [id number] Admin: 11/10/20 20:29 Dose: 40 meq Documented by: [id number] Admin: 11/10/20 14:08 Dose: 40 meq Documented by: [id number] Admin: 11/10/20 08:57 Dose: 40 meq Documented by: [id number] Silver Sulfadiazine (Silver Sulfadiazine 1% Cr 400 Gm Jar) 1 appln EXT Q12H [facility] Stop: 12/07/20 20:59 Last Admin: 11/11/20 08:22 Dose: Not Given Documented by: [id number] Admin: 11/10/20 20:30 Dose: 1 appln Documented by: [id number] Admin: 11/10/20 11:52 Dose: Not Given Documented by: [id number] Admin: 11/09/20 20:11 Dose: 1 appln Documented by: [id number] Admin: 11/09/20 07:29 Dose: 1 appln Documented by: [id number] Admin: 11/08/20 20:08 Dose: 1 appln Documented by: [id number] Admin: 11/08/20 07:48 Dose: 1 appln Documented by: [id number] Admin: 11/07/20 21:36 Dose: 1 appln Documented by: [id number] Spironolactone (Spironolactone 25 Mg Tab) 25 mg PO QAM [facility] Stop: 12/08/20 08:59 Last Admin: 11/11/20 08:21 Dose: 25 mg Documented by: [id number] Admin: 11/10/20 08:58 Dose: 25 mg Documented by: [id number] Admin: 11/09/20 07:29 Dose: 25 mg Documented by: [id number] Admin: 11/08/20 07:46 Dose: 25 mg Documented by: [id number] Tramadol HCl (Tramadol Hcl 50 Mg Tablet) 50 mg PO Q8H PRN PRN Reason: Pain Stop: 12/11/20 11:24 Last Admin: 11/11/20 11:58 Dose: 50 mg Documented by: [id number] Warfarin Sodium (Warfarin Sod 3 Mg Tab) 3 mg PO DAILY@1600 [facility] Stop: 12/10/20 17:14 Last Admin: 11/10/20 18:28 Dose: 3 mg Documented by: [id number] Coding Level of Care Code 45976 [facility] Intl Hosp Care Lvl 2
[2020-11-11] MEDS ORDERED: WARFARIN SOD 0.5 MG TAB PO ONE (15:30)
[2020-11-11] MEDS: WARFARIN SOD 3 MG TAB PO SCH (15:50)
[2020-11-11] MEDS ORDERED: WARFARIN SOD 0.5 MG TAB PO SCH (16:00)
[2020-11-11] MEDS ORDERED: WARFARIN SOD 1 MG TAB PO SCH (16:00)
[2020-11-11 18:29] LABS: Partial Thromboplastin Ratio 2.7
[2020-11-11] MEDS: HEPARIN SODIUM/DEXTROSE 25,000 UNITS/500 ML BAG IV SCH ×3 (18:54→22:32)
[2020-11-11] MEDS: DOCUSATE SODIUM 100 MG CAP PO SCH (21:32)
[2020-11-11] MEDS: DOXYCYCLINE HYCLATE 100 MG CAP PO SCH (21:41)
[2020-11-12 01:17] LABS: Partial Thromboplastin Ratio 3.3
[2020-11-12 01:18] LABS: Partial Thromboplastin Time 86.5 Seconds (21.0-31.0)
[2020-11-12 06:26] LABS: INR 1.6 (0.9-1.1); Partial Thromboplastin Ratio 2.4; Prothrombin Time 15.9 Seconds (9.0-12.0)
[2020-11-12 06:29] LABS: Partial Thromboplastin Time 62.2 Seconds (21.0-31.0)
[2020-11-12 06:37] LABS: BUN Creatinine Ratio 24.6 (10-20); Calcium 8.7 mg/dl (8.5-10.1); Creatinine Clr Calc Pharmacy 60.3 ml/min; Est GFR (African American) 88.2 ml/min; Est GFR (Non-African American) 76.1 ml/min; Potassium 4.1 mmol/L (3.5-5.1)
[2020-11-12] MEDS: ACETYLCYSTEINE 20% INHAL SOLN 4ML ***DISPENSED BY RESP. INH SCH ×2 (07:14→19:33)
[2020-11-12] MEDS: ALBUTEROL 0.083% NEBU SOLN 3 ML VIAL NEB SCH ×3 (07:14→19:33)
[2020-11-12] MEDS: SPIRONOLACTONE 25 MG TAB PO SCH (08:34)
[2020-11-12] MEDS: DOXAZosin MESYLATE 4 MG TAB PO SCH ×2 (08:34→21:46)
[2020-11-12] MEDS: DOXYCYCLINE HYCLATE 100 MG CAP PO SCH ×2 (08:34→21:46)
[2020-11-12] MEDS: PANTOprazole 40 MG TAB PO SCH (08:35)
[2020-11-12] MEDS: POTASSIUM CHLORIDE CRTAB 20 MEQ TABCR PO SCH (08:35)
[2020-11-12] MEDS: ASPIRIN 81 MG ECTAB PO SCH (08:36)
[2020-11-12] MEDS: CEFDINIR 300 MG CAP PO SCH ×2 (08:36→21:46)
[2020-11-12] MEDS: ESCITALOPRAM OXALATE 20 MG TAB PO SCH (08:36)
[2020-11-12] MEDS: predniSONE 2.5 MG TAB PO SCH (08:36)
[2020-11-12] MEDS: FLUTICASONE/VILANTEROL 100/25MCG 14 PUFFS/INHALER INH SCH (08:36)
[2020-11-12] MEDS: SILVER SULFADIAZINE 1% CR 400 GM JAR EXT SCH ×2 (08:37→21:46)
[2020-11-12] MEDS: POLYETHYLENE (MIRALAX) 17 GM PACK PO SCH (08:37)
[2020-11-12] MEDS: traMADol HCL 50 MG TABLET PO PRN ×2 (08:47→21:45)
[2020-11-12] MEDS ORDERED: BUMETANIDE 1 MG TAB PO ONE ×2 (09:04→17:45)
[2020-11-12] MEDS: HYDROmorphone INJ 0.5 MG/0.5 ML SYR IV PRN ×3 (09:35→16:26)
[2020-11-12 09:57] LABS: Partial Thromboplastin Ratio 2.1
[2020-11-12] MEDS: HEPARIN SODIUM/DEXTROSE 25,000 UNITS/500 ML BAG IV SCH (14:02)
[2020-11-12] MEDS: WARFARIN SOD 3 MG TAB PO SCH (16:24)
[2020-11-12] MEDS ORDERED: oxyCODONE HCL IR 5 MG TAB (IMMEDIATE RELEASE) PO PRN (18:26)
--- NOTE | 2020-11-12 20:42 | Hospitalist Progress Note ---
Date of Service November 12, 2020 Assessment & Plan (1) Cellulitis of left leg: ONGOING IMPROVEMENT, nearly resolved. IV rocephin & vanco d/c yesterday and changed to omnicef with doxy. Complete 7-10 days of oral abx. Left thigh lymphangitic spread is resolved. Blood cx's remain negative. Daughter counseled that abx will interact w/ coumadin - will need close f/u of INRs. (2) Hematoma of left lower leg: Hematoma again improved overnight. Cont warm compresses. Surgical I/D deferred by both ortho and gen surg. asa resumed. coumadin with heparin drip continue. NO evidence of expansion of the hematoma with asa/coumadin back on board. (3) Acute blood loss anemia: Mild, 1 to 2 gm drop from baseline. H/H stable. Acute blood loss from hematoma. repeat cbc am. Fe at d/c. (4) Acute on chronic diastolic (congestive) heart failure: Last echo 07/2020 with preserved EF of 55-60%. Intact RV function as well. Approaching euvolemia. IV bumex stopped last pm. Will give bumex 2mg po BID today. Spoke with Dr Jones - at d/c will use 2mg am, 1mg afternoon. f/u CHF clinic 1 week post dc. (5) Chronic anticoagulation: Chronic coumadin usage - 1.5 mg on Tuesdays and Fridays; 3 mg all other days. Had held coumadin due to LLE hematoma. 3mg coumadin given on 11/10. 4.5mg coumadin 11/11. 3mg today. INR am. Cont IV heparin as he has had significant CVA in past and CHADS is high. suspect INR will be close to 2 tomorrow. (6) Permanent atrial fibrillation: Rates controlled without AV emma agents. Coumadin as above. (7) Hyperbilirubinemia: likely 2nd to passive hepatic congestion in setting of acute/chronic diastolic CHF and pulmonary HTN. (8) Immunosuppression due to chronic steroid use: Chronic steroids - prednisone 7.5mg daily - for RA. Received stress dose steroids due to LLE cellulitis. Back to normal dose of 7.5mg daily. (9) History of CVA (cerebrovascular accident): Noted. Typically on coumadin and aspirin for secondary stroke prevention. Aspirin and coumadin both resumed. see above. (10) Chronic obstructive pulmonary disease: Cont home med regimen. No acute exacerbation. Mild wheezes on exam were likely due to pulm edema; now resolved. (11) Rheumatoid arthritis: Holding methotrexate due to active cellulitis. Steroid dependent - 7.5 mg once daily at baseline. NO RA flare at this time. (12) S/P aortic valve replacement with bioprosthetic valve: Noted moderate noted on 07/2020 echo (13) Anemia: Transferrin sat 11% ferritin <100 b12/folate wnl needs Fe supplementation cbc am (14) Popliteal aneurysm: noted on CT of leg nothing to do at this time (15) Pulmonary hypertension: severe on prior echo 07/2020 (16) Hypokalemia: resolved cut dose of K supplement back from TID dosing to once daily (17) Depression: remains on lexapro 10mg daily psych saw in consult - dose increased to 20mg/day counseling as outpatient recommended by this tech writer (18) DVT prophylaxis: coumadin + heparin IV PT, OT evals completed ideally should get rehab at SNF but daughter and family want him home he has 06/12 care at his home by family daughter updated at bedside today d/c home tomorrow if INR is near-therapeutic Admission and Anticipated Discharge Date Admission Date: November 07, 2020 Subjective pt w/ no new complaints does have baseline pain in LLE where hematoma is and his open ulcer tylenol by itself doesn't resolve the pain no dyspnea no cp no abd slept ok in recliner last night tele - rate controlled a.fib wants to go home Review of Systems Constitutional: + fatigue; no fever, no chills and no anorexia Respiratory: + dyspnea on exertion (baseline); no cough and no dyspnea Cardiovascular: no chest pain Gastrointestinal: no abdominal pain and no diarrhea/loose stools Physical Exam Constitutional: + obese; no acute distress and no altered mental status ENMT: external ear and nose normal, oropharynx normal Respiratory: no respiratory distress Auscultation: + crackles (scant bases b/l ); no wheezes Cardiovascular: Rate/Rhythm: regular rate and + irregularly irregular Heart Sounds: normal S1, normal S2 and + murmur (2/6 systolic RUSB and LSB ) Vessels: posterior tibial pulses present and dorsalis pedis pulses present; no JVD Extremities: + edema (2+ LLE; <1+ RLE -- improved b/l ) Gastrointestinal (Abdomen): normal bowel sounds, soft, nontender, no hepatosplenomegaly Skin: venous ulcer right smith - no change; hematoma LLE again modestly improved; cellulitis of LLE nearly resolved; background of venous stasis changes b/l legs; all dressings removed from both legs to examine his wounds. Neurologic: Speech / Cognition: + abnormal speech (mild dysarthria ) Psychiatric: Orientation: alert and oriented x 3 Affect: + depressed affect Results & Data Results & Data ([facility]) Vital Signs (Past 12 Hours) Vital Signs Temp Pulse Resp BP Pulse Ox 11/12/20 19:33 80 16 93 11/12/20 18:57 37.2 C 64 18 118/54 L 97 11/12/20 15:35 36.8 C 71 19 135/51 L 91 11/12/20 12:41 76 18 96 11/12/20 11:17 36.8 C 65 18 144/61 H 96 Laboratory Results Laboratory Results - last 24 hr 11/12/20 11/12/20 11/12/20 00:27 05:35 05:35 PT 15.9 H INR 1.6 H APTT 86.5 H* 62.2 H* PTT Ratio 3.3 2.4 Sodium 140 Potassium 4.1 Chloride 106 Carbon Dioxide 32 Anion Gap 2.0 L BUN 23 H Creatinine 0.92 Est Cr Clr Drug Dosing 60.3 Est GFR ( Amer) 88.2 Est GFR (Non-Af Amer) 76.1 BUN/Creatinine Ratio 24.6 H Glucose 101 H Calcium 8.7 11/12/20 09:12 PT INR APTT 55.0 H* PTT Ratio 2.1 Sodium Potassium Chloride Carbon Dioxide Anion Gap BUN Creatinine Est Cr Clr Drug Dosing Est GFR ( Amer) Est GFR (Non-Af Amer) BUN/Creatinine Ratio Glucose Calcium PG Care Time/CCT Total # of Minutes Spent Total Time Spent with Patient: Total time spent is greater than 50% in coordination of care (as documented) at patient's floor/unit and/or counseling patient: Coding Level of Care Code None Diagnoses Cellulitis of left leg L03.116 Hematoma of left lower leg S80.12XA Acute blood loss anemia D62 Acute on chronic diastolic (congestive) heart failure I50.33 Chronic anticoagulation Z79.01 Permanent atrial fibrillation I48.2 Hyperbilirubinemia E80.6 Immunosuppression due to chronic steroid use Z79.52 History of CVA (cerebrovascular accident) Z86.73 Chronic obstructive pulmonary disease J44.9 Rheumatoid arthritis M06.9 S/P aortic valve replacement with bioprosthetic valve Z95.3 Anemia D64.9 Popliteal aneurysm I72.4 Pulmonary hypertension I27.20 Hypokalemia E87.6 Depression F32.9 DVT prophylaxis Z29.9 Comment see separate "PG e/m" entry dated 11/12/20
[2020-11-12] MEDS: DOCUSATE SODIUM 100 MG CAP PO SCH (21:41)
[2020-11-12] MEDS: ACETAMINOPHEN 500 MG TAB PO SCH (21:46)
--- NOTE | 2020-11-12 23:34 | Billing Data ---
Date of Service November 12, 2020 Coding Level of Care Code 50081 Subseq Hosp Care Lvl 3
[2020-11-13] MEDS: HEPARIN SODIUM/DEXTROSE 25,000 UNITS/500 ML BAG IV SCH ×2 (01:44→08:23)
[2020-11-13 06:49] LABS: Basophils # (auto) 0.01 K/uL (0-0.2); Basophils % (auto) 0.2 %; Eosinophils # (auto) 0.27 K/uL (0-0.5); Eosinophils % (auto) 4.3 %; Hematocrit (blood only) 31.9 % (42-52); Hemoglobin 9.7 g/dL (14.0-18.0); Immature Granulocytes # (auto) 0.12 K/uL (0.00-0.02); Immature Granulocytes % (auto) 1.9 %; Lymphocytes % (auto) 11.2 %; Mean Corpuscular Hemoglobin 29.8 pg (25-34); Mean Corpuscular Hgb Conc 30.4 g/dL (32-36); Mean Corpuscular Volume 97.9 fL (80-100); Mean Platelet Volume 9.6 fL (7.4-10.4); Monocytes # (auto) 0.42 K/uL (0.11-0.59); Monocytes % (auto) 6.7 %; Neutrophils # (auto) 4.75 K/uL (1.4-6.5); Neutrophils % (auto) 75.7 %; Platelet Count 176 K/uL (130-400); RDW Coefficient of Variation 19.4 % (11.5-14.5); RDW Standard Deviation 70.1 fL (36.4-46.3); Red Blood Count 3.26 M/uL (4.7-6.1); White Blood Count 6.27 K/uL (4.8-10.8)
[2020-11-13] MEDS: ACETYLCYSTEINE 20% INHAL SOLN 4ML ***DISPENSED BY RESP. INH SCH (07:10)
[2020-11-13] MEDS: ALBUTEROL 0.083% NEBU SOLN 3 ML VIAL NEB SCH ×2 (07:10→13:12)
[2020-11-13 07:22] LABS: BUN Creatinine Ratio 26.4 (10-20); Creatinine Clr Calc Pharmacy 53.9 ml/min; Est GFR (Non-African American) 66.4 ml/min; INR 1.9 (0.9-1.1); Partial Thromboplastin Ratio 2.8; Potassium 3.8 mmol/L (3.5-5.1); Prothrombin Time 18.2 Seconds (9.0-12.0)
[2020-11-13] MEDS: traMADol HCL 50 MG TABLET PO PRN (08:26)
[2020-11-13] MEDS: SPIRONOLACTONE 25 MG TAB PO SCH (08:28)
[2020-11-13] MEDS: ASPIRIN 81 MG ECTAB PO SCH (08:28)
[2020-11-13] MEDS: PANTOprazole 40 MG TAB PO SCH (08:28)
[2020-11-13] MEDS: ESCITALOPRAM OXALATE 20 MG TAB PO SCH (08:28)
[2020-11-13] MEDS: POLYETHYLENE (MIRALAX) 17 GM PACK PO SCH (08:28)
[2020-11-13] MEDS: DOXYCYCLINE HYCLATE 100 MG CAP PO SCH (08:29)
[2020-11-13] MEDS: SILVER SULFADIAZINE 1% CR 400 GM JAR EXT SCH (08:29)
[2020-11-13] MEDS: FLUTICASONE/VILANTEROL 100/25MCG 14 PUFFS/INHALER INH SCH (08:29)
[2020-11-13] MEDS: CEFDINIR 300 MG CAP PO SCH (08:29)
[2020-11-13] MEDS: DOXAZosin MESYLATE 4 MG TAB PO SCH (08:29)
[2020-11-13] MEDS: predniSONE 2.5 MG TAB PO SCH (08:29)
[2020-11-13] MEDS: ACETAMINOPHEN 500 MG TAB PO SCH ×2 (08:34→14:07)
[2020-11-13] MEDS ORDERED: POTASSIUM CHLORIDE CRTAB 20 MEQ TABCR PO SCH (09:00)
[2020-11-13] MEDS ORDERED: BUMETANIDE 1 MG TAB PO SCH (09:00)
[2020-11-13] MEDS ORDERED: FERROUS SULFATE 325 MG TAB PO SCH (11:00)
--- NOTE | 2020-11-13 13:34 | Discharge Summary ---
Date of Service date of admission - November 07, 2020 date of discharge - November 13, 2020 Admission HPI Per Admitting Provider Mr. 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 He presented to the ED with his daughter for progressive erythema/edema of the left leg. Patient is a vague historian and a lot of his history is obtained from the daughter who is his primary bow tacker. Patient hospitalized 09/2020 with a CHF exacerbation. At that time, his routine Lasix was transitioned to Bumex. He was discharged home after 3-day stay, to take Bumex 1 mg daily. He had been doing well up until approximately 3 weeks ago. He follows cardiology (Dr. Feng) who allows daughter to give an additional Bumex in the evening at her [facility]. She has been doing this over the past 2 weeks without improvement. Despite this, he has had increasing edema of the bilateral extremities (left much greater than right). Patient does have left- sided hemiplegia and tends to lay on the left side. He is mostly bedbound. He now has swelling in the left leg and up into the scrotal region and his abdomen. He denies any respiratory symptoms including cough, chest pain, shortness of breath, orthopnea, or PND. He has not had any fevers or chills. Approximately 3 days ago, his daughter noticed a mild skin tear in the left leg. Within 24 hours, it became increasingly edematous, erythematous, and painful. Again no fevers or chills. It was the progression in the erythema and edema that prompted his evaluation into the ED. When seen in the ED, patient noted to be hemodynamically stable. He was afebrile without tachycardia or hypotension. He did not have a leukocytosis but did have a mild left shift of 91%. No bandemia. Lactic acid 1.7. Total bilirubin slightly elevated at 1.2 with a normal AST/ALT. The rest of his metabolic panel was essentially within normal limits. His INR was therapeutic at 2.9. BNP not obtained. CXR did show some mild pulmonary vascular congestion; however, not significantly changed from his previous x-ray. Patient was given Zosyn, IV Bumex, and Ofirmev of while in the ED. He was subsequently hospitalized for further evaluation and care. Principal Diagnosis 1. left leg traumatic hematoma 2. left leg cellulitis 3. acute/chronic diastolic CHF Discharge Exam Constitutional + obese; no acute distress and no altered mental status ENMT external ear and nose normal, oropharynx normal Respiratory no respiratory distress Auscultation: + crackles (scant bases b/l ); no wheezes Cardiovascular Rate/Rhythm: regular rate and + irregularly irregular Heart Sounds: normal S1, normal S2 and + murmur (2/6 systolic RUSB and LSB ) Vessels: posterior tibial pulses present and dorsalis pedis pulses present; no JVD Extremities: + edema (2+ LLE; <1+ RLE -- improved b/l ) Gastrointestinal (Abdomen) normal bowel sounds, soft, nontender, no hepatosplenomegaly Skin 1. hematoma LLE, distal lateral leg - mildly improved from prior exams 2. near-resolved cellulitis distal LLE - mainly medial side of the hematoma 3. skin tear/ulcer posterior left calf with serous drainage; some blood soaking 4. venous ulcer distal right leg , anterior smith - about 3cm diameter; serosanguinous drainag Neurologic Speech / Cognition: + abnormal speech (mild dysarthria ) Psychiatric Orientation: alert and oriented x 3 Affect: + depressed affect Discharge Data Allergies Allergy/AdvReac Type Severity Reaction Status Date / Time gabapentin AdvReac Severe Swelling Unverified 11/17/20 08:36 hydrocodone AdvReac Severe EXCESSIVE Verified 11/17/20 08:36 DRY MOUTH AND SHAKING Consultations Orthopedics General surgery PT OT wound care Psychiatry Ordered Studies Chest X-Ray 11/07/20 12:05 XR chest 1V portable CLINICAL HISTORY: SEPSIS COMPARISON STUDY: 09/13/2020 FINDINGS: The heart is enlarged. There are postsurgical changes of a midline sternotomy and aortic valve replacement.. There is diffuse elevation of interstitium likely secondary to mild pulmonary vascular congestion. An interstitial infectious/inflammatory processes could of course appear similar.[ IMPRESSION: 1. Cardiomegaly and radiographic evidence of mild pulmonary vascular congestion/fluid overload. ACT 112: Negative or not required by law. Electronically signed by: Brian Calvin M.D. 11/07/2020 1:04 PM Venous Doppler Study 11/07/20 12:05 US venous doppler LE LT CLINICAL HISTORY: Left lower extremity swelling COMPARISON STUDY: 10/02/2020 FINDINGS: Real-time and color flow Doppler imaging were performed. Flow was seen within the femoral, popliteal and calf veins with no intraluminal thrombus demonstrated. The saphenous vein is patent. There is left lower extremity edema. IMPRESSION: 1. No evidence of left lower extremity DVT. ACT 112: Negative or not required by law. Electronically signed by: Brian Calvin M.D. 11/07/2020 2:[address] 11/07/20 20:34 CT SCAN OF THE LEFT TIBIA AND FIBULA WITH IV CONTRAST CLINICAL HISTORY: Left lower extremity edema. Clinical concern for hematoma or abscess. COMPARISON STUDY: CT runoff dated 10/19/2019. TECHNIQUE: CT scan of the left tibia and fibula is performed from the knee joint to the ankle following the IV administration of 93 cc of Optiray 320. Images are reviewed in the axial, sagittal, and coronal planes. IV contrast was administered without complication. A dose lowering technique was utilized adhering to the principles of ALARA. Note that interpretation is significantly suboptimal without plain film correlate. There is streak artifact from a left knee arthroplasty. CT DOSE: 785.60 mGy.cm FINDINGS: The skeletal structures are heterogeneously osteopenic. A left knee arthroplasty is in place. There is no evidence of tibial or fibular fracture. No bony erosion or periostitis is identified. The ankle joint appears maintained. The ankle mortise is intact. There is diffuse subcutaneous and deep soft tissue edema with subcutaneous fluid seen throughout the imaged left lower extremity. There is a hyperdense fluid collection identified within the lateral soft tissues in the proximal to mid calf, best seen on axial image #248. This measures 7.5 x 4.5 x 3.1 cm and is consistent with a small hematoma. There is no evidence of active extravasation at the time of examination. No additional organized fluid collection is identified. No soft tissue gas is seen. There is generalized atrophy of the regional musculature. Advanced atherosclerotic calcification is noted in the regional arteries. 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 The calf arteries are diminutive but appear patent as imaged. IMPRESSION: 1. No acute osseous abnormality is seen involving the left tibia or fibula. 2. There is a 7.5 cm hematoma identified within the lateral subcutaneous soft tissues in the proximal to mid calf as above. 3. Diffuse superficial and deep soft tissue edema is present throughout the left lower extremity. 4. 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 5. Additional findings as above. ACT 112: Negative or not required by law. Electronically signed by: Aaron Mac M.D. 11/07/2020 11:07 PM Chest X-Ray 11/08/20 07:00 XR chest 1V portable CLINICAL HISTORY: Congestive failure status post diuresis COMPARISON STUDY: 11/07/2020 FINDINGS: There are postsurgical changes of a midline sternotomy. The heart remains enlarged. There is persistent elevation of interstitium consistent with congestive failure/fluid overload. As was previously stated, an interstitial infectious/inflammatory process There is been no significant change when compared the prior study.[ IMPRESSION: 1. No significant change from the prior study. Persistent cardiomegaly and radiographic evidence of congestive failure/fluid overload. ACT 112: Negative or not required by law. Electronically signed by: Brian Calvin M.D. 11/08/2020 7:02 AM Hospital Course (1) Cellulitis of left leg: ONGOING IMPROVEMENT, nearly resolved, by time of discharge. Initially was on IV zosyn/vancomycin, then changed to rocephin/vancomycin, then transitioned to omnicef/doxycycline prior to discharge. He will complete 7 additional days of each oral antibiotic after discharge at home. At time of admission the patient had left thigh lymphangitic spread from the cellulitis - this resolved quickly (within 1-2 days). Blood cx's remained negative during the stay. Daughter counseled that antibiotics will interact w/ coumadin - will need close f/u of INRs shortly after discharge. (2) Hematoma of left lower leg: Traumatic hematoma of distal LLE (over lateral smith region). This led to mild acute blood loss anemia (1-2 gram drop). Did not require PRBCs. Was seen by both general surgery & orthopedics - surgical I/D NOT needed. Initially both his aspirin and coumadin were held due to the severity of the hematoma and for concern he might need I/D. Once the hematoma showed evidence of tamponade first his aspirin was resumed, then his coumadin. He was asked to either apply warm or cold compresses (whichever felt better for him) post-discharge to hasten recovery. (3) Acute blood loss anemia: Mild, 1 to 2 gm drop from baseline. H/H stable after the H/H leveled off. Acute blood loss was from his LLE hematoma. Hb at discharge was 9.7. Asked to take once daily ferrous sulfate after discharge. (4) Acute on chronic diastolic (congestive) heart failure: Last echo 07/2020 with preserved EF of 55-60%. Intact RV function as well. Was diuresed the entire hospital stay with improved pulmonary exam and symptoms, along with improved LE edema. Discharge weight was 89.5kg. Exact dry weight is not fully certain as he cannot adequately stand on a scale. [place] both Dr Kael Feng and RADHA [place] [facility] [place] will use bumex 2mg qam and 1mg qafternoon. f/u CHF clinic 1 week post dc. He is not on AV emma agents (metoprolol) presumably due to slow a.fib with tendencies towards bradycardia. (5) Chronic anticoagulation: Chronic coumadin usage - 1.5 mg on Tuesdays and Fridays; 3 mg all other days. Had held coumadin initially due to LLE hematoma. 3mg coumadin given on 11/10. 4.5mg coumadin 11/11. 3mg coumadin given 11/12. He received an IV heparin bridge when his INR dropped to <2 due to high CHADS and prior stroke. INR day of discharge was 1.9. Patient and his daughter were counseled that the antibiotics for his LLE cellulitis may interact with the coumadin and he should have a follow-up INR within 3 days of discharge to ensure stability. (6) Permanent atrial fibrillation: Rates controlled without AV emma agents. Coumadin as above. (7) Hyperbilirubinemia: likely 2nd to passive hepatic congestion in setting of acute/chronic diastolic CHF and pulmonary HTN. (8) Immunosuppression due to chronic steroid use: Chronic steroids - prednisone 7.5mg daily - for RA. Received stress dose steroids due to LLE cellulitis. Back to normal dose of 7.5mg daily by time of discharge. He is also on once weekly methotrexate for his RA. (9) History of CVA (cerebrovascular accident): With resulting left-sided hemiparesis and dysarthria. Remains on coumadin and aspirin for secondary stroke prevention. (10) Chronic obstructive pulmonary disease: Cont home med regimen. No acute exacerbation while here. Prior mild wheezes on exam were likely due to pulmonary edema as his wheezes resolved with diuresis. (11) Rheumatoid arthritis: Held his methotrexate due to active cellulitis but this can be resumed post-discharge. Steroid dependent - 7.5 mg once daily at baseline. NO RA flare at this time. (12) S/P aortic valve replacement with bioprosthetic valve: Noted moderate noted on 07/2020 echo (13) Anemia: Transferrin sat 11% ferritin <100 b12/folate wnl needs Fe supplementation - take ferrous sulfate 325mg once daily post-d/c Discharge Hb 9.7 (14) Popliteal aneurysm: noted on CT of LEFT leg nothing to do at this time - simply monitor has good pulses in left foot (15) Pulmonary hypertension: severe on prior echo 07/2020 (16) Hypokalemia: resolved he will remain on once-daily K supplementation due to bumex (17) Depression: had been taking lexapro 10mg daily prior to admission. several weeks before admission his had . had been grieving and depression had been worse per family. psych saw in consult - dose increased to 20mg/day. counseling as outpatient recommended. (18) DVT prophylaxis: coumadin + heparin IV during the stay INR 1.9 at discharge remains on usual coumadin regimen - 1.5mg Tuesdays/Fridays; 3mg all other days INR within 3 days of discharge advised (19) Ambulatory dysfunction: 2nd to prior stroke. Max assist for transfers, etc. PT, OT advised SNF for rehab - family declined, stating they provide 24/7 care at home. Home Health Attestation I certify that this patient is under my care and that I, or a physicians clothing sales assistant working with me, had a face to-face encounter that meets the home health [id number] encounter requirements with this patient. The encounter with the patient was in whole, or in part, for the following medical condition, which is the primary reason for home health care (list medical condition): Cellulitis I certify that, based on my findings, the following services are medically necessary home health services: My clinical findings support the need for the above services because: Caregiver Instruct Med Mgmt, Safety, Disease Process, Signs to Report Daily Weights OT Assess ADL Status and Restore Function w ADLs PT Assessment for Endurance / Balance / Strength PT Eval for Safety and Mobility PT Eval for Safety, Gait Training, Assistive Devices PT Gait and Balance Training, Strengthening and Safety Skilled Nsg Assessment Skilled Nsg Assessment Surgical Incision / Wound Further, I certify that my clinical findings support that this patient is homebound (i.e. absences from home require considerable and taxing effort and are for medical reasons or yazidism services or infrequently or of short duration when for other reasons) because: Supportive Aid - Walker Supportive Aid - Wheelchair Certification for Home Health Services: Based on the above findings, I certify that this patient is confined to the home and needs intermittent mcc care, physical therapy and/or speech therapy or continues to need occupational therapy. The patient is under my care, and I have initiated the establishment of the plan of care. This patient will be followed by a physician who will periodically review the plan of care. Total Time Total Time Spent Total Time Spent (In Minutes): 45 Total Time Includes: Examination of the Patient, Discharge Planning, Medication Reconciliation and Communication With Other Providers Discharge Plan Discharge Items Patient Disposition: Home - Home Health Services Reason For Visit: HEMATOMA & CELLULITIS of LEFT LEG Discharge Diagnosis: 1. hematoma - left leg - slowly improving 2. cellulitis - left leg - improving 3. fluid overload/fluid in lungs due to congestive heart failure 4. ulceration - right leg on smith 5. depression Activity: Resume your previous activity Activity Comment: as tolerated Bathing Comment: please keep dressings on legs clean & dry; sponge baths would be best Non-emergency contact: Primary Care Provider Call non-emergency contact if: you have any medication questions, your pain is not controlled, your pain is worsening, your pain is unusual for you, you have a fever, your wound has increased redness, your wound has increased drainage and your wound pain has increased Follow-up/Referrals: Allyssa Martinez CRNP [Primary Care Provider] - (1 week ) Gege Castro CRNP [Nurse Practitioner] - (within 1 week for ulcerations o f bilateral legs) Annika Schulte PA-C [Physician Adjunct Nursing Faculty] - (CHF clinic with [facility] (Ms Schulte works with Dr Feng) - within 1 week) Norman Zamorano MD [Surgeon] - (as needed for any left leg problems ) Diet: Heart Healthy Fluids: 1500ml (6 cups) Diet Texture: Easy to Chew Addtl Attending Provider Instructions: Mr Weaver, You were admitted to the hospital for a skin infection of the left leg as well as a large hematoma (blood filled collection) in the left lower leg. You also have an ulcer on the back of the left leg, and an ulcer on the front of the right smith. Your skin infection improved with IV antibiotics. Your hematoma improved slowly with time, heat, and holding your aspirin/coumadin for a few days. You also had quite of bit of extra fluid in your lungs and legs from your congestive heart failure upon arrival. We gave you IV diuretics for most of your stay and you lost quite a bit of fluid weight. Your estimated weight at time of discharge is 197 pounds. You were about 207/208 pounds upon admission. Recommendations -- 1. for skin infection of left leg - take the following antibiotics: * cefdinir 300mg twice daily x 7 days, first dose TONIGHT * doxycycline 100mg twice daily x 7 days, first dose TONIGHT * please know that the doxycycline can cause heartburn * the doxycycline can also cause a rash if you go out in the sun for a long period of time; thus - cover up, use sunscreen * both antibiotics can cause diarrhea; thus, please take probiotics once daily for 10 days; script sent to your pharmacy for you 2. for the left leg hematoma - * continue to elevate the leg as much as possible * ice or heat to the hematoma, several times a day, up to 30 minutes each time; do whichever one feels most comfortable * this hematoma will take weeks or even a month or longer to fully resolve itself 3. for your congestive heart failure - * take bumetanide 1mg tablet water pill as follows -- * 2 tabs EVERY MORNING * 1 tab EVERY AFTERNOON * if you can please check your weight at home every morning; if it is too difficult to stand on a scale please use your best judgement about your fluid; if you are feeling more short of breath, if you are seeing more fluid in your legs, etc -- call Dr Feng's office (or Janette Schulte at the CHF clinic) right away 4. coumadin (warfarin) - * please follow your usual coumadin schedule -- 3mg every day EXCEPT 1.5mg on Tuesdays and Fridays * your INR today, 11/13/20, is 1.9 * the antibiotics for your left leg may interact with your coumadin and drive up the coumadin level * thus, I am recommending that you have a repeat INR test THIS WEEKEND; we are looking into the ability to have this done via home health nursing 5. depression - * the psychiatrist increased your lexapro (escitalopram) to 20mg once daily * new prescription sent to your pharmacy for you * please consider talking with your newspaper or periodical editor or a counselor about your depression and the recent loss of your 6. because of your bleeding into the leg you are anemic (your red cells are low). Please take [id number] iron once daily (ferrous sulfate 325mg once daily). This may make you constipated. It can also cause dark stool. 7. for pain in your left leg - * can take czzu-olq-skstpoy tylenol 1000mg twice daily * continue your tramadol as previous and as needed 8. wounds - * you will need to see the [facility] within a week * home health nursing to perform dressing changes as well Follow-up appointments - see separate section Return to [facility] if -- * you have fever over 100 degrees * you have worsening pain, redness, swelling, etc from the left leg * you have worsening shortness of breath * any other concerns My deepest sympathies for you and your family on the loss of your , [employer] Provider Instructions: From Orthopedics, Dr Norman Zamorano ([facility]): Weight bear as tolerated left leg Ice to left lower leg hematoma as needed for pain/swelling; may use heat (warm compresses) in place of ice if heat is more comfortable or feels better Elevate left leg as needed for pain/swelling Activities as tolerated Wound care per home nursing as well as the [facility] for left leg wound If hematoma persists or worsens please call [phone] to schedule evaluation with Dr Zamorano. Pending Studies at Discharge: No Stand-Alone Forms: [facility], Smoking Cessation Medications and DC Order Prescriptions: New doxycycline hyclate 100 mg Capsule 100 mg PO BID 7 Days Qty: 14 RF: 0 ferrous sulfate 325 mg (65 mg iron) Tablet,Delayed Release (Dr/Ec) 325 mg PO DAILY@1100 Qty: 30 RF: 2 cefdinir 300 mg Capsule 300 mg PO BID 7 Days Qty: 14 RF: 0 Saccharomyces boulardii 250 mg capsule 250 mg PO DAILY 10 Days Qty: 10 RF: 0 escitalopram oxalate 20 mg tablet 20 mg PO DAILY Qty: 30 RF: 2 Continued simvastatin 40 mg tablet 40 mg PO HS Qty: 90 RF: 3 doxazosin 4 mg tablet 4 mg PO BID Qty: 180 RF: 3 (DME) lift chair See Rx Instructions .Route .MEDSUPPLY Qty: 1 RF: 0 fluticasone propion-salmeterol [Advair Diskus] 250-50 mcg/dose blister with device 1 inh INHALATION BID Qty: 180 RF: 3 tramadol 50 mg tablet 100 mg PO .COMPLEX PRN (Reason: pain, severe) Qty: 180 RF: 1 docusate sodium [Colace] 100 mg Capsule 100 mg PO HS RF: 0 folic acid 1 mg Tablet 1 mg PO QAM RF: 0 prednisone 5 mg tablet 7.5 mg PO QAM RF: 0 cyanocobalamin (vitamin B-12) [Vitamin B-12] 1,000 mcg tablet 1,000 mcg PO QAM RF: 0 polyethylene glycol 3350 [Miralax] 17 gram Powder In Packet 17 g PO QAM RF: 0 methotrexate sodium 2.5 mg tablet 10 mg PO WK RF: 0 aspirin 81 mg Tablet,Delayed Release (Dr/Ec) 81 mg PO QAM RF: 0 albuterol sulfate 2.5 mg /3 mL (0.083 %) solution for nebulization 2.5 mg inhalation BID RF: 0 acetylcysteine 100 mg/mL (10 %) solution 2 ml inhalation BID RF: 0 potassium chloride 20 mEq tablet extended release 20 meq PO QAM RF: 0 cholecalciferol (vitamin D3) [Vitamin D3] 25 mcg (1,000 unit) Tablet 0 mcg PO QAM RF: 0 Changed warfarin 3 mg tablet 3 mg PO DIRECTED Qty: 90 RF: 3 warfarin 3 mg tablet 1.5 mg PO DIRECTED Qty: 0 RF: 0 bumetanide 1 mg tablet 1 mg PO DIRECTED Qty: 90 RF: 2 No Action Santyl 250 unit/gram ointment 1 applic topical DAILY 14 Days Qty: 30 RF: 0 omeprazole 40 mg capsule,delayed release(DR/EC) 40 mg PO QAM Qty: 90 RF: 3 Discharge Orders: Discharge Order (Routine); Ordered 11/13/20 Ordered By: Milton Doan Admission Data Admit Date/Time: 11/07/20 15:47 Attending Provider: Milton Doan Admit Provider: Asia Kemp Primary Care Provider: Allyssa Martinez Other Providers: Delvin Feng ; Norman Zamorano ; Asia Kemp ; Suleiman Duke ; [facility] ; Allyssa Hammer ; Dr Nando ; Cassy Sloan ; Norman Atwood Other Interventions: Discharge Summary Assessment (RN) Last Done: 11/13/20 12:45 Coding Level of Care Code D/C Day Management >30 mins Diagnoses Cellulitis of left leg L03.116 Hematoma of left lower leg S80.12XA Acute blood loss anemia D62 Acute on chronic diastolic (congestive) heart failure I50.33 Chronic anticoagulation Z79.01 Permanent atrial fibrillation I48.2 Hyperbilirubinemia E80.6 Immunosuppression due to chronic steroid use Z79.52 History of CVA (cerebrovascular accident) Z86.73 Chronic obstructive pulmonary disease J44.9 Rheumatoid arthritis M06.9 S/P aortic valve replacement with bioprosthetic valve Z95.3 Anemia D64.9 Popliteal aneurysm I72.4 Pulmonary hypertension I27.20 Hypokalemia E87.6 Depression F32.9 DVT prophylaxis Z29.9 Ambulatory dysfunction R26.2
== END 2020-11-13 14:47 | disposition home health service (06) | DRG 604 ==
LOC: ED 10:29 → SUATTDRO 15:47 → 2S 15:47

== ENCOUNTER 2021-05-11 14:34 | Inpatient (IN) ==
--- NOTE | 2021-05-11 16:31 | Emergency Department Note ---
Impression & Plan GIB (gastrointestinal bleeding), Anemia, Weakness ED Provider Note NAME: REENA BECKFORD AGE: 85 SEX: M : 1935 ARRIVES VIA: Walk-In INFORMANT: Patient, ED PROVIDER(S): Willis Pierce MD Chief Complaint: Abnormal blood work, outpatient referral, CHF HPI: She does present from the heart failure clinic due to concern for abnormal blood work and worsening shortness of breath. The patient does have orthopnea and has noticed some mild weight gain. The patient has been compliant with medications. The patient did have an increase in his Bumex over the holiday. The patient did have blood work and was seen in the outpatient setting for IV dose of Bumex and was noted to have hemoglobin less than 5. Patient is on Coumadin for history of A. fib and stroke prevention is the patient has prior history of stroke and right-sided hemiparesis. The patient does follow with Dr. Feng with cardiology. Patient reportedly has had no known bright red blood per rectum but the patient has been taking an iron supplement and has had dark stool for some time. This was started several months ago. The patient has had increasing weakness but no chest pains. They have noticed some mild increase in swelling in the bilateral upper and lower extremities. The patient does follow with wound care for bilateral lower extremities as well. ROS: See HPI for pertinent positives and negatives. A total of 10 systems were reviewed and otherwise negative. Past medical history: See below Surgical history: See below Social history: See below Physical Exam: GENERAL: NAD, wearing a mask, non-toxic. EYE EXAM: Normal conjunctiva. PERRL, no anisocoria and EOM's grossly intact w/o pain. NECK: Supple, no nuchal rigidity, no adenopathy, non-tender. No signs of meningismus. LUNGS: Clear to auscultation. Normal chest wall mechanics. HEART: NSR, no MRG. ABDOMEN: Abdomen soft, non-tender, normo-active bowel sounds, no masses, no rebound or guarding. BACK: No CVA TTP. SKIN: No rashes and no bruising. UPPER EXTREMITIES: Upper extremities are grossly normal. Edema bilateral hands. LOWER EXTREMITIES: Grossly normal, 1-2+ bilateral lower extremity swelling. NEURO EXAM: A&O x3, cranial nerves II-XII grossly intact, normal speech, right- sided hemiparesis. Differential diagnoses: Infection, dehydration, metabolic abnormality, hypo/hyperglycemia, electrolyte disturbance, anemia, hypoxia, cardiac sources, intracerebral event, toxicologic, neurologic, as well as other pathologies. Course: Patient was seen and evaluated the bedside. Full history physical exam was performed. EKG interpreted by me No obvious P waves noted, rate of 66, wide QRS, normal axis, right bundle branch block pattern. This appears relatively unchanged from comparison EKG completed on November 09, 2020. Imaging Studies: See Below Cardiac monitoring: An order was placed for continuous cardiac monitoring. The monitor shows a rate of 68 with regular rhythm. MDM: Patient does present due to concern for weakness and abnormal blood work. The patient was seen in the outpatient setting and referred here for further evaluation and treatment. Hemoccult was positive. Patient was consented for blood. I did discuss that the patient would likely benefit from vitamin K in light of the patient's GI bleeding and anticoagulation. I did discuss this with the daughter who is the power of personal injury attorney and she is in agreement with plan of care after discussing risks and benefits of vitamin K. She was concerned about the possibility of stroke but I did explain that imminently the patient's GI bleeding is of great concern. She is in agreement with current plan of care. Patient's blood work showed a white count of 6 with a hemoglobin of 5. Platelet count is unremarkable. Patient's kidney function shows prerenal azotemia this may be secondary to GI bleeding. BUN/creatinine ratio is 29.9. Very mild hypocalcemia at 8.4. Troponin is not detectable. I did speak with the on-call hospitalist Dr. Ingram and the patient was admitted to the medicine service. Critical Care: I have personally spent 55 minutes of critical care time in direct management of this patient. This includes bedside care, interpretation of diagnostic studies, and testing, discussion with consultants, patient, and family members, and other require inpatient management activities. This 55 minutes is in excess of all separately billable procedures. Past Med/Surg History Medical History Acute CVA (cerebrovascular accident) Aneurysm artery, popliteal Arthritis, rheumatoid Asthmatic bronchitis with acute exacerbation Cellulitis of left leg Cerebrovascular accident of right pontine structure Chronic anticoagulation Chronic anticoagulation Chronic left hip pain Chronic obstructive pulmonary disease Edema Hematoma of left lower leg History of CVA (cerebrovascular accident) Immunosuppression due to chronic steroid use Onychomycosis Open wound of right elbow Pneumonia due to COVID-19 virus Popliteal aneurysm Post herpetic neuralgia Prostate cancer Skin tear Thrombocytopenia Traumatic open wound of left lower leg with delayed healing Traumatic open wound of right elbow with infection and delayed healing Traumatic wound Venous stasis ulcer limited to breakdown of skin without varicose veins Vertigo Weakness of muscle of left side of face due to and not concurrent with cerebrovascular accident (CVA) Surgical History H/O carpal tunnel repair H/O hernia repair History of aortic valve replacement with bioprosthetic valve History of knee replacement S/P aortic valve replacement Status post carotid surgery Thromboendarterectomy Family History Other Breast cancer Family history non-contributory Uterine cancer Denies family history of Ovarian cancer Prostate cancer Myocardial infarction Colorectal cancer Social History Smoking Status: Never smoker Second Hand Exposure: No; Hx Alcohol Use: No Hx Substance Use: No Preferred Language: Belarusian Communication Ability: Effective 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: No Beliefs That Will Affect Care: None Current Living Situation: Family current occupational status: disabled Feels Safe at Home: Yes Childhood Exposure to Second-Hand Smoke: No caffeine: Yes Dental Care, Regularly: No Seatbelt Use: never Sunscreen Use: No Assistive Devices: Wheelchair Allergies Allergies Allergy/AdvReac Type Severity Reaction Status Date / Time gabapentin AdvReac Severe Swelling Verified 05/11/21 16:54 hydrocodone AdvReac Severe EXCESSIVE Verified 05/11/21 16:54 DRY MOUTH AND SHAKING Home Meds Home Medications Medication Instructions Recorded Confirmed docusate sodium 100 mg capsule 100 mg PO HS 07/17/18 05/11/21 (Colace) folic acid 1 mg tablet 1 mg PO QAM 07/17/18 05/11/21 polyethylene glycol 3350 17 gram 17 g PO QAM 04/19/19 05/11/21 oral powder packet (Miralax) methotrexate sodium 2.5 mg tablet 10 mg PO WK 10/01/19 05/11/21 prednisone 5 mg tablet 7.5 mg PO QAM tab 04/25/20 05/11/21 cyanocobalamin (vitamin B-12) 1,000 mcg PO QAM tab 08/14/20 05/11/21 1,000 mcg tablet (Vitamin B-12) aspirin 81 mg tablet,delayed 81 mg PO QAM 09/13/20 05/11/21 release albuterol sulfate 2.5 mg INHALATION BID 11/07/20 05/11/21 potassium chloride 20 mEq 20 meq PO QAM 11/07/20 05/11/21 tablet,extended release cholecalciferol (vitamin D3) 25 1,000 unit PO QAM tab 02/24/21 05/11/21 mcg (1,000 unit) tablet (Vitamin D3) Previous Rx's Medication Instructions Recorded simvastatin 40 mg tablet 40 mg PO HS #90 tab 07/11/20 doxazosin 4 mg tablet 4 mg PO BID #180 tab 07/19/20 lift chair #1 ea 07/22/20 fluticasone 250 mcg-salmeterol 50 1 inh INHALATION BID #180 ea 07/25/20 mcg/dose blistr powdr for inhalation (Advair Diskus) ferrous sulfate 325 mg (65 mg 325 mg PO DAILY@1100 #30 tab 11/13/20 iron) tablet,delayed release omeprazole 40 mg capsule,delayed 40 mg PO QAM #90 cap 11/13/20 release acetylcysteine 100 mg/mL (10 %) 2 ml INHALATION BID #90 ml 11/18/20 solution bumetanide 1 mg tablet See Rx Instructions PO DIRECTED 01/01/21 #90 tab escitalopram oxalate 20 mg tablet 20 mg PO DAILY #90 tab 01/23/21 prednisone 10 mg tablet 20 mg PO DAILY #14 tab 03/13/21 tramadol 50 mg tablet 100 mg PO .COMPLEX PRN #120 tab 04/27/21 warfarin 3 mg tablet 3 mg PO DAILY #90 tab 05/01/21 Results & Data (ED) Vital Signs Vital Signs - 24 hr 05/11/21 14:53 05/11/21 16:49 05/11/21 16:50 Temperature 36.7 C Temperature Source Temporal Artery Scan Pulse Rate 64 Pulse Rate [Finger] 73 Pulse Rhythm [Finger] Pulse Strength [Finger] Respiratory Rate 18 20 Respiratory Effort / Characteristics Respiratory Depth Respiratory Pattern Blood Pressure 109/54 L Blood Pressure [Left Arm] 134/45 L Blood Pressure Mean 72 Blood Pressure Mean [Left Arm] 74 Pulse Oximetry 95 97 97 Oxygen Delivery Method Room Air Room Air Room Air Oxygen Flow Rate Sepsis Recent Fever Within 48 Hours No Sepsis New/Unexplained Change in Mental Status No Sepsis Action Taken by Nursing No Action Required 05/11/21 17:02 05/11/21 17:26 05/11/21 18:56 Temperature 36.5 C 36.8 C Temperature Source Oral Pulse Rate 66 66 Pulse Rate [Finger] 66 Pulse Rhythm [Finger] Regular Pulse Strength [Finger] Normal Respiratory Rate 18 16 20 Respiratory Effort / Characteristics Non-Labored Respiratory Depth Normal Respiratory Pattern Regular Blood Pressure 118/52 L 103/44 L Blood Pressure [Left Arm] 110/47 L Blood Pressure Mean 74 63 Blood Pressure Mean [Left Arm] 68 Pulse Oximetry 96 94 100 Oxygen Delivery Method Nasal Cannula Room Air Oxygen Flow Rate 2 2 Sepsis Recent Fever Within 48 Hours Sepsis New/Unexplained Change in Mental Status Sepsis Action Taken by Shelter Medications Current Medication List: was personally reviewed by me Laboratory Data Attestation: I reviewed the patient's lab results. Result diagrams: 05/11/21 16:03 05/11/21 16:03 Lab Results 05/11/21 05/11/21 05/11/21 Range/Units 16:03 16:03 16:03 WBC 6.40 (4.8-10.8) K/uL RBC 1.68 L (4.7-6.1) M/uL Hgb 5.0 L* (14.0-18.0) g/dL Hct 18.1 L* (42-52) % MCV 107.7 H (80-100) fL MCH 29.8 (25-34) pg MCHC 27.6 L (32-36) g/dL RDW Std Deviation 74.2 H (36.4-46.3) fL RDW Coeff of Magali 19.1 H (11.5-14.5) % Plt Count 187 (130-400) K/uL MPV 10.3 (7.4-10.4) fL Immature Gran % (Auto) 0.9 % Neut % (Auto) 88.4 % Lymph % (Auto) 2.8 % Bent % (Auto) 7.5 % Eos % (Auto) 0.2 % Baso % (Auto) 0.2 % Neut # (Auto) 5.66 (1.4-6.5) K/uL Lymph # (Auto) 0.18 L (1.2-3.4) K/uL Bent # (Auto) 0.48 (0.11-0.59) K/uL Eos # (Auto) 0.01 (0-0.5) K/uL Baso # (Auto) 0.01 (0-0.2) K/uL Immature Gran # (Auto) 0.06 H (0.00-0.02) K/uL Absolute Nucleated RBC 0.03 H (0-0) K/uL Nucleated RBC % (auto) 0.5 % Polychromasia 1+ Hypochromasia Present Poikilocytosis Present PT 21.7 H (9.0-12.0) Seconds INR 2.3 H (0.9-1.1) APTT 25.9 (21.0-31.0) Seconds PTT Ratio 1.0 Sodium 140 (136-145) mmol/L Potassium 3.7 (3.5-5.1) mmol/L Chloride 102 (98-107) mmol/L Carbon Dioxide 30 (21-32) mmol/L Anion Gap 8.0 (3-11) BUN 33 H (7-18) mg/dl Creatinine 1.10 (0.6-1.4) mg/dl Est Cr Clr Drug Dosing Not Reportable Est GFR ( Amer) 71.1 ml/min Est GFR (Non-Af Amer) 61.3 ml/min BUN/Creatinine Ratio 29.9 H (10-20) Glucose 135 H (70-99) mg/dl Calcium 8.4 L (8.5-10.1) mg/dl Total Bilirubin 0.5 (0.2-1) mg/dl AST 11 L (15-37) U/L ALT 15 (12-78) Alkaline Phosphatase 46 (45-117) U/L Troponin I < 0.015 (0-0.045) ng/ml Total Protein 5.1 L (6.4-8.2) gm/dl Albumin 2.9 L (3.4-5.0) gm/dl Globulin 2.2 L (2.5-4.0) gm/dl Albumin/Globulin Ratio 1.3 (0.9-2) Blood Type Antibody Screen Crossmatch 05/11/21 Range/Units 16:57 WBC (4.8-10.8) K/uL RBC (4.7-6.1) M/uL Hgb (14.0-18.0) g/dL Hct (42-52) % MCV (80-100) fL MCH (25-34) pg MCHC (32-36) g/dL RDW Std Deviation (36.4-46.3) fL RDW Coeff of Magali (11.5-14.5) % Plt Count (130-400) K/uL MPV (7.4-10.4) fL Immature Gran % (Auto) % Neut % (Auto) % Lymph % (Auto) % Bent % (Auto) % Eos % (Auto) % Baso % (Auto) % Neut # (Auto) (1.4-6.5) K/uL Lymph # (Auto) (1.2-3.4) K/uL Bent # (Auto) (0.11-0.59) K/uL Eos # (Auto) (0-0.5) K/uL Baso # (Auto) (0-0.2) K/uL Immature Gran # (Auto) (0.00-0.02) K/uL Absolute Nucleated RBC (0-0) K/uL Nucleated RBC % (auto) % Polychromasia Hypochromasia Poikilocytosis PT (9.0-12.0) Seconds INR (0.9-1.1) APTT (21.0-31.0) Seconds PTT Ratio Sodium (136-145) mmol/L Potassium (3.5-5.1) mmol/L Chloride (98-107) mmol/L Carbon Dioxide (21-32) mmol/L Anion Gap (3-11) BUN (7-18) mg/dl Creatinine (0.6-1.4) mg/dl Est Cr Clr Drug Dosing Est GFR ( Amer) ml/min Est GFR (Non-Af Amer) ml/min BUN/Creatinine Ratio (10-20) Glucose (70-99) mg/dl Calcium (8.5-10.1) mg/dl Total Bilirubin (0.2-1) mg/dl AST (15-37) U/L ALT (12-78) Alkaline Phosphatase (45-117) U/L Troponin I (0-0.045) ng/ml Total Protein (6.4-8.2) gm/dl Albumin (3.4-5.0) gm/dl Globulin (2.5-4.0) gm/dl Albumin/Globulin Ratio (0.9-2) Blood Type O Positive Antibody Screen NEGATIVE Crossmatch See Detail Administered Medications Pantoprazole Sodium 40 mg/ (Dextrose) 100 mls @ 20 mls/hr IV Q5H LAKEISHA Stop: 06/10/21 17:14 Last Admin: 05/11/21 17:34 Dose: 8 mg/hr, 20 mls/hr Documented by: [id number] Discontinued Medications Pantoprazole Sodium 80 mg/ (Dextrose) 120 mls @ 400 mls/hr IV NOW ONE Stop: 05/11/21 17:04 Last Admin: 05/11/21 17:33 Dose: 400 mls/hr Documented by: [id number] Phytonadione 10 mg/ Sodium (Chloride) 51 mls @ 102 mls/hr IV ONE ONE Stop: 05/11/21 17:16 Last Admin: 05/11/21 17:33 Dose: 102 mls/hr Documented by: [id number] Discharge Plan Visit Data Chief Complaint: Cardiac Assessment Stated Complaint: BLOOD COUNT LOW REFR'D FROM 1850 ED Provider: Willis Pierce Discharge Problem: GIB (gastrointestinal bleeding), Anemia, Weakness Forms Stand Alone Forms: [facility] Prescriptions Prescriptions: No Action simvastatin 40 mg tablet 40 mg PO HS Qty: 90 RF: 3 doxazosin 4 mg tablet 4 mg PO BID Qty: 180 RF: 3 (DME) lift chair See Rx Instructions .Route .MEDSUPPLY Qty: 1 RF: 0 fluticasone propion-salmeterol [Advair Diskus] 250-50 mcg/dose blister with device 1 inh INHALATION BID Qty: 180 RF: 3 omeprazole 40 mg capsule,delayed release(DR/EC) 40 mg PO QAM Qty: 90 RF: 3 acetylcysteine 100 mg/mL (10 %) solution 2 ml inhalation BID Qty: 90 RF: 5 bumetanide 1 mg tablet See Rx Instructions PO DIRECTED Qty: 90 RF: 2 escitalopram oxalate 20 mg tablet 20 mg PO DAILY Qty: 90 RF: 3 tramadol 50 mg tablet 100 mg PO .COMPLEX PRN (Reason: pain, severe) Qty: 120 RF: 1 warfarin 3 mg tablet 3 mg PO DAILY Qty: 90 RF: 3 prednisone 10 mg tablet 20 mg PO DAILY Qty: 14 RF: 0 docusate sodium [Colace] 100 mg Capsule 100 mg PO HS RF: 0 folic acid 1 mg Tablet 1 mg PO QAM RF: 0 prednisone 5 mg tablet 7.5 mg PO QAM RF: 0 cyanocobalamin (vitamin B-12) [Vitamin B-12] 1,000 mcg tablet 1,000 mcg PO QAM RF: 0 polyethylene glycol 3350 [Miralax] 17 gram Powder In Packet 17 g PO QAM RF: 0 methotrexate sodium 2.5 mg tablet 10 mg PO WK RF: 0 aspirin 81 mg Tablet,Delayed Release (Dr/Ec) 81 mg PO QAM RF: 0 albuterol sulfate 2.5 mg /3 mL (0.083 %) solution for nebulization 2.5 mg inhalation BID RF: 0 potassium chloride 20 mEq tablet extended release 20 meq PO QAM RF: 0 ferrous sulfate 325 mg (65 mg iron) Tablet,Delayed Release (Dr/Ec) 325 mg PO DAILY@1100 Qty: 30 RF: 2 cholecalciferol (vitamin D3) [Vitamin D3] 25 mcg (1,000 unit) tablet 1,000 unit PO QAM RF: 0 Referrals Referrals: Allyssa Martinez CRNP [Primary Care Provider] - Discharge Problem: GIB (gastrointestinal bleeding) Qualifiers: GI bleed type/associated pathology: melena Qualified Code(s): K92.1 - Melena Anemia Qualifiers: Anemia type: unspecified type Qualified Code(s): D64.9 - Anemia, unspecified
[2021-05-11 16:33] LABS: INR 2.3 (0.9-1.1); Partial Thromboplastin Time 25.9 Seconds (21.0-31.0); Prothrombin Time 21.7 Seconds (9.0-12.0)
[2021-05-11 16:40] LABS: Alanine Aminotransferase 15 (12-78); Albumin Level 2.9 gm/dl (3.4-5.0); Aspartate Aminotransferase 11 U/L (15-37); BUN Creatinine Ratio 29.9 (10-20); Blood Urea Nitrogen 33 mg/dl (7-18); Calcium 8.4 mg/dl (8.5-10.1); Carbon Dioxide 30 mmol/L (21-32); Chloride 102 mmol/L (98-107); Est GFR (African American) 71.1 ml/min; Est GFR (Non-African American) 61.3 ml/min; Glucose 135 mg/dl (70-99); Potassium 3.7 mmol/L (3.5-5.1); Sodium 140 mmol/L (136-145)
[2021-05-11 16:43] LABS: Albumin Globulin Ratio 1.3 (0.9-2); Alkaline Phosphatase 46 U/L (45-117); Bilirubin,Total 0.5 mg/dl (0.2-1); Globulin 2.2 gm/dl (2.5-4.0); Total Protein 5.1 gm/dl (6.4-8.2); Troponin I < 0.015 ng/ml (0-0.045)
[2021-05-11] MEDS ORDERED: PANTOPRAZOLE BOLUS/DRIP 1 EA IV STA (16:47)
[2021-05-11] MEDS ORDERED: PANTOprazole 80 MG in DEXTROSE 5% 100 ML IV ONE (16:47)
[2021-05-11] MEDS ORDERED: PHYTONADIONE 10 MG in SODIUM CHLORIDE 0.9% 50 ML IV ONE (16:47)
[2021-05-11] MEDS ORDERED: SODIUM CHLORIDE 0.9% 250 ML IV PRN ×2 (16:47→23:49)
[2021-05-11 16:51] LABS: Hematocrit (blood only) 18.1 % (42-52); Mean Corpuscular Hemoglobin 29.8 pg (25-34); Mean Corpuscular Hgb Conc 27.6 g/dL (32-36); Mean Corpuscular Volume 107.7 fL (80-100); Mean Platelet Volume 10.3 fL (7.4-10.4); Nucleated RBC # (auto) 0.03 K/uL (0-0); Nucleated RBC % (auto) 0.5 %; Platelet Count 187 K/uL (130-400); RDW Coefficient of Variation 19.1 % (11.5-14.5); RDW Standard Deviation 74.2 fL (36.4-46.3); Red Blood Count 1.68 M/uL (4.7-6.1)
[2021-05-11] MEDS ORDERED: PANTOprazole 40 MG in DEXTROSE 5% 100 ML IV SCH (17:15)
[2021-05-11 17:17] LABS: Basophils # (auto) 0.01 K/uL (0-0.2); Basophils % (auto) 0.2 %; Eosinophils # (auto) 0.01 K/uL (0-0.5); Eosinophils % (auto) 0.2 %; Hypochromasia Present; Immature Granulocytes # (auto) 0.06 K/uL (0.00-0.02); Immature Granulocytes % (auto) 0.9 %; Lymphocytes # (auto) 0.18 K/uL (1.2-3.4); Lymphocytes % (auto) 2.8 %; Monocytes # (auto) 0.48 K/uL (0.11-0.59); Monocytes % (auto) 7.5 %; Neutrophils # (auto) 5.66 K/uL (1.4-6.5); Neutrophils % (auto) 88.4 %; Poikilocytosis Present; Polychromasia 1+
--- NOTE | 2021-05-11 18:39 | History & Physical Report ---
Date of Service May 11, 2021 Assessment & Plan (1) GIB (gastrointestinal bleeding): Plan: UGI bleed of unspecified source - Risk factor, chronic steroid use, chronic anticoag, HF - [place] 13 - HGB 5- transfuse 2units PRBC with diuresing in between - Calcium gluconate x1- recheck ionized calcium in AM- replete - Continue with Protonix drip as already started- transition to BID IV dosing likely in the morning - GI consult - recs and eval for intervention appreciated - Place and maintain 18G IV or larger - Currently no stress dose of steroids needed. (2) Anemia: Plan: Acute on chronic - MCV 107 - Started on Iron in November (3) Low back pain: Plan: Chronic Tylenol PRN (4) Arthritis: Plan: RA multiple sites- mostly his shoulders and hips at this time - continue MTHX - converted 7.5mg of prednisone daily to methylpred 6.0 mg IV daily - Received bursa injection in - Follows with [facility] (5) Chronic anticoagulation: Plan: Coumadin on hold - reversed with Vitamin K - therapeutic on admission at 2.3 - Restart when appropriate after identifying source if able - will likely need bridged with Heparin drip (6) Chronic venous stasis dermatitis of both lower extremities: Plan: Continue with tubigrip and SCDs (7) Chronic acquired lymphedema: Plan: As above (8) Hemiplegia, post-stroke: Plan: Hemiplegia with coughing - Hemiplegia to left arm and left leg weakness - Coughing following thin lquids - Deliver medication with carrier sitting up in high fowlers (9) Dysphagia as late effect of cerebrovascular accident (CVA): Plan: BSE done in - recs - minced moist diet aspiration precautions- OOB when eating with oral hygiene (10) Hypertension: Plan: Controlled- Re-initate bumex when IV diuresing completed and no further needs (11) Vitamin B12 deficiency: Plan: 1000 mcg tabs - on hold - restart or covert while NPO MCV 107 on admission (12) COPD (chronic obstructive pulmonary disease): Plan: Continue PAULINO,/ and LABA/ICS History of Present Illness Chief Complaint: fatigue Primary Care Provider: YANICK Mckeon 85 YOM with past medical history of: Multiple CVA- right pontine, right cerebellar (Coumadin and ASA for 2nd prevention),chronic edema, chronic right lower leg wound, HFpEF, afib, COVID 19 03/05, RA(on chronic steroids and MTHX), COPD. Patient comes to the [facility] today for increase in fatigue, dyspnea with exertion, and blood in stool. Patient daughter at bedside to assist in providing information, states that over the last week he has had increase in fatigue, noted increase dyspnea with exertion and thought possibly related to his hx of CHF. Today he experienced some blood streaking in his stools. She states that his stools have been dark over the past 2 months as he was started on iron pill for slowly down trending HGB in the past. She also states that over the past 2 months he has been complaining of stomach discomfort and nausea in the morning that goes away as the day goes on, but may come back in the afternoon. In the EMD the patient had routine labs drawn, ECG done. His CBC came back notable for HGB of 5.0, HCT 18.1 with MCV of 107; his INR was 2.3. Patient was type and crossed, consent for blood obtained by [facility] physician Dr. Pierce and ordered 2u PRBC for transfusion. He was given 10mg IV VItamin K, and initiated on Protonix drip. Hospitalist service was notified for admission. he will be admitted for suspected UGI bleed with anemia, likely in the setting of daily steroid use, warfarin. He is on Omeprazole 40mg daily. Will keep patient NPO except for essential medications, hold Coumadin, diurese between PRBC, trend HGB, consult GI for evaluation and possible EGD. Patient has normal HR and MAPS 68, His BUN and RN NEUROLOGY are stable. Continue with neurological exams while holding his CVA prevention. Patient is on Coumadin and ASA as above for secondary stroke prevention, his last CVA was in 2019 when he was subtherapeutic on his Coumadin as well, he will likely need bridged following acute work up of his anemia and evaluation by GI. Daughter is stressed about having to reverse and hold his antiplatelet medication/Coumadin, but she does understand that need to identify and treat his low blood levels at this time. The patient is on methotrexate and Prednisone daily for his RA- will convert his prednisone to IV methylprednisone while NPO. Allergies Allergy/AdvReac Type Severity Reaction Status Date / Time gabapentin AdvReac Severe Swelling Verified 05/11/21 16:54 hydrocodone AdvReac Severe EXCESSIVE Verified 05/11/21 16:54 DRY MOUTH AND SHAKING Home Medications Medication Instructions Recorded Confirmed Type docusate sodium 100 mg capsule 100 mg PO HS 07/17/18 05/11/21 History (Colace) folic acid 1 mg tablet 1 mg PO QAM 07/17/18 05/11/21 History polyethylene glycol 3350 17 gram 17 g PO QAM 04/19/19 05/11/21 History oral powder packet (Miralax) methotrexate sodium 2.5 mg tablet 10 mg PO WK 10/01/19 05/11/21 History prednisone 5 mg tablet 7.5 mg PO QAM tab 04/25/20 05/11/21 History simvastatin 40 mg tablet 40 mg PO HS #90 tab 07/11/20 05/11/21 Rx doxazosin 4 mg tablet 4 mg PO BID #180 tab 07/19/20 05/11/21 Rx lift chair #1 ea 07/22/20 05/11/21 Rx fluticasone 250 mcg-salmeterol 50 1 inh INHALATION BID #180 ea 07/25/20 05/11/21 Rx mcg/dose blistr powdr for inhalation (Advair Diskus) cyanocobalamin (vitamin B-12) 1,000 mcg PO QAM tab 08/14/20 05/11/21 History 1,000 mcg tablet (Vitamin B-12) aspirin 81 mg tablet,delayed 81 mg PO QAM 09/13/20 05/11/21 History release albuterol sulfate 2.5 mg INHALATION BID 11/07/20 05/11/21 History potassium chloride 20 mEq 20 meq PO QAM 11/07/20 05/11/21 History tablet,extended release ferrous sulfate 325 mg (65 mg 325 mg PO DAILY@1100 #30 tab 11/13/20 05/11/21 Rx iron) tablet,delayed release omeprazole 40 mg capsule,delayed 40 mg PO QAM #90 cap 11/13/20 05/11/21 Rx release acetylcysteine 100 mg/mL (10 %) 2 ml INHALATION BID #90 ml 11/18/20 05/11/21 Rx solution bumetanide 1 mg tablet See Rx Instructions PO DIRECTED 01/01/21 05/11/21 Rx #90 tab escitalopram oxalate 20 mg tablet 20 mg PO DAILY #90 tab 01/23/21 05/11/21 Rx cholecalciferol (vitamin D3) 25 1,000 unit PO QAM tab 02/24/21 05/11/21 History mcg (1,000 unit) tablet (Vitamin D3) prednisone 10 mg tablet 20 mg PO DAILY #14 tab 03/13/21 05/11/21 Rx tramadol 50 mg tablet 100 mg PO .COMPLEX PRN #120 tab 04/27/21 05/11/21 Rx warfarin 3 mg tablet 3 mg PO DAILY #90 tab 05/01/21 05/11/21 Rx Past Med/Surg History Medical History Acute CVA (cerebrovascular accident) Aneurysm artery, popliteal Arthritis, rheumatoid Asthmatic bronchitis with acute exacerbation Cellulitis of left leg Cerebrovascular accident of right pontine structure Chronic anticoagulation Chronic anticoagulation Chronic left hip pain Chronic obstructive pulmonary disease Edema Hematoma of left lower leg History of CVA (cerebrovascular accident) Immunosuppression due to chronic steroid use Onychomycosis Open wound of right elbow Pneumonia due to COVID-19 virus Popliteal aneurysm Post herpetic neuralgia Prostate cancer Skin tear Thrombocytopenia Traumatic open wound of left lower leg with delayed healing Traumatic open wound of right elbow with infection and delayed healing Traumatic wound Venous stasis ulcer limited to breakdown of skin without varicose veins Vertigo Weakness of muscle of left side of face due to and not concurrent with cerebrovascular accident (CVA) Surgical History H/O carpal tunnel repair H/O hernia repair History of aortic valve replacement with bioprosthetic valve History of knee replacement S/P aortic valve replacement Status post carotid surgery Thromboendarterectomy Family History Other Breast cancer Family history non-contributory Uterine cancer Denies family history of Ovarian cancer Prostate cancer Myocardial infarction Colorectal cancer Social History Smoking Status: Unknown if ever smoked Second Hand Exposure: No; Hx Alcohol Use: No Hx Substance Use: No Preferred Language: Barbadian Communication Ability: Effective Medical Transcription Required: No Beliefs That Will Affect Care: None Current Living Situation: Family current occupational status: disabled Other Information That Helps Us Care for You: No Feels Safe at Home: Yes Safety Concerns: Feels Safe At This Time Childhood Exposure to Second-Hand Smoke: No caffeine: Yes Dental Care, Regularly: No Seatbelt Use: never Sunscreen Use: No Assistive Devices: Oxygen - Continuous Review of Systems Review of Systems: REVIEW OF SYSTEMS: Constitutional: No fever, sweats or chills Eyes: No diplopia, no worsening or blurred vision ENT: (+) difficulty hearing, no trouble swallowing Respiratory: (+) dyspnea on exertion, No cough, sputum, dyspnea at rest Cardiovascular: (+) chronic, No chest pain, tightness or palpitations Abdomen: (+) dark stools, one melanic stool, No pain, nausea, vomiting, diarrhea or constipation Musculoskeletal: (+) chronic back pain and leg pain, Neurologic: No weakness, numbness/tingling, or balance problems Psychiatric: No anxiety or depression Skin: No rash or itch Physical Exam Physical Exam: PHYSICAL EXAM: General: pale, awake, alert, no apparent distress Head: Normocephalic, atraumatic ENT: PERRL, EOMI, no pharyngeal exudate, mucous membranes moist Neuro: AAO x 3, speech clear and appropriate, left sided weakness-chronic, sensation intact and equal all extremities and dermatomes, Chest: equal rise and fall of the chest, no accessory muscle use, no heaves or thrills, Clear to auscultation, on room air, Cardiac: irregular rate and rhythm, telemetry reviewed, skin warm dry, cap refill <3 seconds, peripheral pulses +2 no JVD, no murmur, +3 edema left lower leg, +2 edema right lower leg GI: NABSx 4 quadrants, soft, nontender to palpation, no rebound, guarding or tenderness : Spontaneously voiding, no pain, no CVA tenderness, Extremities: Normal inspection, no peripheral edema or erythema, calfs nontender to palpation Psych: Normal mood and affect Skin: no rash or erythema Results & Data Results & Data ([facility]) Vital Signs (Past 12 Hours) Vital Signs Temp Pulse Pulse Resp BP BP Pulse Ox 05/11/21 17:26 66 16 110/47 L 94 05/11/21 16:50 97 05/11/21 16:49 73 20 134/45 L 97 05/11/21 14:53 36.7 C 64 18 109/54 L 95 Laboratory Results Abnormal lab results 05/11/21 05/11/21 05/11/21 Range/Units 16:03 16:03 16:03 RBC 1.68 L (4.7-6.1) M/uL Hgb 5.0 L* (14.0-18.0) g/dL Hct 18.1 L* (42-52) % MCV 107.7 H (80-100) fL MCHC 27.6 L (32-36) g/dL RDW Std Deviation 74.2 H (36.4-46.3) fL RDW Coeff of Magali 19.1 H (11.5-14.5) % Lymph # (Auto) 0.18 L (1.2-3.4) K/uL Immature Gran # (Auto) 0.06 H (0.00-0.02) K/uL Absolute Nucleated RBC 0.03 H (0-0) K/uL PT 21.7 H (9.0-12.0) Seconds INR 2.3 H (0.9-1.1) BUN 33 H (7-18) mg/dl BUN/Creatinine Ratio 29.9 H (10-20) Glucose 135 H (70-99) mg/dl Calcium 8.4 L (8.5-10.1) mg/dl AST 11 L (15-37) U/L Total Protein 5.1 L (6.4-8.2) gm/dl Albumin 2.9 L (3.4-5.0) gm/dl Globulin 2.2 L (2.5-4.0) gm/dl Crossmatch 05/11/21 Range/Units 16:57 RBC (4.7-6.1) M/uL Hgb (14.0-18.0) g/dL Hct (42-52) % MCV (80-100) fL MCHC (32-36) g/dL RDW Std Deviation (36.4-46.3) fL RDW Coeff of Magali (11.5-14.5) % Lymph # (Auto) (1.2-3.4) K/uL Immature Gran # (Auto) (0.00-0.02) K/uL Absolute Nucleated RBC (0-0) K/uL PT (9.0-12.0) Seconds INR (0.9-1.1) BUN (7-18) mg/dl BUN/Creatinine Ratio (10-20) Glucose (70-99) mg/dl Calcium (8.5-10.1) mg/dl AST (15-37) U/L Total Protein (6.4-8.2) gm/dl Albumin (3.4-5.0) gm/dl Globulin (2.5-4.0) gm/dl Crossmatch See Detail Diagnostic Findings NONE on admission Medications Administered Pantoprazole Sodium 40 mg/ (Dextrose) 100 mls @ 20 mls/hr IV Q5H LAKEISHA Stop: 06/10/21 17:14 Last Admin: 05/11/21 17:34 Dose: 8 mg/hr, 20 mls/hr Documented by: [id number] Discontinued Medications Pantoprazole Sodium 80 mg/ (Dextrose) 120 mls @ 400 mls/hr IV NOW ONE Stop: 05/11/21 17:04 Last Admin: 05/11/21 17:33 Dose: 400 mls/hr Documented by: [id number] Phytonadione 10 mg/ Sodium (Chloride) 51 mls @ 102 mls/hr IV ONE ONE Stop: 05/11/21 17:16 Last Admin: 05/11/21 17:33 Dose: 102 mls/hr Documented by: [id number] Home Medications docusate sodium 100 mg capsule (Colace) 100 mg PO HS 07/17/18 [History Confirmed 05/11/21] folic acid 1 mg tablet 1 mg PO QAM 07/17/18 [History Confirmed 05/11/21] polyethylene glycol 3350 17 gram oral powder packet (Miralax) 17 g PO QAM 04/19/19 [History Confirmed 05/11/21] methotrexate sodium 2.5 mg tablet 10 mg PO WK 10/01/19 [History Confirmed 05/11/21] prednisone 5 mg tablet 7.5 mg PO QAM tab 04/25/20 [History Confirmed 05/11/21] simvastatin 40 mg tablet 40 mg PO HS #90 tab 07/11/20 [Rx Confirmed 05/11/21] doxazosin 4 mg tablet 4 mg PO BID #180 tab 07/19/20 [Rx Confirmed 05/11/21] lift chair #1 ea 07/22/20 [Rx Confirmed 05/11/21] fluticasone 250 mcg-salmeterol 50 mcg/dose blistr powdr for inhalation (Advair Diskus) 1 inh INHALATION BID #180 ea 07/25/20 [Rx Confirmed 05/11/21] cyanocobalamin (vitamin B-12) 1,000 mcg tablet (Vitamin B-12) 1,000 mcg PO QAM tab 08/14/20 [History Confirmed 05/11/21] aspirin 81 mg tablet,delayed release 81 mg PO QAM 09/13/20 [History Confirmed 05/11/21] albuterol sulfate 2.5 mg INHALATION BID 11/07/20 [History Confirmed 05/11/21] potassium chloride 20 mEq tablet,extended release 20 meq PO QAM 11/07/20 [History Confirmed 05/11/21] ferrous sulfate 325 mg (65 mg iron) tablet,delayed release 325 mg PO DAILY@1100 #30 tab 11/13/20 [Rx Confirmed 05/11/21] omeprazole 40 mg capsule,delayed release 40 mg PO QAM #90 cap 11/13/20 [Rx Confirmed 05/11/21] acetylcysteine 100 mg/mL (10 %) solution 2 ml INHALATION BID #90 ml 11/18/20 [Rx Confirmed 05/11/21] bumetanide 1 mg tablet See Rx Instructions PO DIRECTED #90 tab 01/01/21 [Rx Confirmed 05/11/21] escitalopram oxalate 20 mg tablet 20 mg PO DAILY #90 tab 01/23/21 [Rx Confirmed 05/11/21] cholecalciferol (vitamin D3) 25 mcg (1,000 unit) tablet (Vitamin D3) 1,000 unit PO QAM tab 02/24/21 [History Confirmed 05/11/21] prednisone 10 mg tablet 20 mg PO DAILY #14 tab 03/13/21 [Rx Confirmed 05/11/21] tramadol 50 mg tablet 100 mg PO .COMPLEX PRN #120 tab 04/27/21 [Rx Confirmed 05/11/21] warfarin 3 mg tablet 3 mg PO DAILY #90 tab 05/01/21 [Rx Confirmed 05/11/21] Active Medications Furosemide (Furosemide 40 Mg/4 Ml Vial) 40 mg IV ONE ONE Stop: 05/12/21 06:25 Sodium Chloride (Nss) 250 mls @ 15 mls/hr IV .[id number] PRN PRN Reason: For Transfusion Stop: 05/12/21 02:48 Pantoprazole Sodium 40 mg/ (Dextrose) 100 mls @ 20 mls/hr IV Q5H [facility] Stop: 06/10/21 17:14 Last Admin: 05/11/21 17:34 Dose: 8 mg/hr, 20 mls/hr Documented by: Methylprednisolone (Methylprednisolone 40 Mg/Ml Vial) 20 mg IV DAILY [facility] Stop: 06/11/21 08:59 ECG Additional Comments: Right bundle branch block Cannot rule out Anteroseptal infarct , age undetermined T wave abnormality, consider lateral ischemia Abnormal ECG When compared with ECG of 09-NOV-2020 06:27, Current undetermined rhythm precludes rhythm comparison, needs review- AFIB with abbarancy and RBB: - compared to November 03- RBB present at that time Code Status & VTE Plan Code Status CODE: LIMITED- NO CPR, Intubation and mechanical ventilation OK, cardioversion OK, Vasoactive medications OK Supervising Physician Co-Signing Physician Notes Patient was seen and examined at bedside. During face to face encounter, obtained a history and physical examination. Discussed with APC Hany plan of care. Patient will be admitted for anemia from Gastrointestinal bleeding. Will require transfusion, will monitor hemoglobin. consult GI I agree with above plan. PG Care Time/CCT Total # of Minutes Spent Total Time Spent with Patient: Total time spent is greater than 50% in coordination of care (as documented) at patient's floor/unit and/or counseling patient: Coding Level of Care Code 63974 Initial Inpt Care Lvl 3 Diagnoses GIB (gastrointestinal bleeding) K92.1 GI bleed type/associated pathology: melena Anemia D64.9 Anemia type: unspecified type Low back pain M54.5 Chronic venous stasis dermatitis of both lower extremities I87.2 Chronic acquired lymphedema I89.0 Hemiplegia, post-stroke I69.359 Hypertension I10 Arthritis M19.90 Vitamin B12 deficiency E53.8 Chronic anticoagulation Z79.01 Dysphagia as late effect of cerebrovascular accident (CVA) I69.391 COPD (chronic obstructive pulmonary disease) J44.9 (1) GIB (gastrointestinal bleeding) GI bleed type/associated pathology: melena Qualified Code(s): K92.1 - Melena (2) Anemia Anemia type: unspecified type Qualified Code(s): D64.9 - Anemia, unspecified
[2021-05-11] MEDS ORDERED: ONDANSETRON INJ 2 MG/ML 2 ML VIAL IV PRN (21:56)
[2021-05-11] MEDS ORDERED: FUROSEMIDE 40 MG/4 ML VIAL IV ONE (21:56)
[2021-05-11] MEDS ORDERED: CALCIUM GLUCONATE 1,000 MG/60 ML BAG IV STA (22:02)
[2021-05-11] MEDS: ACETYLCYSTEINE 10% INHAL SOLN 4 ML **DISPENSED BY RESP. INH SCH (22:31)
[2021-05-11] MEDS: ALBUTEROL 0.083% NEBU SOLN 3 ML VIAL INH SCH (22:31)
[2021-05-11] MEDS: SIMVASTATIN 40 MG TAB PO SCH (23:20)
[2021-05-11] MEDS: DOXAZosin MESYLATE 4 MG TAB PO SCH (23:21)
[2021-05-11 23:44] LABS: Hematocrit (blood only) 19.4 % (42-52); Hemoglobin 5.5 g/dL (14.0-18.0); Mean Corpuscular Hemoglobin 28.2 pg (25-34); Mean Corpuscular Hgb Conc 28.4 g/dL (32-36); Mean Corpuscular Volume 99.5 fL (80-100); Mean Platelet Volume 11.1 fL (7.4-10.4); Nucleated RBC # (auto) 0.02 K/uL (0-0); Nucleated RBC % (auto) 0.4 %; Platelet Count 162 K/uL (130-400); RDW Coefficient of Variation 20.1 % (11.5-14.5); Red Blood Count 1.95 M/uL (4.7-6.1); White Blood Count 5.45 K/uL (4.8-10.8)
[2021-05-11] MEDS ORDERED: BUMETANIDE IV BOLUS FROM BAG IV ONE (23:49)
[2021-05-12 00:01] LABS: Anisocytosis Present; Basophils # (auto) 0.02 K/uL (0-0.2); Basophils % (auto) 0.4 %; Eosinophils # (auto) 0.06 K/uL (0-0.5); Eosinophils % (auto) 1.1 %; Hypochromasia Present; Immature Granulocytes # (auto) 0.07 K/uL (0.00-0.02); Immature Granulocytes % (auto) 1.3 %; Lymphocytes # (auto) 0.34 K/uL (1.2-3.4); Lymphocytes % (auto) 6.2 %; Monocytes # (auto) 0.82 K/uL (0.11-0.59); Neutrophils # (auto) 4.14 K/uL (1.4-6.5); Polychromasia 1+
[2021-05-12] MEDS ORDERED: BUMETANIDE 1 MG in SYRINGE 0 ML IV ONE (00:15)
[2021-05-12] MEDS: ALBUTEROL 0.083% NEBU SOLN 3 ML VIAL INH SCH ×2 (06:04→19:18)
[2021-05-12] MEDS: ACETYLCYSTEINE 10% INHAL SOLN 4 ML **DISPENSED BY RESP. INH SCH ×2 (06:05→19:19)
[2021-05-12] MEDS ORDERED: FUROSEMIDE 40 MG/4 ML VIAL IV ONE (06:24)
--- NOTE | 2021-05-12 07:51 | Anesthesiology Consultation ---
Date of Service May 12, 2021 Assessment & Plan Chart Review Chart Review: Acceptable Risk for Surgery and Patient NOT seen in Pre Admission Testing Consults Requested none ASA ASA4 Proposed Anesthesia Anesthesia Type: MAC Additional Comments: covid test negative History Surgery Operation Date: 05/12/21 10:55 Proposed Procedures p Esophagogastroduodenoscopy - Shabbir Petersen MD Height/Weight Height: 5 ft 6 in Weight: 85 kg Allergies Allergy/AdvReac Type Severity Reaction Status Date / Time gabapentin AdvReac Severe Swelling Verified 05/11/21 16:54 hydrocodone AdvReac Severe EXCESSIVE Verified 05/11/21 16:54 DRY MOUTH AND SHAKING Medications Home Medications Medication Instructions Recorded Confirmed Last Taken docusate sodium 100 mg capsule 100 mg PO HS 07/17/18 05/11/21 05/10/21 (Colace) folic acid 1 mg tablet 1 mg PO QAM 07/17/18 05/11/21 05/11/21 polyethylene glycol 3350 17 gram 17 g PO QAM 04/19/19 05/11/21 05/11/21 oral powder packet (Miralax) methotrexate sodium 2.5 mg tablet 10 mg PO WK 10/01/19 05/11/21 05/06/21 prednisone 5 mg tablet 7.5 mg PO QAM tab 04/25/20 05/11/21 11/07/20 simvastatin 40 mg tablet 40 mg PO HS #90 tab 07/11/20 05/11/21 05/10/21 doxazosin 4 mg tablet 4 mg PO BID #180 tab 07/19/20 05/11/21 05/11/21 08:00 lift chair #1 ea 07/22/20 05/11/21 Unknown fluticasone 250 mcg-salmeterol 50 1 inh INHALATION BID #180 ea 07/25/20 05/11/21 05/11/21 08:00 mcg/dose blistr powdr for inhalation (Advair Diskus) cyanocobalamin (vitamin B-12) 1,000 mcg PO QAM tab 08/14/20 05/11/21 05/11/21 1,000 mcg tablet (Vitamin B-12) aspirin 81 mg tablet,delayed 81 mg PO QAM 09/13/20 05/11/21 05/11/21 release albuterol sulfate 2.5 mg INHALATION BID 11/07/20 05/11/2105/11/21 08:00 potassium chloride 20 mEq 20 meq PO QAM 11/07/20 05/11/21 05/11/21 tablet,extended release ferrous sulfate 325 mg (65 mg 325 mg PO DAILY@1100 #30 tab 11/13/20 05/11/21 05/11/21 iron) tablet,delayed release omeprazole 40 mg capsule,delayed 40 mg PO QAM #90 cap 11/13/20 05/11/21 05/11/21 release acetylcysteine 100 mg/mL (10 %) 2 ml INHALATION BID #90 ml 11/18/20 05/11/21 05/11/21 08:00 solution bumetanide 1 mg tablet See Rx Instructions PO DIRECTED 01/01/21 05/11/21 Unknown #90 tab escitalopram oxalate 20 mg tablet 20 mg PO DAILY #90 tab 01/23/21 05/11/21 05/11/21 cholecalciferol (vitamin D3) 25 1,000 unit PO QAM tab 02/24/21 05/11/21 05/11/21 mcg (1,000 unit) tablet (Vitamin D3) prednisone 10 mg tablet 20 mg PO DAILY #14 tab 03/13/21 05/11/21 Unknown tramadol 50 mg tablet 100 mg PO .COMPLEX PRN #120 tab 04/27/21 05/11/21 Unknown warfarin 3 mg tablet 3 mg PO DAILY #90 tab 05/01/21 05/11/21 05/10/21 Active Medications Generic Name Dose Route Start Last Admin Trade Name Freq PRN Reason Stop Dose Admin Acetylcysteine 2 ml 05/11/21 21:56 05/12/21 06:05 Acetylcysteine 10% Inhal Soln 4 Ml Dispensed By Resp. INH 06/10/21 21:5 5 2 ml BIDR LAKEISHA Administration Albuterol 2.5 mg 05/11/21 21:56 05/12/21 06:04 Albuterol 0.083% Nebu Soln 3 Ml Vial INH 06/10/21 21:55 2.5 mg BIDR LAKEISHA Administration Protocol Doxazosin Mesylate 4 mg 05/11/21 21:56 05/11/21 23:21 Doxazosin Mesylate 4 Mg Tab PO 06/10/21 21:55 4 mg BID LAKEISHA Administration Simvastatin 40 mg 05/11/21 21:56 05/11/21 23:20 Simvastatin 40 Mg Tab PO 06/10/21 21:55 40 mg HS LAKEISHA Administration Past Medical History Medical History Acute CVA (cerebrovascular accident) Aneurysm artery, popliteal Arthritis, rheumatoid Asthmatic bronchitis with acute exacerbation Cellulitis of left leg Cerebrovascular accident of right pontine structure Chronic anticoagulation Chronic anticoagulation Chronic left hip pain Chronic obstructive pulmonary disease Edema Hematoma of left lower leg History of CVA (cerebrovascular accident) Immunosuppression due to chronic steroid use Onychomycosis Open wound of right elbow Pneumonia due to COVID-19 virus Popliteal aneurysm Post herpetic neuralgia Prostate cancer Skin tear Thrombocytopenia Traumatic open wound of left lower leg with delayed healing Traumatic open wound of right elbow with infection and delayed healing Traumatic wound Venous stasis ulcer limited to breakdown of skin without varicose veins Vertigo Weakness of muscle of left side of face due to and not concurrent with cerebrovascular accident (CVA) Exercise / Class Metabolic Activity III < 4 Walking/Shop/Light housework Past Family History Family History Other Breast cancer Family history non-contributory Uterine cancer Denies family history of Ovarian cancer Prostate cancer Myocardial infarction Colorectal cancer Past Surgical History Surgical History H/O carpal tunnel repair H/O hernia repair History of aortic valve replacement with bioprosthetic valve History of knee replacement S/P aortic valve replacement Status post carotid surgery Thromboendarterectomy Past Anesthesia History No Hx of Anesthesia Complications and No Family Hx of Anesthesia Complications History of PONV No Hx of PONV and No Hx of Motion Sickness Social History Smoking Status: Unknown if ever smoked Hx Alcohol Use: No Hx Substance Use: No substance use type: does not use Physical Exam Vital Signs Last Vital Signs Temp 36.9 C 05/12/21 07:41 Pulse 53 L 05/12/21 07:41 Resp 16 05/12/21 07:41 BP 100/50 L 05/12/21 07:41 Pulse Ox 95 05/12/21 07:41 Testing Laboratory Results 05/11/21 23:08 05/11/21 16:03 PT 21.7 Seconds (9.0-12.0) H 05/11/21 16:03 INR 2.3 (0.9-1.1) H 05/11/21 16:03 APTT 25.9 Seconds (21.0-31.0) 05/11/21 16:03 Blood Type O Positive 05/11/21 16:57 Antibody Screen NEGATIVE 05/11/21 16:57 Electrocardiogram Date: 05/12/21 Findings: + AFIB @ (@ 57 w/ slow ventricular response), + RBBB and + pertinent finding (? septal infarct, age ?) Chest X-Ray Date: 03/24/21 Findings: + cardiomegaly, + infiltrate (B/L airspace opacities,likely pulm edema), + pulmonary vascular congestion, + pleural effusion and + atherosclerosis of thoracic aorta Echocardiogram Date: 08/12/20 EF: 55% LV Function: normal RWMA: + none Other Findings: + atrial enlargement (severe LA enlargement) and + LVH (moderate) Valvular Disease: + (bioprosthetic AV w/ moderate ), + AI (mild) and + MR (moderate) mild TR; increased RV systolic pressure 50-60 Torr
[2021-05-12] MEDS: FLUTICASONE/VILANTEROL 200/25MCG 14 PUFFS/INHALER INH SCH (08:33)
[2021-05-12] MEDS: METHYLPREDNISOLONE IV SCH (08:33)
--- NOTE | 2021-05-12 08:37 | Gastrointestinal Consultation ---
Date of Consultation May 12, 2021 Assessment & Plan (1) Anemia: (2) GIB (gastrointestinal bleeding): symptomatic anemia due to GI bleed recs: --EGD now to further evaluate --risks/benefits and procedure discussed with patient, who agrees to proceed --protonix drip --NPO --supportive care, IVFs this procedure is medically necessary to due to gi bleeding and severe anemia Thank you for allowing me to participate in the care of this patient History of Present Illness Attending Physician: Preston Mathur MD History of Present Illness 85 yo male with hx multiple CVAs, CHF, afib, covid19 on chronic steroids, COPD here with symptomatic anemia and hematochezia. He notes CARPIO and fatigue. stools have been dark over the last 2 months, though he was on iron for previous anemia.Hgb noted to be 5 on admission, was transfused 2 units. He is on warfarin and ASA as well. was given vitamin K and placed on PPI drip. labs reviewed. Allergies Allergy/AdvReac Type Severity Reaction Status Date / Time gabapentin AdvReac Severe Swelling Verified 05/11/21 16:54 hydrocodone AdvReac Severe EXCESSIVE Verified 05/11/21 16:54 DRY MOUTH AND SHAKING Home Medications Medication Instructions Recorded Confirmed Type docusate sodium 100 mg capsule 100 mg PO HS 07/17/18 05/11/21 History (Colace) folic acid 1 mg tablet 1 mg PO QAM 07/17/18 05/11/21 History polyethylene glycol 3350 17 gram 17 g PO QAM 04/19/19 05/11/21 History oral powder packet (Miralax) methotrexate sodium 2.5 mg tablet 10 mg PO WK 10/01/19 05/11/21 History prednisone 5 mg tablet 7.5 mg PO QAM tab 04/25/20 05/11/21 History simvastatin 40 mg tablet 40 mg PO HS #90 tab 07/11/20 05/11/21 Rx doxazosin 4 mg tablet 4 mg PO BID #180 tab 07/19/20 05/11/21 Rx lift chair #1 ea 07/22/20 05/11/21 Rx fluticasone 250 mcg-salmeterol 50 1 inh INHALATION BID #180 ea 07/25/20 05/11/21 Rx mcg/dose blistr powdr for inhalation (Advair Diskus) cyanocobalamin (vitamin B-12) 1,000 mcg PO QAM tab 08/14/20 05/11/21 History 1,000 mcg tablet (Vitamin B-12) aspirin 81 mg tablet,delayed 81 mg PO QAM 09/13/20 05/11/21 History release albuterol sulfate 2.5 mg INHALATION BID 11/07/20 05/11/21 History potassium chloride 20 mEq 20 meq PO QAM 11/07/20 05/11/21 History tablet,extended release ferrous sulfate 325 mg (65 mg 325 mg PO DAILY@1100 #30 tab 11/13/20 05/11/21 Rx iron) tablet,delayed release omeprazole 40 mg capsule,delayed 40 mg PO QAM #90 cap 11/13/20 05/11/21 Rx release acetylcysteine 100 mg/mL (10 %) 2 ml INHALATION BID #90 ml 11/18/20 05/11/21 Rx solution bumetanide 1 mg tablet See Rx Instructions PO DIRECTED 01/01/21 05/11/21 Rx #90 tab escitalopram oxalate 20 mg tablet 20 mg PO DAILY #90 tab 01/23/21 05/11/21 Rx cholecalciferol (vitamin D3) 25 1,000 unit PO QAM tab 02/24/21 05/11/21 History mcg (1,000 unit) tablet (Vitamin D3) prednisone 10 mg tablet 20 mg PO DAILY #14 tab 03/13/21 05/11/21 Rx tramadol 50 mg tablet 100 mg PO .COMPLEX PRN #120 tab 04/27/21 05/11/21 Rx warfarin 3 mg tablet 3 mg PO DAILY #90 tab 05/01/21 05/11/21 Rx Patient History Medical History Acute CVA (cerebrovascular accident) Aneurysm artery, popliteal Arthritis, rheumatoid Asthmatic bronchitis with acute exacerbation Cellulitis of left leg Cerebrovascular accident of right pontine structure Chronic anticoagulation Chronic anticoagulation Chronic left hip pain Chronic obstructive pulmonary disease Edema Hematoma of left lower leg History of CVA (cerebrovascular accident) Immunosuppression due to chronic steroid use Onychomycosis Open wound of right elbow Pneumonia due to COVID-19 virus Popliteal aneurysm Post herpetic neuralgia Prostate cancer Skin tear Thrombocytopenia Traumatic open wound of left lower leg with delayed healing Traumatic open wound of right elbow with infection and delayed healing Traumatic wound Venous stasis ulcer limited to breakdown of skin without varicose veins Vertigo Weakness of muscle of left side of face due to and not concurrent with cerebrovascular accident (CVA) Surgical History H/O carpal tunnel repair H/O hernia repair History of aortic valve replacement with bioprosthetic valve History of knee replacement S/P aortic valve replacement Status post carotid surgery Thromboendarterectomy Family History Other Breast cancer Family history non-contributory Uterine cancer Denies family history of Ovarian cancer Prostate cancer Myocardial infarction Colorectal cancer Social History Smoking Status: Unknown if ever smoked Second Hand Exposure: No; Hx Alcohol Use: No Hx Substance Use: No Preferred Language: Korean Communication Ability: Effective 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: No Beliefs That Will Affect Care: None Current Living Situation: Family current occupational status: disabled Other Information That Helps Us Care for You: No Feels Safe at Home: Yes Safety Concerns: Feels Safe At This Time Childhood Exposure to Second-Hand Smoke: No caffeine: Yes Dental Care, Regularly: No Seatbelt Use: never Sunscreen Use: No Assistive Devices: Oxygen - Continuous Review of Systems Constitutional: no fever, no chills and no weight loss Eyes: as per Subjective / HPI Ear, Nose, Mouth, Throat: as per Subjective / HPI Respiratory: no dyspnea and no dyspnea on exertion Cardiovascular: no chest pain and no palpitations Gastrointestinal: as per Subjective / HPI Musculoskeletal: no joint pain and no swelling Integumentary: no rash and no lesions Neurologic: no numbness and no paresthesia Psychiatric: no depression and no anxiety Endocrine: no fatigue Hematologic / Lymphatic: no easy bleeding and no easy bruising Physical Exam Constitutional: WD/WN, vitals as above Eyes: EOM intact bilaterally Neck: normal visual inspection Respiratory: normal respiratory effort, lungs clear to auscultation Cardiovascular: RRR, no murmur, no edema Gastrointestinal (Abdomen): Inspection/Auscultation: abdomen normal to inspection; abdomen not distended Percussion/Palpation: abdomen soft; abdomen nontender and no hepatosplenomegaly Musculoskeletal: Extremities: no cyanosis Gait: normal gait Skin: no rashes, warm and dry Neurologic: moves all extremities Psychiatric: A+Ox3, euthymic affect Results & Data ([facility]) Vital Signs (Past 12 Hours) Vital Signs Temp Pulse Pulse Resp BP BP Pulse Ox 05/12/21 08:25 36.8 C 58 L 20 126/62 96 05/12/21 07:55 36.4 C L 56 L 16 118/50 L 98 05/12/21 07:41 36.9 C 53 L 16 100/50 L 95 05/12/21 07:26 36.5 C 56 L 16 115/58 L 97 05/12/21 06:20 37.3 C 63 18 120/59 L 92 05/12/21 06:05 68 18 95 05/12/21 05:20 37.1 C 64 22 124/56 L 94 05/12/21 04:51 37 C 59 L 20 119/57 L 97 05/12/21 04:20 36.7 C 62 18 118/54 L 97 05/12/21 03:50 37 C 63 20 121/50 L 98 05/12/21 03:35 37 C 56 L 18 118/62 93 05/12/21 03:17 37.1 C 56 L 18 103/49 L 96 05/12/21 02:45 36.7 C 59 L 18 114/54 L 98 05/12/21 02:10 36.8 C 56 L 21 103/42 L 99 05/12/21 01:12 36.8 C 58 L 19 101/64 98 05/12/21 01:00 58 L 20 111/57 L 98 05/12/21 00:42 36.8 C 61 18 119/53 L 94 05/12/21 00:12 36.8 C 63 21 106/45 L 99 05/11/21 23:42 36.8 C 61 20 122/48 L 100 05/11/21 23:37 62 16 97/42 L 97 05/11/21 23:27 36.9 C 62 14 107/40 L 94 05/11/21 23:09 36.8 C 63 20 95/68 L 95 05/11/21 22:48 60 18 122/75 100 05/11/21 22:31 60 16 100 05/11/21 22:01 60 20 127/52 L 100 05/11/21 21:32 60 16 114/45 L 100 PG Care Time/CCT Total # of Minutes Spent Total Time Spent with Patient: Total time spent is greater than 50% in coordination of care (as documented) at patient's floor/unit and/or counseling patient: Coding Level of Care Code 17371 Initial Inpt Care Lvl 3 Diagnoses Anemia D64.9 Anemia type: unspecified type GIB (gastrointestinal bleeding) K92.1 GI bleed type/associated pathology: melena (1) Anemia Anemia type: unspecified type Qualified Code(s): D64.9 - Anemia, unspecified (2) GIB (gastrointestinal bleeding) GI bleed type/associated pathology: melena Qualified Code(s): K92.1 - Melena
[2021-05-12] MEDS: DOXAZosin MESYLATE 4 MG TAB PO SCH ×2 (08:38→21:24)
[2021-05-12] MEDS: ESCITALOPRAM OXALATE 20 MG TAB PO SCH (08:38)
[2021-05-12] MEDS ORDERED: LIDOCAINE 2% 2 ML VIAL/AMP(20MG/ML) INFIL ONE (09:25)
[2021-05-12] MEDS ORDERED: PROPOFOL IV EMULSION 10 MG/ML 20 ML VIAL IV ONE (09:25)
[2021-05-12] MEDS ORDERED: ePHEDrine sulfate 50 MG/ML AMP IV PRN (10:44)
[2021-05-12] MEDS ORDERED: ATROPINE SULFATE 0.1 MG/ML 10ML SYR IV PRN (10:44)
--- NOTE | 2021-05-12 11:14 | Procedure Note ---
Procedure Note Date of Service May 12, 2021 Note GI brief procedure note EGD findings: gastritis with erosions, no bleeding nor ulcers or AVMs noted. bx'd. recs: f/u path results clear liquid diet today and tomorrow --colonoscopy 05/14 in the morning --prep with golytely 4L starting tomorrow at 6 pm --supportive care, trend H/H Shabbir Petersen MD Gastroenterology Coding
[2021-05-12] MEDS ORDERED: ePHEDrine sulfate 50 MG/ML SYR ONE (11:16)
--- NOTE | 2021-05-12 11:18 | GI REPORT ---
Patient Name: Shawn Weaver Procedure Date: 05/12/2021 10:42 AM Date of : 1935 Admit Type: Inpatient Age: 85 Gender: Male Attending MD: Shabbir Petersen MD Procedure: Upper GI endoscopy Providers: Shabbir Petersen MD Referring MD: Preston Mathur Md Indications: Iron deficiency anemia secondary to chronic blood loss Medicines: Monitored Anesthesia Care Complications: No immediate complications. Estimated blood loss: None. Estimated Blood Loss: Estimated blood loss: none. Procedure: Pre-Anesthesia Assessment: - Prior Anticoagulants: The patient has taken no previous anticoagulant or antiplatelet agents. - ASA Grade Assessment: II - A patient with mild systemic disease. After obtaining informed consent, the endoscope was passed under direct vision. Throughout the procedure, the patient's blood pressure, pulse, and oxygen saturations were monitored continuously. The Endoscope was introduced through the mouth, and advanced to the second part of duodenum. The upper GI endoscopy was accomplished without difficulty. The patient tolerated the procedure well. Findings: The examined esophagus was normal. Diffuse mild inflammation characterized by erosions and erythema was found in the stomach. Biopsies were taken with a cold forceps for Helicobacter pylori testing. Estimated blood loss: none. The duodenal bulb and second portion of the duodenum were normal. No evidence of blood nor bleeding throughout entire exam. Impression: - Normal esophagus. - Gastritis. Biopsied. - Normal duodenal bulb and second portion of the duodenum. Recommendation: - Return patient to hospital craft for ongoing care. - Clear liquid diet today and tomorrow -golytely prep starting tomorrow at 6 pm, 4L prep -colonoscopy 05/14 in the morning - Await pathology results. Shabbir Petersen MD 05/12/2021 11:17:45 AM This report has been signed electronically. Note Initiated On: 05/12/2021 10:42 AM Number of Addenda: 0 I attest to the content of the Intraoperative Record and orders documented therein, exceptions below {[id number]}
--- NOTE | 2021-05-12 11:41 | Anesthesiology Progress Note ---
Date of Service May 12, 2021 Anesthesia Post Procedure Vital Signs Vital Signs: Temp Pulse Pulse Pulse Resp BP BP 05/12/21 11:30 55 L 20 05/12/21 11:20 55 L 21 05/12/21 11:10 36.2 C L 58 L 20 05/12/21 10:29 36.2 C L 56 L 18 05/12/21 09:25 36.6 C 58 L 16 121/63 05/12/21 09:12 36.2 C L 57 L 16 125/54 L 05/12/21 08:25 36.8 C 58 L 20 126/62 05/12/21 07:55 36.4 C L 56 L 16 118/50 L 05/12/21 07:41 36.9 C 53 L 16 100/50 L 05/12/21 07:26 36.5 C 56 L 16 115/58 L 05/12/21 07:00 57 L 05/12/21 06:20 37.3 C 63 18 120/59 L 05/12/21 06:05 68 18 05/12/21 05:20 37.1 C 64 22 124/56 L 05/12/21 04:51 37 C 59 L 20 119/57 L 05/12/21 04:20 36.7 C 62 18 118/54 L 05/12/21 03:50 37 C 63 20 121/50 L 05/12/21 03:35 37 C 56 L 18 118/62 05/12/21 03:17 37.1 C 56 L 18 103/49 L 05/12/21 02:45 36.7 C 59 L 18 114/54 L 05/12/21 02:10 36.8 C 56 L 21 103/42 L 05/12/21 01:12 36.8 C 58 L 19 101/64 05/12/21 01:00 58 L 20 111/57 L 05/12/21 00:42 36.8 C 61 18 119/53 L 05/12/21 00:12 36.8 C 63 21 106/45 L 05/11/21 23:42 36.8 C 61 20 122/48 L 05/11/21 23:37 62 16 97/42 L 05/11/21 23:27 36.9 C 62 14 107/40 L 05/11/21 23:09 36.8 C 63 20 95/68 L 05/11/21 22:48 60 18 122/75 05/11/21 22:31 60 16 05/11/21 22:01 60 20 127/52 L 05/11/21 21:32 60 16 114/45 L 05/11/21 19:30 61 19 117/45 L 05/11/21 19:10 36.5 C 62 18 117/45 L 05/11/21 19:00 61 20 115/49 L 05/11/21 18:56 36.8 C 66 20 103/44 L 05/11/21 18:30 64 21 104/53 L 05/11/21 17:30 110/47 L 05/11/21 17:26 66 16 110/47 L 05/11/21 17:02 36.5 C 66 18 118/52 L 05/11/21 16:50 05/11/21 16:49 73 20 134/45 L 05/11/21 14:53 36.7 C 64 18 109/54 L BP Pulse Ox 05/12/21 11:30 112/54 L 99 05/12/21 11:20 108/46 L 99 05/12/21 11:10 109/49 L 99 05/12/21 10:29 115/48 L 100 05/12/21 09:25 05/12/21 09:12 98 05/12/21 08:25 96 05/12/21 07:55 98 05/12/21 07:41 95 05/12/21 07:26 97 05/12/21 07:00 05/12/21 06:20 92 05/12/21 06:05 95 05/12/21 05:20 94 05/12/21 04:51 97 05/12/21 04:20 97 05/12/21 03:50 98 05/12/21 03:35 93 05/12/21 03:17 96 05/12/21 02:45 98 05/12/21 02:10 99 05/12/21 01:12 98 05/12/21 01:00 98 05/12/21 00:42 94 05/12/21 00:12 99 05/11/21 23:42 100 05/11/21 23:37 97 05/11/21 23:27 94 05/11/21 23:09 95 05/11/21 22:48 100 05/11/21 22:31 100 05/11/21 22:01 100 05/11/21 21:32 100 05/11/21 19:30 100 05/11/21 19:10 100 05/11/21 19:00 100 05/11/21 18:56 100 05/11/21 18:30 92 05/11/21 17:30 05/11/21 17:26 94 05/11/21 17:02 96 05/11/21 16:50 97 05/11/21 16:49 97 05/11/21 14:53 95 Transfer of Care Handoff Completed per policy Notes Mental Status: alert / awake / arousable Patient Amnestic to Procedure: Yes Nausea / Vomiting: adequately controlled Pain: adequately controlled Airway Patency, RR, SpO2: stable & adequate BP & HR: stable & adequate Hydration State: stable & adequate Anesthetic Complications: no major complications apparent
[2021-05-12 13:32] LABS: Albumin Level 2.6 gm/dl (3.4-5.0); Calcium 7.7 mg/dl (8.5-10.1); Creatinine Clr Calc Pharmacy 52.1 ml/min; Est GFR (African American) 72.7 ml/min; Est GFR (Non-African American) 62.7 ml/min; Potassium 3.2 mmol/L (3.5-5.1)
[2021-05-12 13:35] LABS: Albumin Globulin Ratio 1.3 (0.9-2); Globulin 2.1 gm/dl (2.5-4.0); Total Protein 4.7 gm/dl (6.4-8.2)
--- NOTE | 2021-05-12 13:55 | Hospitalist Progress Note ---
Date of Service May 12, 2021 Assessment & Plan (1) GIB (gastrointestinal bleeding): Plan: GI bleed of unspecified source. EGD on 05/12 showed gastritis, but no real cuprit lesion that would cause a hgb of 4.9. Risk factors include chronic steroid use & chronic anticoagulation. - S/p 4 units of PRBCs on 05/11-05/12 - Continue PPI PO BID - GI consulted - plan for colonoscopy on 05/14 (2) Anemia: Plan: Acute on chronic. MCV was 109 on admission. - Started on iron in November - B12 level was 1500 & folate >20 in 10/2020 -> Unlikely to be cause of his macrocytosis. MTX can do this as well, but I believe with folate supplement, it should be prevented. (3) Low back pain: Plan: - Chronic Tylenol PRN (4) Arthritis: Plan: RA multiple sites- mostly his shoulders and hips at this time. - Continue MTX - Converted 7.5mg of prednisone daily to methylpred 6.0 mg IV daily - Received bursa injection in - Follows with [facility] rheumatology (5) Chronic anticoagulation: Plan: For permanent afib. Coumadin on hold - reversed with vitamin K. - Restart when appropriate after identifying source if able. (6) Chronic venous stasis dermatitis of both lower extremities: Plan: - Continue with tubigrip and SCDs (7) Chronic acquired lymphedema: Plan: As above (8) Hemiplegia, post-stroke: Plan: Hemiplegia with coughing. 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 Recs: - minced moist diet - aspiration precautions- OOB when eating with oral hygiene (10) Hypertension: Plan: BP today is 115/60. Controlled only with Bumex. - Continue Bumex with his 4 units of blood. (11) Vitamin B12 deficiency: Plan: Hx of. Last check B12 was well above normal. - Restart oral med when not NPO (12) COPD (chronic obstructive pulmonary disease): Plan: No shortness of breath today while in bed. - Continue PAULINO,/ and LABA/ICS Admission and Anticipated Discharge Date Admission Date: May 11, 2021 Subjective Stable today. No lightheadedness or dizziness. Reports no fevers/chills, chest pain, shortness of breath, abdominal pain, nausea, or vomiting. Physical Exam Constitutional: WD/WN, vitals as above Eyes: EOM intact bilaterally; no conjunctival abnormality ENMT: external ear and nose normal, oropharynx normal Neck: trachea midline, no thyromegaly normal visual inspection Respiratory: normal respiratory effort, lungs clear to auscultation no respiratory distress Cardiovascular: RRR, no murmur, no edema Gastrointestinal (Abdomen): Inspection/Auscultation: abdomen normal to inspection; abdomen not distended Musculoskeletal: no cyanosis or clubbing, extremities motor strength 5/5 Skin: no rashes, warm and dry Neurologic: moves all extremities and awake Psychiatric: Orientation: alert, oriented to person and cooperative Results & Data Results & Data ([facility]) Vital Signs (Past 12 Hours) Vital Signs Temp Pulse Pulse Pulse Resp BP BP 05/12/21 12:55 37.3 C 52 L 16 114/62 05/12/21 12:25 37.0 C 65 16 05/12/21 12:11 36.7 C 59 L 16 05/12/21 11:50 54 L 21 05/12/21 11:40 36.5 C 56 L 20 05/12/21 11:30 55 L 20 05/12/21 11:20 55 L 21 05/12/21 11:10 36.2 C L 58 L 20 05/12/21 10:29 36.2 C L 56 L 18 05/12/21 09:25 36.6 C 58 L 16 121/63 05/12/21 09:12 36.2 C L 57 L 16 125/54 L 05/12/21 08:25 36.8 C 58 L 20 126/62 05/12/21 07:55 36.4 C L 56 L 16 118/50 L 05/12/21 07:41 36.9 C 53 L 16 100/50 L 05/12/21 07:26 36.5 C 56 L 16 115/58 L 05/12/21 07:00 57 L 05/12/21 06:20 37.3 C 63 18 120/59 L 05/12/21 06:05 68 18 05/12/21 05:20 37.1 C 64 22 124/56 L 05/12/21 04:51 37 C 59 L 20 119/57 L 05/12/21 04:20 36.7 C 62 18 118/54 L 05/12/21 03:50 37 C 63 20 121/50 L 05/12/21 03:35 37 C 56 L 18 118/62 05/12/21 03:17 37.1 C 56 L 18 103/49 L 05/12/21 02:45 36.7 C 59 L 18 114/54 L 05/12/21 02:10 36.8 C 56 L 21 103/42 L BP Pulse Ox 05/12/21 12:55 98 05/12/21 12:25 113/66 98 05/12/21 12:11 127/49 L 98 05/12/21 11:50 107/43 L 99 05/12/21 11:40 105/47 L 99 05/12/21 11:30 112/54 L 99 05/12/21 11:20 108/46 L 99 05/12/21 11:10 109/49 L 99 05/12/21 10:29 115/48 L 100 05/12/21 09:25 05/12/21 09:12 98 05/12/21 08:25 96 05/12/21 07:55 98 05/12/21 07:41 95 05/12/21 07:26 97 05/12/21 07:00 05/12/21 06:20 92 05/12/21 06:05 95 05/12/21 05:20 94 05/12/21 04:51 97 05/12/21 04:20 97 05/12/21 03:50 98 05/12/21 03:35 93 05/12/21 03:17 96 05/12/21 02:45 98 05/12/21 02:10 99 PG Care Time/CCT Total # of Minutes Spent Total Time Spent with Patient: Total time spent is greater than 50% in coordination of care (as documented) at patient's floor/unit and/or counseling patient: Coding Level of Care Code 17967 Subseq Hosp Care Lvl 3 Diagnoses GIB (gastrointestinal bleeding) K92.1 GI bleed type/associated pathology: melena Anemia D64.9 Anemia type: unspecified type Low back pain M54.5 Arthritis M19.90 Chronic anticoagulation Z79.01 Chronic venous stasis dermatitis of both lower extremities I87.2 Chronic acquired lymphedema I89.0 Hemiplegia, post-stroke I69.359 Dysphagia as late effect of cerebrovascular accident (CVA) I69.391 Hypertension I10 Vitamin B12 deficiency E53.8 COPD (chronic obstructive pulmonary disease) J44.9 (1) GIB (gastrointestinal bleeding) GI bleed type/associated pathology: melena Qualified Code(s): K92.1 - Melena (2) Anemia Anemia type: unspecified type Qualified Code(s): D64.9 - Anemia, unspecified
[2021-05-12 14:04] LABS: Bilirubin,Total 1.9 mg/dl (0.2-1)
[2021-05-12] MEDS: traMADol HCL 50 MG TABLET PO PRN (14:07)
[2021-05-12] MEDS: POTASSIUM CHLORIDE CRTAB 20 MEQ TABCR PO SCH ×2 (14:32→21:01)
[2021-05-12 15:00] LABS: Hematocrit (blood only) 27.2 % (42-52); Hemoglobin 8.2 g/dL (14.0-18.0)
--- NOTE | 2021-05-12 17:40 | Electrocardiogram Report ---
Test Reason : Blood Pressure : / mmHG Vent. Rate : 066 BPM Atrial Rate : 061 BPM P-R Int : 000 ms QRS Dur : 140 ms QT Int : 428 ms P-R-T Axes : 000 -11 167 degrees QTc Int : 448 ms Undetermined rhythm Right bundle branch block T wave abnormality, consider lateral ischemia Abnormal ECG Confirmed by Santos Ugalde ([id number]) on 05/12/2021 5:40:25 PM Referred By: REFERRED SELF Confirmed By:Ronni Ugalde
--- NOTE | 2021-05-12 17:41 | Electrocardiogram Report ---
Test Reason : Blood Pressure : / mmHG Vent. Rate : 072 BPM Atrial Rate : 105 BPM P-R Int : 000 ms QRS Dur : 140 ms QT Int : 422 ms P-R-T Axes : 000 -26 005 degrees QTc Int : 462 ms Atrial fibrillation with aberrant conduction Right bundle branch block T wave abnormality, consider inferolateral ischemia Abnormal ECG When compared with ECG of 11-MAY-2021 16:08, (unconfirmed) Minimal criteria for Anteroseptal infarct are no longer Present T wave inversion less evident in Lateral leads Confirmed by Santos Ugalde ([id number]) on 05/12/2021 5:41:08 PM Referred By: REFERRED SELF Confirmed By:Ronni Ugalde
--- NOTE | 2021-05-12 17:51 | Electrocardiogram Report ---
Test Reason : Blood Pressure : / mmHG Vent. Rate : 056 BPM Atrial Rate : 041 BPM P-R Int : 000 ms QRS Dur : 170 ms QT Int : 560 ms P-R-T Axes : 000 -15 029 degrees QTc Int : 540 ms Atrial fibrillation with slow ventricular response with ventricular escape complexes Right bundle branch block Abnormal ECG When compared with ECG of 11-MAY-2021 16:46, (unconfirmed) QRS duration has increased Nonspecific T wave abnormality, improved in Inferior leads T wave inversion no longer evident in Anterolateral leads QT has lengthened Confirmed by Santos Ugalde ([id number]) on 05/12/2021 5:50:56 PM Referred By: REFERRED SELF Confirmed By:Ronni Ugalde
[2021-05-12] MEDS: SIMVASTATIN 40 MG TAB PO SCH (21:01)
[2021-05-13] MEDS: ACETAMINOPHEN 325 MG TAB PO PRN ×3 (06:22→23:36)
[2021-05-13 07:08] LABS: Hemoglobin 7.7 g/dL (14.0-18.0); Mean Corpuscular Hemoglobin 28.6 pg (25-34); Mean Corpuscular Hgb Conc 29.6 g/dL (32-36); Mean Corpuscular Volume 96.7 fL (80-100); Mean Platelet Volume 9.9 fL (7.4-10.4); Platelet Count 120 K/uL (130-400); RDW Coefficient of Variation 19.6 % (11.5-14.5); RDW Standard Deviation 68.1 fL (36.4-46.3); Red Blood Count 2.69 M/uL (4.7-6.1); White Blood Count 6.43 K/uL (4.8-10.8)
[2021-05-13 07:21] LABS: INR 1.2 (0.9-1.1); Prothrombin Time 12.2 Seconds (9.0-12.0)
[2021-05-13] MEDS: ALBUTEROL 0.083% NEBU SOLN 3 ML VIAL INH SCH ×2 (07:25→19:28)
[2021-05-13] MEDS: ACETYLCYSTEINE 10% INHAL SOLN 4 ML **DISPENSED BY RESP. INH SCH ×2 (07:25→19:28)
[2021-05-13 07:35] LABS: BUN Creatinine Ratio 26.2 (10-20); Calcium 8.1 mg/dl (8.5-10.1); Creatinine Clr Calc Pharmacy 61.9 ml/min; Est GFR (African American) 91.4 ml/min; Est GFR (Non-African American) 78.9 ml/min; Magnesium 2.4 mg/dl (1.8-2.4); Potassium 3.1 mmol/L (3.5-5.1)
[2021-05-13 08:04] LABS: Albumin Level 2.5 gm/dl (3.4-5.0); Bilirubin Direct 0.4 mg/dl (0-0.2); Bilirubin,Total 1.3 mg/dl (0.2-1); Total Protein 4.4 gm/dl (6.4-8.2)
[2021-05-13] MEDS: DOXAZosin MESYLATE 4 MG TAB PO SCH ×2 (08:10→22:01)
[2021-05-13] MEDS: METHYLPREDNISOLONE IV SCH (08:10)
[2021-05-13] MEDS: ESCITALOPRAM OXALATE 20 MG TAB PO SCH (08:11)
[2021-05-13] MEDS: FLUTICASONE/VILANTEROL 200/25MCG 14 PUFFS/INHALER INH SCH (08:11)
[2021-05-13] MEDS ORDERED: metHOTREXate sodium 2.5 MG TAB PO SCH (09:00)
[2021-05-13] MEDS: traMADol HCL 50 MG TABLET PO PRN (10:07)
[2021-05-13] MEDS ORDERED: POTASSIUM CHLORIDE CRTAB 20 MEQ TABCR PO STA ×2 (11:09)
--- NOTE | 2021-05-13 13:01 | Hospitalist Progress Note ---
Date of Service May 13, 2021 Assessment & Plan (1) GIB (gastrointestinal bleeding): Plan: GI bleed of unspecified source. EGD on 05/12 showed gastritis, but no real cuprit lesion that would cause a hgb of 4.9. Risk factors include chronic steroid use & chronic anticoagulation. - S/p 4 units of PRBCs on 05/11-05/12 -> Hgb down to 7.7 on 05/13. - Continue PPI PO BID - GI consulted - plan for colonoscopy on 05/14. (2) Anemia: Plan: Acute on chronic. MCV was 109 on admission. - Started on iron in November - B12 level was 1500 & folate >20 in 10/2020 -> Unlikely to be cause of his macrocytosis. MTX can do this as well, but I believe with folate supplement, it should be prevented. -> Will repeat B12/folate. (3) Low back pain: Plan: - Chronic Tylenol PRN (4) Arthritis: Plan: RA multiple sites- mostly his shoulders and hips at this time. - Continue MTX - Converted 7.5mg of prednisone daily to methylpred 6.0 mg IV daily - Received bursa injection in - Follows with [facility] rheumatology (5) Chronic anticoagulation: Plan: For permanent afib. Coumadin on hold - reversed with vitamin K. - Restart when appropriate after identifying source if able. Discussed with Dr. Feng on 05/12. (6) Chronic venous stasis dermatitis of both lower extremities: Plan: - Continue with tubigrip and SCDs (7) Chronic acquired lymphedema: Plan: As above (8) Hemiplegia, post-stroke: Plan: Hemiplegia with coughing. 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 Recs: - minced moist diet - aspiration precautions- OOB when eating with oral hygiene (10) Hypertension: Plan: BP today is 115/60. Controlled only with Bumex. - Continue Bumex with his 4 units of blood. (11) Vitamin B12 deficiency: Plan: Hx of. Last check B12 was well above normal. - Restart oral med when not NPO (12) COPD (chronic obstructive pulmonary disease): Plan: No shortness of breath today while in bed. - Continue PAULINO,/ and LABA/ICS Admission and Anticipated Discharge Date Admission Date: May 11, 2021 Subjective Stable today. No lightheadedness or dizziness. Has some heel and back pain. Reports no fevers/chills, chest pain, shortness of breath, abdominal pain, nausea, or vomiting. Physical Exam Constitutional: WD/WN, vitals as above Eyes: EOM intact bilaterally; no conjunctival abnormality ENMT: external ear and nose normal, oropharynx normal Neck: trachea midline, no thyromegaly normal visual inspection Respiratory: normal respiratory effort, lungs clear to auscultation no respiratory distress Cardiovascular: RRR, no murmur, no edema Gastrointestinal (Abdomen): Inspection/Auscultation: abdomen normal to inspection; abdomen not distended Musculoskeletal: no cyanosis or clubbing, extremities motor strength 5/5 Skin: no rashes, warm and dry Neurologic: moves all extremities and awake Psychiatric: Orientation: alert, oriented to person and cooperative Results & Data Results & Data ([facility]) Vital Signs (Past 12 Hours) Vital Signs Temp Pulse Resp BP BP Pulse Ox 05/13/21 11:43 36.6 C 53 L 18 117/56 L 92 05/13/21 07:51 36 C L 54 L 18 142/79 H 99 05/13/21 07:25 57 L 18 99 05/13/21 04:07 36.3 C L 61 18 127/64 98 PG Care Time/CCT Total # of Minutes Spent Total Time Spent with Patient: Total time spent is greater than 50% in coordination of care (as documented) at patient's floor/unit and/or counseling patient: Coding Level of Care Code 30214 Subseq Hosp Care Lvl 2 Diagnoses GIB (gastrointestinal bleeding) K92.1 GI bleed type/associated pathology: melena Anemia D64.9 Anemia type: unspecified type Low back pain M54.5 Arthritis M19.90 Chronic anticoagulation Z79.01 Chronic venous stasis dermatitis of both lower extremities I87.2 Chronic acquired lymphedema I89.0 Hemiplegia, post-stroke I69.359 Dysphagia as late effect of cerebrovascular accident (CVA) I69.391 Hypertension I10 Vitamin B12 deficiency E53.8 COPD (chronic obstructive pulmonary disease) J44.9 (1) GIB (gastrointestinal bleeding) GI bleed type/associated pathology: melena Qualified Code(s): K92.1 - Melena (2) Anemia Anemia type: unspecified type Qualified Code(s): D64.9 - Anemia, unspecified
[2021-05-13] MEDS ORDERED: LAVAGE SOLUTION 4000ML PO ONE (17:00)
[2021-05-13] MEDS: SIMVASTATIN 40 MG TAB PO SCH (22:01)
[2021-05-14] MEDS: traMADol HCL 50 MG TABLET PO PRN (01:59)
[2021-05-14] MEDS: ALBUTEROL 0.083% NEBU SOLN 3 ML VIAL INH SCH ×2 (07:09→19:18)
[2021-05-14] MEDS: ACETYLCYSTEINE 10% INHAL SOLN 4 ML **DISPENSED BY RESP. INH SCH ×2 (07:09→19:18)
[2021-05-14 07:11] LABS: Hematocrit (blood only) 26.2 % (42-52); Hemoglobin 7.8 g/dL (14.0-18.0); Mean Corpuscular Hemoglobin 29.1 pg (25-34); Mean Corpuscular Hgb Conc 29.8 g/dL (32-36); Mean Corpuscular Volume 97.8 fL (80-100); Mean Platelet Volume 10.9 fL (7.4-10.4); Platelet Count 116 K/uL (130-400); RDW Coefficient of Variation 18.5 % (11.5-14.5); RDW Standard Deviation 64.1 fL (36.4-46.3); Red Blood Count 2.68 M/uL (4.7-6.1); White Blood Count 5.75 K/uL (4.8-10.8)
--- NOTE | 2021-05-14 07:37 | Anesthesiology Consultation ---
Date of Service May 14, 2021 Assessment & Plan (1) Encounter for pre-operative examination: Chart Review Chart Review: Acceptable Risk for Surgery and Patient NOT seen in Pre Admission Testing Consults Requested none History Surgery Operation Date: 05/12/21 10:55 Proposed Procedures p Esophagogastroduodenoscopy - Shabbir Petersen MD Operation Date: 05/14/21 08:30 Proposed Procedures p Colonoscopy - Shabbir Petersen MD Height/Weight Height: 5 ft 6 in Weight: 80 kg Allergies Allergy/AdvReac Type Severity Reaction Status Date / Time gabapentin AdvReac Severe Swelling Verified 05/11/21 16:54 hydrocodone AdvReac Severe EXCESSIVE Verified 05/11/21 16:54 DRY MOUTH AND SHAKING Medications Home Medications Medication Instructions Recorded Confirmed Last Taken docusate sodium 100 mg capsule 100 mg PO HS 07/17/18 05/11/21 05/10/21 (Colace) folic acid 1 mg tablet 1 mg PO QAM 07/17/18 05/11/21 05/11/21 polyethylene glycol 3350 17 gram 17 g PO QAM 04/19/19 05/11/21 05/11/21 oral powder packet (Miralax) methotrexate sodium 2.5 mg tablet 10 mg PO WK 10/01/19 05/11/21 05/06/21 prednisone 5 mg tablet 7.5 mg PO QAM tab 04/25/20 05/11/21 11/07/20 simvastatin 40 mg tablet 40 mg PO HS #90 tab 07/11/20 05/11/21 05/10/21 doxazosin 4 mg tablet 4 mg PO BID #180 tab 07/19/20 05/11/21 05/11/21 08:00 lift chair #1 ea 07/22/20 05/11/21 Unknown fluticasone 250 mcg-salmeterol 50 1 inh INHALATION BID #180 ea 07/25/20 05/11/21 05/11/21 08:00 mcg/dose blistr powdr for inhalation (Advair Diskus) cyanocobalamin (vitamin B-12) 1,000 mcg PO QAM tab 08/14/20 05/11/21 05/11/21 1,000 mcg tablet (Vitamin B-12) aspirin 81 mg tablet,delayed 81 mg PO QAM 09/13/20 05/11/21 05/11/21 release albuterol sulfate 2.5 mg INHALATION BID 11/07/20 05/11/21 05/11/21 08:00 potassium chloride 20 mEq 20 meq PO QAM 11/07/20 05/11/21 05/11/21 tablet,extended release ferrous sulfate 325 mg (65 mg 325 mg PO DAILY@1100 #30 tab 11/13/20 05/11/21 05/11/21 iron) tablet,delayed release omeprazole 40 mg capsule,delayed 40 mg PO QAM #90 cap 11/13/20 05/11/21 05/11/21 release acetylcysteine 100 mg/mL (10 %) 2 ml INHALATION BID #90 ml 11/18/20 05/11/21 05/11/21 08:00 solution bumetanide 1 mg tablet See Rx Instructions PO DIRECTED 01/01/21 05/11/21 Unknown #90 tab escitalopram oxalate 20 mg tablet 20 mg PO DAILY #90 tab 01/23/21 05/11/21 05/11/21 cholecalciferol (vitamin D3) 25 1,000 unit PO QAM tab 02/24/21 05/11/21 1 mcg (1,000 unit) tablet (Vitamin D3) prednisone 10 mg tablet 20 mg PO DAILY #14 tab 03/13/21 05/11/21 Unknown tramadol 50 mg tablet 100 mg PO .COMPLEX PRN #120 tab 04/27/21 05/11/21 Unknown warfarin 3 mg tablet 3 mg PO DAILY #90 tab 05/01/21 05/11/21 05/10/21 Active Medications Generic Name Dose Route Start Last Admin Trade Name Yecenia PRN Reason Stop Dose Admin Acetaminophen 650 mg 05/11/21 21:56 05/13/21 23:36 Acetaminophen 325 Mg Tab PO 06/10/21 21:55 650 mg Q4H PRN Administration Pain or Fever Acetylcysteine 2 ml 05/11/21 21:56 05/14/21 07:09 Acetylcysteine 10% Inhal Soln 4 Ml Dispensed By Resp. INH 06/10/21 21:55 2 ml BIDR LAKEISHA Administration Albuterol 2.5 mg 05/11/21 21:56 05/14/21 07:09 Albuterol 0.083% Nebu Soln 3 Ml Vial INH 06/10/21 21:55 2.5 mg BIDR LAKEISHA Administration Protocol Doxazosin Mesylate 4 mg 05/11/21 21:56 05/13/21 22:01 Doxazosin Mesylate 4 Mg Tab PO 06/10/21 21:55 4 mg BID LAKEISHA Administration Escitalopram Oxalate 20 mg 05/12/21 09:00 05/13/21 08:11 Escitalopram Oxalate 20 Mg Tab PO 06/11/21 08:59 20 mg DAILY LAKEISHA Administration Fluticasone/Vilanterol 1 puffs 05/12/21 09:00 05/13/21 08:11 Fluticasone/Vilanterol 200/25mcg 14 Puffs/Inhaler INH 06/11/21 08:59 1 puffs DAILY LAKEISHA Administration Methylprednisolone 6 mg/ 0.15 mls @ 1.5 mls/min 05/12/21 09:00 05/13/21 08:10 Syringe IV 06/11/21 08:59 1.5 mls/min DAILY LAKEISHA Administration Protocol Methotrexate 10 mg 05/13/21 09:00 05/13/21 08:11 Methotrexate Sodium 2.5 Mg Tab PO 06/12/21 08:59 10 mg We@0900 LAKEISHA Administration Simvastatin 40 mg 05/11/21 21:56 05/13/21 22:01 Simvastatin 40 Mg Tab PO 06/10/21 21:55 40 mg HS LAKEISHA Administration Tramadol HCl 100 mg 05/11/21 21:56 05/14/21 01:59 Tramadol Hcl 50 Mg Tablet PO 06/10/21 21:55 100 mg QID PRN Administration pain, severe NPO Date Last Intake of Fluids: 05/12/21 Time Last Intake of Fluids: 07:00 Last Intake of Fluids Comment: sips with morning meds Date Last Intake of Solids: 05/11/21 Time Last Intake of Solids: 18:00 Past Medical History Medical History Acute CVA (cerebrovascular accident) Aneurysm artery, popliteal Arthritis, rheumatoid Asthmatic bronchitis with acute exacerbation Cellulitis of left leg Cerebrovascular accident of right pontine structure Chronic anticoagulation Chronic anticoagulation Chronic left hip pain Chronic obstructive pulmonary disease Edema Hematoma of left lower leg History of CVA (cerebrovascular accident) Immunosuppression due to chronic steroid use Onychomycosis Open wound of right elbow Pneumonia due to COVID-19 virus Popliteal aneurysm Post herpetic neuralgia Prostate cancer Skin tear Thrombocytopenia Traumatic open wound of left lower leg with delayed healing Traumatic open wound of right elbow with infection and delayed healing Traumatic wound Venous stasis ulcer limited to breakdown of skin without varicose veins Vertigo Weakness of muscle of left side of face due to and not concurrent with cerebrovascular accident (CVA) Past Family History Family History Other Breast cancer Family history non-contributory Uterine cancer Denies family history of Ovarian cancer Prostate cancer Myocardial infarction Colorectal cancer Past Surgical History Surgical History H/O carpal tunnel repair H/O hernia repair History of aortic valve replacement with bioprosthetic valve History of knee replacement S/P aortic valve replacement Status post carotid surgery Thromboendarterectomy Social History Smoking Status: Unknown if ever smoked Hx Alcohol Use: No Hx Substance Use: No substance use type: does not use Physical Exam Vital Signs Last Vital Signs Temp 36.9 C 05/14/21 07:23 Pulse 62 05/14/21 07:23 Resp 18 05/14/21 07:23 BP 115/53 L 05/14/21 07:23 Pulse Ox 94 05/14/21 07:23 Testing Laboratory Results 05/14/21 06:40 PT 12.2 Seconds (9.0-12.0) H 05/13/21 06:52 INR 1.2 (0.9-1.1) H 05/13/21 06:52 APTT 25.9 Seconds (21.0-31.0) 05/11/21 16:03 Blood Type O Positive 05/11/21 16:57 Antibody Screen NEGATIVE 05/11/21 16:57 Electrocardiogram Date: 05/12/21 Findings: + AFIB @ (@ 57 w/ slow ventricular response), + RBBB and + pertinent finding (? septal infarct, age ?) Chest X-Ray Date: 03/24/21 Findings: + cardiomegaly, + infiltrate (B/L airspace opacities,likely pulm edema), + pulmonary vascular congestion, + pleural effusion and + atheroscle rosis of thoracic aorta Echocardiogram Date: 08/12/20 EF: 55% LV Function: normal RWMA: + none Other Findings: + atrial enlargement (severe LA enlargement) and + LVH (moderate) Valvular Disease: + (bioprosthetic AV w/ moderate ), + AI (mild) and + MR (moderate) mild TR; increased RV systolic pressure 50-60 Torr
[2021-05-14 07:46] LABS: Albumin Level 2.7 gm/dl (3.4-5.0); BUN Creatinine Ratio 29.6 (10-20); Calcium 8.1 mg/dl (8.5-10.1); Creatinine Clr Calc Pharmacy 72.9 ml/min; Est GFR (African American) 97.6 ml/min; Est GFR (Non-African American) 84.2 ml/min; Magnesium 2.4 mg/dl (1.8-2.4); Potassium 3.2 mmol/L (3.5-5.1)
[2021-05-14 07:49] LABS: Albumin Globulin Ratio 1.4 (0.9-2); Bilirubin,Total 1.5 mg/dl (0.2-1); Total Protein 4.7 gm/dl (6.4-8.2)
[2021-05-14 07:55] LABS: Folate (Folic Acid) 8.8 ng/ml (>5.38)
[2021-05-14] MEDS: METHYLPREDNISOLONE IV SCH (07:56)
[2021-05-14] MEDS: DOXAZosin MESYLATE 4 MG TAB PO SCH ×2 (07:57→20:33)
[2021-05-14] MEDS: ESCITALOPRAM OXALATE 20 MG TAB PO SCH (07:57)
[2021-05-14] MEDS: FLUTICASONE/VILANTEROL 200/25MCG 14 PUFFS/INHALER INH SCH (07:57)
--- NOTE | 2021-05-14 08:44 | History & Physical Bridge Note ---
Date of Service May 14, 2021 History & Physical Bridge Note I have examined the patient, reviewed the History & Physical and in the interval since the performance of the History & Physical I have noted the following changes of clinical significance: no changes noted proceed with colonoscopy. risks/benefits and procedure discussed with patient's daughter who is the POA (he has dementia, unable to consent for himself), who agrees to proceed
[2021-05-14] MEDS ORDERED: ALBUTEROL HFA INHALER 8.5 GM ONE (09:07)
[2021-05-14] MEDS ORDERED: ePHEDrine sulfate 50 MG/ML SYR ONE (09:20)
--- NOTE | 2021-05-14 09:25 | Procedure Note ---
Procedure Note Date of Service May 14, 2021 Note GI brief procedure note colonoscopy findings: moderate-severe diverticulosis in the sigmoid and descending colon, with some black stool; no active bleeding noted. small internal hemorrhoids. recs: suspect bleeding was from diverticular source, now resolved. --diet as tolerated --bowel regimen to avoid constipation -avoid NSAIDS as these have been shown to precipitate recurrent diverticular bleeding -can resume AC starting tomorrow if stable Shabbir Petersen MD Gastroenterology Coding
--- NOTE | 2021-05-14 09:34 | GI REPORT ---
Patient Name: Shawn Weaver Procedure Date: 05/14/2021 8:43 AM Date of : 1935 Admit Type: Inpatient Age: 85 Gender: Male Attending MD: Shabbir Petersen MD Procedure: Colonoscopy Providers: Shabbir Petersen MD Referring MD: Referred Self Indications: Hematochezia, Melena, Iron deficiency anemia secondary to chronic blood loss Medicines: Monitored Anesthesia Care Complications: No immediate complications. Estimated blood loss: None. Estimated Blood Loss: Estimated blood loss: none. Procedure: Pre-Anesthesia Assessment: - Prior Anticoagulants: The patient has taken no previous anticoagulant or antiplatelet agents. - ASA Grade Assessment: II - A patient with mild systemic disease. After I obtained informed consent, the scope was passed under direct vision. Throughout the procedure, the patient's blood pressure, pulse, and oxygen saturations were monitored continuously. The scope was introduced through the anus and advanced to the cecum, identified by appendiceal orifice and ileocecal valve. The colonoscopy was performed without difficulty. The patient tolerated the procedure well. The quality of the bowel preparation was poor. Findings: Multiple small and large-mouthed diverticula were found in the sigmoid colon and descending colon. Estimated blood loss: none. Non-bleeding internal hemorrhoids were found. The hemorrhoids were small. A moderate amount of black liquid stool was found in the rectum, in the sigmoid colon, in the descending colon and in the transverse colon. No active bleeding noted throughout entire colon. Impression: - Preparation of the colon was poor. - Diverticulosis in the sigmoid colon and in the descending colon. - Non-bleeding internal hemorrhoids. - Stool in the rectum, in the sigmoid colon, in the descending colon and in the transverse colon. - No specimens collected. Recommendation: - Return patient to hospital [facility] for ongoing care. - Advance diet as tolerated today. suspect bleeding was from diverticular source, now resolved. --bowel regimen to avoid constipation -avoid NSAIDS as these have been shown to precipitate recurrent diverticular bleeding -can resume AC starting tomorrow if stable Shabbir Petersen MD 05/14/2021 9:32:44 AM This report has been signed electronically. Note Initiated On: 05/14/2021 8:43 AM Number of Addenda: 0 I attest to the content of the Intraoperative Record and orders documented therein, exceptions below {[id number]}
--- NOTE | 2021-05-14 09:56 | Anesthesiology Progress Note ---
Date of Service May 14, 2021 Anesthesia Post Procedure Vital Signs Vital Signs: Temp Pulse Pulse Pulse Resp BP Pulse Ox 05/14/21 09:50 36.5 C 65 20 112/43 L 94 05/14/21 09:40 65 19 123/46 L 100 05/14/21 09:30 36.7 C 68 16 97/43 L 100 05/14/21 08:17 36.8 C 76 16 127/56 L 94 05/14/21 07:23 36.9 C 62 62 18 115/53 L 94 05/14/21 07:11 16 05/14/21 03:08 36.8 C 63 18 119/58 L 94 05/13/21 22:39 36.6 C 70 18 140/62 94 05/13/21 19:28 74 20 96 05/13/21 19:19 36.8 C 74 18 126/62 96 05/13/21 15:13 36.7 C 76 18 111/55 L 95 05/13/21 11:43 36.6 C 53 L 18 117/56 L 92 Transfer of Care Handoff Completed per policy Notes Mental Status: alert / awake / arousable and participated in evaluation Patient Amnestic to Procedure: Yes Nausea / Vomiting: adequately controlled Pain: adequately controlled Airway Patency, RR, SpO2: stable & adequate BP & HR: stable & adequate Hydration State: stable & adequate Anesthetic Complications: no major complications apparent and Pt Satisfied with anesthetic care
--- NOTE | 2021-05-14 14:58 | Hospitalist Progress Note ---
Date of Service May 14, 2021 Assessment & Plan (1) GIB (gastrointestinal bleeding): Plan: GI bleed of unspecified source. EGD on 05/12 showed gastritis, but no real culprit lesion that would cause a hgb of 4.9. Risk factors include chronic steroid use & chronic anticoagulation. - S/p 4 units of PRBCs on 05/11-05/12 -> Hgb down to 7.7 on 05/13. Stable at 7.8 on 05/14. - Continue PPI PO BID - GI consulted - Colonoscopy on 05/14 showed diverticula, but no active bleeding. GI felt this was likely a diverticular bleed. (2) Anemia: Plan: Acute on chronic. MCV was 109 on admission. - Started on iron in November - B12 level was 1500 & folate >20 in 10/2020 -> Unlikely to be cause of his macrocytosis. MTX can do this as well, but I believe with folate supplement, it should be prevented. -> Repeat B12/folate showed 1120 & 8.8. Continue supplements. (3) Low back pain: Plan: - Chronic Tylenol PRN (4) Arthritis: Plan: RA multiple sites- mostly his shoulders and hips at this time. - Continue MTX - Converted 7.5mg of prednisone daily to methylpred 6.0 mg IV daily - Received bursa injection in - Follows with [facility] rheumatology (5) Chronic anticoagulation: Plan: For permanent afib. Coumadin on hold - reversed with vitamin K. - Restart when appropriate after identifying source if able. Discussed with Dr. Feng on 05/14. - Plan to restart anticoagulation tomorrow with no bolus heparin and restart warfarin. (6) Chronic venous stasis dermatitis of both lower extremities: Plan: - Continue with tubigrip and SCDs (7) Chronic acquired lymphedema: Plan: As above (8) Hemiplegia, post-stroke: Plan: Hemiplegia with coughing. - Hemiplegia to left arm and left leg weakness - Coughing following thin liquids - Deliver medication with carrier sitting up (9) Dysphagia as late effect of cerebrovascular accident (CVA): Plan: Bedside [employer]ITION [employer] evaluation was done in 07/2018. Recs: - Minced moist diet - Aspiration precautions- OOB when eating with oral hygiene (10) Hypertension: Plan: BP today is 115/60. Controlled only with Bumex. - Continue Bumex with his 4 units of blood. (11) Vitamin B12 deficiency: Plan: Hx of. Last check B12 was well above normal. - Restart oral med (12) COPD (chronic obstructive pulmonary disease): Plan: No shortness of breath today while in bed. - Continue PAULINO,/ and LABA/ICS Admission and Anticipated Discharge Date Admission Date: May 11, 2021 Subjective Stable today. No lightheadedness or dizziness. In chair and doing well. Reports no fevers/chills, chest pain, shortness of breath, abdominal pain, nausea, or vomiting. Physical Exam Constitutional: WD/WN, vitals as above Eyes: EOM intact bilaterally; no conjunctival abnormality ENMT: external ear and nose normal, oropharynx normal Neck: trachea midline, no thyromegaly normal visual inspection Respiratory: normal respiratory effort, lungs clear to auscultation no respiratory distress Cardiovascular: RRR, no murmur, no edema Gastrointestinal (Abdomen): Inspection/Auscultation: abdomen normal to inspection; abdomen not distended Skin: no rashes, warm and dry Neurologic: awake Psychiatric: Orientation: alert, oriented to person and cooperative Results & Data Results & Data ([facility]) Vital Signs (Past 12 Hours) Vital Signs Temp Pulse Pulse Pulse Resp BP Pulse Ox 05/14/21 10:05 36.6 C 69 16 117/52 L 92 05/14/21 09:50 36.5 C 65 20 112/43 L 94 05/14/21 09:40 65 19 123/46 L 100 05/14/21 09:30 36.7 C 68 16 97/43 L 100 05/14/21 08:17 36.8 C 76 16 127/56 L 94 05/14/21 07:23 36.9 C 62 62 18 115/53 L 94 05/14/21 07:11 16 05/14/21 03:08 36.8 C 63 18 119/58 L 94 PG Care Time/CCT Total # of Minutes Spent Total Time Spent with Patient: Total time spent is greater than 50% in coordination of care (as documented) at patient's floor/unit and/or counseling patient: Coding Level of Care Code 86885 Subseq Hosp Care Lvl 3 Diagnoses GIB (gastrointestinal bleeding) K92.1 GI bleed type/associated pathology: melena Anemia D64.9 Anemia type: unspecified type Low back pain M54.5 Arthritis M19.90 Chronic anticoagulation Z79.01 Chronic venous stasis dermatitis of both lower extremities I87.2 Chronic acquired lymphedema I89.0 Hemiplegia, post-stroke I69.359 Dysphagia as late effect of cerebrovascular accident (CVA) I69.391 Hypertension I10 Vitamin B12 deficiency E53.8 COPD (chronic obstructive pulmonary disease) J44.9 (1) GIB (gastrointestinal bleeding) GI bleed type/associated pathology: melena Qualified Code(s): K92.1 - Melena (2) Anemia Anemia type: unspecified type Qualified Code(s): D64.9 - Anemia, unspecified
[2021-05-14] MEDS ORDERED: BUMETANIDE 1 MG in SYRINGE 0 ML IV ONE (15:05)
[2021-05-14] MEDS: SIMVASTATIN 40 MG TAB PO SCH (20:33)
[2021-05-15] MEDS: ACETYLCYSTEINE 10% INHAL SOLN 4 ML **DISPENSED BY RESP. INH SCH ×2 (07:17→20:01)
[2021-05-15] MEDS: ALBUTEROL 0.083% NEBU SOLN 3 ML VIAL INH SCH ×2 (07:17→20:01)
[2021-05-15 07:27] LABS: Hematocrit (blood only) 26.3 % (42-52); Hemoglobin 7.8 g/dL (14.0-18.0); Mean Corpuscular Hemoglobin 28.7 pg (25-34); Mean Corpuscular Hgb Conc 29.7 g/dL (32-36); Mean Corpuscular Volume 96.7 fL (80-100); Mean Platelet Volume 10.6 fL (7.4-10.4); Platelet Count 101 K/uL (130-400); RDW Coefficient of Variation 17.6 % (11.5-14.5); RDW Standard Deviation 61.6 fL (36.4-46.3); Red Blood Count 2.72 M/uL (4.7-6.1)
[2021-05-15] MEDS: DOXAZosin MESYLATE 4 MG TAB PO SCH ×2 (07:40→19:56)
[2021-05-15] MEDS: predniSONE 2.5 MG TAB PO SCH (07:40)
[2021-05-15] MEDS: ESCITALOPRAM OXALATE 20 MG TAB PO SCH (07:40)
[2021-05-15] MEDS: FLUTICASONE/VILANTEROL 200/25MCG 14 PUFFS/INHALER INH SCH (07:40)
[2021-05-15] MEDS: CYANOCOBALAMIN 500 MCG TABLET (VITAMIN B-12) PO SCH (07:41)
[2021-05-15] MEDS: FOLIC ACID 1 MG TAB PO SCH (07:41)
[2021-05-15 08:02] LABS: Albumin Globulin Ratio 1.5 (0.9-2); Albumin Level 2.7 gm/dl (3.4-5.0); BUN Creatinine Ratio 22.2 (10-20); Bilirubin,Total 1.2 mg/dl (0.2-1); Creatinine Clr Calc Pharmacy 74.3 ml/min; Est GFR (African American) 98.2 ml/min; Est GFR (Non-African American) 84.7 ml/min; Globulin 1.8 gm/dl (2.5-4.0); Magnesium 2.3 mg/dl (1.8-2.4); Potassium 2.9 mmol/L (3.5-5.1); Total Protein 4.5 gm/dl (6.4-8.2)
[2021-05-15] MEDS: POTASSIUM CHLORIDE 10 MEQ TABCR PO SCH ×2 (09:13→19:56)
[2021-05-15] MEDS ORDERED: Heparin IV Adult Wt-Based Low-Dose *NO* Bolus Protocol IV STA (11:58)
--- NOTE | 2021-05-15 12:05 | Hospitalist Progress Note ---
Date of Service May 15, 2021 Assessment & Plan (1) GIB (gastrointestinal bleeding): Plan: GI bleed of unspecified source. EGD on 05/12 showed gastritis, but no real culprit lesion that would cause a hgb of 4.9. Risk factors include chronic steroid use & chronic anticoagulation. - S/p 4 units of PRBCs on 05/11-05/12 -> Hgb down to 7.7 on 05/13. Stable at 7.8 on 05/14 & 05/15. - Continue PPI PO BID - GI consulted - Colonoscopy on 05/14 showed diverticula, but no active bleeding. GI felt this was likely a diverticular bleed. Avoid NSAIDs on discharge. (2) Chronic anticoagulation: Plan: For permanent afib. Coumadin initially on hold - reversed with vitamin K. - Discussed with Dr. Feng on 05/14. -> Restarted anticoagulation on 05/15 with no bolus, low-dose heparin and restart warfarin. Dr. Feng would like him bridged until INR is >1.5. At that point, given bleeding risk, will stop heparin gtt and continue with just his warfarin. Likely in the hospital until Tuesday/Tuesday. He is at baseline functional status with family caring for him, so he can be discharged home. (3) Anemia: Plan: Acute on chronic. MCV was 109 on admission. - Started on iron in November - B12 level was 1500 & folate >20 in 10/2020 -> Unlikely to be cause of his macrocytosis. MTX can do this as well, but I believe with folate supplement, it should be prevented. -> Repeat B12/folate showed 1120 & 8.8. Continue supplements. (4) Low back pain: Plan: - Chronic Tylenol PRN (5) Arthritis: Plan: RA multiple sites- mostly his shoulders and hips at this time. - Continue MTX and prednisone - Received bursa injection in - Follows with [facility] rheumatology (6) Chronic venous stasis dermatitis of both lower extremities: Plan: - Continue with tubigrip and SCDs (7) Chronic acquired lymphedema: Plan: As above (8) Hemiplegia, post-stroke: Plan: Hemiplegia with coughing. 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 Recs: - Minced moist diet - Aspiration precautions- OOB when eating with oral hygiene (10) Hypertension: Plan: BP today is 115/60. Controlled only with Bumex. - Continue Bumex (11) Vitamin B12 deficiency: Plan: Hx of. Last check B12 was well above normal. - Restarted oral med (12) COPD (chronic obstructive pulmonary disease): Plan: No shortness of breath today while in bed. - Continue PAULINO,/ and LABA/ICS Admission and Anticipated Discharge Date Admission Date: May 11, 2021 Subjective Stable today. No lightheadedness or dizziness. In chair and doing well. He really wants to go home. Reports no fevers/chills, chest pain, shortness of breath, abdominal pain, nausea, or vomiting. Physical Exam Constitutional: WD/WN, vitals as above Eyes: EOM intact bilaterally; no conjunctival abnormality ENMT: external ear and nose normal, oropharynx normal Neck: trachea midline, no thyromegaly normal visual inspection Respiratory: normal respiratory effort, lungs clear to auscultation no respiratory distress Cardiovascular: RRR, no murmur, no edema Gastrointestinal (Abdomen): Inspection/Auscultation: abdomen normal to inspection; abdomen not distended Musculoskeletal: Extremities: + abnormal strength Skin: no rashes, warm and dry Neurologic: awake Psychiatric: Orientation: alert, oriented to person and cooperative Results & Data Results & Data ([facility]) Vital Signs (Past 12 Hours) Vital Signs Temp Pulse Pulse Resp BP Pulse Ox 05/15/21 11:13 36.8 C 61 20 131/55 L 95 05/15/21 07:17 55 L 16 94 05/15/21 07:15 49 L 05/15/21 07:09 36.7 C 51 L 20 153/67 H 91 05/15/21 04:00 36.6 C 58 L 18 118/58 L 94 05/15/21 00:00 36.6 C 68 16 127/56 L 93 PG Care Time/CCT Total # of Minutes Spent Total Time Spent with Patient: Total time spent is greater than 50% in coordination of care (as documented) at patient's floor/unit and/or counseling patient: Coding Level of Care Code 67330 Subseq Hosp Care Lvl 3 Diagnoses GIB (gastrointestinal bleeding) K92.1 GI bleed type/associated pathology: melena Anemia D64.9 Anemia type: unspecified type Low back pain M54.5 Arthritis M19.90 Chronic anticoagulation Z79.01 Chronic venous stasis dermatitis of both lower extremities I87.2 Chronic acquired lymphedema I89.0 Hemiplegia, post-stroke I69.359 Dysphagia as late effect of cerebrovascular accident (CVA) I69.391 Hypertension I10 Vitamin B12 deficiency E53.8 COPD (chronic obstructive pulmonary disease) J44.9 (1) GIB (gastrointestinal bleeding) GI bleed type/associated pathology: melena Qualified Code(s): K92.1 - Melena (2) Anemia Anemia type: unspecified type Qualified Code(s): D64.9 - Anemia, unspecified
[2021-05-15] MEDS ORDERED: IRON SUCROSE 300 MG in SODIUM CHLORIDE 0.9% 250 ML IV ONE (12:30)
[2021-05-15 12:44] LABS: Eosinophils # (auto) 0.03 K/uL (0-0.5); Eosinophils % (auto) 0.6 %; Hematocrit (blood only) 27.5 % (42-52); Hemoglobin 7.9 g/dL (14.0-18.0); Immature Granulocytes # (auto) 0.01 K/uL (0.00-0.02); Immature Granulocytes % (auto) 0.2 %; Lymphocytes # (auto) 0.21 K/uL (1.2-3.4); Lymphocytes % (auto) 4.2 %; Mean Corpuscular Hemoglobin 27.9 pg (25-34); Mean Corpuscular Hgb Conc 28.7 g/dL (32-36); Mean Corpuscular Volume 97.2 fL (80-100); Mean Platelet Volume 10.8 fL (7.4-10.4); Monocytes # (auto) 0.03 K/uL (0.11-0.59); Monocytes % (auto) 0.6 %; Neutrophils # (auto) 4.67 K/uL (1.4-6.5); Neutrophils % (auto) 94.4 %; Platelet Count 112 K/uL (130-400); RDW Coefficient of Variation 17.6 % (11.5-14.5); RDW Standard Deviation 62.3 fL (36.4-46.3); Red Blood Count 2.83 M/uL (4.7-6.1); White Blood Count 4.95 K/uL (4.8-10.8)
[2021-05-15 12:45] LABS: INR 1.1 (0.9-1.1); Partial Thromboplastin Time 25.3 Seconds (21.0-31.0); Prothrombin Time 11.5 Seconds (9.0-12.0)
[2021-05-15 12:59] LABS: Anisocytosis Present
[2021-05-15] MEDS: HEPARIN SODIUM/DEXTROSE 25,000 UNITS/500 ML BAG IV SCH (13:00)
[2021-05-15] MEDS: BUMETANIDE 1 MG TAB PO SCH (13:15)
[2021-05-15] MEDS: ACETAMINOPHEN 325 MG TAB PO PRN (14:39)
[2021-05-15] MEDS: WARFARIN SOD 3 MG TAB PO SCH (16:38)
[2021-05-15 19:44] LABS: Partial Thromboplastin Ratio 1.3; Partial Thromboplastin Time 33.3 Seconds (21.0-31.0)
[2021-05-15] MEDS: SIMVASTATIN 40 MG TAB PO SCH (19:56)
[2021-05-15] MEDS: traMADol HCL 50 MG TABLET PO SCH (19:59)
[2021-05-15] MEDS: ACETAMINOPHEN 325 MG TAB PO SCH (19:59)
[2021-05-15] MEDS ORDERED: HEPARIN SOD (PORCINE) 1000 UNIT/ML IV ONE (20:06)
[2021-05-15] MEDS: MELATONIN 3 MG TAB PO SCH (20:08)
[2021-05-16 03:13] LABS: Partial Thromboplastin Ratio 4.6
[2021-05-16 03:26] LABS: Partial Thromboplastin Time 121.1 Seconds (21.0-31.0)
[2021-05-16] MEDS: ALBUTEROL 0.083% NEBU SOLN 3 ML VIAL INH SCH ×2 (07:07→19:16)
[2021-05-16] MEDS: ACETYLCYSTEINE 10% INHAL SOLN 4 ML **DISPENSED BY RESP. INH SCH ×2 (07:07→19:16)
[2021-05-16] MEDS: FLUTICASONE/VILANTEROL 200/25MCG 14 PUFFS/INHALER INH SCH (08:15)
[2021-05-16] MEDS: DOXAZosin MESYLATE 4 MG TAB PO SCH ×2 (08:16→19:48)
[2021-05-16] MEDS: BUMETANIDE 1 MG TAB PO SCH (08:16)
[2021-05-16] MEDS: FOLIC ACID 1 MG TAB PO SCH (08:16)
[2021-05-16] MEDS: ESCITALOPRAM OXALATE 20 MG TAB PO SCH (08:16)
[2021-05-16 08:17] LABS: Hematocrit (blood only) 27.6 % (42-52); Hemoglobin 7.7 g/dL (14.0-18.0); Mean Corpuscular Hemoglobin 27.4 pg (25-34); Mean Corpuscular Hgb Conc 27.9 g/dL (32-36); Mean Corpuscular Volume 98.2 fL (80-100); Mean Platelet Volume 10.6 fL (7.4-10.4); Platelet Count 107 K/uL (130-400); RDW Coefficient of Variation 17.2 % (11.5-14.5); RDW Standard Deviation 61.1 fL (36.4-46.3); Red Blood Count 2.81 M/uL (4.7-6.1)
[2021-05-16] MEDS: CYANOCOBALAMIN 500 MCG TABLET (VITAMIN B-12) PO SCH (08:17)
[2021-05-16] MEDS: predniSONE 2.5 MG TAB PO SCH (08:17)
[2021-05-16 08:48] LABS: INR 1.2 (0.9-1.1); Partial Thromboplastin Ratio 1.6; Partial Thromboplastin Time 41.3 Seconds (21.0-31.0)
[2021-05-16 09:48] LABS: Albumin Globulin Ratio 1.4 (0.9-2); Albumin Level 2.7 gm/dl (3.4-5.0); BUN Creatinine Ratio 15.8 (10-20); Calcium 8.2 mg/dl (8.5-10.1); Creatinine Clr Calc Pharmacy 75.5 ml/min; Est GFR (African American) 98.7 ml/min; Est GFR (Non-African American) 85.2 ml/min; Globulin 1.9 gm/dl (2.5-4.0); Magnesium 2.3 mg/dl (1.8-2.4); Total Protein 4.6 gm/dl (6.4-8.2)
[2021-05-16 10:21] LABS: Potassium 3.5 mmol/L (3.5-5.1)
[2021-05-16 11:46] LABS: Partial Thromboplastin Ratio 1.4; Partial Thromboplastin Time 36.5 Seconds (21.0-31.0)
[2021-05-16] MEDS ORDERED: HEPARIN SOD (PORCINE) 1000 UNIT/ML IV ONE ×2 (12:15→19:15)
--- NOTE | 2021-05-16 12:30 | Hospitalist Progress Note ---
Date of Service May 16, 2021 Assessment & Plan (1) GIB (gastrointestinal bleeding): Plan: GI bleed of unspecified source. EGD on 05/12 showed gastritis, but no real culprit lesion that would cause a hgb of 4.9. Risk factors include chronic steroid use & chronic anticoagulation. - S/p 4 units of PRBCs on 05/11-05/12 -> Hgb down to 7.7 on 05/13. Stable on 05/14 & 05/15 &05/16 - Continue PPI PO BID - GI consulted - Colonoscopy on 05/14 showed diverticula, but no active bleeding. GI felt this was likely a diverticular bleed. Avoid NSAIDs on discharge. (2) Chronic anticoagulation: Plan: For permanent afib. Coumadin initially on hold - reversed with vitamin K. - Discussed with Dr. Feng on 05/14. -> Restarted anticoagulation on 05/15 with no bolus, low-dose heparin and restart warfarin. Per Dr. Feng would like bridged until INR is >1.5. At that point, given bleeding risk, will stop heparin gtt and continue with just his warfarin. Likely in the hospital until Tuesday/Tuesday. He is at baseline functional status with family caring for him, so he can be discharged home. - INR currently 1.2 (3) Anemia: Plan: Acute on chronic. MCV was 109 on admission. - Started on iron in November - B12 level was 1500 & folate >20 in 10/2020 -> Unlikely to be cause of his macrocytosis. MTX can do this as well, but I believe with folate supplement, it should be prevented. -> Repeat B12/folate showed 1120 & 8.8. Continue supplements. (4) Low back pain: Plan: - Chronic Tylenol PRN (5) Arthritis: Plan: RA multiple sites- mostly his shoulders and hips at this time. - Continue MTX and prednisone - Received bursa injection in - Follows with [facility] rheumatology (6) Chronic venous stasis dermatitis of both lower extremities: Plan: - Continue with tubigrip and SCDs (7) Chronic acquired lymphedema: Plan: As above (8) Hemiplegia, post-stroke: Plan: Hemiplegia with coughing. 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 Recs: - Minced moist diet - Aspiration precautions- OOB when eating with oral hygiene (10) Hypertension: Plan: BP today is adequate Controlled only with Bumex. - Continue Bumex (11) Vitamin B12 deficiency: Plan: Hx of. Last check B12 was well above normal. - Restarted oral med (12) COPD (chronic obstructive pulmonary disease): Plan: No shortness of breath today while in bed. - Continue PAULINO,/ and LABA/ICS Admission and Anticipated Discharge Date Admission Date: May 11, 2021 Subjective Patient is seen at the bedside. Reports some intermittent positional back discomfort, otherwise unchanged from prior. Denies fever, chills, sweats. Denies bleeding. Denies chest pain, chest pressure, headache, lightheadedness, dizziness, orthopnea. Updated on plan at time of assessment, no additional questions/concerns Review of Systems Review of Systems: All systems reviewed & are unremarkable except as noted in Subjective Physical Exam Physical Exam: General: A&Ox3. NAD. Cooperative. Sitting up in chair at time of assessment HEENT: Atraumatic, normocephalic. Visual acuity and hearing grossly intact Pulm: CTAB A&P. -wheezes, -rales, -rhonchi. Symmetrical chest rise. No increase in work of breathing. No respiratory distress. Cardiac: RRR, -mrg. Radial pulses intact and symmetrical. Abdominal: Nontender, nondistended, soft. BS present. Results & Data Results & Data ([facility]) Vital Signs (Past 12 Hours) Vital Signs Temp Pulse Pulse Resp BP Pulse Ox 05/16/21 11:34 37.0 C 62 18 120/57 L 94 05/16/21 07:23 36.5 C 63 18 118/69 96 05/16/21 07:08 58 L 16 92 05/16/21 02:42 36.7 C 60 19 131/61 93 PG Care Time/CCT Total # of Minutes Spent Total Time Spent with Patient: Total time spent is greater than 50% in coordination of care (as documented) at patient's floor/unit and/or counseling patient: Coding Level of Care Code 79796 Subseq Hosp Care Lvl 2 Diagnoses GIB (gastrointestinal bleeding) K92.1 GI bleed type/associated pathology: melena Chronic anticoagulation Z79.01 Anemia D64.9 Anemia type: unspecified type Low back pain M54.5 Arthritis M19.90 Chronic venous stasis dermatitis of both lower extremities I87.2 Chronic acquired lymphedema I89.0 Hemiplegia, post-stroke I69.359 Dysphagia as late effect of cerebrovascular accident (CVA) I69.391 Hypertension I10 Vitamin B12 deficiency E53.8 COPD (chronic obstructive pulmonary disease) J44.9 (1) GIB (gastrointestinal bleeding) GI bleed type/associated pathology: melena Qualified Code(s): K92.1 - Melena (2) Anemia Anemia type: unspecified type Qualified Code(s): D64.9 - Anemia, unspecified
[2021-05-16] MEDS: traMADol HCL 50 MG TABLET PO PRN (15:26)
[2021-05-16] MEDS: WARFARIN SOD 3 MG TAB PO SCH (16:56)
[2021-05-16 18:42] LABS: Partial Thromboplastin Ratio 0.8; Partial Thromboplastin Time 20.5 Seconds (21.0-31.0)
[2021-05-16] MEDS: HEPARIN SODIUM/DEXTROSE 25,000 UNITS/500 ML BAG IV SCH (18:43)
[2021-05-16] MEDS: ACETAMINOPHEN 325 MG TAB PO SCH (19:47)
[2021-05-16] MEDS: traMADol HCL 50 MG TABLET PO SCH (19:47)
[2021-05-16] MEDS: SIMVASTATIN 40 MG TAB PO SCH (19:48)
[2021-05-16] MEDS: MELATONIN 3 MG TAB PO SCH (19:48)
[2021-05-17 02:03] LABS: Partial Thromboplastin Ratio 1.1; Partial Thromboplastin Time 29.1 Seconds (21.0-31.0)
[2021-05-17] MEDS ORDERED: HEPARIN SOD (PORCINE) 1000 UNIT/ML IV ONE (02:45)
[2021-05-17] MEDS: ALBUTEROL 0.083% NEBU SOLN 3 ML VIAL INH SCH ×2 (07:38→19:18)
[2021-05-17] MEDS: ACETYLCYSTEINE 10% INHAL SOLN 4 ML **DISPENSED BY RESP. INH SCH ×2 (07:38→19:18)
[2021-05-17 09:12] LABS: Eosinophils # (auto) 0.21 K/uL (0-0.5); Hematocrit (blood only) 26.9 % (42-52); Hemoglobin 7.8 g/dL (14.0-18.0); Immature Granulocytes # (auto) 0.05 K/uL (0.00-0.02); Immature Granulocytes % (auto) 0.9 %; Lymphocytes # (auto) 0.33 K/uL (1.2-3.4); Lymphocytes % (auto) 6.3 %; Mean Corpuscular Hemoglobin 28.1 pg (25-34); Mean Corpuscular Volume 96.8 fL (80-100); Mean Platelet Volume 11.1 fL (7.4-10.4); Monocytes # (auto) 0.45 K/uL (0.11-0.59); Monocytes % (auto) 8.5 %; Neutrophils # (auto) 4.23 K/uL (1.4-6.5); Neutrophils % (auto) 80.3 %; Platelet Count 111 K/uL (130-400); RDW Coefficient of Variation 17.2 % (11.5-14.5); RDW Standard Deviation 59.1 fL (36.4-46.3); Red Blood Count 2.78 M/uL (4.7-6.1); White Blood Count 5.27 K/uL (4.8-10.8)
[2021-05-17] MEDS: CYANOCOBALAMIN 500 MCG TABLET (VITAMIN B-12) PO SCH (09:12)
[2021-05-17] MEDS: FOLIC ACID 1 MG TAB PO SCH (09:12)
[2021-05-17] MEDS: BUMETANIDE 1 MG TAB PO SCH ×2 (09:12→20:55)
[2021-05-17] MEDS: DOXAZosin MESYLATE 4 MG TAB PO SCH ×2 (09:12→20:55)
[2021-05-17] MEDS: predniSONE 2.5 MG TAB PO SCH (09:13)
[2021-05-17] MEDS: ESCITALOPRAM OXALATE 20 MG TAB PO SCH (09:13)
[2021-05-17] MEDS: FLUTICASONE/VILANTEROL 200/25MCG 14 PUFFS/INHALER INH SCH (09:13)
[2021-05-17 09:33] LABS: RBC Morphology Unremarkable
[2021-05-17 09:37] LABS: INR 1.3 (0.9-1.1); Partial Thromboplastin Ratio 3.3; Prothrombin Time 12.6 Seconds (9.0-12.0)
[2021-05-17 09:50] LABS: Partial Thromboplastin Time 86.3 Seconds (21.0-31.0)
--- NOTE | 2021-05-17 14:16 | Hospitalist Progress Note ---
Date of Service May 17, 2021 Assessment & Plan (1) GIB (gastrointestinal bleeding): Plan: GI bleed of unspecified source. EGD on 05/12 showed gastritis, but no real culprit lesion that would cause a hgb of 4.9. Risk factors include chronic steroid use & chronic anticoagulation. - S/p 4 units of PRBCs on 05/11-05/12 -> Hgb down to 7.7 on 05/13. Stable on 05/14 to present Uptrending 05/17/2021 - Continue PPI PO BID - GI consulted - Colonoscopy on 05/14 showed diverticula, but no active bleeding. GI felt this was likely a diverticular bleed. Avoid NSAIDs on discharge. (2) Chronic anticoagulation: Plan: For permanent afib. Coumadin initially on hold - reversed with vitamin K. - Discussed with Dr. Feng on 05/14. - Restarted anticoagulation on 05/15 with no bolus, low-dose heparin and restart warfarin. -Per Dr. Feng would like bridged until INR is >1.5. At that point, given bleeding risk, will stop heparin gtt and continue with just his warfarin. Likely in the hospital until Tuesday/Tuesday. He is at baseline functional status with family caring for him, so he can be discharged home. - INR currently uptrending, not yet 1.5 (3) Anemia: Plan: Acute on chronic. MCV was 109 on admission. - Started on iron in November - B12 level was 1500 & folate >20 in 10/2020 -> Unlikely to be cause of his macrocytosis. MTX can do this as well, but I believe with folate supplement, it should be prevented. -> Repeat B12/folate showed 1120 & 8.8. Continue supplements. (4) Low back pain: Plan: - Chronic Tylenol PRN (5) Arthritis: Plan: RA multiple sites- mostly his shoulders and hips at this time. - Continue MTX and prednisone - Received bursa injection in - Follows with [facility] rheumatology (6) Chronic venous stasis dermatitis of both lower extremities: Plan: - Continue with tubigrip and SCDs Patient also with chronic fluid retention responsive to Bumex. Somewhat increased welling today. Recommended continued leg elevation and venous stasis interventions. Discussed with daughter at bedside who is extremely concerned about additional swelling, and strongly prefers a trial of Bumex twice daily. Previous creatinine normal, discussed for/benefits of this and that with chronic venous stasis mobilization of fluid is equally as important as diuresis. will add on twice daily dosing with creatinine check for today. (7) Chronic acquired lymphedema: Plan: As above (8) Hemiplegia, post-stroke: Plan: Hemiplegia with coughing. 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 Recs: - Minced moist diet - Aspiration precautions- OOB when eating with oral hygiene (10) Hypertension: Plan: BP today is adequate Controlled only with Bumex. - Continue Bumex (11) Vitamin B12 deficiency: Plan: Hx of. Last check B12 was well above normal. - Restarted oral med (12) COPD (chronic obstructive pulmonary disease): Plan: No shortness of breath today while in bed. - Continue PAULINO,/ and LABA/ICS Admission and Anticipated Discharge Date Admission Date: May 11, 2021 Subjective Patient seen at the bedside in the morning, and again in the afternoon with his daughter. He has had some swelling at a site of infiltration from his IV on the right arm without bleeding. Has increased swelling in his legs compared to prior today. Otherwise unchanged. No chest pain, chest pressure, shortness of breath, difficulty breathing. Daughter seen at bedside, has various concerns about treatment and INR levels. Reviewed laboratory values including hemoglobin, INR, and overall progress. Patient has not had chest pain, chest pressure, nausea, vomiting, diarrhea, lightheadedness, dizziness today. Continues to have baseline right-sided weakness. Review of Systems Review of Systems: All systems reviewed & are unremarkable except as noted in Subjective Physical Exam Physical Exam: General: A&Ox3. NAD. Cooperative. Sitting up in chair at time of assessment HEENT: Atraumatic, normocephalic. Visual acuity and hearing grossly intact Pulm: CTAB A&P. -wheezes, -rales, -rhonchi. Symmetrical chest rise. No increase in work of breathing. No respiratory distress. Cardiac: RRR, -mrg. Radial pulses intact and symmetrical. Abdominal: Nontender, nondistended, soft. BS present. Extremities: Increased edema of lower extremities bilaterally. Right proximal arm with tissue edema, old sore on posterior distal upper arm without signs of erythema/warmth. Results & Data Results & Data ([facility]) Vital Signs (Past 12 Hours) Vital Signs Temp Pulse Pulse Resp BP Pulse Ox 05/17/21 07:38 58 L 18 96 05/17/21 07:21 54 L 05/17/21 07:18 36.6 C 57 L 16 145/65 H 96 05/17/21 06:23 58 L 05/17/21 04:07 36.6 C 44 L 16 124/57 L 99 PG Care Time/CCT Total # of Minutes Spent Total Time Spent with Patient: Total time spent is greater than 50% in coordination of care (as documented) at patient's floor/unit and/or counseling patient: Coding Level of Care Code 93504 Subseq Hosp Care Lvl 2 Diagnoses GIB (gastrointestinal bleeding) K92.1 GI bleed type/associated pathology: melena Chronic anticoagulation Z79.01 Anemia D64.9 Anemia type: unspecified type Low back pain M54.5 Arthritis M19.90 Chronic venous stasis dermatitis of both lower extremities I87.2 Chronic acquired lymphedema I89.0 Hemiplegia, post-stroke I69.359 Dysphagia as late effect of cerebrovascular accident (CVA) I69.391 Hypertension I10 Vitamin B12 deficiency E53.8 COPD (chronic obstructive pulmonary disease) J44.9 (1) GIB (gastrointestinal bleeding) GI bleed type/associated pathology: melena Qualified Code(s): K92.1 - Melena (2) Anemia Anemia type: unspecified type Qualified Code(s): D64.9 - Anemia, unspecified
[2021-05-17] MEDS: HEPARIN SODIUM/DEXTROSE 25,000 UNITS/500 ML BAG IV SCH (15:36)
[2021-05-17] MEDS: WARFARIN SOD 3 MG TAB PO SCH (15:37)
[2021-05-17 18:03] LABS: Partial Thromboplastin Ratio 2.8
[2021-05-17 18:12] LABS: Partial Thromboplastin Time 74.3 Seconds (21.0-31.0)
[2021-05-17] MEDS: MELATONIN 3 MG TAB PO SCH (20:55)
[2021-05-17] MEDS: SIMVASTATIN 40 MG TAB PO SCH (20:55)
[2021-05-17] MEDS: traMADol HCL 50 MG TABLET PO SCH (21:02)
[2021-05-17] MEDS: ACETAMINOPHEN 325 MG TAB PO SCH (21:02)
[2021-05-18 01:07] LABS: Partial Thromboplastin Ratio 3.9
[2021-05-18 01:10] LABS: Partial Thromboplastin Time 102.1 Seconds (21.0-31.0)
[2021-05-18 06:03] LABS: Basophils # (auto) 0.01 K/uL (0-0.2); Basophils % (auto) 0.2 %; Eosinophils # (auto) 0.16 K/uL (0-0.5); Eosinophils % (auto) 2.9 %; Hematocrit (blood only) 29.3 % (42-52); Hemoglobin 8.6 g/dL (14.0-18.0); Immature Granulocytes # (auto) 0.06 K/uL (0.00-0.02); Immature Granulocytes % (auto) 1.1 %; Mean Corpuscular Hemoglobin 28.5 pg (25-34); Mean Corpuscular Hgb Conc 29.4 g/dL (32-36); Mean Platelet Volume 10.8 fL (7.4-10.4); Monocytes # (auto) 0.18 K/uL (0.11-0.59); Monocytes % (auto) 3.3 %; Neutrophils # (auto) 4.42 K/uL (1.4-6.5); Neutrophils % (auto) 81.5 %; Platelet Count 121 K/uL (130-400); RDW Coefficient of Variation 17.6 % (11.5-14.5); RDW Standard Deviation 60.3 fL (36.4-46.3); Red Blood Count 3.02 M/uL (4.7-6.1); White Blood Count 5.43 K/uL (4.8-10.8)
[2021-05-18 06:31] LABS: BUN Creatinine Ratio 11.6 (10-20); Calcium 8.3 mg/dl (8.5-10.1); Creatinine Clr Calc Pharmacy 63.2 ml/min; Est GFR (African American) 91.9 ml/min; Est GFR (Non-African American) 79.3 ml/min; Potassium 3.2 mmol/L (3.5-5.1)
[2021-05-18 06:43] LABS: INR 1.5 (0.9-1.1); Partial Thromboplastin Ratio 2.5; Prothrombin Time 14.7 Seconds (9.0-12.0)
[2021-05-18 06:44] LABS: Partial Thromboplastin Time 66.6 Seconds (21.0-31.0)
[2021-05-18] MEDS: ACETYLCYSTEINE 10% INHAL SOLN 4 ML **DISPENSED BY RESP. INH SCH ×2 (07:39→08:50)
[2021-05-18] MEDS: ALBUTEROL 0.083% NEBU SOLN 3 ML VIAL INH SCH ×2 (07:39→08:44)
--- NOTE | 2021-05-18 07:52 | Electrocardiogram Report ---
Test Reason : Blood Pressure : / mmHG Vent. Rate : 058 BPM Atrial Rate : 058 BPM P-R Int : 000 ms QRS Dur : 146 ms QT Int : 530 ms P-R-T Axes : 000 -10 -08 degrees QTc Int : 520 ms Atrial fibrillation with frequent wide complex beats Right bundle branch block Abnormal ECG When compared with ECG of 12-MAY-2021 06:37, No significant change Confirmed by Jake Steen ([id number]) on 05/18/2021 7:52:17 AM Referred By: REFERRED SELF Confirmed By:Jake Steen
[2021-05-18] MEDS: BUMETANIDE 1 MG TAB PO SCH (08:16)
[2021-05-18] MEDS: FOLIC ACID 1 MG TAB PO SCH (08:17)
[2021-05-18] MEDS: ESCITALOPRAM OXALATE 20 MG TAB PO SCH (08:17)
[2021-05-18] MEDS: DOXAZosin MESYLATE 4 MG TAB PO SCH (08:17)
[2021-05-18] MEDS: predniSONE 2.5 MG TAB PO SCH (08:17)
[2021-05-18] MEDS: CYANOCOBALAMIN 500 MCG TABLET (VITAMIN B-12) PO SCH (08:17)
[2021-05-18] MEDS: FLUTICASONE/VILANTEROL 200/25MCG 14 PUFFS/INHALER INH SCH (08:18)
[2021-05-18 09:07] LABS: Partial Thromboplastin Ratio 2.2
[2021-05-18 09:15] LABS: Partial Thromboplastin Time 56.6 Seconds (21.0-31.0)
[2021-05-18] MEDS ORDERED: IRON SUCROSE 300 MG in SODIUM CHLORIDE 0.9% 250 ML IV ONE (11:00)
[2021-05-18] MEDS ORDERED: BUMETANIDE 2 MG in SYRINGE 0 ML IV ONE (15:07)
[2021-05-18] MEDS: WARFARIN SOD 3 MG TAB PO SCH (15:52)
--- NOTE | 2021-05-18 16:57 | Discharge Summary ---
Date of Service May 18, 2021 Admission HPI Per Admitting Provider 85 YOM with past medical history of: Multiple CVA- right pontine, right cerebellar (Coumadin and ASA for 2nd prevention),chronic edema, chronic right lower leg wound, HFpEF, afib, COVID 19 03/05, RA(on chronic steroids and MTHX), COPD. Patient comes to the [facility] today for increase in fatigue, dyspnea with exertion, and blood in stool. Patient daughter at bedside to assist in providing information, states that over the last week he has had increase in fatigue, noted increase dyspnea with exertion and thought possibly related to his hx of CHF. Today he experienced some blood streaking in his stools. She states that his stools have been dark over the past 2 months as he was started on iron pill for slowly down trending HGB in the past. She also states that over the past 2 months he has been complaining of stomach discomfort and nausea in the morning that goes away as the day goes on, but may come back in the afternoon. In the [facility] the patient had routine labs drawn, ECG done. His CBC came back notable for HGB of 5.0, HCT 18.1 with MCV of 107; his INR was 2.3. Patient was type and crossed, consent for blood obtained by [facility] physician Dr. Pierce and ordered 2u PRBC for transfusion. He was given 10mg IV VItamin K, and initiated on Protonix drip. Hospitalist service was notified for admission. he will be admitted for suspected UGI bleed with anemia, likely in the setting of daily steroid use, warfarin. He is on Omeprazole 40mg daily. Will keep patient NPO except for essential medications, hold Coumadin, diurese between PRBC, trend HGB, consult GI for evaluation and possible EGD. Patient has normal HR and MAPS 68, His BUN and PAINTER SKI EDGE are stable. Continue with neurological exams while holding his CVA prevention. Patient is on Coumadin and ASA as above for secondary stroke prevention, his las t CVA was in 2019 when he was subtherapeutic on his Coumadin as well, he will likely need bridged following acute work up of his anemia and evaluation by GI. Daughter is stressed about having to reverse and hold his antiplatelet medication/Coumadin, but she does understand that need to identify and treat his low blood levels at this time. The patient is on methotrexate and Prednisone daily for his RA- will convert his prednisone to IV methylprednisone while NPO. Principal Diagnosis Likely diverticular bleed Discharge Exam Constitutional WD/WN, vitals as above Eyes EOM intact bilaterally; no conjunctival abnormality ENMT external ear and nose normal, oropharynx normal Neck trachea midline, no thyromegaly normal visual inspection Respiratory normal respiratory effort, lungs clear to auscultation no respiratory distress Cardiovascular RRR, no murmur, no edema Gastrointestinal (Abdomen) Inspection/Auscultation: abdomen normal to inspection; abdomen not distended Musculoskeletal no cyanosis or clubbing, extremities motor strength 5/5 Extremities: + abnormal strength Skin no rashes, warm and dry Neurologic awake Psychiatric Orientation: alert, oriented to person and cooperative Discharge Data Allergies Allergy/AdvReac Type Severity Reaction Status Date / Time gabapentin AdvReac Severe Swelling Verified 05/11/21 16:54 hydrocodone AdvReac Severe EXCESSIVE Verified 05/11/21 16:54 DRY MOUTH AND SHAKING Consultations 05/11/21 17:48 Consult Gastroenterology Routine ED Decision to Admit Stat 05/11/21 21:56 Consult Gastroenterology Routine Procedures Performed Operation Date: 05/12/21 10:55 Actual Procedures p Esophagogastroduodenoscopy with bx - Shabbir Petersen MD Operation Date: 05/14/21 08:30 Actual Procedures p Colonoscopy - Shabbir Petersen MD Hospital Course (1) GIB (gastrointestinal bleeding): GI bleed of unspecified source. EGD on 05/12 showed gastritis, but no real culprit lesion that would cause a hgb of 4.9. Risk factors include chronic steroid use & chronic anticoagulation. - S/p 4 units of PRBCs on 05/11-05/12 -> Hgb down to 7.7 on 05/13. Stable at 7.8 on 05/14 & 05/15. - GI consulted - Colonoscopy on 05/14 showed diverticula, but no active bleeding. GI felt this was likely a diverticular bleed. Avoid NSAIDs on discharge. (2) Chronic anticoagulation: For permanent afib. Coumadin initially on hold - reversed with vitamin K. - Discussed with Dr. Feng on 05/14. -> Restarted anticoagulation on 05/15 with no bolus, low-dose heparin and restart warfarin. Bridged until INR was 1.5. Cleared to go by Dr. Feng. Will check INR at home tomorrow. (3) Chronic right-sided congestive heart failure: Had some swelling on admission which remained. Initially his Bumex was held for low BPs, but this was restarted and eventually up to Bumex 2 mg PO BID (slightly higher than home dose). - On discharge, weight was 81 kg which is lower than priors. However, he cannot do a standing weight due to his prior stroke, so it is unclear how accurate this is. - F/u with Annika Schulte in the clinic. (4) Anemia: Acute on chronic. MCV was 109 on admission. - Started on iron in November - B12 level was 1500 & folate >20 in 10/2020 -> Unlikely to be cause of his macrocytosis. MTX can do this as well, but I believe with folate supplement, it should be prevented. -> Repeat B12/folate showed 1120 & 8.8. Continue supplements. - S/p 2 doses of Venofer while in the hospital. (5) Low back pain: - Chronic Tylenol PRN (6) Arthritis: RA multiple sites- mostly his shoulders and hips at this time. - Continue MTX and prednisone - Received bursa injection in - Follows with [facility] rheumatology (7) Chronic venous stasis dermatitis of both lower extremities: - Continue with tubigrip and SCDs (8) Chronic acquired lymphedema: As above (9) Hemiplegia, post-stroke: Hemiplegia with coughing. 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 Recs: - Minced moist diet - Aspiration precautions- OOB when eating with oral hygiene (11) Hypertension: BP today is 115/60. Controlled only with Bumex. - Continue Bumex (12) Vitamin B12 deficiency: Hx of. Last check B12 was well above normal. - Restarted oral med (13) COPD (chronic obstructive pulmonary disease): No shortness of breath today while in bed. - Continue PAULINO,/ and LABA/ICS Total Time Total Time Spent Total Time Spent (In Minutes): 35 Discharge Plan Discharge Items Patient Disposition: Home - Home Health Services Reason For Visit: ANEMIA, FATIGUE, DARK STOOLS Discharge Diagnosis: Likely diverticular bleed Activity: Resume your previous activity Non-emergency contact: Primary Care Provider and Warehouse Hand Call non-emergency contact if: your symptoms worsen Follow-up/Referrals: Allyssa Martinez CRNP [Primary Care Provider] - Delvin Feng MD [Physician] - (Please see Dr. Feng in the clinic in 1-2 weeks.) Diet: Heart Healthy Addtl Attending Provider Instructions: Mr. Weaver, You were admitted to the hospital with a GI bleed that was most likely from the large intestine (colon) that was from a diverticulum. These are small outpouchings in the colon that have fragile skin and can bleed fairly easily. Luckily, the bleeding is also fairly self-limited and usually does not require additional surgery or other procedures. In the hospital, you received 4 units of blood and 2 infusions of IV iron to help your bone marrow rebuild your blood supply. Your hemoglobin has stayed stable here even as we restarted your anticoagulation and kept you on heparin to keep your blood thin. Per Dr. Feng's instructions, we gave you the IV heparin until your INR was 1.5. We will let your warfarin finish taking effect over the next day or so. We need to be careful not to over-thin your blood to avoid causing another bleed. Please speak with Dr. Feng about your aspirin 81 mg. I think you can stop this for now and see if he feels strongly about restarting it. For now (until you see Annika Schulte), please take Bumex 2 mg by mouth twice a day. Please see Dr. Feng in the clinic in 1-2 weeks. Pending Studies at Discharge: No Stand-Alone Forms: My [facility] [employer], Smoking Cessation Medications and DC Order Prescriptions: Continued simvastatin 40 mg tablet 40 mg PO HS Qty: 90 RF: 3 doxazosin 4 mg tablet 4 mg PO BID Qty: 180 RF: 3 (DME) lift chair See Rx Instructions .Route .MEDSUPPLY Qty: 1 RF: 0 fluticasone propion-salmeterol [Advair Diskus] 250-50 mcg/dose blister with device 1 inh INHALATION BID Qty: 180 RF: 3 omeprazole 40 mg capsule,delayed release(DR/EC) 40 mg PO QAM Qty: 90 RF: 3 acetylcysteine 100 mg/mL (10 %) solution 2 ml inhalation BID Qty: 90 RF: 5 bumetanide 1 mg tablet See Rx Instructions PO DIRECTED Qty: 90 RF: 2 escitalopram oxalate 20 mg tablet 20 mg PO DAILY Qty: 90 RF: 3 tramadol 50 mg tablet 100 mg PO .COMPLEX PRN (Reason: pain, severe) Qty: 120 RF: 1 warfarin 3 mg tablet 3 mg PO DAILY Qty: 90 RF: 3 prednisone 10 mg tablet 20 mg PO DAILY Qty: 14 RF: 0 docusate sodium [Colace] 100 mg Capsule 100 mg PO HS RF: 0 folic acid 1 mg Tablet 1 mg PO QAM RF: 0 prednisone 5 mg tablet 7.5 mg PO QAM RF: 0 cyanocobalamin (vitamin B-12) [Vitamin B-12] 1,000 mcg tablet 1,000 mcg PO QAM RF: 0 polyethylene glycol 3350 [Miralax] 17 gram Powder In Packet 17 g PO QAM RF: 0 methotrexate sodium 2.5 mg tablet 10 mg PO WK RF: 0 albuterol sulfate 2.5 mg /3 mL (0.083 %) solution for nebulization 2.5 mg inhalation BID RF: 0 potassium chloride 20 mEq tablet extended release 20 meq PO QAM RF: 0 ferrous sulfate 325 mg (65 mg iron) Tablet,Delayed Release (Dr/Ec) 325 mg PO DAILY@1100 Qty: 30 RF: 2 cholecalciferol (vitamin D3) [Vitamin D3] 25 mcg (1,000 unit) tablet 1,000 unit PO QAM RF: 0 Discontinued aspirin 81 mg Tablet,Delayed Release (Dr/Ec) 81 mg PO QAM RF: 0 Discharge Orders: Discharge Order (Routine); Ordered 05/18/21 Ordered By: Preston Mathur Admission Data Admit Date/Time: 05/11/21 18:42 Attending Provider: Preston Mathur Admit Provider: Isaias Ingram Primary Care Provider: Allyssa Martinez Other Providers: Shabbir Petersen ; [facility] ; Isaias Ingram ; Preston Mathur Other Interventions: Discharge Summary Assessment (RN) Last Done: 05/18/21 14:47 Coding Level of Care Code D/C DAY MANAGEMENT >30 MINS Diagnoses GIB (gastrointestinal bleeding) K92.1 GI bleed type/associated pathology: melena Chronic anticoagulation Z79.01 Anemia D64.9 Anemia type: unspecified type Low back pain M54.5 Arthritis M19.90 Chronic venous stasis dermatitis of both lower extremities I87.2 Chronic acquired lymphedema I89.0 Hemiplegia, post-stroke I69.359 Dysphagia as late effect of cerebrovascular accident (CVA) I69.391 Hypertension I10 Vitamin B12 deficiency E53.8 COPD (chronic obstructive pulmonary disease) J44.9 Chronic right-sided congestive heart failure I50.812
== END 2021-05-18 17:20 | disposition home health service (06) | DRG 378 ==
LOC: ED 14:34 → SUATTDRO 18:42 → EDINP 18:42 → 2N 21:38